=== PATIENT | male | born 1955 | race Caucasian/White ===

== ENCOUNTER 2018-10-07 14:14 | Inpatient (IN) | payer OTHER, MEDICARE ==
--- NOTE | 2018-10-07 15:27 | ED ---
ENT HPI - General Chief complaint: ENT Stated complaint: FB in ear Time Seen by Provider: 10/07/18 14:51 Source: patient Mode of arrival: ambulatory - History of Present Illness Initial comments: Patient is 62 oh male presents emergency Department with a foreign body in his right ear. Patient reports he was attempting to remove his over the ear hearing aid when the rubber to from the small piece that is lodged inside the ear canal. Patient reports that incident occurred yesterday and is now starting to develop pain. Patient denies tinnitus, nausea, vomiting, dizziness or lightheadedness. Patient denies discharge or bleeding from the ear. Patient denies taking any medication to alleviate the pain. Patient reports going to the [facility] for removal referred him to emergency department. - Related Data Home Medications Medication Instructions Recorded Confirmed Atorvastatin [Lipitor] 40 mg PO HS 10/07/18 10/07/18 Donepezil HCl [Aricept] 10 mg PO DAILY 10/07/18 10/07/18 INSULIN ASPART (NovoLOG) [NovoLOG 100 unit SQ AC-TID 10/07/18 10/07/18 (formulary)] Insulin Glargine [Lantus] 100 unit SQ BID 10/07/18 10/07/18 Lansoprazole 30 mg PO DAILY 10/07/18 10/07/18 Levothyroxine Sodium [Synthroid] 100 mcg PO DAILY 10/07/18 10/07/18 Lipase/Protease/Amylase [Creon Dr 24,000 units PO AC-TID 10/07/18 10/07/18 24,000 Units Capsule] Lisinopril [Zestril] 20 mg PO DAILY 10/07/18 10/07/18 Memantine [Namenda] 10 mg PO BID 10/07/18 10/07/18 Nystatin 100,000Unit/gm Cream 1 applic TOPICAL DAILY 10/07/18 10/07/18 [Mycostatin Cream] Oxybutynin Chloride 5 mg PO BID 10/07/18 10/07/18 Propranolol HCl 20 mg PO TID 10/07/18 10/07/18 QUEtiapine [SEROquel] 100 mg PO HS 10/07/18 10/07/18 Sertraline HCl [Zoloft] 100 mg PO DAILY 10/07/18 10/07/18 Tamsulosin HCl [Flomax] 0.4 mg PO DAILY 10/07/18 10/07/18 Trospium Chloride 20 mg PO DAILY 10/07/18 10/07/18 metFORMIN HCL 1,000 mg PO BID 10/07/18 10/07/18 Allergies Allergy/AdvReac Type Severity Reaction Status Date / Time Sulfa (Sulfonamide Allergy Swelling Verified 10/07/18 16:50 Antibiotics) Review of Systems ROS Statement: Those systems with pertinent positive or pertinent negative responses have been documented in the HPI. ROS Other: All systems not noted in ROS Statement are negative. Past Medical History Past Medical History: Diabetes Mellitus, Hyperlipidemia, Hypertension Additional Past Medical History / Comment(s): Hyperthyroidism, Pancreatitis History of Any Multi-Drug Resistant Organisms: MRSA MDRO Source:: 2018 Past Surgical History: Appendectomy, Cholecystectomy Additional Past Surgical History / Comment(s): Hernia repair Past Psychological History: No Psychological Hx Reported Smoking Status: Never smoker Past Alcohol Use History: None Reported Past Drug Use History: None Reported General Exam Limitations: no limitations General appearance: alert, in no apparent distress Head exam: Present: atraumatic, normocephalic, normal inspection Eye exam: Present: normal appearance, PERRL, EOMI Pupils: Present: normal accommodation ENT exam: Present: mucous membranes moist, TM's normal bilaterally. Absent: normal external ear exam (Foreign body in right external ear canal) Neck exam: Present: normal inspection, full ROM Respiratory exam: Present: normal lung sounds bilaterally Cardiovascular Exam: Present: normal rhythm, tachycardia, normal heart sounds Extremities exam: Present: normal inspection, full ROM Back exam: Present: normal inspection, full ROM Neurological exam: Present: alert, oriented X3 Psychiatric exam: Present: normal affect, normal mood Skin exam: Present: warm, intact, normal color Course Vital Signs 10/07/18 10/07/18 10/07/18 14:44 15:30 16:09 Temperature 98.1 F Pulse Rate 119 H 133 H 134 H Respiratory 18 18 18 Rate Blood Pressure 133/77 115/74 106/70 O2 Sat by Pulse 95 98 96 Oximetry 10/07/18 16:53 Temperature Pulse Rate 135 H Respiratory 18 Rate Blood Pressure 128/81 O2 Sat by Pulse 95 Oximetry Procedures - Foreign Body Removal Ear Location: ear canal (R) Foreign Body Suspected: plastic bead/other plastic If Insect Suspected: no insect seen Foreign Body Removed: yes Foreign Body Removal Technique: forceps Tympanic Membrane Intact: Yes Patient Tolerated Procedure: well Complications: none Medical Decision Making - Medical Decision Making Patient is a 62-year-old male presents emergency Department with a foreign body in the right ear. The plastic piece from the hearing aid was removed from her right ear using alligator forceps. Patient reports feeling much better after the procedure. Upon discharge the patient's heart rate was 135. EKG was obtained showing atrial flutter with 2:1 conduction. Patient reports no previous history of arrhythmias. Patient is on blood pressure medication. Patient denies lightheadedness, dizziness, chest pain, chest palpitation, chest tightness or shortness of breath. Patient reports that he otherwise feels fine at this point patient will be admitted for close monitoring. Patient will be started on a low intensity heparin and Cardizem. ACS protocol started. - Lab Data Result diagrams: 10/07/18 16:02 10/07/18 17:45 Lab Results 10/07/18 10/07/18 10/07/18 Range/Units 16:02 16:02 16:02 WBC 6.1 (3.8-10.6) k/uL RBC 4.69 (4.30-5.90) m/uL Hgb 14.8 (13.0-17.5) gm/dL Hct 44.9 (39.0-53.0) % MCV 95.7 (80.0-100.0) fL MCH 31.5 (25.0-35.0) pg MCHC 32.9 (31.0-37.0) g/dL RDW 13.4 (11.5-15.5) % Plt Count 161 (150-450) k/uL Neutrophils % 56 % Lymphocytes % 32 % Monocytes % 5 % Eosinophils % 5 % Basophils % 1 % Neutrophils # 3.4 (1.3-7.7) k/uL Lymphocytes # 1.9 (1.0-4.8) k/uL Monocytes # 0.3 (0-1.0) k/uL Eosinophils # 0.3 (0-0.7) k/uL Basophils # 0.1 (0-0.2) k/uL PT 10.8 (9.0-12.0) sec INR 1.0 (<1.2) APTT 24.5 (22.0-30.0) sec D-Dimer 1.09 H (<0.60) mg/L FEU Troponin I <0.012 (0.000-0.034) ng/mL Disposition Clinical Impression: Foreign body of ear, right, Atrial flutter Disposition: ADMITTED IP TO THIS HOSP Condition: Stable Is patient prescribed a controlled substance at d/c from ED?: No Time of Disposition: 15:26
[2018-10-07] MEDS ORDERED: DILTIAZEM 5 MG/ML 5 ML VIAL IVP STA ×2 (15:57→18:34)
[2018-10-07] MEDS ORDERED: HEPARIN SODIUM,PORCINE 5,000 UNIT/ML 1 ML VIAL IV ONE (16:09)
[2018-10-07] MEDS ORDERED: NITROGLYCERIN SL TABS 0.4 MG TAB SUBLINGUAL PRN (16:13)
[2018-10-07] MEDS ORDERED: HEPARIN SOD,PORK IN 0.45% NACL 25,000 UNIT in 0.45% NACL 1 250ML.BAG IV SCH (16:15)
[2018-10-07 16:17] LABS: Basophils # (A) 0.1 k/uL (0-0.2); Basophils % (A) 1 %; Eosinophils # (A) 0.3 k/uL (0-0.7); Eosinophils % (A) 5 %; HCT 44.9 % (39.0-53.0); HGB 14.8 gm/dL (13.0-17.5); Lymphocytes # (A) 1.9 k/uL (1.0-4.8); Lymphocytes % (A) 32 %; MCH 31.5 pg (25.0-35.0); MCHC 32.9 g/dL (31.0-37.0); MCV 95.7 fL (80.0-100.0); Mean Platelet Volume 7.1; Monocytes # (A) 0.3 k/uL (0-1.0); Monocytes % (A) 5 %; Neutrophils # (A) 3.4 k/uL (1.3-7.7); Neutrophils % (A) 56 %; Platelet Count 161 k/uL (150-450); RBC 4.69 m/uL (4.30-5.90); RDW 13.4 % (11.5-15.5); WBC 6.1 k/uL (3.8-10.6)
[2018-10-07 16:33] LABS: Partial Thromboplastin Time 24.5 sec (22.0-30.0); Prothrombin Time 10.8 sec (9.0-12.0)
[2018-10-07 16:54] LABS: D-Dimer 1.09 mg/L FEU (<0.60)
[2018-10-07] MEDS: DILTIAZEM 125 MG in SODIUM CHLORIDE 0.9% 100 ML IV SCH (16:54)
[2018-10-07] MEDS: SODIUM CHLORIDE 0.9% 1,000 ML IV SCH (17:05)
[2018-10-07 17:53] LABS: ALT 21 U/L (21-72); AST 34 U/L (17-59); African American GFR (CKD) >90 (>60 ml/min/1.73 sqM); Albumin 4.1 g/dL (3.5-5.0); Alkaline Phosphatase 76 U/L (38-126); Anion Gap 13 mmol/L; Blood Urea Nitrogen 25 mg/dL (9-20); Calcium 9.3 mg/dL (8.4-10.2); Carbon Dioxide 21 mmol/L (22-30); Chloride 102 mmol/L (98-107); Glucose 214 mg/dL (74-99); Potassium 4.6 mmol/L (3.5-5.1); Sodium 136 mmol/L (137-145); Total Bilirubin 0.8 mg/dL (0.2-1.3); Total Protein 7.6 g/dL (6.3-8.2)
[2018-10-07] MEDS ORDERED: DILTIAZEM DRIP BOLUS FROM BAG 1 MG SOLN IV ONE (18:34)
[2018-10-07] MEDS ORDERED: DILTIAZEM 5 MG/ML 5 ML VIAL IV STA (18:34)
--- NOTE | 2018-10-07 18:38 | CT ---
EXAMINATION TYPE: CT angio chest DATE OF EXAM: 10/07/2018 6:28 PM COMPARISON: None HISTORY: SOB CT DLP: 1019 mGycm Automated exposure control for dose reduction was used. CONTRAST: CTA scan of the thorax is performed with IV Contrast, patient injected with 100 mL of Isovue 370, pul monary embolism protocol. There are 3-D post processed images.. FINDINGS: The lungs are clear of consolidation. There is no pleural effusion. There is no evidence of a pulmona ry mass. There are a few mediastinal lymph nodes that measure up to 1 cm. Thoracic aorta is intact wi thout evidence of aneurysm or dissection. There are no hilar masses. There is normal contrast opacifi cation of the pulmonary arteries. There are no filling defects. There is spurring in the thoracic spine. I see no bony destructive process. Upper abdominal soft tiss ues are unremarkable. IMPRESSION: NO EVIDENCE OF PULMONARY EMBOLISM. NO EVIDENCE OF ACTIVE CARDIOPULMONARY DISEASE.
[2018-10-07 20:36] LABS: Glucose,Whole Blood 111 mg/dL (75-99)
[2018-10-07] MEDS: METOPROLOL TARTRATE 25 MG TAB PO SCH (21:21)
[2018-10-07 21:40] VITALS: BMI 45.1
[2018-10-07] MEDS: HEPARIN SODIUM,PORCINE 5,000 UNIT/ML 1 ML VIAL IV PRN (23:20)
[2018-10-08] MEDS: SODIUM CHLORIDE 0.9% 1,000 ML IV SCH ×2 (04:54→16:26)
[2018-10-08] MEDS: DILTIAZEM 125 MG in SODIUM CHLORIDE 0.9% 100 ML IV SCH ×2 (04:56→16:24)
[2018-10-08 06:54] LABS: Glucose,Whole Blood 157 mg/dL (75-99)
[2018-10-08] MEDS: METOPROLOL TARTRATE 25 MG TAB PO SCH (07:00)
[2018-10-08] MEDS: LIPASE 5,000/PROTEASE 17,000/AMYLASE 24,000 PO SCH ×3 (07:00→17:43)
[2018-10-08] MEDS: LEVOTHYROXINE 100 MCG TAB PO SCH (07:01)
[2018-10-08] MEDS: INSULIN ASPART (NovoLOG) 100 UNIT/ML VIAL SQ SCH ×3 (07:01→17:44)
[2018-10-08] MEDS: PANTOPRAZOLE 40 MG TABLET PO SCH (07:01)
[2018-10-08 07:19] LABS: Basophils # (A) 0.1 k/uL (0-0.2); Basophils % (A) 1 %; Eosinophils # (A) 0.3 k/uL (0-0.7); Eosinophils % (A) 5 %; HCT 43.3 % (39.0-53.0); HGB 14.3 gm/dL (13.0-17.5); Lymphocytes # (A) 1.9 k/uL (1.0-4.8); Lymphocytes % (A) 36 %; MCH 31.6 pg (25.0-35.0); MCV 95.9 fL (80.0-100.0); Mean Platelet Volume 7.4; Monocytes # (A) 0.3 k/uL (0-1.0); Monocytes % (A) 5 %; Neutrophils # (A) 2.9 k/uL (1.3-7.7); Neutrophils % (A) 52 %; Platelet Count 153 k/uL (150-450); RBC 4.51 m/uL (4.30-5.90); RDW 14.5 % (11.5-15.5); WBC 5.5 k/uL (3.8-10.6)
[2018-10-08 07:36] LABS: Cholesterol 180 mg/dL (<200); HDL Cholesterol 36 mg/dL (40-60); LDL Cholesterol,Calculated 71 mg/dL (0-99); Triglycerides 364 mg/dL (<150)
[2018-10-08] MEDS ORDERED: ASPIRIN 325 MG TAB PO SCH (09:00)
[2018-10-08] MEDS ORDERED: LISINOPRIL 20 MG TAB PO SCH (09:00)
[2018-10-08] MEDS: ATORVASTATIN 80 MG TAB PO SCH (09:26)
[2018-10-08] MEDS: OXYBUTYNIN CHLORIDE 5 MG TAB PO SCH ×2 (09:27→21:09)
[2018-10-08] MEDS: metFORMIN 500 MG TAB PO SCH ×2 (09:27→21:09)
[2018-10-08] MEDS: DONEPEZIL 10 MG TAB PO SCH (09:27)
[2018-10-08] MEDS: MEMANTINE 10 MG TAB PO SCH ×2 (09:27→21:09)
[2018-10-08] MEDS: INSULIN DETEMIR (LEVEMIR) 100 UNIT/ML SYR SQ SCH ×2 (09:28→21:08)
[2018-10-08] MEDS: HEPARIN SODIUM,PORCINE 5,000 UNIT/ML 1 ML VIAL IV PRN (09:31)
--- NOTE | 2018-10-08 10:03 | P.CRDCN ---
History of Present Illness Consult date: 10/08/18 Requesting physician: Joshua Thompson Reason for Consult (text): new afib Chief complaint: foreign body right ear History of present illness: This is a pleasant 62-year-old gentleman with past medical history significant for hypertension, hyperlipidemia, diabetes, hepatitis, recurrent pancreatitis, sleep apnea for which he uses a CPAP regularly, and dementia diagnosed about 2 years ago. Presented to the emergency department with complaints of having a rubber piece from his hearing aid stuck in his ear. He was incidentally found to be tachycardic and EKG showed atrial flutter with 2:[address] of the chest with some additional evidence for PE. Labs on admission show sodium 136, potassium 4.6, BUN 25, creatinine 0.89 and troponin is negative 1. He was initiated on IV heparin and IV Cardizem and his heart rate remains high in the 130s. Upon examination, patient is resting comfortably in bed. He denies current complaints at this time. Upon questioning, patient does admit to having worsening dyspnea on exertion with some episodes of orthopnea and dizziness over the last couple of weeks. He denies any chest discomfort, palpitations, PND or edema. IV Cardizem is currently running at 10 mg an hour and he has been started on metoprolol tartrate 25 mg by mouth twice a day. 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 History of Any Multi-Drug Resistant Organisms: MRSA Date of last positivie culture/infection: 2018 MDRO Source:: belly button Past Surgical History: Appendectomy, Cholecystectomy Additional Past Surgical History / Comment(s): Hernia repair. Past Anesthesia/Blood Transfusion Reactions: No Reported Reaction Past Psychological History: No Psychological Hx Reported Smoking Status: Never smoker Past Alcohol Use History: None Reported Past Drug Use History: None Reported Medications and Allergies Home Medications Medication Instructions Recorded Confirmed Type Atorvastatin [Lipitor] 40 mg PO HS 10/07/18 10/07/18 History Donepezil HCl [Aricept] 10 mg PO DAILY 10/07/18 10/07/18 History INSULIN ASPART (NovoLOG) [NovoLOG 100 unit SQ AC-TID 10/07/18 10/07/18 History (formulary)] Insulin Glargine [Lantus] 100 unit SQ BID 10/07/18 10/07/18 History Lansoprazole 30 mg PO DAILY 10/07/18 10/07/18 History Levothyroxine Sodium [Synthroid] 100 mcg PO DAILY 10/07/18 10/07/18 History Lipase/Protease/Amylase [Creon Dr 24,000 units PO AC-TID 10/07/18 10/07/18 History 24,000 Units Capsule] Lisinopril [Zestril] 20 mg PO DAILY 10/07/18 10/07/18 History Memantine [Namenda] 10 mg PO BID 10/07/18 10/07/18 History Nystatin 100,000Unit/gm Cream 1 applic TOPICAL DAILY 10/07/18 10/07/18 History [Mycostatin Cream] Oxybutynin Chloride 5 mg PO BID 10/07/18 10/07/18 History Propranolol HCl 20 mg PO TID 10/07/18 10/07/18 History QUEtiapine [SEROquel] 100 mg PO HS 10/07/18 10/07/18 History Sertraline HCl [Zoloft] 100 mg PO DAILY 10/07/18 10/07/18 History Tamsulosin HCl [Flomax] 0.4 mg PO DAILY 10/07/18 10/07/18 History Trospium Chloride 20 mg PO DAILY 10/07/18 10/07/18 History metFORMIN HCL 1,000 mg PO BID 10/07/18 10/07/18 History Allergies Allergy/AdvReac Type Severity Reaction Status Date / Time Sulfa (Sulfonamide Allergy Swelling Verified 10/07/18 16:50 Antibiotics) Physical Exam Vitals: Vital Signs Temp Pulse Pulse Resp BP BP Pulse Ox 10/08/18 04:00 129 H 16 101/58 97 10/08/18 00:00 131 H 16 92/54 95 10/07/18 20:00 98.3 F 130 H 16 143/73 96 10/07/18 18:32 97.6 F 133 H 18 122/78 96 10/07/18 18:28 98.3 F 130 H 16 143/73 96 10/07/18 18:00 135 H 10/07/18 16:53 135 H 18 128/81 95 10/07/18 16:13 96 10/07/18 16:09 134 H 18 106/70 96 10/07/18 15:30 133 H 18 115/74 98 10/07/18 14:44 98.1 F 119 H 18 133/77 95 Intake and Output 10/07/18 10/08/18 10/08/18 22:59 06:59 14:59 Intake Total 8.417 165.872 380.99 Balance 8.417 165.872 380.99 Intake: Intake, IV Titration 8.417 165.872 148.99 Amount Diltiazem 125 mg In 8.417 103.5 Sodium Chloride 0.9% 100 ml @ 5 MG/HR 5 mls/hr IV .Q24H JOE Rx#:[id number] Heparin Sod,Pork in 0.45% 62.372 148.99 NaCl 25,000 unit In 0.45 % NaCl 1 250ml.bag @ 6.55 UNITS/KG/HR 9.953 mls/hr IV .Q24H JOE Rx#: [id number] Oral 232 Other: Voiding Method Toilet # Voids 2 1 Weight 162.8 kg PHYSICAL EXAMINATION: HEENT: Head is atraumatic, normocephalic. Pupils equal, round. Neck is supple. There is no elevated jugular venous pressure. No carotid bruit. HEART EXAMINATION: Heart sounds regular, S1 and S2 normal. No murmur or gallop heard. Tachycardia noted. CHEST EXAMINATION: Lungs are clear to auscultation. No chest wall tenderness is noted on palpation or with deep breathing. ABDOMEN: Soft, obese, nontender. Bowel sounds are heard. No organomegaly noted. EXTREMITIES: 2+ peripheral pulses with evidence of trace peripheral edema and no calf tenderness noted. NEUROLOGIC patient is awake, alert and oriented x3. . Results 10/08/18 06:41 10/07/18 17:45 Cardiac Enzymes 10/07/18 10/07/18 10/07/18 Range/Units 16:02 17:45 22:06 AST 34 (17-59) U/L Troponin I <0.012 <0.012 (0.000-0.034) ng/mL Coagulation 10/07/18 10/07/18 10/08/18 Range/Units 16:02 22:06 06:41 PT 10.8 (9.0-12.0) sec APTT 24.5 27.0 32.7 H (22.0-30.0) sec Lipids 10/08/18 Range/Units 06:41 Triglycerides 364 H (<150) mg/dL Cholesterol 180 (<200) mg/dL HDL Cholesterol 36 L (40-60) mg/dL CBC 10/07/18 10/08/18 Range/Units 16:02 06:41 WBC 6.1 5.5 (3.8-10.6) k/uL RBC 4.69 4.51 (4.30-5.90) m/uL Hgb 14.8 14.3 (13.0-17.5) gm/dL Hct 44.9 43.3 (39.0-53.0) % Plt Count 161 153 (150-450) k/uL Comprehensive Metabolic Panel 10/07/18 Range/Units 17:45 Sodium 136 L (137-145) mmol/L Potassium 4.6 (3.5-5.1) mmol/L Chloride 102 (98-107) mmol/L Carbon Dioxide 21 L (22-30) mmol/L BUN 25 H (9-20) mg/dL Creatinine 0.89 (0.66-1.25) mg/dL Glucose 214 H (74-99) mg/dL Calcium 9.3 (8.4-10.2) mg/dL AST 34 (17-59) U/L ALT 21 (21-72) U/L Alkaline Phosphatase 76 (38-126) U/L Total Protein 7.6 (6.3-8.2) g/dL Albumin 4.1 (3.5-5.0) g/dL Current Medications Generic Name Dose Route Start Last Admin Trade Name Freq PRN Reason Stop Dose Admin Lipase/Protease/Amylase 4 each 10/08/18 07:30 10/08/18 07:00 Cathy Garvin 5,000 Unit Capsule PO 4 each AC-TID JOE Administration Aspirin 81 mg 10/09/18 09:00 Aspirin PO DAILY JOE Atorvastatin Calcium 80 mg 10/08/18 09:00 10/08/18 09:26 Lipitor PO 80 mg DAILY JOE Administration Donepezil HCl 10 mg 10/08/18 09:00 10/08/18 09:27 Aricept PO 10 mg DAILY JOE Administration Diltiazem HCl 125 mg/ Sodium 125 mls @ 5 mls/hr 10/07/18 16:15 10/08/18 04:56 Chloride IV 10 mg/hr .Q24H JOE 10 mls/hr Administration 5 MG/HR Sodium Chloride 1,000 mls @ 100 mls/hr 10/07/18 17:00 10/08/18 04:54 Saline 0.9% IV Not Given .Q10H JOE Insulin Aspart 40 unit 10/08/18 07:30 10/08/18 07:01 Novolog SQ 40 unit AC-TID JOE Administration Insulin Detemir 100 unit 10/08/18 09:00 10/08/18 09:28 Levemir SQ 100 unit BID JOE Administration Levothyroxine Sodium 100 mcg 10/08/18 07:30 10/08/18 07:01 Synthroid PO 100 mcg DAILY@0730 JOE Administration Lisinopril 20 mg 10/08/18 09:00 10/08/18 09:27 Zestril PO 20 mg DAILY JOE Administration Memantine 10 mg 10/08/18 09:00 10/08/18 09:27 Namenda PO 10 mg BID JOE Administration Metformin HCl 1,000 mg 10/08/18 09:00 10/08/18 09:27 Glucophage PO 1,000 mg BID [facility] Administration Metoprolol Tartrate 25 mg 10/07/18 21:00 10/08/18 07:00 Lopressor PO 25 mg BID JOE Administration Nitroglycerin 0.4 mg 10/07/18 16:13 Nitrostat SUBLINGUAL Q5M PRN Chest Pain Oxybutynin Chloride 5 mg 10/08/18 09:00 10/08/18 09:27 Ditropan PO 5 mg BID JOE Administration Pantoprazole Sodium 40 mg 10/08/18 07:30 10/08/18 07:01 Protonix PO 40 mg DAILY@0730 [facility] Administration Quetiapine Fumarate 100 mg 10/08/18 21:00 Seroquel PO HS [facility] Intake and Output 10/07/18 10/08/18 10/08/18 22:59 06:59 14:59 Intake Total 8.417 165.872 380.99 Balance 8.417 165.872 380.99 Intake: Intake, IV Titration 8.417 165.872 148.99 Amount Diltiazem 125 mg In 8.417 103.5 Sodium Chloride 0.9% 100 ml @ 5 MG/HR 5 mls/hr IV .Q24H JOE Rx#:[id number] Heparin Sod,Pork in 0.45% 62.372 148.99 NaCl 25,000 unit In 0.45 % NaCl 1 250ml.bag @ 6.55 UNITS/KG/HR 9.953 mls/hr IV .Q24H JOE Rx#: [id number] Oral 232 Other: Voiding Method Toilet # Voids 2 1 Weight 162.8 kg 10/08/18 06:41 10/07/18 17:45 EKG Interpretations (text) Atrial flutter with 2:1 conduction Assessment and Plan Assessment: #1 atrial flutter with RVR, 2:1 conduction, unknown duration #2 hypertension #3 diabetes mellitus #4 hyperlipidemia #5 obesity #6 obstructive sleep apnea #7 dementia Plan: From cardiology perspective, we will decrease lisinopril and increased dose of beta mary. We will switch the patient to oral anticoagulation with Eliquis 5 mg by mouth twice a day. We will obtain a TSH with reflex T4. We will obtain a 2-D echo with Doppler to assess LV systolic function. If patient remains tachycardic we may consider PAULINA guided cardioversion. Patient will also require further workup to rule out ischemia. Further recommendations to follow. COPRA SAMPLER note has been reviewed, I agree with a documented findings and plan of care. Patient was seen and examined.
[2018-10-08] MEDS: METOPROLOL TARTRATE 50 MG TAB PO SCH ×2 (12:06→21:09)
[2018-10-08] MEDS: APIXABAN 5 MG TAB PO SCH ×2 (12:06→21:09)
[2018-10-08 12:07] LABS: Glucose,Whole Blood 124 mg/dL (75-99)
[2018-10-08 12:11] LABS: T4, Free (Free Thyroxine) 1.47 ng/dL (0.78-2.19)
--- NOTE | 2018-10-08 12:59 | P.HPIM ---
History of Present Illness Chief Complaint: Tachycardia This is a very pleasant 62-year-old gentleman with a past medical history of hypertension, hyperlipidemia, diabetes, recurrent hepatitis, history of sleep apnea on CPAP comes to the ER for above-mentioned complaints. The patient initially came in for that of a piece of his hearing aid stuck in his right ear. He was incidentally found to be tachycardic. EKG was done which showed that he is in atrial flutter with 2 is 21 conduction. Patient otherwise was not complaining of any chest pain or racing heart he says that he is feeling short of breath more than normal. The patient otherwise does not complain of any abdominal pain, nausea and vomiting, no diarrhea constipation, no tingling numbness on his extremities, and additional rest. The patient was thus admitted to the hospitalist service for further management ER course-EKG showed a flutter with [place] block. Patient's vitals showed tachycardia. Labwork shows sodium 136 potassium 4.6 bun 25 creatinine 0.89 troponins were negative. Patient was started on heparin and Cardizem drip and admitted to the hospitalist service. 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 History of Any Multi-Drug Resistant Organisms: MRSA Date of last positivie culture/infection: 2017 MDRO Source:: belly button Past Surgical History: Appendectomy, Cholecystectomy Additional Past Surgical History / Comment(s): Hernia repair. Past Anesthesia/Blood Transfusion Reactions: No Reported Reaction Past Psychological History: No Psychological Hx Reported Smoking Status: Never smoker Past Alcohol Use History: None Reported Past Drug Use History: None Reported Medications and Allergies Home Medications Medication Instructions Recorded Confirmed Type Atorvastatin [Lipitor] 40 mg PO HS 10/07/18 10/07/18 History Donepezil HCl [Aricept] 10 mg PO DAILY 10/07/18 10/07/18 History INSULIN ASPART (NovoLOG) [NovoLOG 100 unit SQ AC-TID 10/07/18 10/07/18 History (formulary)] Insulin Glargine [Lantus] 100 unit SQ BID 10/07/18 10/07/18 History Lansoprazole 30 mg PO DAILY 10/07/18 10/07/18 History Levothyroxine Sodium [Synthroid] 100 mcg PO DAILY 10/07/18 10/07/18 History Lipase/Protease/Amylase [Asha Garvin 24,000 units PO AC-TID 10/07/18 10/07/18 His tory 24,000 Units Capsule] Lisinopril [Zestril] 20 mg PO DAILY 10/07/18 10/07/18 History Memantine [Namenda] 10 mg PO BID 10/07/18 10/07/18 History Nystatin 100,000Unit/gm Cream 1 applic TOPICAL DAILY 10/07/18 10/07/18 History [Mycostatin Cream] Oxybutynin Chloride 5 mg PO BID 10/07/18 10/07/18 History Propranolol HCl 20 mg PO TID 10/07/18 10/07/18 History QUEtiapine [SEROquel] 100 mg PO HS 10/07/18 10/07/18 History Sertraline HCl [Zoloft] 100 mg PO DAILY 10/07/18 10/07/18 History Tamsulosin HCl [Flomax] 0.4 mg PO DAILY 10/07/18 10/07/18 History Trospium Chloride 20 mg PO DAILY 10/07/18 10/07/18 History metFORMIN HCL 1,000 mg PO BID 10/07/18 10/07/18 History Allergies Allergy/AdvReac Type Severity Reaction Status Date / Time Sulfa (Sulfonamide Allergy Swelling Verified 10/07/18 16:50 Antibiotics) Physical Exam Vitals: Vital Signs Temp Pulse Pulse Resp BP BP Pulse Ox 10/08/18 09:25 134 H 16 102/51 97 10/08/18 04:00 129 H 16 101/58 97 10/08/18 00:00 131 H 16 92/54 95 10/07/18 20:00 98.3 F 130 H 16 143/73 96 10/07/18 18:32 97.6 F 133 H 18 122/78 96 10/07/18 18:28 98.3 F 130 H 16 143/73 96 10/07/18 18:00 135 H 10/07/18 16:53 135 H 18 128/81 95 07/05/19 16:13 96 10/07/18 16:09 134 H 18 106/70 96 10/07/18 15:30 133 H 18 115/74 98 10/07/18 14:44 98.1 F 119 H 18 133/77 95 Intake and Output 10/07/18 10/08/18 10/08/18 22:59 06:59 14:59 Intake Total 8.417 165.872 380.99 Balance 8.417 165.872 380.99 Intake: Intake, IV Titration 8.417 165.872 148.99 Amount Diltiazem 125 mg In 8.417 103.5 Sodium Chloride 0.9% 100 ml @ 5 MG/HR 5 mls/hr IV .Q24H JOE Rx#:[id number] Heparin Sod,Pork in 0.45% 62.372 148.99 NaCl 25,000 unit In 0.45 % NaCl 1 250ml.bag @ 6.55 UNITS/KG/HR 9.953 mls/hr IV .Q24H JOE Rx#: [id number] Oral 232 Other: Voiding Method Toilet Toilet # Voids 2 1 Weight 162.8 kg On exam, alert and oriented x3. HEENT: Conjunctivae normal. eyes normal. NECK: No JVD. No thyroid enlargement. No LNs CARDIOVASCULAR: S1-S2 positive, tachycardic RESPIRATION: Breath sounds heard equally, no rhonchi no rales no wheezing ABDOMEN: Soft, nontender . No guarding. no masses palpable. No ascites, No hepatosplenomegaly.Bowel sounds heard. LEGS: No edema. no swelling NERVOUS SYSTEM: Cranial N 2-12 grossly normal. Moves all 4 limbs. No focal deficits. No sensory deficit. No signs of cerebellar dysfucntion. Skin: no ulcer no rash Joints: No active swelling. No inflammation. Lymphatic system. No LN neck axilla or groin. Results CBC & Chem 7: 10/08/18 06:41 10/07/18 17:45 Labs: Abnormal Lab Results - Last 24 Hours (Table) 10/07/18 10/07/18 10/07/18 Range/Units 16:02 17:45 20:35 APTT (22.0-30.0) sec D-Dimer 1.09 H (<0.60) mg/L FEU Sodium 136 L (137-145) mmol/L Carbon Dioxide 21 L (22-30) mmol/L BUN 25 H (9-20) mg/dL Glucose 214 H (74-99) mg/dL POC Glucose (mg/dL) 111 H (75-99) mg/dL Triglycerides (<150) mg/dL HDL Cholesterol (40-60) mg/dL TSH (0.465-4.680) mIU/L 10/08/18 10/08/18 10/08/18 Range/Units 06:41 06:41 06:41 APTT 32.7 H (22.0-30.0) sec D-Dimer (<0.60) mg/L FEU Sodium (137-145) mmol/L Carbon Dioxide (22-30) mmol/L BUN (9-20) mg/dL Glucose (74-99) mg/dL POC Glucose (mg/dL) (75-99) mg/dL Triglycerides 364 H (<150) mg/dL HDL Cholesterol 36 L (40-60) mg/dL TSH 5.080 H (0.465-4.680) mIU/L 10/08/18 10/08/18 Range/Units 06:52 12:06 APTT (22.0-30.0) sec D-Dimer (<0.60) mg/L FEU Sodium (137-145) mmol/L Carbon Dioxide (22-30) mmol/L BUN (9-20) mg/dL Glucose (74-99) mg/dL POC Glucose (mg/dL) 157 H 124 H (75-99) mg/dL Triglycerides (<150) mg/dL HDL Cholesterol (40-60) mg/dL TSH (0.465-4.680) mIU/L Thrombosis Risk Factor Assmnt - Choose All That Apply Any of the Below Risk Factors Present?: Yes Each Factor Represents 1 point: Age 41-60 years, Obesity (BMI >25) Other Risk Factors: No Other congenital or acquired thrombophilia - If yes, enter type in comment: No Thrombosis Risk Factor Assessment Total Risk Factor Score: 2 Thrombosis Risk Factor Assessment Level: Low Risk Assessment and Plan Assessment: - Atrial flutter with RVR - Hypertension - Hyperlipidemia - Diabetes - Obesity - RENZO on CPAP Plan - We will admit the patient to stepdown with telemetry - Continue heparin and Cardizem - Patient started on beta mary - Cardiology on board, pressure the recommendations - Patient will get a echocardiogram - DVT and GI prophylaxis - We'll order for lab work in the morning - Expected length of stay more than 2 midnights - Patient is full code
[2018-10-08] MEDS ORDERED: ACETAMINOPHEN TAB 325 MG TAB PO PRN (16:13)
[2018-10-08 16:46] LABS: Glucose,Whole Blood 99 mg/dL (75-99)
[2018-10-08 20:34] LABS: Glucose,Whole Blood 109 mg/dL (75-99)
[2018-10-08] MEDS: QUEtiapine 100 MG TAB PO SCH (21:09)
[2018-10-09] MEDS: SODIUM CHLORIDE 0.9% 1,000 ML IV SCH ×3 (05:27→20:28)
[2018-10-09] MEDS: LIPASE 5,000/PROTEASE 17,000/AMYLASE 24,000 PO SCH ×4 (06:25→17:21)
[2018-10-09] MEDS: LEVOTHYROXINE 100 MCG TAB PO SCH ×2 (06:25→06:50)
[2018-10-09] MEDS: INSULIN ASPART (NovoLOG) 100 UNIT/ML VIAL SQ SCH ×4 (06:25→17:20)
[2018-10-09] MEDS: PANTOPRAZOLE 40 MG TABLET PO SCH ×2 (06:25→06:50)
[2018-10-09 06:39] LABS: Glucose,Whole Blood 124 mg/dL (75-99)
--- NOTE | 2018-10-09 06:47 | ECHOF ---
Referral Reason:atrial flutter MEASUREMENTS -------- HEIGHT: 190.5 cm WEIGHT: 162.4 kg BP: RVIDd: 4.1 cm (< 3.3) IVSd: 1.4 cm (0.6 - 1.1) LVIDd: 5.2 cm (3.9 - 5.3) LVPWd: 1.9 cm (0.6 - 1.1) IVSs: 1.5 cm LVIDs: 4.1 cm LVPWs: 2.1 cm LAESV Index (A-L): 21.85 ml/m Ao Diam: 3.4 cm (2.0 - 3.7) AV Cusp: 2.0 cm (1.5 - 2.6) LA Diam: 5.2 cm (2.7 - 3.8) MV EXCURSION: 17.722 mm (> 18.000) MV EF SLOPE: 117 mm/s (70 - 150) EPSS: 1.8 cm FINDINGS -------- The rhythm appears to be atrial flutter. This was a technically difficult study with suboptimal views. There is moderate concentric left ventricular hypertrophy. There is moderate global hypokinesis of LV . Overall left ventricular systolic function is mild-moderately impaired with, an EF between 40 - 45 %. Left ventricular fillimg pressure cannot be estimated due to Atrial fibrillation. The right ventricle is severely enlarged. Normal LA size by volume 22+/-6 ml/m2. The right atrium was not well visualized. Lumason used Interatrial and interventricular septum intact. There is mild aortic valve sclerosis. There is no evidence of aortic regurgitation. There is no e vidence of aortic stenosis. Mild mitral annular calcification present. There is trace mitral regurgitation. Mild tricuspid regurgitation present. Unable to estimate RVSP due to inadequate TR jet spectral dop pler profile. The pulmonic valve was not well visualized. There is no pulmonic regurgitation present. The aortic root size is normal. IVC Not well visulized. There is no pericardial effusion. CONCLUSIONS -------- 1. The rhythm appears to be atrial flutter. 2. This was a technically difficult study with suboptimal views. 3. There is moderate concentric left ventricular hypertrophy. 4. There is moderate global hypokinesis of LV . 5. Overall left ventricular systolic function is mild-moderately impaired with, an EF between 40 - 45 %. 6. Left ventricular fillimg pressure cannot be estimated due to Atrial fibrillation. 7. The right ventricle is severely enlarged. 8. Normal LA size by volume 22+/-6 ml/m2. 9. The right atrium was not well visualized. 10. Lumason used 11. There is mild aortic valve sclerosis. 12. Mild mitral annular calcification present. 13. There is trace mitral regurgitation. 14. Mild tricuspid regurgitation present. 15. Unable to estimate RVSP due to inadequate TR jet spectral doppler profile. 16. There is no pulmonic regurgitation present. 17. The aortic root size is normal. 18. IVC Not well visulized. 19. There is no pericardial effusion. TECHNICAL COMMUNICATION TEACHER: Steff Santos RDCS
[2018-10-09 06:56] LABS: Basophils % (A) 0 %; Eosinophils # (A) 0.2 k/uL (0-0.7); Eosinophils % (A) 4 %; HCT 42.5 % (39.0-53.0); HGB 13.9 gm/dL (13.0-17.5); Lymphocytes # (A) 1.6 k/uL (1.0-4.8); Lymphocytes % (A) 30 %; MCH 31.9 pg (25.0-35.0); MCHC 32.8 g/dL (31.0-37.0); MCV 97.3 fL (80.0-100.0); Mean Platelet Volume 7.2; Monocytes # (A) 0.3 k/uL (0-1.0); Monocytes % (A) 5 %; Neutrophils % (A) 58 %; Platelet Count 147 k/uL (150-450); RBC 4.36 m/uL (4.30-5.90); RDW 13.3 % (11.5-15.5); WBC 5.3 k/uL (3.8-10.6)
[2018-10-09 07:18] LABS: African American GFR (CKD) >90 (>60 ml/min/1.73 sqM); Anion Gap 9 mmol/L; Blood Urea Nitrogen 18 mg/dL (9-20); Calcium 8.9 mg/dL (8.4-10.2); Carbon Dioxide 25 mmol/L (22-30); Chloride 105 mmol/L (98-107); Glucose 123 mg/dL (74-99); Potassium 4.1 mmol/L (3.5-5.1); Sodium 139 mmol/L (137-145)
--- NOTE | 2018-10-09 08:12 | PN ---
PROGRESS NOTE Mr. Castellon is a 62-year-old male who presented because of a problem with his hearing aid, was found to be in atrial flutter with rapid ventricular response. He continued be in atrial flutter with persistent rapid ventricular response. He has no chest discomfort. He has mild dyspnea. He denies any dizziness. He is not aware of the arrhythmia. He has no chest discomfort. No peripheral edema. No nausea. He continued be on IV Cardizem, Eliquis 5 mg twice a day, aspirin 81 mg daily, Lipitor 80 mg daily, metoprolol tartrate 50 mg twice a day, lisinopril 5 mg daily, insulin, and metformin 1 gram twice a day. PHYSICAL EXAMINATION: Blood pressure running in the 90s with a heart rate in the 120s to 130s. LUNGS: Clear. HEART: Tachycardic S1, S2. No S3. No rub. ABDOMEN: Soft, obese, nontender. EXTREMITIES: No significant edema. LAB DATA: Lab data revealed BUN and creatinine of 18 and 0.89, potassium 4.1, hemoglobin 13.9. IMPRESSION: 1. Persistent atrial flutter with rapid ventricular response. 2. History of hypertension. 3. History of hyperlipidemia. 4. Diabetes mellitus. 5. Obesity. 6. Mild cardiomyopathy by echocardiography. RECOMMENDATIONS: I have recommended proceeding with PAULINA guided cardioversion because of the persistent arrhythmia. The rationale behind the procedure as well as risks and complications were discussed with the patient who is in full understanding and agreement. Depending on his progress, further recommendations will be made. MMEMELYL / IJN: [id number] /
[2018-10-09] MEDS ORDERED: ASPIRIN 81 MG PO SCH (09:00)
[2018-10-09] MEDS ORDERED: SODIUM CHLORIDE 0.9% 1,000 ML IV ONE (11:11)
[2018-10-09] MEDS ORDERED: PHENYLEPHRINE-0.9% NACL SYG 1 MG/10 ML SYRINGE ONE (11:44)
[2018-10-09] MEDS ORDERED: PROPOFOL 10 MG/ML 20 ML VIAL IV ONE (11:44)
[2018-10-09] MEDS ORDERED: BENZOCAINE SPRAY 1 CAN MUCOUS MEM ONE (11:50)
[2018-10-09] MEDS ORDERED: SODIUM CHLORIDE 0.9% 1,000 ML IV SCH (12:00)
--- NOTE | 2018-10-09 12:23 | ECHOT ---
TRANSESOPHAGEAL ECHOCARDIOGRAM TRANSESOPHAGEAL ECHOCARDIOGRAM: INDICATION: Evaluation of left atrial appendage. PROCEDURE: After explaining the procedure to the patient, its risks and the complications, his blood pressure, heart rate, O2 saturation was monitored. The throat was sprayed with Cetacaine. He received sedation per Anesthesia Department. The probe was introduced into the esophagus without difficulties. Images were obtained. Following the probe was removed. There was no immediate complication. FINDINGS: Left atrial size is dilated. Left atrial appendage is normal. Left ventricle size is normal. There is evidence of mild to moderate global hypokinesis, estimated ejection fraction 45% with global hypokinesis. The aortic valve revealed fibrocalcific change with aortic cusp with preserved opening, mild thickening of the mitral valve leaflets was noted. The tricuspid valve appears to be normal. Descending thoracic aorta appears to be normal. Contrast bubble study revealed no evidence of shunting across the interatrial septum. No pericardial effusion was noted. Doppler pulse wave and color Doppler were obtained and revealed mild mitral and tricuspid regurgitation. There was no shunting by color Doppler study. CONCLUSION: 1. Dilated left atrium with normal appearance of left atrial appendage. 2. Normal left ventricle size with [id number] global hypokinesis. 3. Mild mitral and tricuspid regurgitation. 4. No shunting across the interatrial septum. 5. Normal appearance of the descending thoracic aorta. MMODL / IJN: [id number] /
--- NOTE | 2018-10-09 12:31 | CE ---
CARDIAC ELECTROPHYSIOLOGY REPORT CARDIOVERSION: INDICATION: Atrial flutter. DESCRIPTION OF PROCEDURE: After explaining the procedure to the patient as well as the risks and complications, after performing transesophageal echocardiogram and obtaining sedated state, a synchronized biphasic cardioversion using 200 joules was performed with presybeterian of normal sinus rhythm. There was no immediate complication. MENDEZ / CAROLINE: [id number] /
[2018-10-09] MEDS: INSULIN DETEMIR (LEVEMIR) 100 UNIT/ML SYR SQ SCH ×2 (15:07→20:53)
[2018-10-09] MEDS: metFORMIN 500 MG TAB PO SCH ×2 (15:08→20:54)
[2018-10-09] MEDS: MEMANTINE 10 MG TAB PO SCH ×2 (15:08→20:54)
[2018-10-09 15:22] VITALS: RESP 16
[2018-10-09] MEDS: OXYBUTYNIN CHLORIDE 5 MG TAB PO SCH ×2 (16:08→20:54)
[2018-10-09] MEDS: ATORVASTATIN 80 MG TAB PO SCH (16:09)
[2018-10-09] MEDS: APIXABAN 5 MG TAB PO SCH ×2 (16:14→20:53)
[2018-10-09] MEDS: LISINOPRIL 5 MG TAB PO SCH (16:14)
[2018-10-09] MEDS: DONEPEZIL 10 MG TAB PO SCH (16:14)
[2018-10-09] MEDS: METOPROLOL TARTRATE 50 MG TAB PO SCH ×2 (16:14→20:53)
[2018-10-09 16:54] LABS: Glucose,Whole Blood 187 mg/dL (75-99)
[2018-10-09 20:38] LABS: Glucose,Whole Blood 106 mg/dL (75-99)
[2018-10-09] MEDS: QUEtiapine 100 MG TAB PO SCH (20:54)
[2018-10-09] MEDS ORDERED: ATORVASTATIN 80 MG TAB PO SCH (21:00)
--- NOTE | 2018-10-09 21:00 | P.PN ---
Progress Note - Text PT OFF OF THE FLLOW FOR PAULINA WITH CARDIOVERSION , WAS NOT ABLE TO SEE HIM.
[2018-10-10] MEDS: SODIUM CHLORIDE 0.9% 1,000 ML IV SCH (04:08)
[2018-10-10 06:38] LABS: Glucose,Whole Blood 143 mg/dL (75-99)
[2018-10-10] MEDS: LEVOTHYROXINE 100 MCG TAB PO SCH (07:13)
[2018-10-10] MEDS: LIPASE 5,000/PROTEASE 17,000/AMYLASE 24,000 PO SCH (07:13)
[2018-10-10] MEDS: PANTOPRAZOLE 40 MG TABLET PO SCH (07:13)
[2018-10-10] MEDS: INSULIN ASPART (NovoLOG) 100 UNIT/ML VIAL SQ SCH (08:13)
[2018-10-10 08:16] LABS: Basophils % (A) 1 %; Eosinophils # (A) 0.4 k/uL (0-0.7); Eosinophils % (A) 6 %; HCT 41.7 % (39.0-53.0); HGB 13.8 gm/dL (13.0-17.5); Lymphocytes # (A) 1.7 k/uL (1.0-4.8); Lymphocytes % (A) 27 %; MCH 32.1 pg (25.0-35.0); MCHC 33.1 g/dL (31.0-37.0); MCV 96.8 fL (80.0-100.0); Mean Platelet Volume 7.5; Monocytes # (A) 0.4 k/uL (0-1.0); Monocytes % (A) 6 %; Neutrophils # (A) 3.8 k/uL (1.3-7.7); Neutrophils % (A) 60 %; Platelet Count 147 k/uL (150-450); RBC 4.31 m/uL (4.30-5.90); RDW 14.2 % (11.5-15.5); WBC 6.4 k/uL (3.8-10.6)
[2018-10-10 08:26] LABS: Calcium 8.8 mg/dL (8.4-10.2); Potassium 4.4 mmol/L (3.5-5.1)
[2018-10-10] MEDS: INSULIN DETEMIR (LEVEMIR) 100 UNIT/ML SYR SQ SCH (09:44)
[2018-10-10] MEDS: APIXABAN 5 MG TAB PO SCH (09:45)
[2018-10-10] MEDS: METOPROLOL TARTRATE 50 MG TAB PO SCH (09:45)
[2018-10-10] MEDS: DONEPEZIL 10 MG TAB PO SCH (09:45)
[2018-10-10] MEDS: MEMANTINE 10 MG TAB PO SCH (09:45)
[2018-10-10] MEDS: metFORMIN 500 MG TAB PO SCH (09:45)
[2018-10-10] MEDS: LISINOPRIL 5 MG TAB PO SCH (09:45)
[2018-10-10] MEDS: OXYBUTYNIN CHLORIDE 5 MG TAB PO SCH (09:46)
[2018-10-10 12:05] VITALS: BP 126/61; PULSE 74; TEMP 98.1
--- NOTE | 2018-10-10 13:09 | P.PN ---
Subjective Progress Note Date: 10/10/18 This is a pleasant 62-year-old gentleman with past medical history significant for hypertension, hyperlipidemia, diabetes, hepatitis, recurrent pancreatitis, sleep apnea for which he uses a CPAP regularly, and dementia diagnosed about 2 years ago. Presented to the emergency department with complaints of having a rubber piece from his hearing aid stuck in his ear. He was incidentally found to be tachycardic and EKG showed atrial flutter with 2:1 conduction. Patient underwent elective cardioversion and continues to be in a normal sinus rhythm this morning. Objective - Vital Signs Vital signs: Vital Signs Temp 98.1 F 10/10/18 08:10 Pulse 74 10/10/18 08:10 Resp 16 10/10/18 08:10 BP 126/61 10/10/18 08:10 Pulse Ox 98 10/10/18 08:10 Intake & Output 10/09/18 10/10/18 10/10/18 18:59 06:59 18:59 Intake Total 490 240 Output Total 200 Balance 490 -200 240 Weight 160.4 kg Intake: IV 250 Oral 240 240 Output: Urine 200 Other: Voiding Method Toilet Toilet Toilet # Voids 1 2 - Exam PHYSICAL EXAMINATION: HEENT: Head is atraumatic, normocephalic. Pupils equal, round. Neck is supple. There is no elevated jugular venous pressure. No carotid bruit. HEART EXAMINATION: Heart sounds regular, S1 and S2 normal. No murmur or gallop heard. Tachycardia noted. CHEST EXAMINATION: Lungs are clear to auscultation. No chest wall tenderness is noted on palpation or with deep breathing. ABDOMEN: Soft, obese, nontender. Bowel sounds are heard. No organomegaly noted. EXTREMITIES: 2+ peripheral pulses with evidence of trace peripheral edema and no calf tenderness noted. NEUROLOGIC patient is awake, alert and oriented x3. - Labs CBC & Chem 7: 10/10/18 07:37 10/10/18 07:37 Labs: Abnormal Lab Results - Last 24 Hours (Table) 10/09/18 10/09/18 10/10/18 Range/Units 16:51 20:36 06:34 Plt Count (150-450) k/uL BUN (9-20) mg/dL Glucose (74-99) mg/dL POC Glucose (mg/dL) 187 H 106 H 143 H (75-99) mg/dL 07/08/19 07/08/19 Range/Units 07:37 07:37 Plt Count 147 L (150-450) k/uL BUN 22 H (9-20) mg/dL Glucose 138 H (74-99) mg/dL POC Glucose (mg/dL) (75-99) mg/dL Assessment and Plan Plan: Assessment and Plan: #1 atrial flutter with RVR, typical, status post elective cardioversion, currently in normal sinus rhythm. #2 hypertension #3 diabetes mellitus #4 hyperlipidemia #5 obesity #6 obstructive sleep apnea #7 dementia Plan Patient may be discharged home today from cardiology's perspective, we'll make a follow-up appointment in the office post discharge. DNP note has been reviewed, I agree with a documented findings and plan of care. Patient was seen and examined.
--- NOTE | 2018-10-11 07:34 | DS ---
DISCHARGE SUMMARY DATE OF SERVICE: 10/10/2018 FINAL DIAGNOSES: 1. Atrial flutter with rapid ventricular rate, status post cardioversion. 2. Hypertension. 3. Diabetes mellitus type 2. 4. Hyperlipidemia. 5. Sleep apnea. 6. History of dementia. DISCHARGE DISPOSITION: The patient will be discharged in stable condition with guarded prognosis. HISTORY OF PRESENT ILLNESS: This 62-year-old gentleman with a past medical history of multiple medical problems admitted with atrial flutter with fast ventricular rate. Patient was seen by Cardiology. Cardiology performed a PAULINA and as well as cardioversion. The patient tolerated the procedure well and cardioversion with 200 joules were used. On exam, vitals are stable. CARDIOVASCULAR: S1, S2 muffled. ABDOMEN: Soft. NERVOUS SYSTEM: No focal deficits. DISCHARGE ADVICE: 1. Diet is cardiac. 2. Activity limited until followup. 3. Follow up with [facility], Dr. Sherwood, to 2 to 3 days. 4. Follow up with Cardiology as recommended. MEDICATIONS: 1. Aricept 10 mg p.o. daily. 2. Creon a.c. t.i.d. 3. Flomax 0.4 daily. 4. Lansoprazole 30 mg p.o. daily. 5. Lantus 100 units subcutaneously b.i.d. 6. Lipitor 40 mg p.o. q.h.s. 7. Metformin 1000 mg p.o. b.i.d. 8. Mycostatin 1 application daily. 9. Namenda 10 mg p.o. b.i.d. 10.NovoLog a.c. t.i.d. scale. 11.Oxybutynin 5 mg p.o. b.i.d. 12.Seroquel 100 mg q.h.s. 13.Synthroid 100 mcg p.o. daily. 14.Spiriva that is trospium 20 mg p.o. daily. 15.Zoloft 100 mg p.o. daily. 16.Eliquis 5 mg p.o. b.i.d. 17.Lopressor 50 mg p.o. b.i.d. 18.Zestril 5 mg p.o. daily. Once again, the patient will be discharged in a stable condition with guarded prognosis. MMODL / IJN: [id number] / MTDD
--- NOTE | 2018-10-11 21:02 | CDI ---
Documentation Clarification Form Date: [id number] From: Tamia Sidhu Phone: If you have a question regarding this query, please contact Suzanne Witt at [phone] between 8am and 5pm. Admit Date: 10/07/2018 4:13:00 PM Patient Name: James Castellon Visit Number: [id number] Discharge Date: 10/10/2018 11:39:00 AM ATTENTION: The Clinical Documentation Specialists (CDI) and [facility] Coding Staff appreciate your assistance in clarifying documentation. Please respond to the clarification below the line at the bottom and electronically sign. The CDI & [facility] Coding staff will review the response and follow-up if needed. Please note: Queries are made part of the Legal Health Record. If you have any questions, please contact the author of this message via ITS. Dr. Joshua Thompson Atrial Flutter is documented in the ED note, consult note, the H&P and the progress notes. History/Risk factors: Patient has a history of hypertension, hyperthyroidism and obstructive sleep apnea. Clinical Indicators: Tachycardia EKG/telemetry: Atrial flutter with 2:1 conduction. Treatment: Cardioversion and IV Cardizem Consults: Atrial flutter with RVR, 2:1 conduction unknown duration. In your professional opinion, in order to capture the severity of condition; can you please clarify the type of Atrial Flutter if known? Typical/Type I Atypical/Type II Other, please specify Unable to determine Unable to determine MTDD
== END 2018-10-10 11:39 | disposition home or self-care (01) | DRG 309 ==
LOC: EC 14:14 → 3SCARD 16:13
PROVIDERS: ADMIT Hospitalist; ATTEND Hospitalist
PROC: B24BZZ4 Ultrasonography of Heart with Aorta, Transesophageal (ICD-10-PCS; 2018-10-09)
PROC: 09C3XZZ Extirpation of Matter from Right External Auditory Canal, External Approach (ICD-10-PCS; 2018-10-09)
PROC: 5A2204Z Restoration of Cardiac Rhythm, Single (ICD-10-PCS; principal; 2018-10-09 11:00)
DX: I48.92 Unspecified atrial flutter (principal); K86.1 Other chronic pancreatitis; Z68.41 Body mass index [BMI] 40.0-44.9, adult; I45.89 Other specified conduction disorders; I42.9 Cardiomyopathy, unspecified; F03.90 Unspecified dementia, unspecified severity, without behavioral disturbance, psychotic disturbance, mood disturbance, and anxiety; E11.9 Type 2 diabetes mellitus without complications; E66.9 Obesity, unspecified; E78.5 Hyperlipidemia, unspecified; G47.33 Obstructive sleep apnea (adult) (pediatric); I10 Essential (primary) hypertension; N40.0 Benign prostatic hyperplasia without lower urinary tract symptoms; T16.1XXA Foreign body in right ear, initial encounter; E05.90 Thyrotoxicosis, unspecified without thyrotoxic crisis or storm; Z79.4 Long term (current) use of insulin; Z79.890 Hormone replacement therapy; Z79.899 Other long term (current) drug therapy; Z87.440 Personal history of urinary (tract) infections; Z88.2 Allergy status to sulfonamides; Z86.14 Personal history of Methicillin resistant Staphylococcus aureus infection; Z90.49 Acquired absence of other specified parts of digestive tract
CPT/HCPCS: 36415; 69200; 71275; 80048; 80053; 80061; 84439; 84443; 84484; 85025; 85379; 85610; 85730; 92960; 93005; 93306; 93312; 93320; 93325; 96365; 96366; 96368; 96376; 99284

== ENCOUNTER 2018-11-02 20:53 | Inpatient (IN) | payer OTHER, MEDICARE ==
[2018-11-02] MEDS ORDERED: SODIUM CHLORIDE 0.9% 1,000 ML IV STA (21:05)
[2018-11-02 21:40] LABS: Basophils % (A) 0 %; Eosinophils # (A) 0.3 k/uL (0-0.7); Eosinophils % (A) 5 %; HCT 42.6 % (39.0-53.0); HGB 14.1 gm/dL (13.0-17.5); Lymphocytes # (A) 1.6 k/uL (1.0-4.8); Lymphocytes % (A) 24 %; MCH 31.9 pg (25.0-35.0); MCHC 33.1 g/dL (31.0-37.0); MCV 96.5 fL (80.0-100.0); Mean Platelet Volume 7.4; Monocytes # (A) 0.3 k/uL (0-1.0); Monocytes % (A) 5 %; Neutrophils # (A) 4.5 k/uL (1.3-7.7); Neutrophils % (A) 65 %; Platelet Count 176 k/uL (150-450); RBC 4.41 m/uL (4.30-5.90); RDW 14.1 % (11.5-15.5); WBC 6.9 k/uL (3.8-10.6)
[2018-11-02] MEDS ORDERED: DILTIAZEM DRIP BOLUS FROM BAG 1 MG SOLN IV ONE ×2 (21:44→23:14)
[2018-11-02 21:48] LABS: ALT 12 U/L (21-72); AST 35 U/L (17-59); African American GFR (CKD) >90 (>60 ml/min/1.73 sqM); Albumin 4.1 g/dL (3.5-5.0); Alkaline Phosphatase 74 U/L (38-126); Anion Gap 11 mmol/L; Blood Urea Nitrogen 23 mg/dL (9-20); Calcium 9.5 mg/dL (8.4-10.2); Carbon Dioxide 23 mmol/L (22-30); Chloride 106 mmol/L (98-107); Glucose 182 mg/dL (74-99); Non-African American GFR(CKD) >90 (>60 ml/min/1.73 sqM); Sodium 140 mmol/L (137-145); Total Bilirubin 0.8 mg/dL (0.2-1.3)
[2018-11-02 21:49] LABS: Magnesium 1.8 mg/dL (1.6-2.3); Potassium 4.9 mmol/L (3.5-5.1)
[2018-11-02] MEDS: DILTIAZEM 125 MG in SODIUM CHLORIDE 0.9% 100 ML IV SCH (22:14)
[2018-11-02 22:22] LABS: INR 0.9 (<1.2); Partial Thromboplastin Time 24.5 sec (22.0-30.0); Prothrombin Time 10.1 sec (9.0-12.0)
--- NOTE | 2018-11-02 22:29 | XR ---
EXAM: XR Chest, 2 Views CLINICAL HISTORY: Chest pain TECHNIQUE: Frontal and lateral views of the chest. COMPARISON: No relevant prior studies available. FINDINGS: Lungs: Unremarkable. No consolidation. Pleural space: Unremarkable. No pneumothorax. Heart: Unremarkable. No cardiomegaly. Mediastinum: Unremarkable. Bones/joints: Unremarkable. IMPRESSION: Normal chest x-rays.
--- NOTE | 2018-11-02 22:52 | ED ---
Arrhythmia/Palpitations HPI <Junior Vora - Last Filed: 11/02/18 23:24> - General Source: patient Mode of arrival: ambulatory Limitations: no limitations <Sofía Teixeira - Last Filed: 11/03/18 17:10> - General Chief Complaint: Arrhythmia/Palpitations Stated Complaint: AFIB Time Seen by Provider: 11/02/18 21:04 - History of Present Illness Initial Comments: 62 yo male with history of atrial fibrillation, DM, HTN, HLD, hypothyroid presenting for cc of elevated heart rate. Patient states that he had noticed he had an elevated heart rate as endocrinology appointment where it was recorded as 130 bpm. Patient was recently diagnosed with atrial fibrillation at the beginning of October. Patient states she is currently on WAS. Patient sates he did have symptoms he did not feel acute palpitations shortness of breath chest pain. Patient states he feels normal. His was measuring his heart rate at home she stated it was up to 144 in the presents emergency department for further evaluation. Patient is pleasant and well appearing on arrival, continues to have no complaints. (Sofía Teixeira) - Related Data Home Medications Medication Instructions Recorded Confirmed Atorvastatin [Lipitor] 40 mg PO HS 10/07/18 11/02/18 Donepezil HCl [Aricept] 10 mg PO DAILY 10/07/18 11/02/18 INSULIN ASPART (NovoLOG) [NovoLOG 100 unit SQ AC-TID 10/07/18 11/02/18 (formulary)] Insulin Glargine [Lantus] 100 unit SQ BID 10/07/18 11/02/18 Lansoprazole 30 mg PO DAILY 10/07/18 11/02/18 Levothyroxine Sodium [Synthroid] 100 mcg PO DAILY 10/07/18 11/02/18 Lipase/Protease/Amylase [Creon Dr 24,000 units PO AC-TID 10/07/18 11/02/18 24,000 Units Capsule] Memantine [Namenda] 10 mg PO BID 10/07/18 11/02/18 Nystatin 100,000Unit/gm Cream 1 applic TOPICAL DAILY 10/07/18 11/02/18 [Mycostatin Cream] Oxybutynin Chloride 5 mg PO BID 10/07/18 11/02/18 QUEtiapine [SEROquel] 100 mg PO HS 10/07/18 11/02/18 Sertraline HCl [Zoloft] 100 mg PO DAILY 10/07/18 11/02/18 Tamsulosin HCl [Flomax] 0.4 mg PO DAILY 10/07/18 11/02/18 Trospium Chloride 20 mg PO DAILY 10/07/18 11/02/18 metFORMIN HCL 1,000 mg PO BID 10/07/18 11/02/18 Lisinopril [Zestril] 5 mg PO BID 11/02/18 11/02/18 Previous Rx's Medication Instructions Recorded Apixaban [Eliquis] 5 mg PO BID #60 tab 10/10/18 Metoprolol Tartrate [Lopressor] 50 mg PO BID #60 tab 10/10/18 Allergies Allergy/AdvReac Type Severity Reaction Status Date / Time Sulfa (Sulfonamide Allergy Swelling Verified 11/02/18 21:42 Antibiotics) Review of Systems ROS Other: All systems not noted in ROS Statement are negative. <Junior Vora - Last Filed: 11/02/18 23:24> ROS Other: All systems not noted in ROS Statement are negative. <Sofía Teixeira - Last Filed: 11/03/18 17:10> ROS Statement: Those systems with pertinent positive or pertinent negative responses have been documented in the HPI. 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 Atrial Fib History of Any Multi-Drug Resistant Organisms: MRSA Date of last positivie culture/infection: 2017 MDRO Source:: letty bro Past Surgical History: Appendectomy, Cholecystectomy Additional Past Surgical History / Comment(s): Hernia repair. Past Anesthesia/Blood Transfusion Reactions: No Reported Reaction Past Psychological History: No Psychological Hx Reported Smoking Status: Never smoker Past Alcohol Use History: None Reported Past Drug Use History: None Reported <Sofía Teixeira - Last Filed: 11/03/18 17:10> General Exam Limitations: no limitations <Sofía Teixeira - Last Filed: 11/03/18 17:10> - General Exam Comments Initial Comments: General: The patient is awake and alert, in no distress, and does not appear acutely ill. Eye: Pupils are equal, round and reactive to light, extra-ocular movements are intact. No nystagmus. There is normal conjunctiva bilaterally. No signs of icterus. Ears, nose, mouth and throat: There are moist mucous membranes and no oral lesions. Neck: The neck is supple, there is no tenderness or JVD. Cardiovascular: There is a regular rate and rhythm. No murmur, rub or gallop is appreciated. Respiratory: Lungs are clear to auscultation, respirations are non-labored, br eath sounds are equal. No wheezes, stridor, rales, or rhonchi. Musculoskeletal: Normal ROM, no tenderness. Strength 5/5. Sensation intact. Radial pulses equal bilaterally 2+. Neurological: A&O x 3. CN II-XII intact, There are no obvious motor or sensory deficits. Coordination appears grossly intact. Speech is normal. Skin: Skin is warm and dry and no rashes or lesions are noted. No LE edema noted. Psychiatric: Cooperative, appropriate mood & affect, normal judgment. (Sofía Teixeira) Course <Sofía Teixeira - Last Filed: 11/03/18 17:10> Vital Signs 11/02/18 11/02/18 11/02/18 20:59 22:15 22:57 Temperature 98.0 F Pulse Rate 138 H 140 H 138 H Respiratory 16 18 18 Rate Blood Pressure 163/91 146/90 139/87 O2 Sat by Pulse 98 95 96 Oximetry 11/02/18 11/03/18 23:15 01:06 Temperature Pulse Rate 137 H 141 H Respiratory 19 18 Rate Blood Pressure 141/81 121/75 O2 Sat by Pulse 99 95 Oximetry - Reevaluation(s) Reevaluation #1: 11/03/18 00:[address] Vora recommended Cardizem, and stated patient can be admitted with elevated rate, they will evaluate the patient in the morning. (Sofía Teixeira) EKG Findings - EKG Comments: EKG Findings:: Ventricular rate 130 bpm, QRS duration 94 ms, QT/QTC 376/569. This is atrial flutter with a 2-1 AV conduction. There is nonspecific ST and T- wave abnormalities. EKG was compared to that of October 07. Minimal change. No ST elevation.EKG was reviewed by Dr. Vora <Sofía Teixeira - Last Filed: 11/03/18 17:10> Medical Decision Making - Lab Data Result diagrams: 11/02/18 21:28 11/02/18 21:28 <Junior Vora - Last Filed: 11/02/18 23:24> - Lab Data Result diagrams: 11/02/18 21:28 11/02/18 21:28 <Sofía Teixeira - Last Filed: 11/03/18 17:10> - Medical Decision Making I saw this patient in conjunction with the physician pediatric dental assistant. I performed independent history and physical exam. Agree with case management. Case is discussed with Dr. Issa, would like the patient admitted on the Cardizem drip to see if this will slow the rate from the 140s. His management recommendations are incorporated (Junior Vora) 62-year-old male presenting for a patient of heart rate. Patient denies any chest pain. Patient states he has had right shoulder pain for the past week. He states has been persistent denies any increased with ambulation. Patient sates it is present today. Patient denies any back pain. Patient denies any shortness of breath. Denies chest pain. Patient is found to be in atrial flutter with a 2-1 ratio on the EKG. Patient has had to be cardioverted in the past. He states he did not respond well to Cardizem. We contacted [facility] given patient's history of cardioversion. They recommended placing patient on Cardizem drip admitting to the floor and they will evaluate the patient in person. Patient at this time is hemodynamically stable. He appears well. Troponin negative. We'll repeat. Patient's legs are not swollen. No signs consistent with heart failure on chest x-ray. Patient is agreeable to admission. Dr. Rizvi spoke with the admitting provider patient transferred to the floor in stable condition. Cardiem tritrated in ER. (Sofía Teixeira) - Lab Data Lab Results 11/02/18 11/02/18 11/02/18 Range/Units 21:28 21:28 21:28 WBC 6.9 (3.8-10.6) k/uL RBC 4.41 (4.30-5.90) m/uL Hgb 14.1 (13.0-17.5) gm/dL Hct 42.6 (39.0-53.0) % MCV 96.5 (80.0-100.0) fL MCH 31.9 (25.0-35.0) pg MCHC 33.1 (31.0-37.0) g/dL RDW 14.1 (11.5-15.5) % Plt Count 176 (150-450) k/uL Neutrophils % 65 % Lymphocytes % 24 % Monocytes % 5 % Eosinophils % 5 % Basophils % 0 % Neutrophils # 4.5 (1.3-7.7) k/uL Lymphocytes # 1.6 (1.0-4.8) k/uL Monocytes # 0.3 (0-1.0) k/uL Eosinophils # 0.3 (0-0.7) k/uL Basophils # 0.0 (0-0.2) k/uL PT 10.1 (9.0-12.0) sec INR 0.9 (<1.2) APTT 24.5 (22.0-30.0) sec Sodium 140 (137-145) mmol/L Potassium 4.9 (3.5-5.1) mmol/L Chloride 106 (98-107) mmol/L Carbon Dioxide 23 (22-30) mmol/L Anion Gap 11 mmol/L BUN 23 H (9-20) mg/dL Creatinine 0.74 (0.66-1.25) mg/dL Est GFR (CKD-EPI)AfAm >90 (>60 ml/min/1.73 sqM) Est GFR (CKD-EPI)NonAf >90 (>60 ml/min/1.73 sqM) Glucose 182 H (74-99) mg/dL Calcium 9.5 (8.4-10.2) mg/dL Magnesium 1.8 (1.6-2.3) mg/dL Total Bilirubin 0.8 (0.2-1.3) mg/dL AST 35 (17-59) U/L ALT 12 L (21-72) U/L Alkaline Phosphatase 74 (38-126) U/L Troponin I (0.000-0.034) ng/mL Total Protein 8.0 (6.3-8.2) g/dL Albumin 4.1 (3.5-5.0) g/dL 11/02/18 Range/Units 21:28 WBC (3.8-10.6) k/uL RBC (4.30-5.90) m/uL Hgb (13.0-17.5) gm/dL Hct (39.0-53.0) % MCV (80.0-100.0) fL MCH (25.0-35.0) pg MCHC (31.0-37.0) g/dL RDW (11.5-15.5) % Plt Count (150-450) k/uL Neutrophils % % Lymphocytes % % Monocytes % % Eosinophils % % Basophils % % Neutrophils # (1.3-7.7) k/uL Lymphocytes # (1.0-4.8) k/uL Monocytes # (0-1.0) k/uL Eosinophils # (0-0.7) k/uL Basophils # (0-0.2) k/uL PT (9.0-12.0) sec INR (<1.2) APTT (22.0-30.0) sec Sodium (137-145) mmol/L Potassium (3.5-5.1) mmol/L Chloride (98-107) mmol/L Carbon Dioxide (22-30) mmol/L Anion Gap mmol/L BUN (9-20) mg/dL Creatinine (0.66-1.25) mg/dL Est GFR (CKD-EPI)AfAm (>60 ml/min/1.73 sqM) Est GFR (CKD-EPI)NonAf (>60 ml/min/1.73 sqM) Glucose (74-99) mg/dL Calcium (8.4-10.2) mg/dL Magnesium (1.6-2.3) mg/dL Total Bilirubin (0.2-1.3) mg/dL AST (17-59) U/L ALT (21-72) U/L Alkaline Phosphatase (38-126) U/L Troponin I <0.012 (0.000-0.034) ng/mL Total Protein (6.3-8.2) g/dL Albumin (3.5-5.0) g/dL Disposition <Junior Vora - Last Filed: 11/02/18 23:24> Is patient prescribed a controlled substance at d/c from ED?: No Time of Disposition: 22:57 Decision to Admit Reason: Admit from EC Decision Date: 11/02/18 Decision Time: 22:57 <Sofía Teixeira - Last Filed: 11/03/18 17:10> Clinical Impression: Atrial fibrillation/flutter, Elevated heart rate with elevated blood pressure and diagnosis of hypertension Disposition: ADMITTED IP TO THIS HOSP Condition: Stable
[2018-11-02] MEDS ORDERED: MORPHINE SULFATE 2 MG/ML SYRINGE IVP STA (23:56)
[2018-11-03] MEDS: HYDROcodone/APAP 5-325MG 1 EACH TAB PO PRN ×2 (02:43→14:32)
[2018-11-03 06:27] LABS: Glucose,Whole Blood 87 mg/dL (75-99)
[2018-11-03] MEDS: LEVOTHYROXINE 100 MCG TAB PO SCH (06:32)
[2018-11-03] MEDS: INSULIN ASPART (NovoLOG) 100 UNIT/ML VIAL SQ SCH ×6 (06:50→21:00)
[2018-11-03] MEDS: LIPASE 5,000/PROTEASE 17,000/AMYLASE 24,000 PO SCH ×3 (07:06→17:54)
[2018-11-03] MEDS ORDERED: PANTOPRAZOLE 40 MG TABLET PO SCH (07:30)
[2018-11-03] MEDS: OXYBUTYNIN CHLORIDE 5 MG TAB PO SCH ×2 (08:32→21:12)
[2018-11-03] MEDS: metFORMIN 500 MG TAB PO SCH ×2 (08:32→21:26)
[2018-11-03] MEDS: APIXABAN 5 MG TAB PO SCH ×2 (08:32→21:12)
[2018-11-03] MEDS: METOPROLOL TARTRATE 50 MG TAB PO SCH ×2 (08:32→21:12)
[2018-11-03] MEDS: MEMANTINE 10 MG TAB PO SCH ×2 (08:33→21:12)
[2018-11-03] MEDS: TAMSULOSIN 0.4 MG CAP.ER.24H PO SCH (08:33)
[2018-11-03] MEDS: DONEPEZIL 10 MG TAB PO SCH (08:33)
[2018-11-03] MEDS: SERTRALINE 100 MG TAB PO SCH (08:33)
[2018-11-03] MEDS: DILTIAZEM 125 MG in SODIUM CHLORIDE 0.9% 100 ML IV SCH (08:36)
[2018-11-03] MEDS ORDERED: ASPIRIN 325 MG TAB PO SCH (09:00)
[2018-11-03] MEDS ORDERED: TROSPIUM CHLORIDE 20 MG TABLET PO SCH (09:00)
[2018-11-03] MEDS ORDERED: OXYBUTYNIN CHLORIDE 5 MG TAB PO SCH (09:00)
--- NOTE | 2018-11-03 10:59 | P.CRDCN ---
History of Present Illness Consult date: 11/03/18 Requesting physician: Joshua Thompson Consult reason: atrial flutter Chief complaint: Palpitations and heart racing History of present illness: This is a pleasant 62-year-old gentleman with past medical history significant for hypertension, hyperlipidemia, diabetes, hepatitis, recurrent pa ncreatitis, sleep apnea for which he uses CPAP regularly, mild dementia, recent diagnosis of atrial flutter, patient was in the hospital on October 07, seen in consultation at that time by Dr. Thomas for atrial flutter with rapid ventricular response. He underwent a PAULINA with subsequent cardioversion to normal sinus rhythm and did follow-up with Dr. Thomas in the office subsequent to that at which time he was still in a normal sinus rhythm. He also had an echocardiogram with Doppler study performed on that admission which revealed an ejection fraction of 40-45%. Patient presents back to the hospital on this occasion, he states he was at his endocrinology appointment, it was noted that his heart rate was up in the 1:30 range, he did feel some shortness of breath with associated palpitations and complained of feeling an ache and discomfort in his right arm. For these reasons he was admitted to the hospital for further evaluation and treatment. His EKG on presentation here showed atrial flutter with a rapid ventricular response, heart rate 140. Chest x-ray was normal. Blood pressure 112/70 with a heart rate of 140, 97% on 2 L of oxygen. White blood cell count 6.9, hemoglobin 14.1, platelet count 176. Sodium 140, potassium 4.9, BUN 23 and creatinine 0.7, magnesium 1.8. Troponins are negative 2. At the time of my examination this morning, patient states he can still feel his heart racing fast, still complaining of some discomfort in the right arm and mild associated shortness of breath. He is currently on IV Cardizem drip at 5 mg per hour. 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 Atrial Fib History of Any Multi-Drug Resistant Organisms: MRSA Date of last positivie culture/infection: 2017 MDRO Source:: [facility] Past Surgical History: Appendectomy, Cholecystectomy Additional Past Surgical History / Comment(s): Hernia repair. Past Anesthesia/Blood Transfusion Reactions: No Reported Reaction Past Psychological History: No Psychological Hx Reported Smoking Status: Never smoker Past Alcohol Use History: None Reported Past Drug Use History: None Reported - Past Family History Father Family Medical History: CVA/TIA, Hypertension, Myocardial Infarction ([place]) Additional Family Medical History / Comment(s): black lung Mother Family Medical History: No Reported History Brother(s) Additional Family Medical History / Comment(s): brother at 52, ALS Medications and Allergies Home Medications Medication Instructions Recorded Confirmed Type Atorvastatin [Lipitor] 40 mg PO HS 10/07/18 11/02/18 History Donepezil HCl [Aricept] 10 mg PO DAILY 10/07/18 11/02/18 History INSULIN ASPART (NovoLOG) [NovoLOG 100 unit SQ AC-TID 10/07/18 11/02/18 History (formulary)] Insulin Glargine [Lantus] 100 unit SQ BID 10/07/18 11/02/18 History Lansoprazole 30 mg PO DAILY 10/07/18 11/02/18 History Levothyroxine Sodium [Synthroid] 100 mcg PO DAILY 10/07/18 11/02/18 History Lipase/Protease/Amylase [Creon Dr 24,000 units PO AC-TID 10/07/18 11/02/18 History 24,000 Units Capsule] Memantine [Namenda] 10 mg PO BID 10/07/18 11/02/18 History Nystatin 100,000Unit/gm Cream 1 applic TOPICAL DAILY 10/07/18 11/02/18 History [Mycostatin Cream] Oxybutynin Chloride 5 mg PO BID 10/07/18 11/02/18 History QUEtiapine [SEROquel] 100 mg PO HS 10/07/18 11/02/18 History Sertraline HCl [Zoloft] 100 mg PO DAILY 10/07/18 11/02/18 History Tamsulosin HCl [Flomax] 0.4 mg PO DAILY 10/07/18 11/02/18 History Trospium Chloride 20 mg PO DAILY 10/07/18 11/02/18 History metFORMIN HCL 1,000 mg PO BID 10/07/18 11/02/18 History Apixaban [Eliquis] 5 mg PO BID #60 tab 10/10/18 11/02/18 Rx Metoprolol Tartrate [Lopressor] 50 mg PO BID #60 tab 10/10/18 11/02/18 Rx Lisinopril [Zestril] 5 mg PO BID 11/02/18 11/02/18 History Allergies Allergy/AdvReac Type Severity Reaction Status Date / Time Sulfa (Sulfonamide Allergy Swelling Verified 11/02/18 21:42 Antibiotics) Physical Exam Vitals: Vital Signs Temp Pulse Pulse Resp BP BP Pulse Ox 11/03/18 08:00 98 F 135 H 20 93/55 97 11/03/18 04:00 97.9 F 140 H 18 112/70 96 11/03/18 01:06 141 H 18 121/75 95 11/02/18 23:15 137 H 19 141/81 99 11/02/18 22:57 138 H 18 139/87 96 11/02/18 22:15 140 H 18 146/90 95 11/02/18 20:59 98.0 F 138 H 16 163/91 98 Intake and Output 11/02/18 11/03/18 11/03/18 22:59 06:59 14:59 Intake Total 3.5 480 336.667 Balance 3.5 480 336.667 Intake: Intake, IV Titration 3.5 96.667 Amount Diltiazem 125 mg In 3.5 96.667 Sodium Chloride 0.9% 100 ml @ 5 MG/HR 5 mls/hr IV .Q24H [facility] Rx#:[id number] Oral 480 240 Other: Voiding Method Toilet # Voids 2 Weight 163.293 kg 168.5 kg PHYSICAL EXAMINATION: GENERAL: 62-year-old gentleman in no acute distress at the time of my examination HEENT: Head is atraumatic, normocephalic. Pupils equal, round. Sclera anicteric. Conjunctiva are clear. Mucous membranes of the mouth are moist. Neck is supple. There is no elevated jugular venous pressure. No carotid bruit is heard. HEART EXAMINATION: Artery S1 and S2 irregularly irregular CHEST EXAMINATION: Lungs are clear to auscultation and precussion. No chest wall tenderness is noted on palpation or with deep breathing. ABDOMEN: Soft, obese, nontender. Bowel sounds are heard. No organomegaly noted. EXTREMITIES: 2+ peripheral pulses with trace evidence of peripheral edema and no calf tenderness noted. NEUROLOGIC patient is awake, alert and oriented 3 . Results 11/02/18 21:28 11/02/18 21:28 Cardiac Enzymes 11/02/18 11/02/18 11/03/18 Range/Units 21:28 21:28 03:14 AST 35 (17-59) U/L Troponin I <0.012 <0.012 (0.000-0.034) ng/mL Coagulation 11/02/18 Range/Units 21:28 PT 10.1 (9.0-12.0) sec APTT 24.5 (22.0-30.0) sec CBC 11/02/18 Range/Units 21:28 WBC 6.9 (3.8-10.6) k/uL RBC 4.41 (4.30-5.90) m/uL Hgb 14.1 (13.0-17.5) gm/dL Hct 42.6 (39.0-53.0) % Plt Count 176 (150-450) k/uL Comprehensive Metabolic Panel 11/02/18 Range/Units 21:28 Sodium 140 (137-145) mmol/L Potassium 4.9 (3.5-5.1) mmol/L Chloride 106 (98-107) mmol/L Carbon Dioxide 23 (22-30) mmol/L BUN 23 H (9-20) mg/dL Creatinine 0.74 (0.66-1.25) mg/dL Glucose 182 H (74-99) mg/dL Calcium 9.5 (8.4-10.2) mg/dL AST 35 (17-59) U/L ALT 12 L (21-72) U/L Alkaline Phosphatase 74 (38-126) U/L Total Protein 8.0 (6.3-8.2) g/dL Albumin 4.1 (3.5-5.0) g/dL Current Medications Generic Name Dose Route Start Last Admin Trade Name Freq PRN Reason Stop Dose Admin Hydrocodone Bitart/Acetaminophen 1 each 11/03/18 02:18 11/03/18 02:43 Venus 5-325 PO 1 each Q6HR PRN Administration Pain Lipase/Protease/Amylase 4 each 11/03/18 07:30 11/03/18 07:[address] 5,000 Unit Capsule PO 4 each AC-TID JOE Administration Apixaban 5 mg 11/03/18 09:00 11/03/18 08:32 Eliquis PO 5 mg BID JOE Administration Aspirin 325 mg 11/03/18 09:00 11/03/18 08:32 Aspirin PO 325 mg DAILY JOE Administration Atorvastatin Calcium 40 mg 11/03/18 21:00 Lipitor PO HS JOE Donepezil HCl 10 mg 11/03/18 09:00 11/03/18 08:33 Aricept PO 10 mg DAILY JOE Administration Diltiazem HCl 125 mg/ Sodium 125 mls @ 5 mls/hr 11/02/18 21:45 11/03/18 08:36 Chloride IV 10 mg/hr .Q24H [facility] 10 mls/hr Administration 5 MG/HR Amiodarone HCl 150 mg/ 103 mls @ 618 mls/hr 11/03/18 10:43 Dextrose/Water IV 11/03/18 10:52 .Q10M ONE Amiodarone HCl 360 mg/ 200 mls @ 33.333 mls/hr 11/03/18 10:43 Dextrose/Water IV 11/03/18 16:42 .Q6H ONE Protocol 1 MG/MIN Amiodarone HCl 300 mg/ 250 mls @ 25 mls/hr 11/03/18 16:43 Dextrose/Water IV 11/04/18 10:42 .Q10H JOE Protocol 0.5 MG/MIN Insulin Aspart 0 unit 11/03/18 07:30 11/03/18 06:50 Novolog SQ Not Given ACHS [facility] Protocol Levothyroxine Sodium 100 mcg 11/03/18 06:30 11/03/18 06:32 Synthroid PO 100 mcg DAILY@0630 JOE Administration Lisinopril 5 mg 11/03/18 09:00 Zestril PO BID JOE Memantine 10 mg 11/03/18 09:00 11/03/18 08:33 Namenda PO 10 mg BID JOE Administration Metformin HCl 1,000 mg 11/03/18 09:00 11/03/18 08:32 Glucophage PO 1,000 mg BID JOE Administration Metoprolol Tartrate 50 mg 11/03/18 09:00 11/03/18 08:32 Lopressor PO 50 mg BID JOE Administration Nitroglycerin 0.4 mg 11/02/18 22:52 Nitrostat SUBLINGUAL Q5M PRN Chest Pain Oxybutynin Chloride 5 mg 11/03/18 09:00 11/03/18 08:32 Ditropan PO 5 mg BID JOE Administration Pantoprazole Sodium 40 mg 11/03/18 07:30 11/03/18 07:06 Protonix PO 40 mg DAILY@0730 JOE Administration Quetiapine Fumarate 100 mg 11/03/18 21:00 Seroquel PO HS JOE Sertraline HCl 100 mg 11/03/18 09:00 11/03/18 08:33 Zoloft PO 100 mg DAILY JOE Administration Tamsulosin HCl 0.4 mg 11/03/18 09:00 11/03/18 08:33 Flomax PO 0.4 mg DAILY JOE Administration Intake and Output 11/02/18 11/03/18 11/03/18 22:59 06:59 14:59 Intake Total 3.5 480 336.667 Balance 3.5 480 336.667 Intake: Intake, IV Titration 3.5 96.667 Amount Diltiazem 125 mg In 3.5 96.667 Sodium Chloride 0.9% 100 ml @ 5 MG/HR 5 mls/hr IV .Q24H [facility] Rx#:[id number] Oral 480 240 Other: Voiding Method Toilet # Voids 2 Weight 163.293 kg 168.5 kg 11/02/18 21:28 11/02/18 21:28 EKG Interpretations (text) EKG shows atrial flutter with rapid ventricular response Assessment and Plan Plan: Assessment and plan #1 atrial flutter with rapid ventricular response, 2 to one conduction, typical #2 recent diagnosis of atrial flutter in October of this year at which time patient underwent an elective PAULINA with subsequent cardioversion to normal sinus rhythm, on Eliquis 5 mg's one tablet by mouth twice a day for anticoagulation #3 hypertension #4 diabetes #5 hyperlipidemia #6 obesity #7 obstructive sleep apnea #8 hepatitis #9 recurrent pancreatitis Plan Patient just had an echo performed last month which showed an ejection fraction of 40-45%, we will not repeat an echo this admission, TSH at that time 5.08 with a free T4 of 1.4. We will start the patient on IV amiodarone drip this mor polo, heart rate continues to be in the 140 range. Continue Eliquis 5 mg one tablet, once the amiodarone bolus has been given we'll discontinue the Cardizem drip, further recommendations to follow. DNP note has been reviewed, I agree with a documented findings and plan of care. Patient was seen and examined.
[2018-11-03] MEDS ORDERED: DEXTROSE 5% IN WATER 100 ML with AMIODARONE 150 MG IV ONE (11:00)
[2018-11-03] MEDS ORDERED: AMIODARONE 360 MG in DEXTROSE 5% IN WATER 200 ML IV ONE ×2 (11:15)
[2018-11-03] MEDS ORDERED: PANTOPRAZOLE 40 MG/10 ML VIAL IVP SCH (11:45)
[2018-11-03 11:59] LABS: Glucose,Whole Blood 145 mg/dL (75-99)
--- NOTE | 2018-11-03 13:38 | P.HPIM ---
History of Present Illness 62-year-old known history of atrial fibrillation came with complaints of chest pressure-like sensation and palpitations found to be in atrial fibrillation patient had a PAULINA cardioversion recently patient ejection fraction is 40-45% p atient denied any orthopnea or paroxysmal nocturnal dyspnea patient heart rate wasn't 130s to 140s range. Patient was started on Cardizem blood pressure is low normal at this time. Patient is still complaining of pressure-like sensation in the last left arm. Opponens were negative EKG showed atrial fibrillation without any significant acute ST-T wave changes patient was having associated mild shortness of breath as well. Review of Systems REVIEW OF SYSTEMS: CONSTITUTIONAL: No fever, no malaise, no fatigue. HEENT: No recent visual problems or hearing problems. Denied any sore throat. CARDIOVASCULAR: no syncope. PULMONARY no hemoptysis. GASTROINTESTINAL: No diarrhea, no nausea, no vomiting, no abdominal pain. NEUROLOGICAL: No headaches, no weakness, no numbness. HEMATOLOGICAL: Denies any bleeding or petechiae. GENITOURINARY: Denies any burning micturition, frequency, or urgency. MUSCULOSKELETAL/RHEUMATOLOGICAL: Denies any joint pain, swelling, or any muscle pain. ENDOCRINE: Denies any polyuria or polydipsia. The rest of the 14-point review of systems is negative. 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 Atrial Fib History of Any Multi-Drug Resistant Organisms: MRSA Date of last positivie culture/infection: 2017 MDRO Source:: [facility] Past Surgical History: Appendectomy, Cholecystectomy Additional Past Surgical History / Comment(s): Hernia repair. Past Anesthesia/Blood Transfusion Reactions: No Reported Reaction Past Psychological History: No Psychological Hx Reported Smoking Status: Never smoker Past Alcohol Use History: None Reported Past Drug Use History: None Reported - Past Family History Father Family Medical History: CVA/TIA, Hypertension, Myocardial Infarction ([place]) Additional Family Medical History / Comment(s): black lung Mother Family Medical History: No Reported History Brother(s) Additional Family Medical History / Comment(s): brother at 52, ALS Medications and Allergies Home Medications Medication Instructions Recorded Confirmed Type Atorvastatin [Lipitor] 40 mg PO HS 10/07/18 11/02/18 History Donepezil HCl [Aricept] 10 mg PO DAILY 10/07/18 11/02/18 History INSULIN ASPART (NovoLOG) [NovoLOG 100 unit SQ AC-TID 10/07/18 11/02/18 History (formulary)] Insulin Glargine [Lantus] 100 unit SQ BID 10/07/18 11/02/18 History Lansoprazole 30 mg PO DAILY 10/07/18 11/02/18 History Levothyroxine Sodium [Synthroid] 100 mcg PO DAILY 10/07/18 11/02/18 History Lipase/Protease/Amylase [Creon Dr 24,000 units PO AC-TID 10/07/18 11/02/18 History 24,000 Units Capsule] Memantine [Namenda] 10 mg PO BID 10/07/18 11/02/18 History Nystatin 100,000Unit/gm Cream 1 applic TOPICAL DAILY 10/07/18 11/02/18 History [Mycostatin Cream] Oxybutynin Chloride 5 mg PO BID 10/07/18 11/02/18 History QUEtiapine [SEROquel] 100 mg PO HS 10/07/18 11/02/18 History Sertraline HCl [Zoloft] 100 mg PO DAILY 10/07/18 11/02/18 History Tamsulosin HCl [Flomax] 0.4 mg PO DAILY 10/07/18 11/02/18 History Trospium Chloride 20 mg PO DAILY 10/07/18 11/02/18 History metFORMIN HCL 1,000 mg PO BID 10/07/18 11/02/18 History Apixaban [Eliquis] 5 mg PO BID #60 tab 10/10/18 11/02/18 Rx Metoprolol Tartrate [Lopressor] 50 mg PO BID #60 tab 10/10/18 11/02/18 Rx Lisinopril [Zestril] 5 mg PO BID 11/02/18 11/02/18 History Allergies Allergy/AdvReac Type Severity Reaction Status Date / Time Sulfa (Sulfonamide Allergy Swelling Verified 11/02/18 21:42 Antibiotics) Physical Exam Vitals: Vital Signs Temp Pulse Pulse Resp BP BP Pulse Ox 11/03/18 12:45 125 H 20 88/54 11/03/18 12:25 128 H 20 101/64 11/03/18 12:15 126 H 20 99/66 11/03/18 12:11 128 H 20 99/62 11/03/18 12:06 97.8 F 131 H 20 108/72 98 11/03/18 08:00 98 F 135 H 20 93/55 97 11/03/18 04:00 97.9 F 140 H 18 112/70 96 11/03/18 01:06 141 H 18 121/75 95 11/02/18 23:15 137 H 19 141/81 99 11/02/18 22:57 138 H 18 139/87 96 11/02/18 22:15 140 H 18 146/90 95 11/02/18 20:59 98.0 F 138 H 16 163/91 98 Intake and Output 11/02/18 11/03/18 11/03/18 22:59 06:59 14:59 Intake Total 3.5 480 456.667 Balance 3.5 480 456.667 Intake: Intake, IV Titration 3.5 96.667 Amount Diltiazem 125 mg In 3.5 96.667 Sodium Chloride 0.9% 100 ml @ 5 MG/HR 5 mls/hr IV .Q24H [facility] Rx#:[id number] Oral 480 360 Other: Voiding Method Toilet # Voids 2 Weight 163.293 kg 168.5 kg PHYSICAL EXAMINATION: GENERAL: The patient is alert and oriented x3, not in any acute distress. Well developed, well nourished. HEENT: Pupils are round and equally reacting to light. EOMI. No scleral icterus. No conjunctival pallor. Normocephalic, atraumatic. No pharyngeal erythema. No thyromegaly. CARDIOVASCULAR: S1 and S2 present. No murmurs, rubs, or gallops. Irregularly irregular rhythm and tachycardic PULMONARY: Chest is clear to auscultation, no wheezing or crackles. ABDOMEN: Soft, nontender, nondistended, normoactive bowel sounds. No palpable organomegaly. MUSCULOSKELETAL: No joint swelling or deformity. EXTREMITIES: No cyanosis, clubbing, or pedal edema. NEUROLOGICAL: Gross neurological examination did not reveal any focal deficits. SKIN: No rashes. Results CBC & Chem 7: 11/02/18 21:28 11/02/18 21:28 Labs: Abnormal Lab Results - Last 24 Hours (Table) 11/02/18 11/03/18 Range/Units 21:28 11:57 BUN 23 H (9-20) mg/dL Glucose 182 H (74-99) mg/dL POC Glucose (mg/dL) 145 H (75-99) mg/dL ALT 12 L (21-72) U/L Thrombosis Risk Factor Assmnt - Choose All That Apply Any of the Below Risk Factors Present?: Yes Each Factor Represents 1 point: Age 41-60 years, Obesity (BMI >25) Other Risk Factors: No Other congenital or acquired thrombophilia - If yes, enter type in comment: No Thrombosis Risk Factor Assessment Total Risk Factor Score: 2 Thrombosis Risk Factor Assessment Level: Low Risk Assessment and Plan Plan: -Atrial fibrillation with rapid and regular rate: Patient is on anticoagulations with an echo surgery can urine patient is on Cardizem and was resumed on her home regimen as well -Hypertension -Pain in the left thumb: Secondary to demand ischemia secondary to atrial fibrillation which is expected to improve with control of heart rate -Hypertension -Type 2 diabetes mellitus -hyperlipidemia -Obesity and obstructive sleep apnea Patient will need GI prophylaxis as patient was started on Toradol for pain in the left arm.
[2018-11-03 14:25] LABS: Hemoglobin A1C 8.4 % (4.0-6.0)
[2018-11-03] MEDS: KETOROLAC 30 MG/ML 1 ML VIAL IVP PRN ×2 (15:06→21:10)
[2018-11-03] MEDS: LISINOPRIL 5 MG TAB PO SCH ×2 (16:55→21:12)
[2018-11-03 16:59] LABS: Glucose,Whole Blood 99 mg/dL (75-99)
[2018-11-03] MEDS: AMIODARONE 300 MG in DEXTROSE 5% IN WATER 250 ML IV SCH ×2 (17:57)
[2018-11-03 20:44] LABS: Glucose,Whole Blood 69 mg/dL (75-99)
[2018-11-03 21:03] LABS: Glucose,Whole Blood 83 mg/dL (75-99)
[2018-11-03] MEDS: INSULIN DETEMIR (LEVEMIR) 100 UNIT/ML SYR SQ SCH (21:05)
[2018-11-03] MEDS: ATORVASTATIN 40 MG TAB PO SCH (21:12)
[2018-11-03] MEDS: QUEtiapine 100 MG TAB PO SCH (21:26)
[2018-11-04] MEDS: AMIODARONE 300 MG in DEXTROSE 5% IN WATER 250 ML IV SCH ×2 (04:03)
[2018-11-04 06:30] LABS: Glucose,Whole Blood 94 mg/dL (75-99)
[2018-11-04] MEDS: INSULIN ASPART (NovoLOG) 100 UNIT/ML VIAL SQ SCH ×7 (06:34→21:39)
[2018-11-04] MEDS: LEVOTHYROXINE 100 MCG TAB PO SCH (06:43)
[2018-11-04] MEDS: LIPASE 5,000/PROTEASE 17,000/AMYLASE 24,000 PO SCH ×4 (08:01→17:50)
[2018-11-04] MEDS: APIXABAN 5 MG TAB PO SCH ×2 (08:01→21:39)
[2018-11-04] MEDS: METOPROLOL TARTRATE 50 MG TAB PO SCH ×2 (08:02→21:39)
[2018-11-04] MEDS: OXYBUTYNIN CHLORIDE 5 MG TAB PO SCH ×2 (08:02→21:39)
[2018-11-04] MEDS: metFORMIN 500 MG TAB PO SCH ×2 (08:02→21:39)
[2018-11-04] MEDS: MEMANTINE 10 MG TAB PO SCH ×2 (08:02→21:39)
[2018-11-04] MEDS: NYSTATIN 100,000UNIT/GM CREAM 30 GM TUBE TOPICAL SCH (08:02)
[2018-11-04] MEDS: LISINOPRIL 5 MG TAB PO SCH (08:02)
[2018-11-04] MEDS: DONEPEZIL 10 MG TAB PO SCH (08:02)
[2018-11-04] MEDS: PANTOPRAZOLE 40 MG/10 ML VIAL IVP SCH (08:03)
[2018-11-04] MEDS: KETOROLAC 30 MG/ML 1 ML VIAL IVP PRN ×3 (08:03→21:40)
[2018-11-04] MEDS: INSULIN DETEMIR (LEVEMIR) 100 UNIT/ML SYR SQ SCH ×2 (08:03→21:45)
[2018-11-04] MEDS: SERTRALINE 100 MG TAB PO SCH (08:03)
[2018-11-04] MEDS: TAMSULOSIN 0.4 MG CAP.ER.24H PO SCH (08:03)
[2018-11-04 08:04] LABS: Glucose,Whole Blood 143 mg/dL (75-99)
[2018-11-04] MEDS: DILTIAZEM ORAL 30 MG TAB PO SCH ×3 (11:12→21:39)
[2018-11-04 11:50] LABS: Glucose,Whole Blood 168 mg/dL (75-99)
--- NOTE | 2018-11-04 12:12 | PN ---
PROGRESS NOTE James is a 62-year-old gentleman who was admitted to hospital with atrial flutter with poorly controlled ventricular rate. This morning he still remains in flutter with heart rates in the 120s per minute. He denies chest pain, difficulty in breathing, palpitations, dizziness or syncope. He is currently on Eliquis 5 b.i.d., Lipitor, Lopressor, and we are adding Cardizem, PHYSICAL EXAMINATION: On exam, heart rate is 120 beats per minute. Blood pressure is 102/67, respiratory rate is 18. There is no jugular venous distention. Carotid upstroke is normal. There is no bruit. Chest exam reveals diminished air entry at the bases. Heart exam reveals heart sounds. No gallop. Exam of extremities did not reveal any edema. [employer] exam did not reveal focal neurological deficits. ASSESSMENT: Atrial flutter with poorly controlled ventricular rate. PLAN: Patient will continue with current medications. If the heart rate is not well controlled or if he does not convert to sinus rhythm, patient will need PAULINA, cardioversion either over the weekend or on Wednesday. MMODL / IJN: [id number] /
--- NOTE | 2018-11-04 15:14 | P.PN ---
Subjective She will admitted for atrial fibrillation with rapid ventricular rate patient was started on amiodarone without any significant improvement in his rate Cardizem is being admitted in spite of mildly decreased ejection fraction is with do not have any choices to control his heart rate. Patient although asymptomatic at this time. Constitutional: Denied any fatigue denied any fever. Cardio vascular: denied any chest pain, palpitations Gastrointestinal denied any nausea vomiting Pulmonary: Denied any shortness of breath cough Neurologic denied any new focal deficits All inpatient medications were reviewed and appropriate changes in these medi cations as dictated in the interval history and assessment and plan. Objective - Vital Signs Vital signs: Vital Signs Temp 97.8 F 11/04/18 07:49 Pulse 122 H 11/04/18 11:42 Resp 16 11/04/18 11:10 BP 102/67 11/04/18 11:10 Pulse Ox 92 L 11/04/18 11:10 Intake & Output 11/03/18 11/04/18 11/04/18 18:59 06:59 18:59 Intake Total 576.667 565 440 Balance 576.667 565 440 Weight 169.6 kg Intake: IV 75 Amiodarone 300 mg In 75 Dextrose 5% in Water 250 ml @ 0.5 MG/MIN 25 mls/hr IV .Q10H [facility] Rx#: [id number] Intake, IV Titration 96.667 250 Amount Amiodarone 300 mg In 250 Dextrose 5% in Water 250 ml @ 0.5 MG/MIN 25 mls/hr IV .Q10H [facility] Rx#: [id number] Diltiazem 125 mg In 96.667 Sodium Chloride 0.9% 100 ml @ 5 MG/HR 5 mls/hr IV .Q24H [facility] Rx#:[id number] Oral 480 240 440 Other: Voiding Method Toilet # Voids 2 1 - Exam PHYSICAL EXAMINATION: GENERAL: The patient is alert and oriented x3, not in any acute distress. Obese HEENT: Pupils are round and equally reacting to light. EOMI. No scleral icterus. No conjunctival pallor. Normocephalic, atraumatic. No pharyngeal erythema. No thyromegaly. CARDIOVASCULAR: S1 and S2 present. No murmurs, rubs, or gallops. Irregularly irregular rhythm and tachycardic PULMONARY: Chest is clear to auscultation, no wheezing or crackles. ABDOMEN: Soft, nontender, nondistended, normoactive bowel sounds. No palpable organomegaly. MUSCULOSKELETAL: No joint swelling or deformity. EXTREMITIES: No cyanosis, clubbing, or pedal edema. NEUROLOGICAL: Gross neurological examination did not reveal any focal deficits. SKIN: No rashes. - Labs CBC & Chem 7: 11/02/18 21:28 11/02/18 21:28 Labs: Abnormal Lab Results - Last 24 Hours (Table) 11/03/18 11/04/18 11/04/18 Range/Units 20:43 08:02 11:45 POC Glucose (mg/dL) 69 L 143 H 168 H (75-99) mg/dL Assessment and Plan Plan: -Atrial fibrillation with rapid and regular rate: Patient is on anticoagulations, patient is presently on beta mary and amiodarone and Cardizem was added orally continue with anticoagulation awaiting heart rate controlled. -Hypertension -Pain in the left hand: Which improved Secondary to demand ischemia secondary to atrial fibrillation. -Hypertension -Type 2 diabetes mellitus -hyperlipidemia -Obesity and obstructive sleep apnea
[2018-11-04 16:45] LABS: Glucose,Whole Blood 71 mg/dL (75-99)
[2018-11-04 20:40] LABS: Glucose,Whole Blood 153 mg/dL (75-99)
[2018-11-04] MEDS: QUEtiapine 100 MG TAB PO SCH (21:39)
[2018-11-04] MEDS: ATORVASTATIN 40 MG TAB PO SCH (21:39)
[2018-11-05 06:29] LABS: Glucose,Whole Blood 124 mg/dL (75-99)
[2018-11-05] MEDS: INSULIN ASPART (NovoLOG) 100 UNIT/ML VIAL SQ SCH ×7 (07:00→20:43)
[2018-11-05] MEDS: LIPASE 5,000/PROTEASE 17,000/AMYLASE 24,000 PO SCH ×5 (07:00→17:16)
[2018-11-05] MEDS: LEVOTHYROXINE 100 MCG TAB PO SCH (07:01)
[2018-11-05] MEDS: METOPROLOL TARTRATE 50 MG TAB PO SCH ×3 (08:44→20:56)
[2018-11-05] MEDS: LISINOPRIL 5 MG TAB PO SCH (08:44)
[2018-11-05] MEDS: DONEPEZIL 10 MG TAB PO SCH (08:44)
[2018-11-05] MEDS: PANTOPRAZOLE 40 MG/10 ML VIAL IVP SCH (08:44)
[2018-11-05] MEDS: OXYBUTYNIN CHLORIDE 5 MG TAB PO SCH ×2 (08:44→20:42)
[2018-11-05] MEDS: APIXABAN 5 MG TAB PO SCH ×2 (08:45→20:42)
[2018-11-05] MEDS: SERTRALINE 100 MG TAB PO SCH (08:45)
[2018-11-05] MEDS: MEMANTINE 10 MG TAB PO SCH ×2 (08:45→20:42)
[2018-11-05] MEDS: DILTIAZEM ORAL 30 MG TAB PO SCH (08:45)
[2018-11-05] MEDS: TAMSULOSIN 0.4 MG CAP.ER.24H PO SCH (08:45)
[2018-11-05] MEDS: HYDROcodone/APAP 5-325MG 1 EACH TAB PO PRN ×2 (08:52→20:47)
[2018-11-05] MEDS: KETOROLAC 30 MG/ML 1 ML VIAL IVP PRN (08:53)
[2018-11-05] MEDS: NYSTATIN 100,000UNIT/GM CREAM 30 GM TUBE TOPICAL SCH (09:01)
[2018-11-05] MEDS: NITROGLYCERIN SL TABS 0.4 MG TAB SUBLINGUAL PRN ×3 (10:10→10:20)
[2018-11-05] MEDS ORDERED: METOPROLOL TARTRATE 50 MG TAB PO STA (10:50)
[2018-11-05] MEDS: metFORMIN 500 MG TAB PO SCH ×2 (10:52→20:42)
[2018-11-05] MEDS ORDERED: AMIODARONE 360 MG in DEXTROSE 5% IN WATER 200 ML IV ONE ×4 (11:43→18:00)
[2018-11-05] MEDS ORDERED: DEXTROSE 5% IN WATER 100 ML with AMIODARONE 150 MG IV ONE (11:43)
[2018-11-05] MEDS: ASPIRIN 81 MG PO SCH (12:13)
[2018-11-05] MEDS: NITROGLYCERIN OINT 1 INCH/GM PACKET TOPICAL SCH ×2 (12:13→20:43)
[2018-11-05 12:20] LABS: Glucose,Whole Blood 163 mg/dL (75-99)
[2018-11-05] MEDS: INSULIN DETEMIR (LEVEMIR) 100 UNIT/ML SYR SQ SCH ×2 (12:39→20:43)
--- NOTE | 2018-11-05 13:22 | P.PN ---
Subjective Patient was admitted for atrial fibrillation with rapid ventricular rate patient was started on amiodarone without any significant improvement in his rate Cardizem is being admitted in spite of mildly decreased ejection fraction is with do not have any choices to control his heart rate. Patient although asymptomatic at this time. 11/05/2018 Patient is complaining of chest pain patient may psych headache and chest pain is probably related to tachycardia troponins are being obtained. EKGs are being obtained by cardiology. Patient may end up needing cardioversion Constitutional: Denied any fatigue denied any fever. Cardio vascular: As mentioned in the interval history Gastrointestinal denied any nausea vomiting Pulmonary: Denied any shortness of breath cough Neurologic denied any new focal deficits All inpatient medications were reviewed and appropriate changes in these medications as dictated in the interval history and assessment and plan. Objective - Vital Signs Vital signs: Vital Signs Temp 98.1 F 11/05/18 10:46 Pulse 129 H 11/05/18 12:00 Resp 20 11/05/18 10:46 BP 134/78 11/05/18 10:46 Pulse Ox 98 11/05/18 10:46 Intake & Output 11/04/18 11/05/18 11/05/18 18:59 06:59 18:59 Intake Total 670 1440 Balance 670 1440 Weight 168.1 kg Intake: Oral 670 1440 Other: Voiding Method Toilet # Voids 1 2 - Exam PHYSICAL EXAMINATION: GENERAL: The patient is alert and oriented x3, not in any acute distress. Obese HEENT: Pupils are round and equally reacting to light. EOMI. No scleral icterus. No conjunctival pallor. Normocephalic, atraumatic. No pharyngeal erythema. No thyromegaly. CARDIOVASCULAR: S1 and S2 present. No murmurs, rubs, or gallops. Irregularly i rregular rhythm and tachycardic PULMONARY: Chest is clear to auscultation, no wheezing or crackles. ABDOMEN: Soft, nontender, nondistended, normoactive bowel sounds. No palpable organomegaly. MUSCULOSKELETAL: No joint swelling or deformity. EXTREMITIES: No cyanosis, clubbing, or pedal edema. NEUROLOGICAL: Gross neurological examination did not reveal any focal deficits. SKIN: No rashes. - Labs CBC & Chem 7: 11/02/18 21:28 11/02/18 21:28 Labs: Abnormal Lab Results - Last 24 Hours (Table) 11/04/18 11/04/18 11/05/18 Range/Units 16:33 20:39 06:28 POC Glucose (mg/dL) 71 L 153 H 124 H (75-99) mg/dL 11/05/18 Range/Units 12:05 POC Glucose (mg/dL) 163 H (75-99) mg/dL Assessment and Plan Plan: -Atrial fibrillation with rapid and regular rate: Patient is on anticoagulations, patient is presently on beta mary and amiodarone and Cardizem was added orally continue with anticoagulation, heart rate is not well controlled yet. Patient was started back on amiodarone drip. -Hypertension -Pain in the left hand and chest pain: Probably improved Secondary to demand ischemia secondary to atrial fibrillation. Troponins and EKGs are being obtained -Hypertension -Type 2 diabetes mellitus -hyperlipidemia -Obesity and obstructive sleep apnea
--- NOTE | 2018-11-05 15:22 | P.PN ---
Subjective Progress Note Date: 11/05/18 This is a pleasant 62-year-old gentleman with past medical history significant for hypertension, hyperlipidemia, diabetes, hepatitis, recurrent pancreatitis, sleep apnea for which he uses CPAP regularly, mild dementia, recent diagnosis of atrial flutter, patient was in the hospital on October 07, seen in consultation at that time by Dr. Thomas for atrial flutter with rapid ventricular response. He underwent a PAULINA with subsequent cardioversion to normal sinus rhythm and did follow-up with Dr. Thomas in the office subsequent to that at which time he was still in a normal sinus rhythm. He also had an echocardiogram with Doppler study performed on that admission which revealed an ejection fraction of 40-45%. Patient presents back to the hospital on this occasion, he states he was at his endocrinology appointment, it was noted that his heart rate was up in the 1:30 range, he did feel some shortness of breath with associated palpitations and complained of feeling an ache and discomfort in his right arm. For these reasons he was admitted to the hospital for further evaluation and treatment. His EKG on presentation here showed atrial flutter with a rapid ventricular response, heart rate 140. Chest x-ray was normal. Blood pressure 112/70 with a heart rate of 140, 97% on 2 L of oxygen. White blood cell count 6.9, hemoglobin 14.1, platelet count 176. Sodium 140, potassium 4.9, BUN 23 and creatinine 0.7, magnesium 1.8. Troponins are negative 2. At the time of my examination this morning, patient states he can still feel his heart racing fast, still complaining of some discomfort in the right arm and mild associated shortness of breath. He is currently on IV Cardizem drip at 5 mg per hour. 11/05: The patient developed chest pain this morning and heart rate was in the 130s, atrial fibrillation. Troponins 2 have been ordered. Previous troponins have all been negative. We will start the patient on nitroglycerin paste, amiodarone drip will be resumed. Atorvastatin will be increased to 80 mg daily and patient started on aspirin 81 mg daily. Patient complains of chest pain in the middle of his chest. He was at rest at the time of onset but did occur with tachycardia. Question whether chest pain is related to tachycardia or to underlying coronary artery disease. Patient may require heart catheterization to evaluate coronary arteries. Gen: This is a morbidly obese 62-year-old male. He is resting in bed and appears to be comfortable and in no acute distress. HEENT: Head is atraumatic, normocephalic. Pupils equal, round. Sclerae is anicteric. NECK: Supple. No JVD. No lymphadenopathy. No thyromegaly. LUNGS: Clear to auscultation. No wheezes or rhonchi. No intercostal retractions. HEART: Irregularly irregular rate and rhythm. No murmur. Tachycardic. ABDOMEN: Soft. Bowel sounds are present. No masses. No tenderness. EXTREMITIES: Trace pedal edema. No calf tenderness. Dorsalis pedis +2 bilaterally. NEUROLOGICAL: Patient is awake, alert and oriented x3. Cranial nerves 2 through 12 are grossly intact. Assessment: Atrial flutter with RVR Chest pain onset with tachycardia Hypertension Hyperlipidemia Diabetes mellitus type 2 Obstructive sleep apnea Dementia Plan: Resume patient on amiodarone drip Increase atorvastatin to 80 mg daily, start aspirin 81 mg daily, Nitropaste 1 inch, 2 troponin draws today Continue eliquis 5 mg twice daily, Lopressor 50 mg 3 times daily with 1 additional dose of 50 mg this morning Discontinue Cardizem Continue lisinopril 5 mg daily Patient may require heart catheterization to evaluate coronary arteries Patient eventually would benefit from cardiac ablation Further recommendations to follow based on clinical course. Nurse practitioner note has been reviewed, I agree with documented findings and plan of care. Patient was seen and examined. Objective - Vital Signs Vital signs: Vital Signs Temp 98.1 F 11/05/18 10:46 Pulse 129 H 11/05/18 10:46 Resp 20 11/05/18 10:46 BP 134/78 11/05/18 10:46 Pulse Ox 98 11/05/18 10:46 Intake & Output 11/04/18 11/05/18 11/05/18 18:59 06:59 18:59 Intake Total 670 1440 Balance 670 1440 Weight 168.1 kg Intake: Oral 670 1440 Other: Voiding Method Toilet # Voids 1 2 - Labs CBC & Chem 7: 11/02/18 21:28 11/02/18 21:28 Labs: Abnormal Lab Results - Last 24 Hours (Table) 11/04/18 11/04/18 11/04/18 Range/Units 11:45 16:33 20:39 POC Glucose (mg/dL) 168 H 71 L 153 H (75-99) mg/dL 11/05/18 Range/Units 06:28 POC Glucose (mg/dL) 124 H (75-99) mg/dL
[2018-11-05 17:16] LABS: Glucose,Whole Blood 162 mg/dL (75-99)
[2018-11-05 20:39] LABS: Glucose,Whole Blood 148 mg/dL (75-99)
[2018-11-05] MEDS: QUEtiapine 100 MG TAB PO SCH (20:42)
[2018-11-05] MEDS: ATORVASTATIN 80 MG TAB PO SCH (20:43)
[2018-11-05] MEDS: AMIODARONE 360 MG in DEXTROSE 5% IN WATER 200 ML IV SCH ×2 (23:45)
[2018-11-06] MEDS: AMIODARONE 360 MG in DEXTROSE 5% IN WATER 200 ML IV SCH ×8 (05:35→23:00)
[2018-11-06] MEDS: KETOROLAC 30 MG/ML 1 ML VIAL IVP PRN ×3 (05:35→18:20)
[2018-11-06] MEDS: NITROGLYCERIN OINT 1 INCH/GM PACKET TOPICAL SCH ×3 (05:41→20:49)
[2018-11-06 06:40] LABS: African American GFR (CKD) >90 (>60 ml/min/1.73 sqM); Anion Gap 9 mmol/L; Blood Urea Nitrogen 27 mg/dL (9-20); Calcium 8.7 mg/dL (8.4-10.2); Carbon Dioxide 28 mmol/L (22-30); Chloride 102 mmol/L (98-107); Glucose 64 mg/dL (74-99); Non-African American GFR(CKD) >90 (>60 ml/min/1.73 sqM); Potassium 4.1 mmol/L (3.5-5.1); Sodium 139 mmol/L (137-145)
[2018-11-06 06:43] LABS: Glucose,Whole Blood 86 mg/dL (75-99)
[2018-11-06] MEDS: INSULIN ASPART (NovoLOG) 100 UNIT/ML VIAL SQ SCH ×7 (06:45→21:45)
[2018-11-06] MEDS: LIPASE 5,000/PROTEASE 17,000/AMYLASE 24,000 PO SCH ×3 (06:51→16:47)
[2018-11-06] MEDS: LEVOTHYROXINE 100 MCG TAB PO SCH (06:51)
[2018-11-06] MEDS: DONEPEZIL 10 MG TAB PO SCH (08:03)
[2018-11-06] MEDS: APIXABAN 5 MG TAB PO SCH ×2 (08:03→20:48)
[2018-11-06] MEDS: METOPROLOL TARTRATE 50 MG TAB PO SCH ×3 (08:03→22:11)
[2018-11-06] MEDS: SERTRALINE 100 MG TAB PO SCH (08:03)
[2018-11-06] MEDS: TAMSULOSIN 0.4 MG CAP.ER.24H PO SCH (08:03)
[2018-11-06] MEDS: metFORMIN 500 MG TAB PO SCH ×2 (08:03→20:48)
[2018-11-06] MEDS: ASPIRIN 81 MG PO SCH (08:03)
[2018-11-06] MEDS: MEMANTINE 10 MG TAB PO SCH ×2 (08:03→20:48)
[2018-11-06] MEDS: PANTOPRAZOLE 40 MG/10 ML VIAL IVP SCH (08:03)
[2018-11-06] MEDS: OXYBUTYNIN CHLORIDE 5 MG TAB PO SCH ×2 (08:04→20:48)
[2018-11-06] MEDS: NYSTATIN 100,000UNIT/GM CREAM 30 GM TUBE TOPICAL SCH (08:04)
[2018-11-06] MEDS: LISINOPRIL 5 MG TAB PO SCH (08:04)
[2018-11-06] MEDS: INSULIN DETEMIR (LEVEMIR) 100 UNIT/ML SYR SQ SCH ×2 (08:09→22:10)
--- NOTE | 2018-11-06 09:26 | XR ---
EXAMINATION TYPE: XR chest 2V DATE OF EXAM: 11/06/2018 HISTORY: assess for fluid overload. REFERENCE: Previous study dated 11/02/2018. FINDINGS: Heart is mildly enlarged. There is vascular congestion and subtle interstitial change. Lung volumes are mildly prominent. Pleural spaces are clear. IMPRESSION: MILD CHANGES OF CONGESTIVE HEART FAILURE
[2018-11-06] MEDS: NITROGLYCERIN SL TABS 0.4 MG TAB SUBLINGUAL PRN ×2 (10:25→10:30)
[2018-11-06 12:02] LABS: Glucose,Whole Blood 127 mg/dL (75-99)
--- NOTE | 2018-11-06 13:00 | P.PN ---
Subjective Patient was admitted for atrial fibrillation with rapid ventricular rate patient was started on amiodarone without any significant improvement in his rate Cardizem is being admitted in spite of mildly decreased ejection fraction is with do not have any choices to control his heart rate. Patient although asymptomatic at this time. 11/05/2018 Patient is complaining of chest pain chest pain is probably related to tachycardia troponins are being obtained. EKGs are being obtained by cardiology. Patient may end up needing cardioversion 11/06/2018 Patient's troponins are negative patient has on and off chest pain from tachycardia, patient remains on IV amiodarone, patient probably will undergo cardioversion tomorrow. Constitutional: Denied any fatigue denied any fever. Cardio vascular: As mentioned in the interval history Gastrointestinal denied any nausea vomiting Pulmonary: Denied any shortness of breath cough Neurologic denied any new focal deficits All inpatient medications were reviewed and appropriate changes in these medications as dictated in the interval history and assessment and plan. Objective - Vital Signs Vital signs: Vital Signs Temp 98.5 F 11/06/18 12:00 Pulse 114 H 11/06/18 12:00 Resp 18 11/06/18 12:00 BP 105/68 11/06/18 12:00 Pulse Ox 94 L 11/06/18 12:00 Intake & Output 11/05/18 11/06/18 11/06/18 18:59 06:59 18:59 Intake Total 200 194.442 Output Total 250 500 Balance 200 -55.558 -500 Weight 168.1 kg Intake: Intake, IV Titration 194.442 Amount Amiodarone 360 mg In 194.442 Dextrose 5% in Water 200 ml @ 1 MG/MIN 33.333 mls/ hr IV .Q6H [facility] Rx#: [id number] Oral 200 Output: Urine 250 500 Other: Voiding Method Toilet # Voids 3 - Exam PHYSICAL EXAMINATION: GENERAL: The patient is alert and oriented x3, not in any acute distress. Obese HEENT: Pupils are round and equally reacting to light. EOMI. No scleral icterus. No conjunctival pallor. Normocephalic, atraumatic. No pharyngeal erythema. No thyromegaly. CARDIOVASCULAR: S1 and S2 present. No murmurs, rubs, or gallops. Irregularly irregular rhythm and tachycardic PULMONARY: Chest is clear to auscultation, no wheezing or crackles. ABDOMEN: Soft, nontender, nondistended, normoactive bowel sounds. No palpable organomegaly. MUSCULOSKELETAL: No joint swelling or deformity. EXTREMITIES: No cyanosis, clubbing, or pedal edema. NEUROLOGICAL: Gross neurological examination did not reveal any focal deficits. SKIN: No rashes. - Labs CBC & Chem 7: 11/02/18 21:28 11/06/18 05:41 Labs: Abnormal Lab Results - Last 24 Hours (Table) 11/05/18 11/05/18 11/06/18 Range/Units 17:13 20:37 05:41 BUN 27 H (9-20) mg/dL Glucose 64 L (74-99) mg/dL POC Glucose (mg/dL) 162 H 148 H (75-99) mg/dL 11/06/18 Range/Units 11:55 BUN (9-20) mg/dL Glucose (74-99) mg/dL POC Glucose (mg/dL) 127 H (75-99) mg/dL Assessment and Plan Plan: -Atrial fibrillation with rapid and regular rate: Patient is on anticoagulations, patient is presently on beta mary and amiodarone and Cardizem was added orally continue with anticoagulation, heart rate is not well controlled yet. Patient was started back on amiodarone drip. -Hypertension -Pain in the left hand and chest pain: Probably improved Secondary to demand ischemia secondary to atrial fibrillation. Troponins and EKGs are being obtained -Hypertension -Type 2 diabetes mellitus -hyperlipidemia -Obesity and obstructive sleep apnea
--- NOTE | 2018-11-06 14:42 | P.PN ---
Subjective Progress Note Date: 11/06/18 This is a pleasant 62-year-old gentleman with past medical history significant for hypertension, hyperlipidemia, diabetes, hepatitis, recurrent pancreatitis, sleep apnea for which he uses CPAP regularly, mild dementia, recent diagnosis of atrial flutter, patient was in the hospital on October 07, seen in consultation at that time by Dr. Thomas for atrial flutter with rapid ventricular response. He underwent a PAULINA with subsequent cardioversion to normal sinus rhythm and did follow-up with Dr. Thomas in the office subsequent to that at which time he was still in a normal sinus rhythm. He also had an echocardiogram with Doppler study performed on that admission which revealed an ejection fraction of 40-45%. Patient presents back to the hospital on this occasion, he states he was at his endocrinology appointment, it was noted that his heart rate was up in the 1:30 range, he did feel some shortness of breath with associated palpitations and complained of feeling an ache and discomfort in his right arm. For these reasons he was admitted to the hospital for further evaluation and treatment. His EKG on presentation here showed atrial flutter with a rapid ventricular response, heart rate 140. Chest x-ray was normal. Blood pressure 112/70 with a heart rate of 140, 97% on 2 L of oxygen. White blood cell count 6.9, hemoglobin 14.1, platelet count 176. Sodium 140, potassium 4.9, BUN 23 and creatinine 0.7, magnesium 1.8. Troponins are negative 2. At the time of my examination this morning, patient states he can still feel his heart racing fast, still complaining of some discomfort in the right arm and mild associated shortness of breath. He is currently on IV Cardizem drip at 5 mg per hour. 11/05: The patient developed chest pain this morning and heart rate was in the 130s, atrial fibrillation. Troponins 2 have been ordered. Previous troponins have all been negative. We will start the patient on nitroglycerin paste, amiodarone drip will be resumed. Atorvastatin will be increased to 80 mg daily and patient started on aspirin 81 mg daily. Patient complains of chest pain in the middle of his chest. He was at rest at the time of onset but did occur with tachycardia. Question whether chest pain is related to tachycardia or to underlying coronary artery disease. Patient may require heart catheterization to evaluate coronary arteries. 11/06: Troponins from yesterday were negative on 2 draws. Patient did have another episode of chest pain and relieved with 2 nitroglycerin but pain was reproducible. He is continued on amiodarone and heart rate is running in the 80s to 110 in atrial flutter. Patient is tentatively scheduled for cardioversion on Wednesday and to be nothing by mouth after midnight. Gen: This is a morbidly obese 62-year-old male. He is resting on the edge of the bed bed and appears to be comfortable and in no acute distress. HEENT: Head is atraumatic, normocephalic. Pupils equal, round. Sclerae is anicteric. NECK: Supple. No JVD. No lymphadenopathy. No thyromegaly. LUNGS: Clear to auscultation. No wheezes or rhonchi. No intercostal retractions. HEART: Irregularly irregular rate and rhythm. No murmur. Tachycardic. ABDOMEN: Soft. Bowel sounds are present. No masses. No tenderness. EXTREMITIES: Trace pedal edema. No calf tenderness. Dorsalis pedis +2 bilaterally. NEUROLOGICAL: Patient is awake, alert and oriented x3. Cranial nerves 2 through 12 are grossly intact. Assessment: Atrial flutter with RVR Chest pain onset with tachycardia Hypertension Hyperlipidemia Diabetes mellitus type 2 Obstructive sleep apnea Dementia Plan: Continue on amiodarone drip Continue atorvastatin 80 mg daily, aspirin 81 mg daily, Nitropaste 1 inch Continue eliquis 5 mg twice daily, Lopressor 50 mg 3 times daily Continue lisinopril 5 mg daily Patient generally scheduled for cardioversion on Wednesday. Keep patient nothing by mouth after midnight. Patient eventually would benefit from cardiac ablation Further recommendations to follow based on clinical course. Nurse practitioner note has been reviewed, I agree with documented findings and plan of care. Patient was seen and examined. Objective - Vital Signs Vital signs: Vital Signs Temp 98.5 F 11/06/18 12:00 Pulse 114 H 11/06/18 12:00 Resp 18 11/06/18 12:00 BP 105/68 11/06/18 12:00 Pulse Ox 94 L 11/06/18 12:00 Intake & Output 11/05/18 11/06/18 11/06/18 18:59 06:59 18:59 Intake Total 200 194.442 Output Total 250 500 Balance 200 -55.558 -500 Weight 168.1 kg Intake: Intake, IV Titration 194.442 Amount Amiodarone 360 mg In 194.442 Dextrose 5% in Water 200 ml @ 1 MG/MIN 33.333 mls/ hr IV .Q6H [facility] Rx#: [id number] Oral 200 Output: Urine 250 500 Other: Voiding Method Toilet # Voids 3 - Labs CBC & Chem 7: 11/02/18 21:28 11/06/18 05:41 Labs: Abnormal Lab Results - Last 24 Hours (Table) 11/05/18 11/05/18 11/06/18 Range/Units 17:13 20:37 05:41 BUN 27 H (9-20) mg/dL Glucose 64 L (74-99) mg/dL POC Glucose (mg/dL) 162 H 148 H (75-99) mg/dL 11/06/18 Range/Units 11:55 BUN (9-20) mg/dL Glucose (74-99) mg/dL POC Glucose (mg/dL) 127 H (75-99) mg/dL
[2018-11-06 17:14] LABS: Glucose,Whole Blood 78 mg/dL (75-99)
[2018-11-06] MEDS: QUEtiapine 100 MG TAB PO SCH (20:48)
[2018-11-06] MEDS: ATORVASTATIN 80 MG TAB PO SCH (20:48)
[2018-11-06 21:38] LABS: Glucose,Whole Blood 116 mg/dL (75-99)
[2018-11-07] MEDS: NITROGLYCERIN OINT 1 INCH/GM PACKET TOPICAL SCH ×2 (04:58→08:09)
[2018-11-07] MEDS: KETOROLAC 30 MG/ML 1 ML VIAL IVP PRN ×3 (05:09→20:05)
[2018-11-07] MEDS: AMIODARONE 360 MG in DEXTROSE 5% IN WATER 200 ML IV SCH ×4 (05:10→14:31)
[2018-11-07 06:14] LABS: Glucose,Whole Blood 89 mg/dL (75-99)
[2018-11-07] MEDS: INSULIN ASPART (NovoLOG) 100 UNIT/ML VIAL SQ SCH ×9 (06:39→20:46)
[2018-11-07] MEDS: LEVOTHYROXINE 100 MCG TAB PO SCH (06:46)
[2018-11-07 06:50] LABS: Glucose,Whole Blood 91 mg/dL (75-99)
[2018-11-07 07:06] LABS: African American GFR (CKD) >90 (>60 ml/min/1.73 sqM); Anion Gap 9 mmol/L; Blood Urea Nitrogen 27 mg/dL (9-20); Calcium 8.7 mg/dL (8.4-10.2); Carbon Dioxide 27 mmol/L (22-30); Chloride 103 mmol/L (98-107); Glucose 80 mg/dL (74-99); Non-African American GFR(CKD) >90 (>60 ml/min/1.73 sqM); Potassium 4.6 mmol/L (3.5-5.1); Sodium 139 mmol/L (137-145)
[2018-11-07] MEDS: PANTOPRAZOLE 40 MG/10 ML VIAL IVP SCH (08:09)
[2018-11-07] MEDS: metFORMIN 500 MG TAB PO SCH ×3 (08:09→20:47)
[2018-11-07] MEDS: METOPROLOL TARTRATE 50 MG TAB PO SCH ×2 (08:09→20:07)
[2018-11-07] MEDS: SERTRALINE 100 MG TAB PO SCH (08:09)
[2018-11-07] MEDS: LISINOPRIL 5 MG TAB PO SCH (08:09)
[2018-11-07] MEDS: OXYBUTYNIN CHLORIDE 5 MG TAB PO SCH ×2 (08:09→20:06)
[2018-11-07] MEDS: ASPIRIN 81 MG PO SCH (08:10)
[2018-11-07] MEDS: NYSTATIN 100,000UNIT/GM CREAM 30 GM TUBE TOPICAL SCH (08:10)
[2018-11-07] MEDS: DONEPEZIL 10 MG TAB PO SCH (08:10)
[2018-11-07] MEDS: MEMANTINE 10 MG TAB PO SCH ×2 (08:10→20:06)
[2018-11-07] MEDS: APIXABAN 5 MG TAB PO SCH ×2 (08:10→20:06)
[2018-11-07] MEDS: TAMSULOSIN 0.4 MG CAP.ER.24H PO SCH (08:10)
[2018-11-07] MEDS: LIPASE 5,000/PROTEASE 17,000/AMYLASE 24,000 PO SCH ×3 (11:17→18:13)
--- NOTE | 2018-11-07 12:02 | P.PN ---
Subjective Patient was admitted for atrial fibrillation with rapid ventricular rate patient was started on amiodarone without any significant improvement in his rate Cardizem is being admitted in spite of mildly decreased ejection fraction is with do not have any choices to control his heart rate. Patient although asymptomatic at this time. 11/05/2018 Patient is complaining of chest pain chest pain is probably related to tachycardia troponins are being obtained. EKGs are being obtained by cardiology. Patient may end up needing cardioversion 11/06/2018 Patient's troponins are negative patient has on and off chest pain from tachycardia, patient remains on IV amiodarone, patient probably will undergo cardioversion tomorrow. 11/07/2018 Patient will undergo PAULINA cardioversion today. Patient has redness in the left appears to be cellulitic with local is of temperature patient will be started on ceftezolin Constitutional: Denied any fatigue denied any fever. Cardio vascular: As mentioned in the interval history Gastrointestinal denied any nausea vomiting Pulmonary: Denied any shortness of breath cough Neurologic denied any new focal deficits All inpatient medications were reviewed and appropriate changes in these medications as dictated in the interval history and assessment and plan. Objective - Vital Signs Vital signs: Vital Signs Temp 98.5 F 11/07/18 11:36 Pulse 110 H 11/07/18 11:36 Resp 18 11/07/18 11:36 BP 115/62 11/07/18 11:36 Pulse Ox 97 11/07/18 11:36 Intake & Output 11/06/18 11/07/18 11/07/18 18:59 06:59 18:59 Intake Total 430 400 0 Output Total 1200 Balance -770 400 0 Weight 167.8 kg Intake: Intake, IV Titration 200 400 Amount Amiodarone 360 mg In 200 400 Dextrose 5% in Water 200 ml @ 1 MG/MIN 33.333 mls/ hr IV .Q6H [facility] Rx#: [id number] Oral 230 0 Output: Urine 1200 Other: Voiding Method Toilet Toilet # Voids 2 5 # Bowel Movements 0 - Exam PHYSICAL EXAMINATION: GENERAL: The patient is alert and oriented x3, not in any acute distress. Obese HEENT: Pupils are round and equally reacting to light. EOMI. No scleral icterus. No conjunctival pallor. Normocephalic, atraumatic. No pharyngeal erythema. No thyromegaly. CARDIOVASCULAR: S1 and S2 present. No murmurs, rubs, or gallops. Irregularly irregular rhythm and tachycardic PULMONARY: Chest is clear to auscultation, no wheezing or crackles. ABDOMEN: Soft, nontender, nondistended, normoactive bowel sounds. No palpable organomegaly. MUSCULOSKELETAL: No joint swelling or deformity. EXTREMITIES: No cyanosis, clubbing, or pedal edema. NEUROLOGICAL: Gross neurological examination did not reveal any focal deficits. SKIN: Cellulitis of the left arm - Labs CBC & Chem 7: 11/02/18 21:28 11/07/18 05:46 Labs: Abnormal Lab Results - Last 24 Hours (Table) 11/06/18 11/06/18 11/07/18 Range/Units 11:55 21:36 05:46 BUN 27 H (9-20) mg/dL POC Glucose (mg/dL) 127 H 116 H (75-99) mg/dL Assessment and Plan Plan: -Atrial fibrillation with rapid and regular rate: Patient is on anticoagulations, patient is presently on beta mary and amiodarone and Cardizem was added orally continue with anticoagulation, heart rate is not well controlled yet. Patient was started back on amiodarone drip. Patient will undergo cardioversion today -Possible colitis of the left arm: Patient will be started and medics as mentioned above -Hypertension -Pain in the left hand and chest pain: Probably improved Secondary to demand ischemia secondary to atrial fibrillation. Troponins and EKGs are being obtained -Hypertension -Type 2 diabetes mellitus -hyperlipidemia -Obesity and obstructive sleep apnea
[2018-11-07] MEDS ORDERED: SODIUM CHLORIDE 0.9% 1,000 ML IV ONE (12:16)
[2018-11-07] MEDS ORDERED: PROPOFOL 10 MG/ML 20 ML VIAL IV ONE (12:17)
--- NOTE | 2018-11-07 12:42 | CE ---
CARDIAC ELECTROPHYSIOLOGY REPORT [facility]ERS[facility] PROCEDURE NOTE: INDICATION: Atrial flutter. PROCEDURE: After explaining the procedure to the patient, its risks and the complications, his blood pressure, heart rate, O2 saturation were monitored. After obtaining sedated state by the anesthesia department, a synchronized biphasic cardioversion using 200 joules and subsequently 300 joules were successful in restoring sinus mechanism. There was no immediate complication. MENDEZ / PRISCAN: [id number] /
[2018-11-07 14:35] LABS: Glucose,Whole Blood 124 mg/dL (75-99)
[2018-11-07] MEDS: INSULIN DETEMIR (LEVEMIR) 100 UNIT/ML SYR SQ SCH ×2 (14:42→20:46)
[2018-11-07] MEDS: SODIUM CHLORIDE 0.9% 1,000 ML IV SCH ×2 (14:42→14:43)
--- NOTE | 2018-11-07 14:53 | P.PN ---
Subjective Progress Note Date: 11/07/18 This is a pleasant 62-year-old gentleman with past medical history significant for hypertension, hyperlipidemia, diabetes, hepatitis, recurrent pancreatitis, sleep apnea for which he uses CPAP regularly, mild dementia, recent diagnosis of atrial flutter, patient was in the hospital on October 07, seen in consultation at that time by Dr. Thomas for atrial flutter with rapid ventricular response. He underwent a PAULINA with subsequent cardioversion to normal sinus rhythm and did follow-up with Dr. Thomas in the office subsequent to that at which time he was still in a normal sinus rhythm. He also had an echocardiogram with Doppler study performed on that admission which revealed an ejection fraction of 40-45%. Patient presents back to the hospital on this occasion, he states he was at his endocrinology appointment, it was noted that his heart rate was up in the 1:30 range, he did feel some shortness of breath with associated palpitations and complained of feeling an ache and discomfort in his right arm. For these reasons he was admitted to the hospital for further evaluation and treatment. His EKG on presentation here showed atrial flutter with a rapid ventricular response, heart rate 140. Chest x-ray was normal. Blood pressure 112/70 with a heart rate of 140, 97% on 2 L of oxygen. White blood cell count 6.9, hemoglobin 14.1, platelet count 176. Sodium 140, potassium 4.9, BUN 23 and creatinine 0.7, magnesium 1.8. Troponins are negative 2. At the time of my examination this morning, patient states he can still feel his heart racing fast, still complaining of some discomfort in the right arm and mild associated shortness of breath. He is currently on IV Cardizem drip at 5 mg per hour. 11/07/2018 She was seen and examined this morning, continues to be in atrial flutter, complaining of difficulty in breathing and mild chest discomfort. The patient's also complaining of some pain and swelling in his right posterior upper arm area. Blood pressure 114/60 with a heart rate in the 70s. Sodium 139, potassium 4.6, BUN 27, creatinine 0.8. Objective - Vital Signs Vital signs: Vital Signs Temp 98 F 11/07/18 12:27 Pulse 72 11/07/18 14:20 Resp 16 11/07/18 13:35 BP 113/61 11/07/18 14:20 Pulse Ox 98 11/07/18 14:20 Intake & Output 11/06/18 11/07/18 11/07/18 18:59 06:59 18:59 Intake Total 430 400 100 Output Total 1200 Balance -770 400 100 Weight 167.8 kg Intake: IV 100 Intake, IV Titration 200 400 Amount Amiodarone 360 mg In 200 400 Dextrose 5% in Water 200 ml @ 1 MG/MIN 33.333 mls/ hr IV .Q6H PENDING SALE TO [facility] Rx#: [id number] Oral 230 0 Output: Urine 1200 Other: Voiding Method Toilet Toilet # Voids 2 5 # Bowel Movements 0 - Exam PHYSICAL EXAMINATION: GENERAL: 62-year-old gentleman in no acute distress at the time of my examination HEENT: Head is atraumatic, normocephalic. Pupils equal, round. Sclera anicteric. Conjunctiva are clear. Mucous membranes of the mouth are moist. Neck is supple. There is no elevated jugular venous pressure. No carotid bruit is heard. HEART EXAMINATION: Artery S1 and S2 irregularly irregular CHEST EXAMINATION: Lungs are clear to auscultation and precussion. No chest wall tenderness is noted on palpation or with deep breathing. ABDOMEN: Soft, obese, nontender. Bowel sounds are heard. No organomegaly noted. EXTREMITIES: 2+ peripheral pulses with trace evidence of peripheral edema and no calf tenderness noted. Patient does have an area of redness and swelling to the right posterior upper arm area NEUROLOGIC patient is awake, alert and oriented 3 - Labs CBC & Chem 7: 11/02/18 21:28 11/07/18 05:46 Labs: Abnormal Lab Results - Last 24 Hours (Table) 11/06/18 11/07/18 11/07/18 Range/Units 21:36 05:46 14:33 BUN 27 H (9-20) mg/dL POC Glucose (mg/dL) 116 H 124 H (75-99) mg/dL Assessment and Plan Plan: Assessment and plan #1 atrial flutter with rapid ventricular response, 2 to one conduction, typical #2 recent diagnosis of atrial flutter in October of this year at which time patient underwent an elective PAULINA with subsequent cardioversion to normal sinus rhythm, on Eliquis 5 mg's one tablet by mouth twice a day for anticoagulation #3 hypertension #4 diabetes #5 hyperlipidemia #6 obesity #7 obstructive sleep apnea #8 hepatitis #9 recurrent pancreatitis Plan Patient continues to be in atrial flutter, because he is so symptomatic he's been recommended again to undergo elective cardioversion, this will be performed today by Dr. Thomas. DNP note has been reviewed, I agree with a documented findings and plan of care. Patient was seen and examined.
[2018-11-07 16:57] LABS: Glucose,Whole Blood 132 mg/dL (75-99)
[2018-11-07] MEDS: QUEtiapine 100 MG TAB PO SCH (20:06)
[2018-11-07] MEDS: ATORVASTATIN 80 MG TAB PO SCH (20:06)
[2018-11-07] MEDS: AMIODARONE 200 MG TAB PO SCH (20:07)
[2018-11-07 20:38] LABS: Glucose,Whole Blood 77 mg/dL (75-99)
[2018-11-08] MEDS: HYDROcodone/APAP 5-325MG 1 EACH TAB PO PRN ×3 (04:44→20:30)
[2018-11-08] MEDS: LIPASE 5,000/PROTEASE 17,000/AMYLASE 24,000 PO SCH ×3 (05:58→17:07)
[2018-11-08 05:59] LABS: Glucose,Whole Blood 134 mg/dL (75-99)
[2018-11-08] MEDS: LEVOTHYROXINE 100 MCG TAB PO SCH (05:59)
[2018-11-08 07:02] LABS: African American GFR (CKD) >90 (>60 ml/min/1.73 sqM); Anion Gap 9 mmol/L; Blood Urea Nitrogen 33 mg/dL (9-20); Calcium 8.8 mg/dL (8.4-10.2); Carbon Dioxide 26 mmol/L (22-30); Chloride 104 mmol/L (98-107); Glucose 126 mg/dL (74-99); Non-African American GFR(CKD) 85 (>60 ml/min/1.73 sqM); Potassium 4.5 mmol/L (3.5-5.1); Sodium 139 mmol/L (137-145)
[2018-11-08] MEDS: INSULIN DETEMIR (LEVEMIR) 100 UNIT/ML SYR SQ SCH ×2 (08:27→20:29)
[2018-11-08] MEDS: TAMSULOSIN 0.4 MG CAP.ER.24H PO SCH (08:27)
[2018-11-08] MEDS: DONEPEZIL 10 MG TAB PO SCH (08:27)
[2018-11-08] MEDS: APIXABAN 5 MG TAB PO SCH ×2 (08:27→20:28)
[2018-11-08] MEDS: SERTRALINE 100 MG TAB PO SCH (08:28)
[2018-11-08] MEDS: AMIODARONE 200 MG TAB PO SCH ×2 (08:28→20:28)
[2018-11-08] MEDS: NYSTATIN 100,000UNIT/GM CREAM 30 GM TUBE TOPICAL SCH (08:28)
[2018-11-08] MEDS: LISINOPRIL 5 MG TAB PO SCH (08:28)
[2018-11-08] MEDS: PANTOPRAZOLE 40 MG TABLET PO SCH (08:28)
[2018-11-08] MEDS: METOPROLOL TARTRATE 50 MG TAB PO SCH ×2 (08:28→20:28)
[2018-11-08] MEDS: MEMANTINE 10 MG TAB PO SCH ×2 (08:28→20:28)
[2018-11-08] MEDS: metFORMIN 500 MG TAB PO SCH ×2 (08:28→20:29)
[2018-11-08] MEDS: OXYBUTYNIN CHLORIDE 5 MG TAB PO SCH ×2 (08:28→20:29)
[2018-11-08] MEDS: FUROSEMIDE 10 MG/ML 4 ML VIAL IV SCH ×2 (09:07→20:28)
[2018-11-08] MEDS: SODIUM CHLORIDE 0.9% 1,000 ML IV SCH ×2 (09:08→13:15)
[2018-11-08 11:52] LABS: Glucose,Whole Blood 203 mg/dL (75-99)
--- NOTE | 2018-11-08 12:56 | CDI ---
Documentation Clarification Form Date: 11/08/2018 12:24:45 PM From: Angeles Mendoza RN, CCDS Admit Date: 11/02/2018 11:24:00 PM Patient Name: James Castellon Visit Number: [id number] Discharge Date: ATTENTION: The Clinical Documentation Specialists (CDI) and [facility] Coding Staff appreciate your assistance in clarifying documentation. Please respond to the clarification below the line at the bottom and electronically sign. The CDI & [facility] Coding staff will review the response and follow-up if needed. Please note: Queries are made part of the Legal Health Record. If you have any questions, please contact the author of this message via ITS. Dr. Mary Rush/Dr. Joshua Thompson Conflicting documentation has been found in the medical record: The patient presented with complaints of elevated heart rate. History/Risk Factors: Atrial Flutter, DM, HTN, Clinical Indicators: 62-year-old male with elevated heart rate was recorded as 130 bpm. In ED found to be in atrial flutter with a 2:1 ratio on the EKG. Patient has had to be cardioverted in the past. Lab findings: Troponin I<0.012 EKG Atrial Flutter 2:1 AV conduction; 138 bpm Chest x-ray: Normal Vital Signs: 163/91 138 16 98.0 Other Clinical Indicators: 11/03/18 Cardiology consults: Recent diagnosis of atrial flutter on October 07, with subsequent cardioversion to normal sinus rhythm. His EKG on presentation here showed atrial flutter with a rapid ventricular response, heart rate 140. 97 % 2/L of oxygen. Troponins are negative x2. Impression: Atrial Flutter with ventricular response 2:1 conduction, typical. Treatment: Telemetry Monitoring Cardizem drip (titrate) (DC) Eliquis PO Amiodarone drip In your opinion, what is the most clinically appropriate diagnosis for this patient? Atrial Flutter 2:1, Typical Atrial Fibrillation (please specify type) Other explanation of clinical findings Unable to determine (no explanation for clinical findings) (Last Revision: July 2017) Atrial Flutter 2:1, Typical MTDD
--- NOTE | 2018-11-08 13:10 | P.PN ---
Subjective Progress Note Date: 11/08/18 This is a pleasant 62-year-old gentleman with past medical history significant for hypertension, hyperlipidemia, diabetes, hepatitis, recurrent pancreatitis, sleep apnea for which he uses CPAP regularly, mild dementia, recent diagnosis of atrial flutter, patient was in the hospital on October 07, seen in consultation at that time by Dr. Thomas for atrial flutter with rapid ventricular response. He underwent a PAULINA with subsequent cardioversion to normal sinus rhythm and did follow-up with Dr. Thomas in the office subsequent to that at which time he was still in a normal sinus rhythm. He also had an echocardiogram with Doppler study performed on that admission which revealed an ejection fraction of 40-45%. Patient presents back to the hospital on this occasion, he states he was at his endocrinology appointment, it was noted that his heart rate was up in the 1:30 range, he did feel some shortness of breath with associated palpitations and complained of feeling an ache and discomfort in his right arm. For these reasons he was admitted to the hospital for further evaluation and treatment. His EKG on presentation here showed atrial flutter with a rapid ventricular response, heart rate 140. Chest x-ray was normal. Blood pressure 112/70 with a heart rate of 140, 97% on 2 L of oxygen. White blood cell count 6.9, hemoglobin 14.1, platelet count 176. Sodium 140, potassium 4.9, BUN 23 and creatinine 0.7, magnesium 1.8. Troponins are negative 2. At the time of my examination this morning, patient states he can still feel his heart racing fast, still complaining of some discomfort in the right arm and mild associated shortness of breath. He is currently on IV Cardizem drip at 5 mg per hour. 11/07/2018 She was seen and examined this morning, continues to be in atrial flutter, complaining of difficulty in breathing and mild chest discomfort. The patient's also complaining of some pain and swelling in his right posterior upper arm area. Blood pressure 114/60 with a heart rate in the 70s. Sodium 139, potassium 4.6, BUN 27, creatinine 0.8. 8 16,019 Patient underwent elective cardioversion yesterday by Dr. Thomas and continues to be in a normal sinus rhythm this morning. He is complaining of some mild shortness of breath today as well as some bilateral peripheral edema. Blood pressure 134/80 with a heart rate in the 70s, 97% on 3 L of oxygen. Sodium 139, potassium 4.5, BUN 33, creatinine 0.9. Objective - Vital Signs Vital signs: Vital Signs Temp 97.7 F 11/08/18 08:30 Pulse 75 11/08/18 08:30 Resp 18 11/08/18 08:30 BP 134/84 11/08/18 08:30 Pulse Ox 97 11/08/18 08:30 Intake & Output 11/07/18 11/08/18 11/08/18 18:59 06:59 18:59 Intake Total 50 450 Balance 50 450 Weight 168.2 kg 168.2 kg Intake: IV 50 Oral 0 450 Other: Voiding Method Toilet # Voids 1 1 1 # Bowel Movements 0 - Exam PHYSICAL EXAMINATION: GENERAL: 62-year-old gentleman in no acute distress at the time of my examination HEENT: Head is atraumatic, normocephalic. Pupils equal, round. Sclera a nicteric. Conjunctiva are clear. Mucous membranes of the mouth are moist. Neck is supple. There is no elevated jugular venous pressure. No carotid bruit is heard. HEART EXAMINATION: Artery S1 and S2 irregularly irregular CHEST EXAMINATION: Lungs reveal diminished air entry to bilateral bases , No chest wall tenderness is noted on palpation or with deep breathing. ABDOMEN: Soft, obese, nontender. Bowel sounds are heard. No organomegaly noted. EXTREMITIES: 2+ peripheral pulses with 1+ evidence of peripheral edema and no calf tenderness noted. Patient does have an area of redness and swelling to the right posterior upper arm area NEUROLOGIC patient is awake, alert and oriented 3 - Labs CBC & Chem 7: 11/02/18 21:28 11/08/18 05:41 Labs: Abnormal Lab Results - Last 24 Hours (Table) 11/07/18 11/07/18 11/08/18 Range/Units 14:33 16:55 05:41 BUN 33 H (9-20) mg/dL Glucose 126 H (74-99) mg/dL POC Glucose (mg/dL) 124 H 132 H (75-99) mg/dL 11/08/18 11/08/18 Range/Units 05:58 11:51 BUN (9-20) mg/dL Glucose (74-99) mg/dL POC Glucose (mg/dL) 134 H 203 H (75-99) mg/dL Assessment and Plan Plan: Assessment and plan #1 atrial flutter with rapid ventricular response, 2 to one conduction, typical status post elective cardioversion yesterday #2 recent diagnosis of atrial flutter in October of this year at which time patient underwent an elective PAULINA with subsequent cardioversion to normal sinus rhythm, on Eliquis 5 mg's one tablet by mouth twice a day for anticoagulation #3 hypertension #4 diabetes #5 hyperlipidemia #6 obesity #7 obstructive sleep apnea #8 hepatitis #9 recurrent pancreatitis Plan We will start the patient on some IV Lasix for 24 hours, plan for possible discharge home in the morning if stable. DNP note has been reviewed, I agree with a documented findings and plan of care. Patient was seen and examined.
[2018-11-08] MEDS: INSULIN ASPART (NovoLOG) 100 UNIT/ML VIAL SQ SCH ×5 (13:14→20:28)
--- NOTE | 2018-11-08 15:57 | P.PN ---
Subjective Progress Note Date: 11/08/18 Principal diagnosis: Patient was admitted for atrial fibrillation with rapid ventricular rate patient was started on amiodarone without any significant improvement in his rate Cardi zem is being admitted in spite of mildly decreased ejection fraction is with do not have any choices to control his heart rate. Patient although asymptomatic at this time. 11/05/2018 Patient is complaining of chest pain chest pain is probably related to tachycardia troponins are being obtained. EKGs are being obtained by cardiology. Patient may end up needing cardioversion 11/06/2018 Patient's troponins are negative patient has on and off chest pain from tachycardia, patient remains on IV amiodarone, patient probably will undergo cardioversion tomorrow. 11/07/2018 Patient will undergo PAULINA cardioversion today. Patient has redness in the left appears to be cellulitic with local is of temperature patient will be started on ceftezolin 11/08/2018 Patient is lying in bed in no acute distress. Patient underwent a PAULINA with cardioversion yesterday. Patient states that he is having some shortness of breath. Lasix 40 mg twice a day was given per cardiology. Patient denies any chest pains or palpitations at this time. Patient denies any nausea or vomiting. Patient is tolerating diet at this time. Patient is currently receiving IV cefazolin for right upper arm cellulitis. Patient is currently in normal sinus rhythm. Guarded prognosis. Objective - Vital Signs Vital signs: Vital Signs Temp 98.3 F 11/08/18 12:00 Pulse 59 L 11/08/18 12:00 Resp 18 11/08/18 12:00 BP 113/58 11/08/18 12:00 Pulse Ox 96 11/08/18 12:00 Intake & Output 11/07/18 11/08/18 11/08/18 18:59 06:59 18:59 Intake Total 50 450 Balance 50 450 Weight 168.2 kg 168.2 kg Intake: IV 50 Oral 0 450 Other: Voiding Method Toilet Toilet # Voids 1 1 1 # Bowel Movements 0 - Exam PHYSICAL EXAMINATION: GENERAL: The patient is alert and oriented x3, not in any acute distress. Obese. Vital signs are stable. Blood pressure is 134/84, pulse is 75, respirations are 18, temp is 97.7F, oxygen saturation is 97% on 3 L nasal cannula HEENT: Pupils are round and equally reacting to light. EOMI. No scleral icterus. No conjunctival pallor. Normocephalic, atraumatic. No pharyngeal erythema. No thyromegaly. CARDIOVASCULAR: S1 and S2 present. No murmurs, rubs, or gallops. Patient is currently in normal sinus rhythm status post cardioversion yesterday PULMONARY: Diminished lung sounds in the bases, no wheezing or crackles. ABDOMEN: Soft, nontender, nondistended, normoactive bowel sounds. No palpable organomegaly. MUSCULOSKELETAL: No joint swelling or deformity. EXTREMITIES: No cyanosis, clubbing, or pedal edema. NEUROLOGICAL: Gross neurological examination did not reveal any focal deficits. SKIN: Cellulitis of the upper left arm - Labs CBC & Chem 7: 11/02/18 21:28 11/08/18 05:41 Labs: Abnormal Lab Results - Last 24 Hours (Table) 11/07/18 11/08/18 11/08/18 Range/Units 16:55 05:41 05:58 BUN 33 H (9-20) mg/dL Glucose 126 H (74-99) mg/dL POC Glucose (mg/dL) 132 H 134 H (75-99) mg/dL 11/08/18 Range/Units 11:51 BUN (9-20) mg/dL Glucose (74-99) mg/dL POC Glucose (mg/dL) 203 H (75-99) mg/dL Assessment and Plan Assessment: -Atrial fibrillation with rapid and regular rate: Patient is on anticoagulation with Eliquis 5 mg BID, patient is presently on beta mary and amiodarone. Patient underwent cardioversion yesterday is in normal sinus rhythm -Possible cellulitis of the right arm: Patient was started on IV cefazolin as mentioned above. Patient will likely go home on oral Keflex 500 mg 4 times a day for 6 days. -Hypertension -Pain in the left hand and chest pain: Probably improved Secondary to demand ischemia secondary to atrial fibrillation. Troponins and EKGs are being obtained. Troponins were negative 0.012 -Hypertension -Type 2 diabetes mellitus: We'll continue to monitor blood sugars closely. -hyperlipidemia -Obesity and obstructive sleep apnea Recommendations and discussion: Recommend continue current medication management and symptomatic treatment. Will continue to monitor closely. Cardiology is following closely. Guarded prognosis. Further recommendations to follow. Possible discharge in 24-48 hours.
[2018-11-08 17:05] LABS: Glucose,Whole Blood 67 mg/dL (75-99)
[2018-11-08 17:19] LABS: Glucose,Whole Blood 66 mg/dL (75-99)
[2018-11-08 18:20] LABS: Glucose,Whole Blood 84 mg/dL (75-99)
[2018-11-08 20:23] LABS: Glucose,Whole Blood 95 mg/dL (75-99)
[2018-11-08] MEDS: ATORVASTATIN 80 MG TAB PO SCH (20:28)
[2018-11-08] MEDS: QUEtiapine 100 MG TAB PO SCH (21:59)
[2018-11-09] MEDS: LEVOTHYROXINE 100 MCG TAB PO SCH (05:43)
[2018-11-09] MEDS: HYDROcodone/APAP 5-325MG 1 EACH TAB PO PRN ×4 (05:43→20:49)
[2018-11-09 06:44] LABS: Glucose,Whole Blood 141 mg/dL (75-99)
[2018-11-09] MEDS: INSULIN ASPART (NovoLOG) 100 UNIT/ML VIAL SQ SCH ×7 (07:05→20:46)
[2018-11-09] MEDS: LIPASE 5,000/PROTEASE 17,000/AMYLASE 24,000 PO SCH ×3 (07:05→18:00)
[2018-11-09] MEDS: INSULIN DETEMIR (LEVEMIR) 100 UNIT/ML SYR SQ SCH ×2 (07:28→20:46)
[2018-11-09] MEDS: FUROSEMIDE 10 MG/ML 4 ML VIAL IV SCH ×2 (09:27→20:41)
[2018-11-09] MEDS: OXYBUTYNIN CHLORIDE 5 MG TAB PO SCH ×2 (09:28→20:41)
[2018-11-09] MEDS: DONEPEZIL 10 MG TAB PO SCH (09:28)
[2018-11-09] MEDS: PANTOPRAZOLE 40 MG TABLET PO SCH (09:28)
[2018-11-09] MEDS: TAMSULOSIN 0.4 MG CAP.ER.24H PO SCH (09:28)
[2018-11-09] MEDS: METOPROLOL TARTRATE 50 MG TAB PO SCH ×2 (09:28→20:41)
[2018-11-09] MEDS: LISINOPRIL 5 MG TAB PO SCH (09:28)
[2018-11-09] MEDS: metFORMIN 500 MG TAB PO SCH ×2 (09:28→20:46)
[2018-11-09] MEDS: AMIODARONE 200 MG TAB PO SCH ×2 (09:28→20:41)
[2018-11-09] MEDS: MEMANTINE 10 MG TAB PO SCH ×2 (09:28→20:41)
[2018-11-09] MEDS: APIXABAN 5 MG TAB PO SCH ×2 (09:28→20:41)
[2018-11-09] MEDS: SERTRALINE 100 MG TAB PO SCH (09:28)
[2018-11-09] MEDS: NYSTATIN 100,000UNIT/GM CREAM 30 GM TUBE TOPICAL SCH (09:29)
[2018-11-09 12:16] LABS: Glucose,Whole Blood 134 mg/dL (75-99)
[2018-11-09] MEDS: SODIUM CHLORIDE 0.9% 1,000 ML IV SCH ×2 (12:31→14:29)
--- NOTE | 2018-11-09 15:45 | P.PN ---
Subjective Progress Note Date: 11/09/18 This is a pleasant 62-year-old gentleman with past medical history significant for hypertension, hyperlipidemia, diabetes, hepatitis, recurrent pancreatitis, sleep apnea for which he uses CPAP regularly, mild dementia, recent diagnosis of atrial flutter, patient was in the hospital on October 07, seen in consultation at that time by Dr. Thomas for atrial flutter with rapid ventricular response. He underwent a PAULINA with subsequent cardioversion to normal sinus rhythm and did follow-up with Dr. Thomas in the office subsequent to that at which time he was still in a normal sinus rhythm. He also had an echocardiogram with Doppler study performed on that admission which revealed an ejection fraction of 40-45%. Patient presents back to the hospital on this occasion, he states he was at his endocrinology appointment, it was noted that his heart rate was up in the 1:30 range, he did feel some shortness of breath with associated palpitations and complained of feeling an ache and discomfort in his right arm. For these reasons he was admitted to the hospital for further evaluation and treatment. His EKG on presentation here showed atrial flutter with a rapid ventricular response, heart rate 140. Chest x-ray was normal. Blood pressure 112/70 with a heart rate of 140, 97% on 2 L of oxygen. White blood cell count 6.9, hemoglobin 14.1, platelet count 176. Sodium 140, potassium 4.9, BUN 23 and creatinine 0.7, magnesium 1.8. Troponins are negative 2. At the time of my examination this morning, patient states he can still feel his heart racing fast, still complaining of some discomfort in the right arm and mild associated shortness of breath. He is currently on IV Cardizem drip at 5 mg per hour. 11/07/2018 She was seen and examined this morning, continues to be in atrial flutter, complaining of difficulty in breathing and mild chest discomfort. The patient's also complaining of some pain and swelling in his right posterior upper arm area. Blood pressure 114/60 with a heart rate in the 70s. Sodium 139, potassium 4.6, BUN 27, creatinine 0.8. 8 16,019 Patient underwent elective cardioversion yesterday by Dr. Thomas and continues to be in a normal sinus rhythm this morning. He is complaining of some mild shortness of breath today as well as some bilateral peripheral edema. Blood pressure 134/80 with a heart rate in the 70s, 97% on 3 L of oxygen. Sodium 139, potassium 4.5, BUN 33, creatinine 0.9. 11/19/2018 patient was seen and examined this morning, continues to be in a normal sinus rhythm. His breathing is improving, continues to be on IV Lasix at this time. The firm area on the right upper arm today has become quite ecchymotic. The patient states that he did incur some injury to that arm prior to all of this starting. Orthopedic consultation has been requested. Objective - Vital Signs Vital signs: Vital Signs Temp 98.4 F 11/09/18 08:00 Pulse 60 11/09/18 12:00 Resp 17 11/09/18 12:00 BP 132/73 11/09/18 12:00 Pulse Ox 99 11/09/18 12:00 Intake & Output 11/08/18 11/09/18 11/09/18 18:59 06:59 18:59 Intake Total 360 480 Output Total 500 Balance 360 -20 Weight 168.2 kg 165.4 kg Intake: Oral 360 480 Output: Urine 500 Other: Voiding Method Toilet Toilet # Voids 1 1 - Exam PHYSICAL EXAMINATION: GENERAL: 62-year-old gentleman in no acute distress at the time of my examination HEENT: Head is atraumatic, normocephalic. Pupils equal, round. Sclera anicteric. Conjunctiva are clear. Mucous membranes of the mouth are moist. Neck is supple. There is no elevated jugular venous pressure. No carotid bruit is heard. HEART EXAMINATION: Artery S1 and S2 irregularly irregular CHEST EXAMINATION: Lungs reveal diminished air entry to bilateral bases , No chest wall tenderness is noted on palpation or with deep breathing. ABDOMEN: Soft, obese, nontender. Bowel sounds are heard. No organomegaly noted. EXTREMITIES: 2+ peripheral pulses with 1+ evidence of peripheral edema and no calf tenderness noted. Patient does have an area of redness and swelling to the right posterior upper arm area NEUROLOGIC patient is awake, alert and oriented 3 - Labs CBC & Chem 7: 11/02/18 21:28 11/08/18 05:41 Labs: Abnormal Lab Results - Last 24 Hours (Table) 11/08/18 11/08/18 11/09/18 Range/Units 17:02 17:17 06:42 POC Glucose (mg/dL) 67 L 66 L 141 H (75-99) mg/dL 11/09/18 Range/Units 12:04 POC Glucose (mg/dL) 134 H (75-99) mg/dL Assessment and Plan Plan: Assessment and plan #1 atrial flutter with rapid ventricular response, 2 to one conduction, typical status post elective cardioversion yesterday #2 recent diagnosis of atrial flutter in October of this year at which time patient underwent an elective PAULINA with subsequent cardioversion to normal sinus rhythm, on Eliquis 5 mg's one tablet by mouth twice a day for anticoagulation #3 hypertension #4 diabetes #5 hyperlipidemia #6 obesity #7 obstructive sleep apnea #8 hepatitis #9 recurrent pancreatitis Plan We will continue the patient on some IV Lasix for 24 hours.orthopedic evaluation of the right arm. DNP note has been reviewed, I agree with a documented findings and plan of care. Patient was seen and examined.
--- NOTE | 2018-11-09 16:46 | XR ---
PROCEDURE: XR shoulder complete RT - 3V[88 DATE AND TIME: 11/09/2018 4:29 PM CLINICAL INDICATION: PHH; pain and swelling TECHNIQUE: 3 views COMPARISON: None FINDINGS: There is no fracture or malalignment. No focal skeletal findings. Osteophytic spurring at the acromioclavicular and glenohumeral joints are noted, consistent with mode rate osteoarthritic changes. In addition, there is thinning of the coracohumeral interspace suggesting rotator cuff tear, which ca n be fully characterize using MRI if clinically needed. IMPRESSION: No definite acute process, as above.
[2018-11-09 16:54] LABS: Glucose,Whole Blood 110 mg/dL (75-99)
--- NOTE | 2018-11-09 16:56 | CDI ---
Documentation Clarification Form Date: 11/09/2018 4:34:55 PM From: Angeles Mendoza RN, CCDS Admit Date: 11/02/2018 11:24:00 PM Patient Name: James Castellon Visit Number: [id number] Discharge Date: ATTENTION: The Clinical Documentation Specialists (CDI) and [facility] Coding Staff appreciate your assistance in clarifying documentation. Please respond to the clarification below the line at the bottom and electronically sign. The CDI & [facility] Coding staff will review the response and follow-up if needed. Please note: Queries are made part of the Legal Health Record. If you have any questions, please contact the author of this message via ITS. Dr. Mary Rush/Dr. Joshua Thompson The patient presented with complaints of elevated heart rate. In your H&P and ongoing progress notes demand ischemia secondary to atrial fibrillation is documented and additional clarification is needed. History/Risk Factors: Atrial Flutter, DM, HTN, Clinical Indicators: 62-year-old male with recently diagnosed with Atrial flutter per cardiology in October, now present with complaints of elevated heart rate, was recorded as 130 bpm. EKG on admission: Atrial Flutter 2:1 AV conduction at 138 bmp. Lab findings: Troponin I <0.012 x3 Chest x-ray: Normal Vital Signs: 163/91 138 146 98.0 98 % RA Treatment: Telemetry Monitoring Monitor labs Elective Cardioversion Cardizem drip (titrate) (DC) Amiodarone Drip (now PO) Eliquis PO Lopressor PO Cardiology consults impression: Atrial Flutter with rapid ventricular response 2:1 conduction, Typical In your professional opinion, can you please further clarify Demand ischemia? Type 2 myocardial infarction secondary to Atrial Fibrillation (or other cause, please specify) Demand ischemia due to other ischemic heart disease without myocardial infarction (type 2) Other, please specify Unable to determine (Last Revision: July 2017) Demand ischemia due to other ischemic heart disease without myocardial infarction (type 2) MTDD
--- NOTE | 2018-11-09 17:07 | XR ---
PROCEDURE: XR humerus RT - 3V DATE AND TIME: 11/09/2018 4:32 PM CLINICAL INDICATION: PHH; pain TECHNIQUE: Department protocol COMPARISON: None FINDINGS: There is no fracture or malalignment. No focal skeletal findings. Osteophytic spurring at the acromioclavicular and glenohumeral joints are noted, consistent with mode rate osteoarthritic changes. Only mild osteoarthritis changes at the elbow. There is thinning of the acromion-humeral interspace suggesting rotator cuff tear, which can be fully characterized using MRI if clinically needed. IMPRESSION: No definite acute process.
--- NOTE | 2018-11-09 19:02 | PN ---
PROGRESS NOTE DATE OF SERVICE: 11/09/2018. This 62-year-old gentleman who was admitted with atrial fibrillation with rapid ventricular rate, also complaining of significant hematoma of the right forearm also. The patient initially apparently had pain in the shoulder and also back of the right upper forearm where there is reddish swelling was noticed by the family. Currently the patient is on anticoagulation. Cardiology following the patient closely. The sodium is 130, potassium 4.2. Patient closely monitored. PAST MEDICAL HISTORY: Reviewed. REVIEW OF SYSTEM: CARDIOVASCULAR: No angina or palpitations. RESPIRATIONS: As mentioned earlier. GI no nausea or vomiting. no dysuria. NERVOUS SYSTEM: No numbness or weakness. CURRENT MEDICATIONS: Reviewed and include: 1. [place] 5 mg q.6 p.r.n. 2. Cordarone 200 mg p.o. b.i.d. 3. Zenpep. 4. Eliquis 5 mg p.o. b.i.d. 5. Lipitor 80 mg q.h.s. 6. Cefazolin 2 g IV q.8 this a.m. 7. Aricept 10 mg p.o. 8. Lasix 40 mg IV b.i.d. 9. NovoLog. 10.Levemir 75 units subcu b.i.d. 11.Synthroid 100 mcg p.o. daily. 12.Zestril 5 mg p.o. daily. 13.Glucophage 1000 mg p.o. b.i.d. 14.Nitrostat. 15.Mycostatin. 16.Ditropan. 17.Seroquel. 18.Zoloft. 19.Flomax. PHYSICAL EXAM: Patient is alert and oriented times three. Pulse 60. Blood pressure is 130/70, respirations 17, temperature 98.4, pulse ox 98% on 2 L. HEENT is conjunctivae normal. NECK: No jugular venous distention. CARDIOVASCULAR: S1, S2 muffled. RESPIRATION: Breath sounds diminished in the bases. Scattered rhonchi and crackles. Expiratory wheezing also present. ABDOMEN: Soft, nontender. No mass palpable. LEGS: No edema. No swelling. NERVOUS SYSTEM: Higher functions as mentioned. Moves all four extremities. No focal deficits. LYMPHATICS: No lymph nodes palpable in the neck, axillae or groin. SKIN: Exam of the right arm, shows right arm significant swelling and tenderness and hematoma of the right forearm present. LABS: WBC 6.2, hemoglobin 14.1, sodium 130, potassium 4.1. ASSESSMENT: 1. Atrial fibrillation with rapid ventricular rate. 2. Right forearm hematoma. 3. Possible cellulitis of the right arm. 4. Hypertension. 5. Chest pain possibly secondary to demand ischemia. 6. Hypertension. 7. Diabetes mellitus type 2. 8. Hyperlipidemia. 9. Obesity with obstructive sleep apnea. RECOMMENDATIONS AND DISCUSSION: In this 63-year-old gentleman who presented with multiple complex medical issues, at this time, we will continue the current medications, management and symptomatic treatment. Closely follow with Cardiology. Also recommend an orthopedic evaluation because of the right shoulder pain the patient is having. I would also order right shoulder x-rays, also. See orders for details. Further recommendations to follow. Increased ambulation. MENDEZ / CAROLINE: [id number] /
[2018-11-09] MEDS: ATORVASTATIN 80 MG TAB PO SCH (20:41)
[2018-11-09] MEDS: QUEtiapine 100 MG TAB PO SCH (20:41)
[2018-11-09 20:45] LABS: Glucose,Whole Blood 197 mg/dL (75-99)
[2018-11-10] MEDS: HYDROcodone/APAP 5-325MG 1 EACH TAB PO PRN ×4 (03:00→20:32)
[2018-11-10] MEDS: INSULIN ASPART (NovoLOG) 100 UNIT/ML VIAL SQ SCH ×7 (06:13→22:25)
[2018-11-10 06:14] LABS: Glucose,Whole Blood 99 mg/dL (75-99)
[2018-11-10] MEDS: LIPASE 5,000/PROTEASE 17,000/AMYLASE 24,000 PO SCH ×3 (06:14→18:19)
[2018-11-10] MEDS: LEVOTHYROXINE 100 MCG TAB PO SCH (06:14)
[2018-11-10] MEDS: INSULIN DETEMIR (LEVEMIR) 100 UNIT/ML SYR SQ SCH ×2 (06:53→22:03)
[2018-11-10 07:25] LABS: African American GFR (CKD) >90 (>60 ml/min/1.73 sqM); Anion Gap 6 mmol/L; Blood Urea Nitrogen 18 mg/dL (9-20); Calcium 8.2 mg/dL (8.4-10.2); Carbon Dioxide 32 mmol/L (22-30); Chloride 99 mmol/L (98-107); Glucose 109 mg/dL (74-99); Non-African American GFR(CKD) >90 (>60 ml/min/1.73 sqM); Potassium 3.6 mmol/L (3.5-5.1); Sodium 137 mmol/L (137-145)
[2018-11-10 07:28] LABS: Basophils % (A) 1 %; Eosinophils # (A) 0.3 k/uL (0-0.7); Eosinophils % (A) 4 %; HCT 36.5 % (39.0-53.0); HGB 12.4 gm/dL (13.0-17.5); Lymphocytes # (A) 1.3 k/uL (1.0-4.8); Lymphocytes % (A) 23 %; MCH 32.9 pg (25.0-35.0); MCV 96.8 fL (80.0-100.0); Mean Platelet Volume 6.9; Monocytes # (A) 0.3 k/uL (0-1.0); Monocytes % (A) 4 %; Neutrophils % (A) 67 %; Platelet Count 167 k/uL (150-450); RBC 3.77 m/uL (4.30-5.90); RDW 13.8 % (11.5-15.5); WBC 5.9 k/uL (3.8-10.6)
[2018-11-10] MEDS: METOPROLOL TARTRATE 50 MG TAB PO SCH ×3 (08:10→22:25)
[2018-11-10] MEDS: FUROSEMIDE 10 MG/ML 4 ML VIAL IV SCH (08:10)
[2018-11-10] MEDS: PANTOPRAZOLE 40 MG TABLET PO SCH (08:11)
[2018-11-10] MEDS: LISINOPRIL 5 MG TAB PO SCH (08:11)
[2018-11-10] MEDS: SERTRALINE 100 MG TAB PO SCH (08:11)
[2018-11-10] MEDS: MEMANTINE 10 MG TAB PO SCH ×2 (08:11→20:31)
[2018-11-10] MEDS: AMIODARONE 200 MG TAB PO SCH ×2 (08:11→20:31)
[2018-11-10] MEDS: TAMSULOSIN 0.4 MG CAP.ER.24H PO SCH (08:11)
[2018-11-10] MEDS: OXYBUTYNIN CHLORIDE 5 MG TAB PO SCH ×2 (08:11→20:32)
[2018-11-10] MEDS: APIXABAN 5 MG TAB PO SCH (08:11)
[2018-11-10] MEDS: DONEPEZIL 10 MG TAB PO SCH (08:11)
[2018-11-10] MEDS: NYSTATIN 100,000UNIT/GM CREAM 30 GM TUBE TOPICAL SCH (08:11)
[2018-11-10] MEDS: metFORMIN 500 MG TAB PO SCH ×2 (08:11→20:31)
[2018-11-10] MEDS: SODIUM CHLORIDE 0.9% 1,000 ML IV SCH ×2 (08:20→11:58)
--- NOTE | 2018-11-10 10:50 | CDI ---
Documentation Clarification Form Date: 11/10/2018 10:24:00 AM From: Angeles Mendoza RN, CCDS Admit Date: 11/02/2018 11:24:00 PM Patient Name: James Castellon Visit Number: [id number] Discharge Date: ATTENTION: The Clinical Documentation Specialists (CDI) and [facility] Coding Staff appreciate your assistance in clarifying documentation. Please respond to the clarification below the line at the bottom and electronically sign. The CDI & [facility] Coding staff will review the response and follow-up if needed. Please note: Queries are made part of the Legal Health Record. If you have any questions, please contact the author of this message via ITS. Dr. Joshua Thompson Atrial Fibrillation is documented in the H&P and subsequent progress notes and further clarification is needed. Prior admission in October notes atrial flutter. History/Risk Factors: Atrial Flutter, DM HTN, Clinical Indicators: 62-year-old male who present with elevated heart rate. He was seen in October per cardiology notes and was treated for atrial flutter with PALUINA and subsequent cardioversion to normal sinus rhythm. EKG/telemetry: Atrial flutter with rapid ventricular response, heart rate 140. Troponins are negative x2 Vital signs: 163/91 138, 148, 98 % RA Treatment: Telemetry Monitoring Cardizem drip (now DC0 Amiodarone drip (now PO0 Eliquis PO Lopressor PO Elective Cardioversion Cardiology consults: Atrial flutter with rapid ventricular response 2:1 conduction, Typical In your professional opinion, can you please further clarify the type of Atrial Fibrillation you are treating, if known? Chronic/Permanent Paroxysmal Persistent Other, please specify Unable to determine (Last Revision: July 2017) Paroxysmal MTDD
--- NOTE | 2018-11-10 11:00 | P.CNOR ---
History of Present Illness - HPI Consult date: 11/10/18 Consult reason: joint pain (Right shoulder pain/upper arm pain) History of present illness: This is a 63-year-old gentleman admitted with A. fib this week. He complains of pain about the right shoulder. He states that he was having some right shoulder pain prior to admission but did not have the swelling. He states that after his cardiac procedure he began noticing some swelling to the upper arm and now some ecchymosis. He states that the shoulder and upper arm are painful. The patient has been on Eloquis for his A. fib. 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 Atrial Fib History of Any Multi-Drug Resistant Organisms: MRSA Year Discovered:: 2018 MDRO Source:: letty bro Past Surgical History: Appendectomy, Cholecystectomy Additional Past Surgical History / Comment(s): Hernia repair. Past Anesthesia/Blood Transfusion Reactions: No Reported Reaction Past Psychological History: No Psychological Hx Reported Smoking Status: Never smoker Past Alcohol Use History: None Reported Past Drug Use History: None Reported - Past Family History Father Family Medical History: CVA/TIA, Hypertension, Myocardial Infarction (DC) Additional Family Medical History / Comment(s): black lung Mother Family Medical History: No Reported History Brother(s) Additional Family Medical History / Comment(s): brother at 52, ALS Medications and Allergies Home Medications Medication Instructions Recorded Confirmed Type Atorvastatin [Lipitor] 40 mg PO HS 10/07/18 11/02/18 History Donepezil HCl [Aricept] 10 mg PO DAILY 10/07/18 11/02/18 History INSULIN ASPART (NovoLOG) [NovoLOG 100 unit SQ AC-TID 10/07/18 11/02/18 History (formulary)] Insulin Glargine [Lantus] 100 unit SQ BID 10/07/18 11/02/18 History Lansoprazole 30 mg PO DAILY 10/07/18 11/02/18 History Levothyroxine Sodium [Synthroid] 100 mcg PO DAILY 10/07/18 11/02/18 History Lipase/Protease/Amylase [Credanielle Dr 24,000 units PO AC-TID 10/07/18 11/02/18 History 24,000 Units Capsule] Memantine [Namenda] 10 mg PO BID 10/07/18 11/02/18 History Nystatin 100,000Unit/gm Cream 1 applic TOPICAL DAILY 10/07/18 11/02/18 History [Mycostatin Cream] Oxybutynin Chloride 5 mg PO BID 10/07/18 11/02/18 History QUEtiapine [SEROquel] 100 mg PO HS 10/07/18 11/02/18 History Sertraline HCl [Zoloft] 100 mg PO DAILY 10/07/18 11/02/18 History Tamsulosin HCl [Flomax] 0.4 mg PO DAILY 10/07/18 11/02/18 History Trospium Chloride 20 mg PO DAILY 10/07/18 11/02/18 History metFORMIN HCL 1,000 mg PO BID 10/07/18 11/02/18 History Apixaban [Eliquis] 5 mg PO BID #60 tab 10/10/18 11/02/18 Rx Metoprolol Tartrate [Lopressor] 50 mg PO BID #60 tab 10/10/18 11/02/18 Rx Lisinopril [Zestril] 5 mg PO BID 11/02/18 11/02/18 History Allergies Allergy/AdvReac Type Severity Reaction Status Date / Time Sulfa (Sulfonamide Allergy Swelling Verified 11/02/18 21:42 Antibiotics) Physical Examination This is a pleasant 63-year-old male in no acute distress. He is alert and oriented 3. Exam of the upper extremities reveals a sling in place. Sling is removed from the right arm. There is swelling and ecchymosis to the upper arm about the anterior medial aspect. There is mild pain with palpation about the shoulder and upper arm. He has full elbow and wrist motion without difficulty or pain. Radial pulse is +2/4. Neurovascular status to the upper extremity is intact. Results X-rays of the right shoulder and upper arm reveal no bony abnormality. No fractures identified. Degenerative changes to the acromioclavicular joint noted. - Labs Labs: Abnormal Lab Results - Last 24 Hours (Table) 11/09/18 11/09/18 11/09/18 Range/Units 12:04 16:50 20:28 RBC (4.30-5.90) m/uL Hgb (13.0-17.5) gm/dL Hct (39.0-53.0) % Carbon Dioxide (22-30) mmol/L Glucose (74-99) mg/dL POC Glucose (mg/dL) 134 H 110 H 197 H (75-99) mg/dL Calcium (8.4-10.2) mg/dL 11/10/18 11/10/18 Range/Units 06:54 06:54 RBC 3.77 L (4.30-5.90) m/uL Hgb 12.4 L (13.0-17.5) gm/dL Hct 36.5 L (39.0-53.0) % Carbon Dioxide 32 H (22-30) mmol/L Glucose 109 H (74-99) mg/dL POC Glucose (mg/dL) (75-99) mg/dL Calcium 8.2 L (8.4-10.2) mg/dL H & H 11/02/18 11/10/18 Range/Units 21:28 06:54 Hgb 14.1 12.4 L (13.0-17.5) gm/dL Hct 42.6 36.5 L (39.0-53.0) % Coagulation 11/02/18 Range/Units 21:28 INR 0.9 (<1.2) Result Diagrams: 11/10/18 06:54 11/10/18 06:54 Assessment and Plan (1) Traumatic hematoma of right upper arm Current Visit: Yes Status: Acute Code(s): S40.021A - CONTUSION OF RIGHT UPPER ARM, INITIAL ENCOUNTER SNOMED Code(s): 86526477 (2) Atrial fibrillation/flutter Current Visit: Yes Status: Acute Code(s): DAJ5795 - SNOMED Code(s): 610651088 (3) Elevated heart rate with elevated blood pressure and diagnosis of hypertension Current Visit: Yes Status: Acute Code(s): I10 - ESSENTIAL (PRIMARY) HYPERTEN FELIX; R00.9 - UNSPECIFIED ABNORMALITIES OF HEART BEAT SNOMED Code(s): 7649062 Plan: The clinical and x-ray findings are discussed the patient and his . It is recommended he have CT scan for further evaluation of the upper extremity. Con tinue with ice and sling to the right upper extremity.
--- NOTE | 2018-11-10 11:50 | CT ---
EXAMINATION TYPE: CT discontinued procedure DATE OF EXAM: 11/10/2018 COMPARISON: X-ray 11/09/2018 HISTORY: Bruising Rt humerus CT DLP: 578.5 mGycm Automated exposure control for dose reduction was used. FINDINGS: There is a 10 to scan the patient. Technologist had difficulty with positioning the patient. Only por tions of the upper humerus were obtained. The majority of the humerus and soft tissues are not includ ed the exam is essentially nondiagnostic. The visualized portion of the skeletal structures are intac t area of bruising reported May not be included in the [id number]. There is some skin thickening a nd subcutaneous edema along the outer margin of the shoulder proximal upper extremity. Arthropathy of the shoulder noted. IMPRESSION: MARKEDLY LIMITED AND ESSENTIALLY NONDIAGNOSTIC EXAM DISCUSSED ABOVE.
[2018-11-10 11:57] LABS: Glucose,Whole Blood 154 mg/dL (75-99)
--- NOTE | 2018-11-10 14:24 | P.PN ---
Subjective Progress Note Date: 11/10/18 This is a pleasant 62-year-old gentleman with past medical history significant for hypertension, hyperlipidemia, diabetes, hepatitis, recurrent pancreatitis, sleep apnea for which he uses CPAP regularly, mild dementia, recent diagnosis of atrial flutter, patient was in the hospital on October 07, seen in consultation at that time by Dr. Thomas for atrial flutter with rapid ventricular response. He underwent a PAULINA with subsequent cardioversion to normal sinus rhythm and did follow-up with Dr. Thomas in the office subsequent to that at which time he was still in a normal sinus rhythm. He also had an echocardiogram with Doppler study performed on that admission which revealed an ejection fraction of 40-45%. Patient presents back to the hospital on this occasion, he states he was at his endocrinology appointment, it was noted that his heart rate was up in the 1:30 range, he did feel some shortness of breath with associated palpitations and complained of feeling an ache and discomfort in his right arm. For these reasons he was admitted to the hospital for further evaluation and treatment. His EKG on presentation here showed atrial flutter with a rapid ventricular response, heart rate 140. Chest x-ray was normal. Blood pressure 112/70 with a heart rate of 140, 97% on 2 L of oxygen. White blood cell count 6.9, hemoglobin 14.1, platelet count 176. Sodium 140, potassium 4.9, BUN 23 and creatinine 0.7, magnesium 1.8. Troponins are negative 2. At the time of my examination this morning, patient states he can still feel his heart racing fast, still complaining of some discomfort in the right arm and mild associated shortness of breath. He is currently on IV Cardizem drip at 5 mg per hour. 11/07/2018 She was seen and examined this morning, continues to be in atrial flutter, complaining of difficulty in breathing and mild chest discomfort. The patient's also complaining of some pain and swelling in his right posterior upper arm area. Blood pressure 114/60 with a heart rate in the 70s. Sodium 139, potassium 4.6, BUN 27, creatinine 0.8. 8 16,019 Patient underwent elective cardioversion yesterday by Dr. Thomas and continues to be in a normal sinus rhythm this morning. He is complaining of some mild shortness of breath today as well as some bilateral peripheral edema. Blood pressure 134/80 with a heart rate in the 70s, 97% on 3 L of oxygen. Sodium 139, potassium 4.5, BUN 33, creatinine 0.9. 11/19/2018 patient was seen and examined this morning, continues to be in a normal sinus rhythm. His breathing is improving, continues to be on IV Lasix at this time. The firm area on the right upper arm today has become quite ecchymotic. The patient states that he did incur some injury to that arm prior to all of this starting. Orthopedic consultation has been requested. 11/20/2018 Patient seen and examined this morning, went into atrial fibrillation with rapid ventricular response and continues to be in A. fib at the time of my examination. Anticoagulation has been placed on hold because of the lytic and ecchymosis in the right upper arm area. Hemodynamically patient is stable, he denies any shortness of breath, no palpitations. Objective - Vital Signs Vital signs: Vital Signs Temp 98.1 F 11/10/18 11:03 Pulse 106 H 11/10/18 11:03 Resp 20 11/10/18 11:03 BP 117/64 11/10/18 11:03 Pulse Ox 96 11/10/18 11:03 Intake & Output 11/09/18 11/10/18 11/10/18 18:59 06:59 18:59 Intake Total 480 444 Output Total 500 Balance -20 444 Weight 162.4 kg Intake: Oral 480 444 Output: Urine 500 Other: Voiding Method Toilet Toilet # Voids 1 - Exam PHYSICAL EXAMINATION: GENERAL: 62-year-old gentleman in no acute distress at the time of my examination HEENT: Head is atraumatic, normocephalic. Pupils equal, round. Sclera anicteric. Conjunctiva are clear. Mucous membranes of the mouth are moist. Neck is supple. There is no elevated jugular venous pressure. No carotid bruit is heard. HEART EXAMINATION: Artery S1 and S2 irregularly irregular CHEST EXAMINATION: Lungs reveal diminished air entry to bilateral bases , No chest wall tenderness is noted on palpation or with deep breathing. ABDOMEN: Soft, obese, nontender. Bowel sounds are heard. No organomegaly noted. EXTREMITIES: 2+ peripheral pulses with 1+ evidence of peripheral edema and no calf tenderness noted. Patient does have significant ecchymosis of the right upper extremity. NEUROLOGIC patient is awake, alert and oriented 3 - Labs CBC & Chem 7: 11/10/18 06:54 11/10/18 06:54 Labs: Abnormal Lab Results - Last 24 Hours (Table) 11/09/18 11/09/18 11/10/18 Range/Units 16:50 20:28 06:54 RBC 3.77 L (4.30-5.90) m/uL Hgb 12.4 L (13.0-17.5) gm/dL Hct 36.5 L (39.0-53.0) % Carbon Dioxide (22-30) mmol/L Glucose (74-99) mg/dL POC Glucose (mg/dL) 110 H 197 H (75-99) mg/dL Calcium (8.4-10.2) mg/dL 11/10/18 11/10/18 Range/Units 06:54 11:56 RBC (4.30-5.90) m/uL Hgb (13.0-17.5) gm/dL Hct (39.0-53.0) % Carbon Dioxide 32 H (22-30) mmol/L Glucose 109 H (74-99) mg/dL POC Glucose (mg/dL) 154 H (75-99) mg/dL Calcium 8.2 L (8.4-10.2) mg/dL Assessment and Plan Plan: Assessment and plan #1 atrial flutter with rapid ventricular response, 2 to one conduction, typical status post elective cardioversion yesterday #2 recent diagnosis of atrial flutter in October of this year at which time patient underwent an elective PAULINA with subsequent cardioversion to normal sinus rhythm, on Eliquis 5 mg's one tablet by mouth twice a day for anticoagulation #3 hypertension #4 diabetes #5 hyperlipidemia #6 obesity #7 obstructive sleep apnea #8 hepatitis #9 recurrent pancreatitis Plan We will discontinue the IV Lasix and start the patient on oral diuretics today. We will also increase the dose of beta mary. Patient is now in atrial fibrillation, we'll request consultation with Dr. Salgado regarding his atrial flutter and atrial fibrillation. DNP note has been reviewed, I agree with a documented findings and plan of care. Patient was seen and examined.
[2018-11-10 16:40] LABS: Glucose,Whole Blood 82 mg/dL (75-99)
--- NOTE | 2018-11-10 19:31 | P.PN ---
Subjective Progress Note Date: 11/10/18 Principal diagnosis: Patient was admitted for atrial fibrillation with rapid ventricular rate patient was started on amiodarone without any significant improvement in his rate Cardi zem is being admitted in spite of mildly decreased ejection fraction is with do not have any choices to control his heart rate. Patient although asymptomatic at this time. 11/05/2018 Patient is complaining of chest pain chest pain is probably related to tachycardia troponins are being obtained. EKGs are being obtained by cardiology. Patient may end up needing cardioversion 11/06/2018 Patient's troponins are negative patient has on and off chest pain from tachycardia, patient remains on IV amiodarone, patient probably will undergo cardioversion tomorrow. 11/07/2018 Patient will undergo PAULINA cardioversion today. Patient has redness in the left appears to be cellulitic with local is of temperature patient will be started on ceftezolin 11/08/2018 Patient is lying in bed in no acute distress. Patient underwent a PAULINA with cardioversion yesterday. Patient states that he is having some shortness of breath. Lasix 40 mg twice a day was given per cardiology. Patient denies any chest pains or palpitations at this time. Patient denies any nausea or vomiting. Patient is tolerating diet at this time. Patient is currently receiving IV cefazolin for right upper arm cellulitis. Patient is currently in normal sinus rhythm. Guarded prognosis. 11/10/2018 Patient is lying in bed in no acute distress visiting with family at the bedside. Patient is having some right upper arm ecchymosis, swelling, and discomfort that has been worsening. Patient denies any feelings of palpitations at this time. Patient is in A flutter with an elevated heart rate in the 130's per nursing staff after getting up and walking. Patient denies having shortness of breath or chest discomfort. Patient denies any nausea, vomiting, or diarrhea at this time. Patient has been afebrile. Patient is on Eliquis and is having active bleeding under the skin of the right upper arm and for this we will be holding the anticoagulant at this time. Cardiology is following closely. Patient is currently on IV antibiotics as it was cellulitis of the right upper arm. Patient is hemodynamically stable with current hemoglobin 12.4. Objective - Vital Signs Vital signs: Vital Signs Temp 97.0 F L 11/10/18 15:32 Pulse 109 H 11/10/18 15:32 Resp 20 11/10/18 15:32 BP 114/62 11/10/18 15:32 Pulse Ox 98 11/10/18 15:32 Intake & Output 11/10/18 11/10/18 11/11/18 06:59 18:59 06:59 Intake Total 444 Balance 444 Weight 162.4 kg Intake: Oral 444 Other: Voiding Method Toilet Toilet # Voids 1 1 - Exam PHYSICAL EXAMINATION: GENERAL: The patient is alert and oriented x3, not in any acute distress. Obese. Vital signs are stable. Blood pressure is 117/64, pulse is 106, respirations are 20, temp is 98.1F, oxygen saturation is 96% on room air HEENT: Pupils are round and equally reacting to light. EOMI. No scleral icterus. No conjunctival pallor. Normocephalic, atraumatic. No pharyngeal erythema. No thyromegaly. CARDIOVASCULAR: S1 and S2 present. No murmurs, rubs, or gallops. Patient is currently in normal sinus rhythm status post cardioversion yesterday PULMONARY: Diminished lung sounds in the bases, no wheezing or crackles. ABDOMEN: Soft, nontender, nondistended, normoactive bowel sounds. No palpable organomegaly. MUSCULOSKELETAL: No joint swelling or deformity. EXTREMITIES: No cyanosis, clubbing, or pedal edema. NEUROLOGICAL: Gross neurological examination did not reveal any focal deficits. SKIN: large ecchymosis noted of the upper right arm with swelling and pain upon palpation - Labs CBC & Chem 7: 11/10/18 06:54 11/10/18 06:54 Labs: Abnormal Lab Results - Last 24 Hours (Table) 11/09/18 11/10/18 11/10/18 Range/Units 20:28 06:54 06:54 RBC 3.77 L (4.30-5.90) m/uL Hgb 12.4 L (13.0-17.5) gm/dL Hct 36.5 L (39.0-53.0) % Carbon Dioxide 32 H (22-30) mmol/L Glucose 109 H (74-99) mg/dL POC Glucose (mg/dL) 197 H (75-99) mg/dL Calcium 8.2 L (8.4-10.2) mg/dL 11/10/18 Range/Units 11:56 RBC (4.30-5.90) m/uL Hgb (13.0-17.5) gm/dL Hct (39.0-53.0) % Carbon Dioxide (22-30) mmol/L Glucose (74-99) mg/dL POC Glucose (mg/dL) 154 H (75-99) mg/dL Calcium (8.4-10.2) mg/dL Assessment and Plan Assessment: -Atrial fibrillation with rapid and regular rate: Patient is on anticoagulation with Eliquis 5 mg BID, patient is presently on beta mary and amiodarone. Patient underwent cardioversion and is now currently in a flutter. Eliquis is being held due to the large hematoma on the right arm. Cardiology is following -Possible cellulitis of the right arm: Patient was started on IV cefazolin as mentioned above. Patient will likely go home on oral Keflex 500 mg 4 times a day for 6 days. -Hypertension -Pain in the left hand and chest pain: Probably improved Secondary to demand ischemia secondary to atrial fibrillation. Troponins and EKGs are being obtained. Troponins were negative 0.012 -Hypertension -Type 2 diabetes mellitus: We'll continue to monitor blood sugars closely. -hyperlipidemia -Obesity and obstructive sleep apnea Ecchymotic hematoma to the right upper arm: CT of the arm was done but found to be inconclusive. Orthopedic is following. Patient has ice packs, a sling, and Eliquis is on hold. Recommendations and discussion: Recommend continue current medication management and symptomatic treatment. Will continue to monitor closely. Cardiology is following closely. Guarded prognosis. Further recommendations to follow. Possible discharge in 24-48 hours.
[2018-11-10] MEDS: ATORVASTATIN 80 MG TAB PO SCH (20:32)
[2018-11-10] MEDS: QUEtiapine 100 MG TAB PO SCH (20:40)
[2018-11-10 21:27] LABS: Glucose,Whole Blood 140 mg/dL (75-99)
[2018-11-11] MEDS: HYDROcodone/APAP 5-325MG 1 EACH TAB PO PRN ×2 (03:22→09:59)
[2018-11-11 06:30] LABS: Glucose,Whole Blood 136 mg/dL (75-99)
[2018-11-11] MEDS: LEVOTHYROXINE 100 MCG TAB PO SCH (06:47)
[2018-11-11] MEDS: INSULIN ASPART (NovoLOG) 100 UNIT/ML VIAL SQ SCH ×7 (06:53→22:12)
[2018-11-11] MEDS: INSULIN DETEMIR (LEVEMIR) 100 UNIT/ML SYR SQ SCH ×2 (06:57→22:12)
[2018-11-11 07:43] LABS: Basophils % (A) 1 %; Eosinophils # (A) 0.3 k/uL (0-0.7); Eosinophils % (A) 3 %; HCT 38.6 % (39.0-53.0); HGB 12.7 gm/dL (13.0-17.5); Lymphocytes # (A) 1.2 k/uL (1.0-4.8); Lymphocytes % (A) 16 %; MCH 32.2 pg (25.0-35.0); MCHC 32.9 g/dL (31.0-37.0); MCV 97.9 fL (80.0-100.0); Mean Platelet Volume 7.2; Monocytes # (A) 0.3 k/uL (0-1.0); Monocytes % (A) 4 %; Neutrophils # (A) 5.9 k/uL (1.3-7.7); Neutrophils % (A) 75 %; Platelet Count 183 k/uL (150-450); RBC 3.94 m/uL (4.30-5.90); RDW 14.8 % (11.5-15.5); WBC 7.8 k/uL (3.8-10.6)
[2018-11-11 07:51] LABS: African American GFR (CKD) >90 (>60 ml/min/1.73 sqM); Anion Gap 10 mmol/L; Blood Urea Nitrogen 21 mg/dL (9-20); Calcium 8.4 mg/dL (8.4-10.2); Carbon Dioxide 29 mmol/L (22-30); Chloride 97 mmol/L (98-107); Glucose 134 mg/dL (74-99); Non-African American GFR(CKD) >90 (>60 ml/min/1.73 sqM); Potassium 3.7 mmol/L (3.5-5.1); Sodium 136 mmol/L (137-145)
[2018-11-11] MEDS: LIPASE 5,000/PROTEASE 17,000/AMYLASE 24,000 PO SCH ×3 (08:22→17:50)
[2018-11-11] MEDS: FUROSEMIDE 40 MG TAB PO SCH (08:23)
[2018-11-11] MEDS: LISINOPRIL 5 MG TAB PO SCH (08:23)
[2018-11-11] MEDS: AMIODARONE 200 MG TAB PO SCH ×2 (08:23→22:11)
[2018-11-11] MEDS: MEMANTINE 10 MG TAB PO SCH ×2 (08:23→22:12)
[2018-11-11] MEDS: PANTOPRAZOLE 40 MG TABLET PO SCH (08:23)
[2018-11-11] MEDS: metFORMIN 500 MG TAB PO SCH ×2 (08:23→22:10)
[2018-11-11] MEDS: TAMSULOSIN 0.4 MG CAP.ER.24H PO SCH (08:23)
[2018-11-11] MEDS: DONEPEZIL 10 MG TAB PO SCH (08:23)
[2018-11-11] MEDS: OXYBUTYNIN CHLORIDE 5 MG TAB PO SCH ×2 (08:23→22:12)
[2018-11-11] MEDS: METOPROLOL TARTRATE 50 MG TAB PO SCH ×2 (08:23→22:11)
[2018-11-11] MEDS: SERTRALINE 100 MG TAB PO SCH (08:23)
[2018-11-11] MEDS: NYSTATIN 100,000UNIT/GM CREAM 30 GM TUBE TOPICAL SCH (08:24)
[2018-11-11] MEDS: SODIUM CHLORIDE 0.9% 1,000 ML IV SCH ×2 (08:24→12:24)
--- NOTE | 2018-11-11 11:47 | P.PN ---
Subjective Progress Note Date: 11/11/18 This is a pleasant 62-year-old gentleman with past medical history significant for hypertension, hyperlipidemia, diabetes, hepatitis, recurrent pancreatitis, sleep apnea for which he uses CPAP regularly, mild dementia, recent diagnosis of atrial flutter, patient was in the hospital on October 07, seen in consultation at that time by Dr. Thomas for atrial flutter with rapid ventricular response. He underwent a PAULINA with subsequent cardioversion to normal sinus rhythm and did follow-up with Dr. Thomas in the office subsequent to that at which time he was still in a normal sinus rhythm. He also had an echocardiogram with Doppler study performed on that admission which revealed an ejection fraction of 40-45%. Patient presents back to the hospital on this occasion, he states he was at his endocrinology appointment, it was noted that his heart rate was up in the 1:30 range, he did feel some shortness of breath with associated palpitations and complained of feeling an ache and discomfort in his right arm. For these reasons he was admitted to the hospital for further evaluation and treatment. His EKG on presentation here showed atrial flutter with a rapid ventricular response, heart rate 140. Chest x-ray was normal. Blood pressure 112/70 with a heart rate of 140, 97% on 2 L of oxygen. White blood cell count 6.9, hemoglobin 14.1, platelet count 176. Sodium 140, potassium 4.9, BUN 23 and creatinine 0.7, magnesium 1.8. Troponins are negative 2. At the time of my examination this morning, patient states he can still feel his heart racing fast, still complaining of some discomfort in the right arm and mild associated shortness of breath. He is currently on IV Cardizem drip at 5 mg per hour. 11/07/2018 She was seen and examined this morning, continues to be in atrial flutter, complaining of difficulty in breathing and mild chest discomfort. The patient's also complaining of some pain and swelling in his right posterior upper arm area. Blood pressure 114/60 with a heart rate in the 70s. Sodium 139, potassium 4.6, BUN 27, creatinine 0.8. 8 16,019 Patient underwent elective cardioversion yesterday by Dr. Thomas and continues to be in a normal sinus rhythm this morning. He is complaining of some mild shortness of breath today as well as some bilateral peripheral edema. Blood pressure 134/80 with a heart rate in the 70s, 97% on 3 L of oxygen. Sodium 139, potassium 4.5, BUN 33, creatinine 0.9. 11/09/2018 patient was seen and examined this morning, continues to be in a normal sinus rhythm. His breathing is improving, continues to be on IV Lasix at this time. The firm area on the right upper arm today has become quite ecchymotic. The patient states that he did incur some injury to that arm prior to all of this starting. Orthopedic consultation has been requested. 11/10/2018 Patient seen and examined this morning, went into atrial fibrillation with rapid ventricular response and continues to be in A. fib at the time of my examination. Anticoagulation has been placed on hold because of the lytic and ecchymosis in the right upper arm area. Hemodynamically patient is stable, he denies any shortness of breath, no palpitations. 11/11/2018 Patient seen and examined this morning, and chin used to be in atrial fibrillation, heart rate in the 1 teens. We'll increase the dose of beta mary to 100 mg twice a day today. Blood cell count 7.8, hemoglobin 12.7, platelet count 183. Sodium 136, potassium 3.7, BUN 21 and creatinine 0.7. Patient continues to have significant swelling and ecchymosis of that right upper arm, we recommend consulting vascular surgeons Objective - Vital Signs Vital signs: Vital Signs Temp 98.8 F 11/11/18 08:00 Pulse 116 H 11/11/18 08:00 Resp 20 11/11/18 08:00 BP 114/62 11/11/18 08:00 Pulse Ox 97 11/11/18 08:00 Intake & Output 11/10/18 11/11/18 11/11/18 18:59 06:59 18:59 Intake Total 444 400 180 Output Total 400 Balance 444 0 180 Weight 160.9 kg Intake: Oral 444 400 180 Output: Urine 400 Other: Voiding Method Toilet Toilet # Voids 1 2 - Exam PHYSICAL EXAMINATION: GENERAL: 62-year-old gentleman in no acute distress at the time of my examination HEENT: Head is atraumatic, normocephalic. Pupils equal, round. Sclera anicteric. Conjunctiva are clear. Mucous membranes of the mouth are moist. Neck is supple. There is no elevated jugular venous pressure. No carotid bruit is heard. HEART EXAMINATION: Artery S1 and S2 irregularly irregular CHEST EXAMINATION: Lungs reveal diminished air entry to bilateral bases , No chest wall tenderness is noted on palpation or with deep breathing. ABDOMEN: Soft, obese, nontender. Bowel sounds are heard. No organomegaly noted. EXTREMITIES: 2+ peripheral pulses with 1+ evidence of peripheral edema and no calf tenderness noted. Patient does have significant ecchymosis and firmness of the right upper extremity. NEUROLOGIC patient is awake, alert and oriented 3 - Labs CBC & Chem 7: 11/11/18 07:11/11/18 07:19 Labs: Abnormal Lab Results - Last 24 Hours (Table) 11/10/18 11/10/18 11/11/18 Range/Units 11:56 21:26 06:28 RBC (4.30-5.90) m/uL Hgb (13.0-17.5) gm/dL Hct (39.0-53.0) % Sodium (137-145) mmol/L Chloride (98-107) mmol/L BUN (9-20) mg/dL Glucose (74-99) mg/dL POC Glucose (mg/dL) 154 H 140 H 136 H (75-99) mg/dL 11/11/18 11/11/18 Range/Units 07: 07:19 RBC 3.94 L (4.30-5.90) m/uL Hgb 12.7 L (13.0-17.5) gm/dL Hct 38.6 L (39.0-53.0) % Sodium 136 L (137-145) mmol/L Chloride 97 L (98-107) mmol/L BUN 21 H (9-20) mg/dL Glucose 134 H (74-99) mg/dL POC Glucose (mg/dL) (75-99) mg/dL Assessment and Plan Plan: Assessment and plan #1 atrial flutter with rapid ventricular response, 2 to one conduction, typical status post elective cardioversion yesterday #2 recent diagnosis of atrial flutter in October of this year at which time patient underwent an elective PAULINA with subsequent cardioversion to normal sinus rhythm, on Eliquis 5 mg's one tablet by mouth twice a day for anticoagulation #3 hypertension #4 diabetes #5 hyperlipidemia #6 obesity #7 obstructive sleep apnea #8 hepatitis #9 recurrent pancreatitis Plan Vascular surgeons will be consulted to evaluate the patient's right upper arm swelling and ecchymosis. Eliquis remains on hold however we need to resume this oncecleared, because of the patient's risk for stroke. DNP note has been reviewed, I agree with a documented findings and plan of care. Patient was seen and examined.
[2018-11-11 12:30] LABS: Glucose,Whole Blood 106 mg/dL (75-99)
--- NOTE | 2018-11-11 12:59 | P.GSCN ---
History of Present Illness Consult date: 11/11/18 History of present illness: The patient is a 63-year-old male with a history of atrial fibrillation requiring anticoagulation, diabetes, hyperlipidemia, hypertension, prostate disorder, hypothyroidism, pancreatitis, gallstones, frequent UTIs, hepatitis A. He initially presented to Hospital for chest pressure and was found to be in A. fib at that time. He had complaints of pain in his right shoulder. These have been going on for the past few weeks. But recently in the past few days he began noticing some swelling and ecchymosis and increase in pain. The anticoa gulation was stopped yesterday. He denies any trauma to the area. He denies any interventions or other issues. He currently denies any chest pains, changes in breathing, nausea, vomiting, diarrhea or fevers. Review of Systems 12 point review of systems is performed. 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 Atrial Fib History of Any Multi-Drug Resistant Organisms: MRSA Year Discovered:: 2018 MDRO Source:: letty bro Past Surgical History: Appendectomy, Cholecystectomy Additional Past Surgical History / Comment(s): Hernia repair. Past Anesthesia/Blood Transfusion Reactions: No Reported Reaction Past Psychological History: No Psychological Hx Reported Smoking Status: Never smoker Past Alcohol Use History: None Reported Past Drug Use History: None Reported - Past Family History Father Family Medical History: CVA/TIA, Hypertension, Myocardial Infarction ([place]) Additional Family Medical History / Comment(s): black lung Mother Family Medical History: No Reported History Brother(s) Additional Family Medical History / Comment(s): brother at 52, ALS Medications and Allergies Home Medications Medication Instructions Recorded Confirmed Type Atorvastatin [Lipitor] 40 mg PO HS 10/07/18 11/02/18 History Donepezil HCl [Aricept] 10 mg PO DAILY 10/07/18 11/02/18 History INSULIN ASPART (NovoLOG) [NovoLOG 100 unit SQ AC-TID 10/07/18 11/02/18 History (formulary)] Insulin Glargine [Lantus] 100 unit SQ BID 10/07/18 11/02/18 History Lansoprazole 30 mg PO DAILY 10/07/18 11/02/18 History Levothyroxine Sodium [Synthroid] 100 mcg PO DAILY 10/07/18 11/02/18 History Lipase/Protease/Amylase [Creon Dr 24,000 units PO AC-TID 10/07/18 11/02/18 History 24,000 Units Capsule] Memantine [Namenda] 10 mg PO BID 10/07/18 11/02/18 History Nystatin 100,000Unit/gm Cream 1 applic TOPICAL DAILY 10/07/18 11/02/18 History [Mycostatin Cream] Oxybutynin Chloride 5 mg PO BID 10/07/18 11/02/18 History QUEtiapine [SEROquel] 100 mg PO HS 10/07/18 11/02/18 History Sertraline HCl [Zoloft] 100 mg PO DAILY 10/07/18 11/02/18 History Tamsulosin HCl [Flomax] 0.4 mg PO DAILY 10/07/18 11/02/18 History Trospium Chloride 20 mg PO DAILY 10/07/18 11/02/18 History metFORMIN HCL 1,000 mg PO BID 10/07/18 11/02/18 History Apixaban [Eliquis] 5 mg PO BID #60 tab 10/10/18 11/02/18 Rx Metoprolol Tartrate [Lopressor] 50 mg PO BID #60 tab 10/10/18 11/02/18 Rx Lisinopril [Zestril] 5 mg PO BID 11/02/18 11/02/18 History Allergies Allergy/AdvReac Type Severity Reaction Status Date / Time Sulfa (Sulfonamide Allergy Swelling Verified 11/02/18 21:42 Antibiotics) Surgical - Exam Vital Signs Temp Pulse Resp BP Pulse Ox 98.0 F 138 H 16 163/91 98 11/02/18 20:59 11/02/18 20:59 11/02/18 20:59 11/02/18 20:59 11/02/18 20:59 Gen. is a pleasant and cooperative obese male in no acute distress HEENT is normocephalic, atraumatic, except emotion intact Heart is irregularly irregular Lungs are clear bilaterally Abdomen is soft, obese, nontender, nondistended Lower extremities minimal edema Upper extremities the right upper extremity there is significant ecchymosis of his proximal arm near the shoulder. Vascular exam reveals palpable radial and ulnar pulses bilaterally Results - Labs 11/11/18 07:19 11/11/18 07:19 Abnormal Lab Results - Last 24 Hours (Table) 11/10/18 11/11/18 11/11/18 Range/Units 21:26 06:28 07:19 RBC 3.94 L (4.30-5.90) m/uL Hgb 12.7 L (13.0-17.5) gm/dL Hct 38.6 L (39.0-53.0) % Sodium (137-145) mmol/L Chloride (98-107) mmol/L BUN (9-20) mg/dL Glucose (74-99) mg/dL POC Glucose (mg/dL) 140 H 136 H (75-99) mg/dL 11/11/18 11/11/18 Range/Units 07:19 12:17 RBC (4.30-5.90) m/uL Hgb (13.0-17.5) gm/dL Hct (39.0-53.0) % Sodium 136 L (137-145) mmol/L Chloride 97 L (98-107) mmol/L BUN 21 H (9-20) mg/dL Glucose 134 H (74-99) mg/dL POC Glucose (mg/dL) 106 H (75-99) mg/dL Diabetes panel 11/11/18 Range/Units 07:19 Sodium 136 L (137-145) mmol/L Potassium 3.7 (3.5-5.1) mmol/L Chloride 97 L (98-107) mmol/L Carbon Dioxide 29 (22-30) mmol/L BUN 21 H (9-20) mg/dL Creatinine 0.74 (0.66-1.25) mg/dL Glucose 134 H (74-99) mg/dL Calcium 8.4 (8.4-10.2) mg/dL Calcium panel 11/11/18 Range/Units 07:19 Calcium 8.4 (8.4-10.2) mg/dL Pituitary panel 11/11/18 Range/Units 07:19 Sodium 136 L (137-145) mmol/L Potassium 3.7 (3.5-5.1) mmol/L Chloride 97 L (98-107) mmol/L Carbon Dioxide 29 (22-30) mmol/L BUN 21 H (9-20) mg/dL Creatinine 0.74 (0.66-1.25) mg/dL Glucose 134 H (74-99) mg/dL Calcium 8.4 (8.4-10.2) mg/dL Adrenal panel 11/11/18 Range/Units 07:19 Sodium 136 L (137-145) mmol/L Potassium 3.7 (3.5-5.1) mmol/L Chloride 97 L (98-107) mmol/L Carbon Dioxide 29 (22-30) mmol/L BUN 21 H (9-20) mg/dL Creatinine 0.74 (0.66-1.25) mg/dL Glucose 134 H (74-99) mg/dL Calcium 8.4 (8.4-10.2) mg/dL Assessment and Plan Assessment: #1 right upper extremity hematoma/ecchymosis #2 atrial fibrillation requiring anticoagulation #3 hypertension #4 hyperlipidemia #5 hypothyroidism #6 diabetes Plan: At this point there does not appear to be any significant severe vascular injury, most likely was due to an intramuscular bleed due to anticoagulation. At this point continue to hold anticoagulation, we will order arterial and venous imaging the ultrasound to evaluate for any active bleeding at this time. Compression and elevation. If there is no obvious active bleeding, would continue to hold anti-coagulation for 24-48 more hours in hopes of no further rebleeding. This was discussed with his benzol still operator who seemingly agrees. He is awaiting undergoing an ablation procedure in which the benzol still operator need him to be on antiplatelet urination for 4 weeks. The patient and his seemingly understand and are willing to proceed
--- NOTE | 2018-11-11 13:24 | P.PN ---
Subjective Patient interviewed and examined I had seen him over the weekend and scheduled for atrial flutter R diversion He is back in atrial flutter and now in atrial fibrillation He has a hematoma in the right biceps area probably intramuscular ELIQUIS is on hold At this time he has no chest discomfort no shortness of breath at rest Impression Typical atrial flutter with RVR, recurrent Atrial fibrillation On amiodarone 200 mg twice daily only for the short term since he has a history of liver failure in the past Diabetes Hypertension Hematoma in the right biceps, ELIQUIS on hold After 4 weeks of anticoagulation on apixaban out proceed with an atrial flutter ablation This and benefits were discussed the patient pros and cons were discussed opt ions were discussed Only short term amiodarone was suggested We will schedule the procedure for him Objective - Vital Signs Vital signs: Vital Signs Temp 98.3 F 11/11/18 12:00 Pulse 116 H 11/11/18 12:00 Resp 20 11/11/18 12:00 BP 103/59 11/11/18 12:00 Pulse Ox 97 11/11/18 12:00 Intake & Output 11/10/18 11/11/18 11/11/18 18:59 06:59 18:59 Intake Total 444 400 180 Output Total 400 Balance 444 0 180 Weight 160.9 kg Intake: Oral 444 400 180 Output: Urine 400 Other: Voiding Method Toilet Toilet # Voids 1 2 - Labs CBC & Chem 7: 11/11/18 07:19 11/11/18 07:19 Labs: Abnormal Lab Results - Last 24 Hours (Table) 11/10/18 11/11/18 11/11/18 Range/Units 21:26 06:28 07:19 RBC 3.94 L (4.30-5.90) m/uL Hgb 12.7 L (13.0-17.5) gm/dL Hct 38.6 L (39.0-53.0) % Sodium (137-145) mmol/L Chloride (98-107) mmol/L BUN (9-20) mg/dL Glucose (74-99) mg/dL POC Glucose (mg/dL) 140 H 136 H (75-99) mg/dL 11/11/18 11/11/18 Range/Units 07:19 12:17 RBC (4.30-5.90) m/uL Hgb (13.0-17.5) gm/dL Hct (39.0-53.0) % Sodium 136 L (137-145) mmol/L Chloride 97 L (98-107) mmol/L BUN 21 H (9-20) mg/dL Glucose 134 H (74-99) mg/dL POC Glucose (mg/dL) 106 H (75-99) mg/dL
[2018-11-11] MEDS: HYDROcodone/APAP 7.5-325MG 1 EACH TAB PO PRN ×3 (15:12→23:12)
--- NOTE | 2018-11-11 15:42 | US ---
EXAMINATION TYPE: US venous doppler duplex UE RT DATE OF EXAM: 11/11/2018 COMPARISON: NONE CLINICAL HISTORY: Hematoma/swelling. Right upper arm swelling and hematoma 2 days post cardiac shock for atrial fibrillation to normal sinus rhythm and procedure done days ago; patient stated was on blo od thinner x 1 month; c/o severe upper arm pain laterally and medially near axilla SIDE PERFORMED: right Limited US exam due to large body habitus and limited range of arm motion. Right Arm: Negative for DVT. Complex mass with fluid area within upper medial arm muscle = 5.9 x 4.9 x 2.7cm. No associated artery or vein is noted with this mass. Grayscale, color doppler, spectral doppler imaging performed of the deep veins of the right upper ext remity. There is normal flow, compressibility and vascular waveforms. IMPRESSION: 1. Complex avascular mass in the right upper extremity could represent a hematoma given the patient i s on blood thinners. Short-term follow-up is recommended in one-3 months to assess for any interval g rowth. If interval growth at that time MRI with contrast would be recommended. If there is further cl inical concern at this time MR could BE performed prior to the repeat ultrasound. 2. No deep venous thrombosis of the right upper extremity.
[2018-11-11 17:22] LABS: Glucose,Whole Blood 146 mg/dL (75-99)
[2018-11-11 20:55] LABS: Glucose,Whole Blood 102 mg/dL (75-99)
[2018-11-11 22:09] LABS: Glucose,Whole Blood 140 mg/dL (75-99)
[2018-11-11] MEDS: QUEtiapine 100 MG TAB PO SCH (22:11)
[2018-11-11] MEDS: ATORVASTATIN 80 MG TAB PO SCH (22:12)
--- NOTE | 2018-11-12 02:12 | P.PN ---
Subjective Progress Note Date: 11/11/18 Principal diagnosis: Patient was admitted for atrial fibrillation with rapid ventricular rate patient was started on amiodarone without any significant improvement in his rate Cardi zem is being admitted in spite of mildly decreased ejection fraction is with do not have any choices to control his heart rate. Patient although asymptomatic at this time. 11/05/2018 Patient is complaining of chest pain chest pain is probably related to tachycardia troponins are being obtained. EKGs are being obtained by cardiology. Patient may end up needing cardioversion 11/06/2018 Patient's troponins are negative patient has on and off chest pain from tachycardia, patient remains on IV amiodarone, patient probably will undergo cardioversion tomorrow. 11/07/2018 Patient will undergo PAULINA cardioversion today. Patient has redness in the left appears to be cellulitic with local is of temperature patient will be started on ceftezolin 11/08/2018 Patient is lying in bed in no acute distress. Patient underwent a PAULINA with cardioversion yesterday. Patient states that he is having some shortness of breath. Lasix 40 mg twice a day was given per cardiology. Patient denies any chest pains or palpitations at this time. Patient denies any nausea or vomiting. Patient is tolerating diet at this time. Patient is currently receiving IV cefazolin for right upper arm cellulitis. Patient is currently in normal sinus rhythm. Guarded prognosis. 11/10/2018 Patient is lying in bed in no acute distress visiting with family at the bedside. Patient is having some right upper arm ecchymosis, swelling, and discomfort that has been worsening. Patient denies any feelings of palpitations at this time. Patient is in A flutter with an elevated heart rate in the 130's per nursing staff after getting up and walking. Patient denies having shortness of breath or chest discomfort. Patient denies any nausea, vomiting, or diarrhea at this time. Patient has been afebrile. Patient is on Eliquis and is having active bleeding under the skin of the right upper arm and for this we will be holding the anticoagulant at this time. Cardiology is following closely. Patient is currently on IV antibiotics as it was cellulitis of the right upper arm. Patient is hemodynamically stable with current hemoglobin 12.4. 11/11/2018 Patient is sitting up at the side of the bed in no acute distress. Patient currently has his right arm out of the sling as he is about to eat lunch. Patient is still having significant swelling with ecchymosis that is slightly dispursing and showing multiple stages bruising. Skin is less taught than previous. Patient is stating that his pain has worsened and would like something more for pain. Patient states that he has been icing the arm periodically which has helped with the pain slightly. Vascular surgery was consulted for the need for continued anticoagulation use. Eliquis is being held at this time. Cardiology is following. Patient denies any shortness of breath except while laying flat, no chest pain, or palpitations at this time. Patient denies any nausea or vomiting. Patient has remained afebrile. Patient is currently wearing 02 via NC at 2 L and does not require 02 except for a CPAP at night for sleep apnea. Patient encouraged to use incentive spirometry and to wean off 02. Patient states that he walks around without oxygen and is fine. Patient is he modynamically stable with hemoglobin at 12.7. Guarded prognosis. Objective - Vital Signs Vital signs: Vital Signs Temp 98.6 F 11/11/18 22:15 Pulse 108 H 11/12/18 01:03 Resp 18 11/12/18 01:03 BP 133/69 11/11/18 22:15 Pulse Ox 97 11/11/18 22:15 Intake & Output 11/11/18 11/11/18 11/12/18 06:59 18:59 06:59 Intake Total 400 580 Output Total 400 Balance 0 580 Weight 160.9 kg Intake: Oral 400 580 Output: Urine 400 Other: Voiding Method Toilet Toilet # Voids 2 1 1 - Exam PHYSICAL EXAMINATION: GENERAL: The patient is alert and oriented x3, not in any acute distress. Obese. Vital signs are stable. Blood pressure is 114/62, pulse is 116, respirations are 20, temp is 98.8F, oxygen saturation is 97% on room air HEENT: Pupils are round and equally reacting to light. EOMI. No scleral icterus. No conjunctival pallor. Normocephalic, atraumatic. No pharyngeal erythema. No thyromegaly. CARDIOVASCULAR: S1 and S2 present. No murmurs, rubs, or gallops. PULMONARY: Diminished lung sounds in the bases, no wheezing or crackles. ABDOMEN: Soft, nontender, obese, normoactive bowel sounds. No palpable organomegaly. MUSCULOSKELETAL: No joint swelling or deformity. EXTREMITIES: No cyanosis, clubbing, or pedal edema. NEUROLOGICAL: Gross neurological examination did not reveal any focal deficits. SKIN: large ecchymosis noted of the upper right arm with swelling and pain upon palpation. Swelling has decreased. Ecchymosis is dispursing and has multiple color variations and stages of healing. - Labs CBC & Chem 7: 11/11/18 07:19 11/11/18 07:19 Labs: Abnormal Lab Results - Last 24 Hours (Table) 11/11/18 11/11/18 11/11/18 Range/Units 06:28 07:19 07:19 RBC 3.94 L (4.30-5.90) m/uL Hgb 12.7 L (13.0-17.5) gm/dL Hct 38.6 L (39.0-53.0) % Sodium 136 L (137-145) mmol/L Chloride 97 L (98-107) mmol/L BUN 21 H (9-20) mg/dL Glucose 134 H (74-99) mg/dL POC Glucose (mg/dL) 136 H (75-99) mg/dL 11/11/18 11/11/18 11/11/18 Range/Units 12:17 17:16 20:54 RBC (4.30-5.90) m/uL Hgb (13.0-17.5) gm/dL Hct (39.0-53.0) % Sodium (137-145) mmol/L Chloride (98-107) mmol/L BUN (9-20) mg/dL Glucose (74-99) mg/dL POC Glucose (mg/dL) 106 H 146 H 102 H (75-99) mg/dL 11/11/18 Range/Units 22:08 RBC (4.30-5.90) m/uL Hgb (13.0-17.5) gm/dL Hct (39.0-53.0) % Sodium (137-145) mmol/L Chloride (98-107) mmol/L BUN (9-20) mg/dL Glucose (74-99) mg/dL POC Glucose (mg/dL) 140 H (75-99) mg/dL Assessment and Plan Assessment: -Atrial fibrillation with rapid ventricular rate: Patient is on anticoagulation with Eliquis 5 mg BID, patient is presently on beta mary and amiodarone. Patient underwent cardioversion and is now currently in a flutter. Eliquis is being held due to the large hematoma on the right arm. Cardiology is following. Patient is back in atrial fibrillation. The plan is to follow up with cardiology for an ablation after 4 weeks of anticoagulation with Apixaban. -Possible cellulitis of the right arm: Patient was started on IV cefazolin as mentioned above. Patient will likely go home on oral Keflex 500 mg 4 times a day for 6 days. -Hypertension -Pain in the left hand and chest pain: Probably improved Secondary to demand ischemia secondary to atrial fibrillation. Troponins and EKGs are being obtained. Troponins were negative 0.012 -Hypertension -Type 2 diabetes mellitus: We'll continue to monitor blood sugars closely. -hyperlipidemia -Obesity and obstructive sleep apnea Ecchymotic hematoma to the right upper arm: CT of the arm was done but found to be inconclusive. Orthopedic is following. Patient has ice packs, a sling, and Eliquis is on hold. Recommendations and discussion: Recommend continue current medication management and symptomatic treatment. Will continue to monitor closely. Eliquis is currently on hold and Vascular surgery was consulted. Will await report and appreciate recommendations. Cardiology is following closely. Guarded prognosis. Further recommendations to follow. Possible discharge in 24-48 hours.
[2018-11-12] MEDS: HYDROcodone/APAP 7.5-325MG 1 EACH TAB PO PRN ×6 (03:47→23:55)
[2018-11-12 06:21] LABS: Basophils % (A) 1 %; Eosinophils # (A) 0.3 k/uL (0-0.7); Eosinophils % (A) 4 %; HCT 37.5 % (39.0-53.0); HGB 12.5 gm/dL (13.0-17.5); Lymphocytes # (A) 1.3 k/uL (1.0-4.8); Lymphocytes % (A) 18 %; MCH 32.3 pg (25.0-35.0); MCHC 33.3 g/dL (31.0-37.0); Monocytes # (A) 0.5 k/uL (0-1.0); Monocytes % (A) 7 %; Neutrophils % (A) 69 %; Platelet Count 194 k/uL (150-450); RBC 3.87 m/uL (4.30-5.90); RDW 13.7 % (11.5-15.5); WBC 7.2 k/uL (3.8-10.6)
[2018-11-12 06:39] LABS: African American GFR (CKD) >90 (>60 ml/min/1.73 sqM); Anion Gap 10 mmol/L; Blood Urea Nitrogen 20 mg/dL (9-20); Calcium 8.3 mg/dL (8.4-10.2); Carbon Dioxide 29 mmol/L (22-30); Chloride 96 mmol/L (98-107); Glucose 97 mg/dL (74-99); Non-African American GFR(CKD) >90 (>60 ml/min/1.73 sqM); Potassium 3.6 mmol/L (3.5-5.1); Sodium 135 mmol/L (137-145)
[2018-11-12] MEDS: LEVOTHYROXINE 100 MCG TAB PO SCH (06:55)
[2018-11-12 07:10] LABS: Glucose,Whole Blood 104 mg/dL (75-99)
[2018-11-12] MEDS: INSULIN DETEMIR (LEVEMIR) 100 UNIT/ML SYR SQ SCH ×2 (07:25→21:44)
[2018-11-12] MEDS: INSULIN ASPART (NovoLOG) 100 UNIT/ML VIAL SQ SCH ×7 (07:26→21:43)
[2018-11-12] MEDS: LIPASE 5,000/PROTEASE 17,000/AMYLASE 24,000 PO SCH ×3 (08:30→17:40)
[2018-11-12] MEDS: LISINOPRIL 5 MG TAB PO SCH (08:31)
[2018-11-12] MEDS: AMIODARONE 200 MG TAB PO SCH ×2 (08:31→19:36)
[2018-11-12] MEDS: metFORMIN 500 MG TAB PO SCH ×2 (08:31→21:44)
[2018-11-12] MEDS: TAMSULOSIN 0.4 MG CAP.ER.24H PO SCH (08:31)
[2018-11-12] MEDS: MEMANTINE 10 MG TAB PO SCH ×2 (08:32→19:39)
[2018-11-12] MEDS: FUROSEMIDE 40 MG TAB PO SCH (08:32)
[2018-11-12] MEDS: PANTOPRAZOLE 40 MG TABLET PO SCH (08:32)
[2018-11-12] MEDS: OXYBUTYNIN CHLORIDE 5 MG TAB PO SCH ×2 (08:32→19:39)
[2018-11-12] MEDS: DONEPEZIL 10 MG TAB PO SCH (08:32)
[2018-11-12] MEDS: METOPROLOL TARTRATE 50 MG TAB PO SCH ×2 (08:32→19:39)
[2018-11-12] MEDS: SERTRALINE 100 MG TAB PO SCH (08:32)
[2018-11-12] MEDS: NYSTATIN 100,000UNIT/GM CREAM 30 GM TUBE TOPICAL SCH (08:43)
--- NOTE | 2018-11-12 09:03 | P.PN ---
Subjective Progress Note Date: 11/12/18 Patient seen and examined. Overall feeling improved. Still some pain in the right arm. No acute distress, resting comfortably Ecchymosis and edema to the right upper arm as previous. Still with palpable radial and ulnar pulses. Motor sensory intact. Ultrasound reviewed. The hematoma area showed no evidence of active flow. Surrounding arterial and venous structures appeared normal. #1 right upper extremity ecchymosis and edema, likely intramuscular spontaneous bleed #2 atrial fibrillation requiring anticoagulation At this point, would trial restarting anticoagulation in [address] anning changes if rebleeding issues. Add compression to the right upper extremity No vascular intervention planned. Please call if further questions or concerns. Objective - Vital Signs Vital signs: Vital Signs Temp 98.4 F 11/12/18 06:00 Pulse 135 H 11/12/18 06:00 Resp 18 11/12/18 06:00 BP 122/72 11/12/18 06:00 Pulse Ox 96 11/12/18 06:00 Intake & Output 11/11/18 11/12/18 11/12/18 18:59 06:59 18:59 Intake Total 580 118 Balance 580 118 Weight 160.4 kg Intake: Oral 580 118 Other: Voiding Method Toilet Toilet # Voids 1 1 - Labs CBC & Chem 7: 11/12/18 05:53 11/12/18 05:53 Labs: Abnormal Lab Results - Last 24 Hours (Table) 11/11/18 11/11/18 11/11/18 Range/Units 12:17 17:16 20:54 RBC (4.30-5.90) m/uL Hgb (13.0-17.5) gm/dL Hct (39.0-53.0) % Sodium (137-145) mmol/L Chloride (98-107) mmol/L POC Glucose (mg/dL) 106 H 146 H 102 H (75-99) mg/dL Calcium (8.4-10.2) mg/dL 11/11/18 11/12/18 11/12/18 Range/Units 22:08 05:53 05:53 RBC 3.87 L (4.30-5.90) m/uL Hgb 12.5 L (13.0-17.5) gm/dL Hct 37.5 L (39.0-53.0) % Sodium 135 L (137-145) mmol/L Chloride 96 L (98-107) mmol/L POC Glucose (mg/dL) 140 H (75-99) mg/dL Calcium 8.3 L (8.4-10.2) mg/dL 11/12/18 Range/Units 07:09 RBC (4.30-5.90) m/uL Hgb (13.0-17.5) gm/dL Hct (39.0-53.0) % Sodium (137-145) mmol/L Chloride (98-107) mmol/L POC Glucose (mg/dL) 104 H (75-99) mg/dL Calcium (8.4-10.2) mg/dL
--- NOTE | 2018-11-12 11:23 | P.PN ---
Subjective Progress Note Date: 11/12/18 This is a pleasant 62-year-old gentleman with past medical history significant for hypertension, hyperlipidemia, diabetes, hepatitis, recurrent pancreatitis, sleep apnea for which he uses CPAP regularly, mild dementia, recent diagnosis of atrial flutter, patient was in the hospital on October 07, seen in consultation at that time by Dr. Thomas for atrial flutter with rapid ventricular response. He underwent a PAULINA with subsequent cardioversion to normal sinus rhythm and did follow-up with Dr. Thomas in the office subsequent to that at which time he was still in a normal sinus rhythm. He also had an echocardiogram with Doppler study performed on that admission which revealed an ejection fraction of 40-45%. Patient presents back to the hospital on this occasion, he states he was at his endocrinology appointment, it was noted that his heart rate was up in the 1:30 range, he did feel some shortness of breath with associated palpitations and complained of feeling an ache and discomfort in his right arm. For these reasons he was admitted to the hospital for further evaluation and treatment. His EKG on presentation here showed atrial flutter with a rapid ventricular response, heart rate 140. Chest x-ray was normal. Blood pressure 112/70 with a heart rate of 140, 97% on 2 L of oxygen. White blood cell count 6.9, hemoglobin 14.1, platelet count 176. Sodium 140, potassium 4.9, BUN 23 and creatinine 0.7, magnesium 1.8. Troponins are negative 2. At the time of my examination this morning, patient states he can still feel his heart racing fast, still complaining of some discomfort in the right arm and mild associated shortness of breath. He is currently on IV Cardizem drip at 5 mg per hour. 11/07/2018 She was seen and examined this morning, continues to be in atrial flutter, complaining of difficulty in breathing and mild chest discomfort. The patient's also complaining of some pain and swelling in his right posterior upper arm area. Blood pressure 114/60 with a heart rate in the 70s. Sodium 139, potassium 4.6, BUN 27, creatinine 0.8. 8 16,019 Patient underwent elective cardioversion yesterday by Dr. Thomas and continues to be in a normal sinus rhythm this morning. He is complaining of some mild shortness of breath today as well as some bilateral peripheral edema. Blood pressure 134/80 with a heart rate in the 70s, 97% on 3 L of oxygen. Sodium 139, potassium 4.5, BUN 33, creatinine 0.9. 11/09/2018 patient was seen and examined this morning, continues to be in a normal sinus rhythm. His breathing is improving, continues to be on IV Lasix at this time. The firm area on the right upper arm today has become quite ecchymotic. The patient states that he did incur some injury to that arm prior to all of this starting. Orthopedic consultation has been requested. 11/10/2018 Patient seen and examined this morning, went into atrial fibrillation with rapid ventricular response and continues to be in A. fib at the time of my examination. Anticoagulation has been placed on hold because of the lytic and ecchymosis in the right upper arm area. Hemodynamically patient is stable, he denies any shortness of breath, no palpitations. 11/11/2018 Patient seen and examined this morning, and chin used to be in atrial fibrillation, heart rate in the 1 teens. We'll increase the dose of beta mary to 100 mg twice a day today. Blood cell count 7.8, hemoglobin 12.7, platelet count 183. Sodium 136, potassium 3.7, BUN 21 and creatinine 0.7. Patient continues to have significant swelling and ecchymosis of that right upper arm, we recommend consulting vascular surgeons. 11/12/2018 The patient was seen and examined this morning, he had been seen yesterday by vascular, it was felt that the patient likely had intramuscular spontaneous ble ed and the recommendation was to continue to hold the Eliquis for 48 more hours. The patient continues to be in atrial fibrillation this morning, his rate is under adequate control and overall he feels well. It is noted this morning that midsternally he has a small round area of ecchymosis about the size of a quarter, that appears to be new as compared with yesterday. He may be able to be discharged home from our perspective, he's been instructed to monitor his body closely for any further spots of ecchymosis. We will resume the Eliquis tomorrow, he will follow-up with Dr. Thomas in the office. Patient had also been seen in consultation by Dr Salgado who plans on doing an ablation proc edure within the next 4-6 weeks. Objective - Vital Signs Vital signs: Vital Signs Temp 98.4 F 11/12/18 06:00 Pulse 135 H 11/12/18 06:00 Resp 18 11/12/18 06:00 BP 122/72 11/12/18 06:00 Pulse Ox 96 11/12/18 06:00 Intake & Output 11/11/18 11/12/18 11/12/18 18:59 06:59 18:59 Intake Total 580 118 Balance 580 118 Weight 160.4 kg Intake: Oral 580 118 Other: Voiding Method Toilet Toilet # Voids 1 1 1 - Exam PHYSICAL EXAMINATION: GENERAL: 62-year-old gentleman in no acute distress at the time of my examination HEENT: Head is atraumatic, normocephalic. Pupils equal, round. Sclera anicteric. Conjunctiva are clear. Mucous membranes of the mouth are moist. Neck is supple. There is no elevated jugular venous pressure. No carotid bruit is heard. HEART EXAMINATION: Heart S1 and S2 irregularly irregular CHEST EXAMINATION: Lungs reveal mild diminished air entry to bilateral bases , No chest wall tenderness is noted on palpation or with deep breathing. Small area of ecchymosis noted midsternally ABDOMEN: Soft, obese, nontender. Bowel sounds are heard. No organomegaly noted. EXTREMITIES: 2+ peripheral pulses with 1+ evidence of peripheral edema and no calf tenderness noted. Patient does have significant ecchymosis and firmness of the right upper extremity. NEUROLOGIC patient is awake, alert and oriented 3 - Labs CBC & Chem 7: 11/12/18 05:53 11/12/18 05:53 Labs: Abnormal Lab Results - Last 24 Hours (Table) 11/11/18 11/11/18 11/11/18 Range/Units 12:17 17:16 20:54 RBC (4.30-5.90) m/uL Hgb (13.0-17.5) gm/dL Hct (39.0-53.0) % Sodium (137-145) mmol/L Chloride (98-107) mmol/L POC Glucose (mg/dL) 106 H 146 H 102 H (75-99) mg/dL Calcium (8.4-10.2) mg/dL 11/11/18 11/12/18 11/12/18 Range/Units 22:08 05:53 05:53 RBC 3.87 L (4.30-5.90) m/uL Hgb 12.5 L (13.0-17.5) gm/dL Hct 37.5 L (39.0-53.0) % Sodium 135 L (137-145) mmol/L Chloride 96 L (98-107) mmol/L POC Glucose (mg/dL) 140 H (75-99) mg/dL Calcium 8.3 L (8.4-10.2) mg/dL 11/12/18 Range/Units 07:09 RBC (4.30-5.90) m/uL Hgb (13.0-17.5) gm/dL Hct (39.0-53.0) % Sodium (137-145) mmol/L Chloride (98-107) mmol/L POC Glucose (mg/dL) 104 H (75-99) mg/dL Calcium (8.4-10.2) mg/dL Assessment and Plan Plan: Assessment and plan #1 atrial flutter with rapid ventricular response, 2 to one conduction, typical status post elective cardioversion yesterday #2 recent diagnosis of atrial flutter in October of this year at which time patient underwent an elective PAULINA with subsequent cardioversion to normal sinus rhythm, on Eliquis 5 mg's one tablet by mouth twice a day for anticoagulation #3 hypertension #4 diabetes #5 hyperlipidemia #6 obesity #7 obstructive sleep apnea #8 hepatitis #9 recurrent pancreatitis Plan From cardiology's perspective, patient may be able to be discharged home today. We will make him a follow-up appointment to see Dr. Thomas in the office post discharge. Eliquis will be resumed tomorrow. Patient has been instructed to monitor for any new areas of ecchymosis. DNP note has been reviewed, I agree with a documented findings and plan of care. Patient was seen and examined.
[2018-11-12 12:05] LABS: Glucose,Whole Blood 100 mg/dL (75-99)
[2018-11-12 17:14] LABS: Glucose,Whole Blood 137 mg/dL (75-99)
[2018-11-12] MEDS: ATORVASTATIN 80 MG TAB PO SCH (19:36)
[2018-11-12] MEDS: QUEtiapine 100 MG TAB PO SCH (19:40)
[2018-11-12 20:56] LABS: Glucose,Whole Blood 57 mg/dL (75-99)
[2018-11-12 21:18] LABS: Glucose,Whole Blood 82 mg/dL (75-99)
--- NOTE | 2018-11-12 22:53 | PN ---
PROGRESS NOTE DATE OF SERVICE: 11/12/2018 This 63-year-old gentleman who was admitted with atrial fibrillation also had right forehead hematoma. No chest pain. No palpitations. No fever. The venous Doppler was done and showed complex avascular mass. Otherwise, Dr. Sherwood is also following the patient closely from vascular surgery point of view. No chest pain. No palpitations. No fever. EXAM: Alert and oriented times three. Pulse is 101, blood pressure 107/75, respiration 18, temperature 98.2, pulse ox 97% on room air. HEENT: Conjunctivae normal. NECK: No JVD. CARDIOVASCULAR: S1, S2 muffled. RESPIRATION: Breath sounds diminished in the bases. A few scattered rhonchi and crackles. ABDOMEN is soft, nontender. LEGS are no edema. No swelling. CENTRAL NERVOUS SYSTEM: No focal deficits. LABS: WBC 7.2, hemoglobin 12.2. Sodium 135. ASSESSMENT: 1. Atrial fibrillation with rapid ventricular rate. 2. Right forehead hematoma. 3. Possible cellulitis of the right arm. 4. Hypertension. 5. Chest pain possibly secondary to demand ischemia. 6. Hypertension. 7. Diabetes mellitus type 2. 8. Hyperlipidemia. 9. Obesity. 10.Obstructive sleep apnea. RECOMMENDATIONS AND DISCUSSION: Recommend to continue current medications, continue with monitoring, symptomatic treatment. Otherwise, at this time, I recommend hold off anticoagulation. Closely follow with vascular surgery. Guarded prognosis. Further recommendations to follow. MMEMELYL / PRISCAN: [id number] /
[2018-11-13] MEDS: HYDROcodone/APAP 7.5-325MG 1 EACH TAB PO PRN ×5 (04:11→21:04)
[2018-11-13] MEDS: LEVOTHYROXINE 100 MCG TAB PO SCH (06:00)
[2018-11-13] MEDS: LIPASE 5,000/PROTEASE 17,000/AMYLASE 24,000 PO SCH ×3 (06:00→17:15)
[2018-11-13 07:09] LABS: Glucose,Whole Blood 152 mg/dL (75-99)
[2018-11-13] MEDS: INSULIN DETEMIR (LEVEMIR) 100 UNIT/ML SYR SQ SCH ×2 (07:23→21:04)
[2018-11-13] MEDS: INSULIN ASPART (NovoLOG) 100 UNIT/ML VIAL SQ SCH ×7 (07:24→21:10)
[2018-11-13] MEDS: TAMSULOSIN 0.4 MG CAP.ER.24H PO SCH (08:52)
[2018-11-13] MEDS: PANTOPRAZOLE 40 MG TABLET PO SCH (08:52)
[2018-11-13] MEDS: OXYBUTYNIN CHLORIDE 5 MG TAB PO SCH ×2 (08:52→21:05)
[2018-11-13] MEDS: LISINOPRIL 5 MG TAB PO SCH (08:53)
[2018-11-13] MEDS: MEMANTINE 10 MG TAB PO SCH ×2 (08:53→21:05)
[2018-11-13] MEDS: DONEPEZIL 10 MG TAB PO SCH (08:53)
[2018-11-13] MEDS: AMIODARONE 200 MG TAB PO SCH ×2 (08:53→21:04)
[2018-11-13] MEDS: FUROSEMIDE 40 MG TAB PO SCH (08:53)
[2018-11-13] MEDS: SERTRALINE 100 MG TAB PO SCH (08:54)
[2018-11-13] MEDS: METOPROLOL TARTRATE 50 MG TAB PO SCH ×2 (08:54→21:06)
[2018-11-13] MEDS: metFORMIN 500 MG TAB PO SCH ×2 (08:54→21:05)
[2018-11-13] MEDS: NYSTATIN 100,000UNIT/GM CREAM 30 GM TUBE TOPICAL SCH (08:54)
--- NOTE | 2018-11-13 10:41 | P.PN ---
Subjective Progress Note Date: 11/13/18 This is a pleasant 62-year-old gentleman with past medical history significant for hypertension, hyperlipidemia, diabetes, hepatitis, recurrent pancreatitis, sleep apnea for which he uses CPAP regularly, mild dementia, recent diagnosis of atrial flutter, patient was in the hospital on October 07, seen in consultation at that time by Dr. Thomas for atrial flutter with rapid ventricular response. He underwent a PAULINA with subsequent cardioversion to normal sinus rhythm and did follow-up with Dr. Thomas in the office subsequent to that at which time he was still in a normal sinus rhythm. He also had an echocardiogram with Doppler study performed on that admission which revealed an ejection fraction of 40-45%. Patient presents back to the hospital on this occasion, he states he was at his endocrinology appointment, it was noted that his heart rate was up in the 1:30 range, he did feel some shortness of breath with associated palpitations and complained of feeling an ache and discomfort in his right arm. For these reasons he was admitted to the hospital for further evaluation and treatment. His EKG on presentation here showed atrial flutter with a rapid ventricular response, heart rate 140. Chest x-ray was normal. Blood pressure 112/70 with a heart rate of 140, 97% on 2 L of oxygen. White blood cell count 6.9, hemoglobin 14.1, platelet count 176. Sodium 140, potassium 4.9, BUN 23 and creatinine 0.7, magnesium 1.8. Troponins are negative 2. At the time of my examination this morning, patient states he can still feel his heart racing fast, still complaining of some discomfort in the right arm and mild associated shortness of breath. He is currently on IV Cardizem drip at 5 mg per hour. 11/07/2018 She was seen and examined this morning, continues to be in atrial flutter, complaining of difficulty in breathing and mild chest discomfort. The patient's also complaining of some pain and swelling in his right posterior upper arm area. Blood pressure 114/60 with a heart rate in the 70s. Sodium 139, potassium 4.6, BUN 27, creatinine 0.8. 8 16,019 Patient underwent elective cardioversion yesterday by Dr. Thomas and continues to be in a normal sinus rhythm this morning. He is complaining of some mild shortness of breath today as well as some bilateral peripheral edema. Blood pressure 134/80 with a heart rate in the 70s, 97% on 3 L of oxygen. Sodium 139, potassium 4.5, BUN 33, creatinine 0.9. 11/09/2018 patient was seen and examined this morning, continues to be in a normal sinus rhythm. His breathing is improving, continues to be on IV Lasix at this time. The firm area on the right upper arm today has become quite ecchymotic. The patient states that he did incur some injury to that arm prior to all of this starting. Orthopedic consultation has been requested. 11/10/2018 Patient seen and examined this morning, went into atrial fibrillation with rapid ventricular response and continues to be in A. fib at the time of my examination. Anticoagulation has been placed on hold because of the lytic and ecchymosis in the right upper arm area. Hemodynamically patient is stable, he denies any shortness of breath, no palpitations. 11/11/2018 Patient seen and examined this morning, and chin used to be in atrial fibrillation, heart rate in the 1 teens. We'll increase the dose of beta mary to 100 mg twice a day today. Blood cell count 7.8, hemoglobin 12.7, platelet count 183. Sodium 136, potassium 3.7, BUN 21 and creatinine 0.7. Patient continues to have significant swelling and ecchymosis of that right upper arm, we recommend consulting vascular surgeons. 11/12/2018 The patient was seen and examined this morning, he had been seen yesterday by vascular, it was felt that the patient likely had intramuscular spontaneous ble ed and the recommendation was to continue to hold the Eliquis for 48 more hours. The patient continues to be in atrial fibrillation this morning, his rate is under adequate control and overall he feels well. It is noted this morning that midsternally he has a small round area of ecchymosis about the size of a quarter, that appears to be new as compared with yesterday. He may be able to be discharged home from our perspective, he's been instructed to monitor his body closely for any further spots of ecchymosis. We will resume the Eliquis tomorrow, he will follow-up with Dr. Thomas in the office. Patient had also been seen in consultation by Dr Salgado who plans on doing an ablation proc edure within the next 4-6 weeks. 11/13/2018 Patient seen and examined this morning, hemodynamically stable. He did have an Robin wrap. On his right upper extremity yesterday and subsequent to that some ecchymosis was noted in his lower forearm area, overall the site looks much softer today and is much less tender for the patient. Blood pressure 110/60 with a heart rate in the 70s. Objective - Vital Signs Vital signs: Vital Signs Temp 97.8 F 11/13/18 08:41 Pulse 101 H 11/13/18 08:41 Resp 20 11/13/18 08:41 BP 109/63 11/13/18 08:41 Pulse Ox 97 11/13/18 08:41 Intake & Output 11/12/18 11/13/18 11/13/18 18:59 06:59 18:59 Intake Total 680 240 222 Output Total 575 Balance 105 240 222 Weight 160 kg Intake: Intake, IV Titration 100 Amount ceFAZolin 2 gm In Sodium 100 Chloride 0.9% 50 ml @ 100 mls/hr IVPB Q8HR [facility] Rx# :[id number] Oral 580 240 222 Output: Urine 575 Other: Voiding Method Toilet Toilet Toilet # Voids 1 1 1 - Exam PHYSICAL EXAMINATION: GENERAL: 62-year-old gentleman in no acute distress at the time of my examination HEENT: Head is atraumatic, normocephalic. Pupils equal, round. Sclera anicteric. Conjunctiva are clear. Mucous membranes of the mouth are moist. Neck is supple. There is no elevated jugular venous pressure. No carotid bruit is heard. HEART EXAMINATION: Heart S1 and S2 irregularly irregular CHEST EXAMINATION: Lungs reveal mild diminished air entry to bilateral bases , No chest wall tenderness is noted on palpation or with deep breathing. Small area of ecchymosis noted midsternally ABDOMEN: Soft, obese, nontender. Bowel sounds are heard. No organomegaly noted. EXTREMITIES: 2+ peripheral pulses with 1+ evidence of peripheral edema and no calf tenderness noted. Patient does have significant ecchymosis of the right upper extremity, soft, small area of ecchymosis in the right forearm. NEUROLOGIC patient is awake, alert and oriented 3 - Labs CBC & Chem 7: 11/12/18 05:53 11/12/18 05:53 Labs: Abnormal Lab Results - Last 24 Hours (Table) 11/12/18 11/12/18 11/12/18 Range/Units 12:04 17:13 20:56 POC Glucose (mg/dL) 100 H 137 H 57 L (75-99) mg/dL 11/13/18 Range/Units 07:07 POC Glucose (mg/dL) 152 H (75-99) mg/dL Assessment and Plan Plan: Assessment and plan #1 atrial flutter with rapid ventricular response, 2 to one conduction, typical status post elective cardioversion yesterday #2 recent diagnosis of atrial flutter in October of this year at which time patient underwent an elective PAULINA with subsequent cardioversion to normal sinus rhythm, on Eliquis 5 mg's one tablet by mouth twice a day for anticoagulation #3 hypertension #4 diabetes #5 hyperlipidemia #6 obesity #7 obstructive sleep apnea #8 hepatitis #9 recurrent pancreatitis Plan From cardiology's perspective, patient may be able to be discharged home today. We will make him a follow-up appointment to see Dr. Thomas in the office post discharge. Eliquis will be resumed tomorrow. Patient has been instructed to monitor for any new areas of ecchymosis. DNP note has been reviewed, I agree with a documented findings and plan of care. Patient was seen and examined.
[2018-11-13 11:59] LABS: Glucose,Whole Blood 47 mg/dL (75-99)
[2018-11-13 12:00] LABS: Glucose,Whole Blood 48 mg/dL (75-99)
[2018-11-13 12:22] LABS: Glucose,Whole Blood 66 mg/dL (75-99)
[2018-11-13 12:41] LABS: Glucose,Whole Blood 87 mg/dL (75-99)
[2018-11-13 16:56] LABS: Glucose,Whole Blood 209 mg/dL (75-99)
[2018-11-13 20:51] LABS: Glucose,Whole Blood 133 mg/dL (75-99)
[2018-11-13] MEDS: ATORVASTATIN 80 MG TAB PO SCH (21:04)
[2018-11-13] MEDS: QUEtiapine 100 MG TAB PO SCH (21:06)
--- NOTE | 2018-11-13 22:45 | PN ---
PROGRESS NOTE DATE OF SERVICE: 11/13/2018. This 63-year-old gentleman admitted with atrial fibrillation also had significant hematoma of the right forearm which is tracked into the right upper arm tract into the forearm at this time. Patient also had minimal bruises on the both chest, right anterior chest, more than the left anterior chest. No chest pain. No palpitations. No fever. No shortness of breath. EXAM: Alert and oriented x2. Pulse 89, blood pressure 96/58, respiration 20, temperature 98 degrees, pulse ox 94% on 2 L. HEENT is conjunctivae normal. NECK: No jugular venous distention. CARDIOVASCULAR: S1, S2 muffled. RESPIRATORY: Breath sounds diminished in the bases. No rhonchi. No crackles. ABDOMEN is soft, nontender. LEGS are no edema. No swelling. CENTRAL NERVOUS SYSTEM: No focal deficits. LABS: WBC 7.2, hemoglobin 12.2, sodium 135. ASSESSMENT: 1. Atrial fibrillation with rapid ventricular rate. 2. Right upper arm hematoma tracking into the forearms. 3. Possible cellulitis of the right arm. 4. Hypertension. 5. Chest pain possibly secondary to demand ischemia. 6. Diabetes mellitus type 2. 7. Hyperlipidemia. 8. Obesity. 9. Obstructive sleep apnea history. RECOMMENDATIONS AND DISCUSSION: Recommend to continue current medications, monitoring, management and symptomatic treatment. Otherwise, at this time, I recommend keep holding the anticoagulations because of the extension of the hematoma. Closely follow with Vascular Surgery and Cardiology. Guarded prognosis. Further recommendations to follow. MMODL / IJN: [id number] /
[2018-11-14] MEDS: HYDROcodone/APAP 7.5-325MG 1 EACH TAB PO PRN ×4 (01:36→21:01)
[2018-11-14 06:27] LABS: Basophils % (A) 1 %; Eosinophils # (A) 0.3 k/uL (0-0.7); Eosinophils % (A) 5 %; HGB 12.6 gm/dL (13.0-17.5); Lymphocytes # (A) 1.7 k/uL (1.0-4.8); Lymphocytes % (A) 29 %; MCH 32.5 pg (25.0-35.0); MCHC 33.1 g/dL (31.0-37.0); MCV 97.9 fL (80.0-100.0); Mean Platelet Volume 7.1; Monocytes # (A) 0.3 k/uL (0-1.0); Monocytes % (A) 5 %; Neutrophils # (A) 3.3 k/uL (1.3-7.7); Neutrophils % (A) 58 %; Platelet Count 204 k/uL (150-450); RBC 3.88 m/uL (4.30-5.90); RDW 13.9 % (11.5-15.5); WBC 5.7 k/uL (3.8-10.6)
[2018-11-14 06:35] LABS: African American GFR (CKD) >90 (>60 ml/min/1.73 sqM); Anion Gap 6 mmol/L; Blood Urea Nitrogen 16 mg/dL (9-20); Calcium 8.9 mg/dL (8.4-10.2); Carbon Dioxide 37 mmol/L (22-30); Chloride 96 mmol/L (98-107); Glucose 102 mg/dL (74-99); Non-African American GFR(CKD) >90 (>60 ml/min/1.73 sqM); Sodium 139 mmol/L (137-145)
[2018-11-14 06:57] LABS: Glucose,Whole Blood 104 mg/dL (75-99)
[2018-11-14] MEDS: LEVOTHYROXINE 100 MCG TAB PO SCH (07:15)
[2018-11-14] MEDS: INSULIN DETEMIR (LEVEMIR) 100 UNIT/ML SYR SQ SCH ×2 (07:15→21:53)
[2018-11-14] MEDS: INSULIN ASPART (NovoLOG) 100 UNIT/ML VIAL SQ SCH ×7 (07:16→21:52)
[2018-11-14] MEDS: LIPASE 5,000/PROTEASE 17,000/AMYLASE 24,000 PO SCH ×3 (07:19→18:15)
[2018-11-14] MEDS: PANTOPRAZOLE 40 MG TABLET PO SCH (08:08)
[2018-11-14] MEDS: OXYBUTYNIN CHLORIDE 5 MG TAB PO SCH ×2 (08:08→21:00)
[2018-11-14] MEDS: FUROSEMIDE 40 MG TAB PO SCH (08:08)
[2018-11-14] MEDS: TAMSULOSIN 0.4 MG CAP.ER.24H PO SCH (08:08)
[2018-11-14] MEDS: metFORMIN 500 MG TAB PO SCH ×2 (08:08→21:00)
[2018-11-14] MEDS: METOPROLOL TARTRATE 50 MG TAB PO SCH ×2 (08:08→21:00)
[2018-11-14] MEDS: SERTRALINE 100 MG TAB PO SCH (08:08)
[2018-11-14] MEDS: LISINOPRIL 5 MG TAB PO SCH (08:08)
[2018-11-14] MEDS: DONEPEZIL 10 MG TAB PO SCH (08:09)
[2018-11-14] MEDS: AMIODARONE 200 MG TAB PO SCH ×2 (08:09→21:00)
[2018-11-14] MEDS: MEMANTINE 10 MG TAB PO SCH ×2 (08:09→21:00)
--- NOTE | 2018-11-14 12:02 | P.PN ---
Subjective Progress Note Date: 11/14/18 This is a pleasant 62-year-old gentleman with past medical history significant for hypertension, hyperlipidemia, diabetes, hepatitis, recurrent pancreatitis, sleep apnea for which he uses CPAP regularly, mild dementia, recent diagnosis of atrial flutter, patient was in the hospital on October 07, seen in consultation at that time by Dr. Thomas for atrial flutter with rapid ventricular response. He underwent a PAULINA with subsequent cardioversion to normal sinus rhythm and did follow-up with Dr. Thomas in the office subsequent to that at which time he was still in a normal sinus rhythm. He also had an echocardiogram with Doppler study performed on that admission which revealed an ejection fraction of 40-45%. Patient presents back to the hospital on this occasion, he states he was at his endocrinology appointment, it was noted that his heart rate was up in the 1:30 range, he did feel some shortness of breath with associated palpitations and complained of feeling an ache and discomfort in his right arm. For these reasons he was admitted to the hospital for further evaluation and treatment. His EKG on presentation here showed atrial flutter with a rapid ventricular response, heart rate 140. Chest x-ray was normal. Blood pressure 112/70 with a heart rate of 140, 97% on 2 L of oxygen. White blood cell count 6.9, hemoglobin 14.1, platelet count 176. Sodium 140, potassium 4.9, BUN 23 and creatinine 0.7, magnesium 1.8. Troponins are negative 2. At the time of my examination this morning, patient states he can still feel his heart racing fast, still complaining of some discomfort in the right arm and mild associated shortness of breath. He is currently on IV Cardizem drip at 5 mg per hour. 11/07/2018 She was seen and examined this morning, continues to be in atrial flutter, complaining of difficulty in breathing and mild chest discomfort. The patient's also complaining of some pain and swelling in his right posterior upper arm area. Blood pressure 114/60 with a heart rate in the 70s. Sodium 139, potassium 4.6, BUN 27, creatinine 0.8. 8 16,019 Patient underwent elective cardioversion yesterday by Dr. Thomas and continues to be in a normal sinus rhythm this morning. He is complaining of some mild shortness of breath today as well as some bilateral peripheral edema. Blood pressure 134/80 with a heart rate in the 70s, 97% on 3 L of oxygen. Sodium 139, potassium 4.5, BUN 33, creatinine 0.9. 11/09/2018 patient was seen and examined this morning, continues to be in a normal sinus rhythm. His breathing is improving, continues to be on IV Lasix at this time. The firm area on the right upper arm today has become quite ecchymotic. The patient states that he did incur some injury to that arm prior to all of this starting. Orthopedic consultation has been requested. 11/10/2018 Patient seen and examined this morning, went into atrial fibrillation with rapid ventricular response and continues to be in A. fib at the time of my examination. Anticoagulation has been placed on hold because of the lytic and ecchymosis in the right upper arm area. Hemodynamically patient is stable, he denies any shortness of breath, no palpitations. 11/11/2018 Patient seen and examined this morning, and chin used to be in atrial fibrillation, heart rate in the 1 teens. We'll increase the dose of beta mary to 100 mg twice a day today. Blood cell count 7.8, hemoglobin 12.7, platelet count 183. Sodium 136, potassium 3.7, BUN 21 and creatinine 0.7. Patient continues to have significant swelling and ecchymosis of that right upper arm, we recommend consulting vascular surgeons. 11/12/2018 The patient was seen and examined this morning, he had been seen yesterday by vascular, it was felt that the patient likely had intramuscular spontaneous ble ed and the recommendation was to continue to hold the Eliquis for 48 more hours. The patient continues to be in atrial fibrillation this morning, his rate is under adequate control and overall he feels well. It is noted this morning that midsternally he has a small round area of ecchymosis about the size of a quarter, that appears to be new as compared with yesterday. He may be able to be discharged home from our perspective, he's been instructed to monitor his body closely for any further spots of ecchymosis. We will resume the Eliquis tomorrow, he will follow-up with Dr. Thomas in the office. Patient had also been seen in consultation by Dr Salgado who plans on doing an ablation proc edure within the next 4-6 weeks. 11/13/2018 Patient seen and examined this morning, hemodynamically stable. He did have an Robin wrap. On his right upper extremity yesterday and subsequent to that some ecchymosis was noted in his lower forearm area, overall the site looks much softer today and is much less tender for the patient. Blood pressure 110/60 with a heart rate in the 70s. 11/14/2018 Patient was seen and examined this morning, overall he feels well. No new areas of ecchymosis noted. Our recommendation is to resume the patient on Eliquis and monitor as an outpatient for any evidence of further bleeding. If patient does well and has no recurrence of this spontaneous muscle bleeding we will continue current dose of Eliquis. If the patient however has subsequent bleeding on resu kym the anticoagulation, he may be a candidate for watchman device Objective - Vital Signs Vital signs: Vital Signs Temp 97.7 F 11/14/18 05:00 Pulse 65 11/14/18 05:00 Resp 18 11/14/18 05:00 BP 109/75 11/14/18 05:00 Pulse Ox 96 11/14/18 05:00 Intake & Output 11/13/18 11/14/18 11/14/18 18:59 06:59 18:59 Intake Total 1148 240 Output Total 500 Balance 648 240 Weight 160.9 kg Intake: Intake, IV Titration 100 Amount ceFAZolin 2 gm In Sodium 100 Chloride 0.9% 50 ml @ 100 mls/hr IVPB Q8HR [facility] Rx# :[id number] Oral 1048 240 Output: Urine 500 Other: Voiding Method Toilet Toilet # Voids 1 1 1 - Exam PHYSICAL EXAMINATION: GENERAL: 62-year-old gentleman in no acute distress at the time of my examination HEENT: Head is atraumatic, normocephalic. Pupils equal, round. Sclera anicteric. Conjunctiva are clear. Mucous membranes of the mouth are moist. Neck is supple. There is no elevated jugular venous pressure. No carotid bruit is heard. HEART EXAMINATION: Heart S1 and S2 irregularly irregular CHEST EXAMINATION: Lungs reveal mild diminished air entry to bilateral bases , No chest wall tenderness is noted on palpation or with deep breathing. Small area of ecchymosis noted midsternally ABDOMEN: Soft, obese, nontender. Bowel sounds are heard. No organomegaly noted. EXTREMITIES: 2+ peripheral pulses with 1+ evidence of peripheral edema and no calf tenderness noted. Patient does have significant ecchymosis of the right upper extremity, soft, small area of ecchymosis in the right forearm. NEUROLOGIC patient is awake, alert and oriented 3 - Labs CBC & Chem 7: 11/14/18 05:51 11/14/18 05:51 Labs: Abnormal Lab Results - Last 24 Hours (Table) 11/13/18 11/13/18 11/13/18 Range/Units 11:57 11:59 12:20 RBC (4.30-5.90) m/uL Hgb (13.0-17.5) gm/dL Hct (39.0-53.0) % Chloride (98-107) mmol/L Carbon Dioxide (22-30) mmol/L Glucose (74-99) mg/dL POC Glucose (mg/dL) 47 L 48 L 66 L (75-99) mg/dL 11/13/18 11/13/18 11/14/18 Range/Units 16:54 20:49 05:51 RBC 3.88 L (4.30-5.90) m/uL Hgb 12.6 L (13.0-17.5) gm/dL Hct 38.0 L (39.0-53.0) % Chloride (98-107) mmol/L Carbon Dioxide (22-30) mmol/L Glucose (74-99) mg/dL POC Glucose (mg/dL) 209 H 133 H (75-99) mg/dL 11/14/18 11/14/18 Range/Units 05:51 06:55 RBC (4.30-5.90) m/uL Hgb (13.0-17.5) gm/dL Hct (39.0-53.0) % Chloride 96 L (98-107) mmol/L Carbon Dioxide 37 H (22-30) mmol/L Glucose 102 H (74-99) mg/dL POC Glucose (mg/dL) 104 H (75-99) mg/dL Assessment and Plan Plan: Assessment and plan #1 atrial flutter with rapid ventricular response, 2 to one conduction, typical status post elective cardioversion yesterday #2 recent diagnosis of atrial flutter in October of this year at which time patient underwent an elective PAULINA with subsequent cardioversion to normal sinus rhythm, on Eliquis 5 mg's one tablet by mouth twice a day for anticoagulation #3 hypertension #4 diabetes #5 hyperlipidemia #6 obesity #7 obstructive sleep apnea #8 hepatitis #9 recurrent pancreatitis Plan From cardiology's perspective, patient may be able to be discharged home today. We will resume the Eliquis 5 mg twice a day. Patient has been instructed regarding monitoring for any further sites of bleeding/ecchymosis. If the patient has no further episodes we will continue current dose of Eliquis. If the patient however has subsequent muscle bleeding after being resumed on anticoagulation he may be a candidate for a watchman device. DNP note has been reviewed, I agree with a documented findings and plan of care. Patient was seen and examined.
[2018-11-14] MEDS: NYSTATIN 100,000UNIT/GM CREAM 30 GM TUBE TOPICAL SCH (12:14)
[2018-11-14 12:24] LABS: Glucose,Whole Blood 175 mg/dL (75-99)
[2018-11-14] MEDS: APIXABAN 5 MG TAB PO SCH ×2 (12:31→21:00)
[2018-11-14] MEDS: HYDROmorphone 0.5 MG/0.5 ML SYRINGE IVP PRN ×2 (12:31→21:53)
[2018-11-14 14:35] LABS: Glucose,Whole Blood 38 mg/dL (75-99)
[2018-11-14 14:42] LABS: Glucose,Whole Blood 48 mg/dL (75-99)
[2018-11-14 14:59] LABS: Glucose,Whole Blood 50 mg/dL (75-99)
[2018-11-14 15:28] LABS: Glucose,Whole Blood 47 mg/dL (75-99)
[2018-11-14 16:13] LABS: Glucose,Whole Blood 53 mg/dL (75-99)
[2018-11-14 17:33] LABS: Glucose,Whole Blood 69 mg/dL (75-99)
[2018-11-14] MEDS: QUEtiapine 100 MG TAB PO SCH (21:00)
[2018-11-14] MEDS: ATORVASTATIN 80 MG TAB PO SCH (21:00)
[2018-11-14 21:19] LABS: Glucose,Whole Blood 232 mg/dL (75-99)
--- NOTE | 2018-11-15 00:13 | P.PN ---
Subjective Progress Note Date: 11/14/18 Principal diagnosis: Patient was admitted for atrial fibrillation with rapid ventricular rate patient was started on amiodarone without any significant improvement in his rate Cardi zem is being admitted in spite of mildly decreased ejection fraction is with do not have any choices to control his heart rate. Patient although asymptomatic at this time. 11/05/2018 Patient is complaining of chest pain chest pain is probably related to tachycardia troponins are being obtained. EKGs are being obtained by cardiology. Patient may end up needing cardioversion 11/06/2018 Patient's troponins are negative patient has on and off chest pain from tachycardia, patient remains on IV amiodarone, patient probably will undergo cardioversion tomorrow. 11/07/2018 Patient will undergo PAULINA cardioversion today. Patient has redness in the left appears to be cellulitic with local is of temperature patient will be started on ceftezolin 11/08/2018 Patient is lying in bed in no acute distress. Patient underwent a PAULINA with cardioversion yesterday. Patient states that he is having some shortness of breath. Lasix 40 mg twice a day was given per cardiology. Patient denies any chest pains or palpitations at this time. Patient denies any nausea or vomiting. Patient is tolerating diet at this time. Patient is currently receiving IV cefazolin for right upper arm cellulitis. Patient is currently in normal sinus rhythm. Guarded prognosis. 11/10/2018 Patient is lying in bed in no acute distress visiting with family at the bedside. Patient is having some right upper arm ecchymosis, swelling, and discomfort that has been worsening. Patient denies any feelings of palpitations at this time. Patient is in A flutter with an elevated heart rate in the 130's per nursing staff after getting up and walking. Patient denies having shortness of breath or chest discomfort. Patient denies any nausea, vomiting, or diarrhea at this time. Patient has been afebrile. Patient is on Eliquis and is having active bleeding under the skin of the right upper arm and for this we will be holding the anticoagulant at this time. Cardiology is following closely. Patient is currently on IV antibiotics as it was cellulitis of the right upper arm. Patient is hemodynamically stable with current hemoglobin 12.4. 11/11/2018 Patient is sitting up at the side of the bed in no acute distress. Patient currently has his right arm out of the sling as he is about to eat lunch. Patient is still having significant swelling with ecchymosis that is slightly dispursing and showing multiple stages bruising. Skin is less taught than previous. Patient is stating that his pain has worsened and would like something more for pain. Patient states that he has been icing the arm periodically which has helped with the pain slightly. Vascular surgery was consulted for the need for continued anticoagulation use. Eliquis is being held at this time. Cardiology is following. Patient denies any shortness of breath except while laying flat, no chest pain, or palpitations at this time. Patient denies any nausea or vomiting. Patient has remained afebrile. Patient is currently wearing 02 via NC at 2 L and does not require 02 except for a CPAP at night for sleep apnea. Patient encouraged to use incentive spirometry and to wean off 02. Patient states that he walks around without oxygen and is fine. Patient is he modynamically stable with hemoglobin at 12.7. Guarded prognosis. 11/14/2018 Patient is lying in bed resting but arousable. Patient is still having some severe right upper arm and shoulder pain. Patient appears to be in no acute distress. Patient denies any chest pain, palpitations, or shortness of breath at this time. Patient is currently off Eliquis still and cardiology and vascular surgery are following. Patient denies any nausea or vomiting at this time. Patient is afebrile. Patient is maintaining oxygenation in the mid 90's on room air. Patient is being closely monitored. Patient is having fluctuating blood sugars and will continue to monitor closely. Guarded prognosis. Objective - Vital Signs Vital signs: Vital Signs Temp 98.3 F 11/14/18 20:39 Pulse 102 H 11/14/18 20:39 Resp 15 11/14/18 20:39 BP 113/67 11/14/18 20:39 Pulse Ox 98 11/14/18 20:39 Intake & Output 11/14/18 11/14/18 11/15/18 06:59 18:59 06:59 Intake Total 480 Balance 480 Weight 160.9 kg Intake: Oral 480 Other: Voiding Method Toilet Toilet Toilet # Voids 1 1 2 # Bowel Movements 0 - Exam PHYSICAL EXAMINATION: GENERAL: The patient is alert and oriented x3, not in any acute distress. Obese. Vital signs are stable. Blood pressure is 112/60, pulse is 110, respirations are 16, temp is 97.9F, oxygen saturation is 93% on room air HEENT: Pupils are round and equally reacting to light. EOMI. No scleral icterus. No conjunctival pallor. Normocephalic, atraumatic. No pharyngeal erythema. No thyromegaly. CARDIOVASCULAR: S1 and S2 present. No murmurs, rubs, or gallops. PULMONARY: Diminished lung sounds in the bases, no wheezing or crackles. ABDOMEN: Soft, nontender, obese, normoactive bowel sounds. No palpable organomegaly. MUSCULOSKELETAL: No joint swelling or deformity. EXTREMITIES: No cyanosis, clubbing, or pedal edema. NEUROLOGICAL: Gross neurological examination did not reveal any focal deficits. SKIN: large ecchymosis noted of the upper right arm that is diffuse and spreading down into the forearm and pain upon palpation. Swelling has decreased. Ecchymosis is dispursing and has multiple color variations and stages of h ealing. There are various notations of bruising to the upper chest as well. - Labs CBC & Chem 7: 11/14/18 05:51 11/14/18 05:51 Labs: Abnormal Lab Results - Last 24 Hours (Table) 11/14/18 11/14/18 11/14/18 Range/Units 05:51 05:51 06:55 RBC 3.88 L (4.30-5.90) m/uL Hgb 12.6 L (13.0-17.5) gm/dL Hct 38.0 L (39.0-53.0) % Chloride 96 L (98-107) mmol/L Carbon Dioxide 37 H (22-30) mmol/L Glucose 102 H (74-99) mg/dL POC Glucose (mg/dL) 104 H (75-99) mg/dL 11/14/18 11/14/18 11/14/18 Range/Units 12:21 14:32 14:40 RBC (4.30-5.90) m/uL Hgb (13.0-17.5) gm/dL Hct (39.0-53.0) % Chloride (98-107) mmol/L Carbon Dioxide (22-30) mmol/L Glucose (74-99) mg/dL POC Glucose (mg/dL) 175 H 38 L 48 L (75-99) mg/dL 11/14/18 11/14/18 11/14/18 Range/Units 14:57 15:16 15:53 RBC (4.30-5.90) m/uL Hgb (13.0-17.5) gm/dL Hct (39.0-53.0) % Chloride (98-107) mmol/L Carbon Dioxide (22-30) mmol/L Glucose (74-99) mg/dL POC Glucose (mg/dL) 50 L 47 L 53 L (75-99) mg/dL 11/14/18 11/14/18 Range/Units 17:31 21:18 RBC (4.30-5.90) m/uL Hgb (13.0-17.5) gm/dL Hct (39.0-53.0) % Chloride (98-107) mmol/L Carbon Dioxide (22-30) mmol/L Glucose (74-99) mg/dL POC Glucose (mg/dL) 69 L 232 H (75-99) mg/dL Assessment and Plan Assessment: -Atrial fibrillation with rapid ventricular rate: Patient is on anticoagulation with Eliquis 5 mg BID, patient is presently on beta mary and amiodarone. Beatriz car underwent cardioversion and is now currently in a flutter. Eliquis is being held due to the large hematoma on the right arm. Cardiology is following. Patient is back in atrial fibrillation. The plan is to follow up with cardiology for an ablation after 4 weeks of anticoagulation with Apixaban. Eliquis will be resumed this evening. -Possible cellulitis of the right arm: Patient was started on IV cefazolin as mentioned above. Patient will likely go home on oral Keflex 500 mg 4 times a day for 6 days. Antibiotics discontinued. -Hypertension -Pain in the left hand and chest pain: Probably improved Secondary to demand ischemia secondary to atrial fibrillation. Troponins and EKGs are being obtained. Troponins were negative 0.012 -Type 2 diabetes mellitus: We'll continue to monitor blood sugars closely. -hyperlipidemia -Obesity and obstructive sleep apnea Ecchymotic hematoma to the right upper arm: CT of the arm was done but found to be inconclusive. Patient has ice packs, a sling, and Eliquis was on hold due to continued bleeding underneath the skin. Eliquis will be resumed this evening. Recommendations and discussion: Recommend continue current medication management and symptomatic treatment. Will continue to monitor closely. Eliquis was on hold and will be resumed this evening. Vascular surgery is following. Cardiology is following closely. Guarded prognosis. Further recommendations to follow. Possible discharge in 24-48 hours.
[2018-11-15 02:25] LABS: Glucose,Whole Blood 130 mg/dL (75-99)
[2018-11-15 03:09] VITALS: PULSE 60; RESP 16
[2018-11-15] MEDS: HYDROcodone/APAP 7.5-325MG 1 EACH TAB PO PRN ×3 (03:09→11:07)
[2018-11-15] MEDS: HYDROmorphone 0.5 MG/0.5 ML SYRINGE IVP PRN (04:02)
[2018-11-15 06:21] LABS: Basophils # (A) 0.1 k/uL (0-0.2); Basophils % (A) 1 %; Eosinophils # (A) 0.3 k/uL (0-0.7); Eosinophils % (A) 4 %; HCT 36.6 % (39.0-53.0); Lymphocytes % (A) 28 %; MCH 31.9 pg (25.0-35.0); MCHC 32.7 g/dL (31.0-37.0); MCV 97.5 fL (80.0-100.0); Monocytes # (A) 0.3 k/uL (0-1.0); Monocytes % (A) 4 %; Neutrophils # (A) 4.5 k/uL (1.3-7.7); Neutrophils % (A) 62 %; Platelet Count 201 k/uL (150-450); RBC 3.76 m/uL (4.30-5.90); WBC 7.3 k/uL (3.8-10.6)
[2018-11-15 06:30] LABS: African American GFR (CKD) >90 (>60 ml/min/1.73 sqM); Anion Gap 9 mmol/L; Blood Urea Nitrogen 19 mg/dL (9-20); Calcium 9.2 mg/dL (8.4-10.2); Carbon Dioxide 30 mmol/L (22-30); Chloride 97 mmol/L (98-107); Glucose 164 mg/dL (74-99); Non-African American GFR(CKD) >90 (>60 ml/min/1.73 sqM); Potassium 3.9 mmol/L (3.5-5.1); Sodium 136 mmol/L (137-145)
[2018-11-15 06:45] LABS: Glucose,Whole Blood 157 mg/dL (75-99)
[2018-11-15] MEDS: INSULIN ASPART (NovoLOG) 100 UNIT/ML VIAL SQ SCH ×2 (06:45→06:56)
[2018-11-15] MEDS: LIPASE 5,000/PROTEASE 17,000/AMYLASE 24,000 PO SCH (06:55)
[2018-11-15] MEDS: INSULIN DETEMIR (LEVEMIR) 100 UNIT/ML SYR SQ SCH (06:57)
[2018-11-15] MEDS: LEVOTHYROXINE 100 MCG TAB PO SCH (06:59)
[2018-11-15] MEDS: METOPROLOL TARTRATE 50 MG TAB PO SCH (09:36)
[2018-11-15] MEDS: LISINOPRIL 5 MG TAB PO SCH (09:37)
[2018-11-15] MEDS: AMIODARONE 200 MG TAB PO SCH (09:37)
[2018-11-15] MEDS: FUROSEMIDE 40 MG TAB PO SCH (09:37)
[2018-11-15] MEDS: SERTRALINE 100 MG TAB PO SCH (09:37)
[2018-11-15] MEDS: DONEPEZIL 10 MG TAB PO SCH (09:37)
[2018-11-15] MEDS: PANTOPRAZOLE 40 MG TABLET PO SCH (09:37)
[2018-11-15] MEDS: metFORMIN 500 MG TAB PO SCH (09:37)
[2018-11-15] MEDS: MEMANTINE 10 MG TAB PO SCH (09:37)
[2018-11-15] MEDS: TAMSULOSIN 0.4 MG CAP.ER.24H PO SCH (09:37)
[2018-11-15] MEDS: OXYBUTYNIN CHLORIDE 5 MG TAB PO SCH (09:37)
[2018-11-15] MEDS: APIXABAN 5 MG TAB PO SCH (09:37)
[2018-11-15] MEDS: NYSTATIN 100,000UNIT/GM CREAM 30 GM TUBE TOPICAL SCH (10:32)
[2018-11-15 11:52] VITALS: BMI 43.9
--- NOTE | 2018-11-15 11:57 | P.PN ---
Subjective Progress Note Date: 11/15/18 This is a pleasant 62-year-old gentleman with past medical history significant for hypertension, hyperlipidemia, diabetes, hepatitis, recurrent pancreatitis, sleep apnea for which he uses CPAP regularly, mild dementia, recent diagnosis of atrial flutter, patient was in the hospital on October 07, seen in consultation at that time by Dr. Thomas for atrial flutter with rapid ventricular response. He underwent a PAULINA with subsequent cardioversion to normal sinus rhythm and did follow-up with Dr. Thomas in the office subsequent to that at which time he was still in a normal sinus rhythm. He also had an echocardiogram with Doppler study performed on that admission which revealed an ejection fraction of 40-45%. Patient presents back to the hospital on this occasion, he states he was at his endocrinology appointment, it was noted that his heart rate was up in the 1:30 range, he did feel some shortness of breath with associated palpitations and complained of feeling an ache and discomfort in his right arm. For these reasons he was admitted to the hospital for further evaluation and treatment. His EKG on presentation here showed atrial flutter with a rapid ventricular response, heart rate 140. Chest x-ray was normal. Blood pressure 112/70 with a heart rate of 140, 97% on 2 L of oxygen. White blood cell count 6.9, hemoglobin 14.1, platelet count 176. Sodium 140, potassium 4.9, BUN 23 and creatinine 0.7, magnesium 1.8. Troponins are negative 2. At the time of my examination this morning, patient states he can still feel his heart racing fast, still complaining of some discomfort in the right arm and mild associated shortness of breath. He is currently on IV Cardizem drip at 5 mg per hour. 11/07/2018 She was seen and examined this morning, continues to be in atrial flutter, complaining of difficulty in breathing and mild chest discomfort. The patient's also complaining of some pain and swelling in his right posterior upper arm area. Blood pressure 114/60 with a heart rate in the 70s. Sodium 139, potassium 4.6, BUN 27, creatinine 0.8. 8 16,019 Patient underwent elective cardioversion yesterday by Dr. Thomas and continues to be in a normal sinus rhythm this morning. He is complaining of some mild shortness of breath today as well as some bilateral peripheral edema. Blood pressure 134/80 with a heart rate in the 70s, 97% on 3 L of oxygen. Sodium 139, potassium 4.5, BUN 33, creatinine 0.9. 11/09/2018 patient was seen and examined this morning, continues to be in a normal sinus rhythm. His breathing is improving, continues to be on IV Lasix at this time. The firm area on the right upper arm today has become quite ecchymotic. The patient states that he did incur some injury to that arm prior to all of this starting. Orthopedic consultation has been requested. 11/10/2018 Patient seen and examined this morning, went into atrial fibrillation with rapid ventricular response and continues to be in A. fib at the time of my examination. Anticoagulation has been placed on hold because of the lytic and ecchymosis in the right upper arm area. Hemodynamically patient is stable, he denies any shortness of breath, no palpitations. 11/11/2018 Patient seen and examined this morning, and chin used to be in atrial fibrillation, heart rate in the 1 teens. We'll increase the dose of beta mary to 100 mg twice a day today. Blood cell count 7.8, hemoglobin 12.7, platelet count 183. Sodium 136, potassium 3.7, BUN 21 and creatinine 0.7. Patient continues to have significant swelling and ecchymosis of that right upper arm, we recommend consulting vascular surgeons. 11/12/2018 The patient was seen and examined this morning, he had been seen yesterday by vascular, it was felt that the patient likely had intramuscular spontaneous ble ed and the recommendation was to continue to hold the Eliquis for 48 more hours. The patient continues to be in atrial fibrillation this morning, his rate is under adequate control and overall he feels well. It is noted this morning that midsternally he has a small round area of ecchymosis about the size of a quarter, that appears to be new as compared with yesterday. He may be able to be discharged home from our perspective, he's been instructed to monitor his body closely for any further spots of ecchymosis. We will resume the Eliquis tomorrow, he will follow-up with Dr. Thomas in the office. Patient had also been seen in consultation by Dr Salgado who plans on doing an ablation proc edure within the next 4-6 weeks. 11/13/2018 Patient seen and examined this morning, hemodynamically stable. He did have an Robin wrap. On his right upper extremity yesterday and subsequent to that some ecchymosis was noted in his lower forearm area, overall the site looks much softer today and is much less tender for the patient. Blood pressure 110/60 with a heart rate in the 70s. 11/14/2018 Patient was seen and examined this morning, overall he feels well. No new areas of ecchymosis noted. Our recommendation is to resume the patient on Eliquis and monitor as an outpatient for any evidence of further bleeding. If patient does well and has no recurrence of this spontaneous muscle bleeding we will continue current dose of Eliquis. If the patient however has subsequent bleeding on resu kym the anticoagulation, he may be a candidate for watchman device. 11/15/2018 Patient was seen and examined this morning, he feels well, his areas of ecchymosis are improving he has no new areas noted any was reinitiated on his Eliquis yesterday. Blood pressure 110/70 with a heart rate in the 60s, 98% on 3 L of oxygen. White blood cell count 7.3, hemoglobin 12, platelet count 201. Sodium 136, potassium 3.9, BUN 19 and creatinine 0.7. Objective - Vital Signs Vital signs: Vital Signs Temp 98.3 F 11/14/18 23:59 Pulse 60 11/15/18 03:08 Resp 16 11/15/18 03:08 BP 110/71 11/15/18 03:08 Pulse Ox 98 11/15/18 03:08 Intake & Output 11/14/18 11/15/18 11/15/18 18:59 06:59 18:59 Intake Total 480 240 Balance 480 240 Weight 159.3 kg 159.3 kg Intake: Oral 480 240 Other: Voiding Method Toilet Toilet # Voids 1 1 0 # Bowel Movements 0 - Exam PHYSICAL EXAMINATION: GENERAL: 62-year-old gentleman in no acute distress at the time of my examination HEENT: Head is atraumatic, normocephalic. Pupils equal, round. Sclera anicteric. Conjunctiva are clear. Mucous membranes of the mouth are moist. Neck is supple. There is no elevated jugular venous pressure. No carotid bruit is heard. HEART EXAMINATION: Heart S1 and S2 irregularly irregular CHEST EXAMINATION: Lungs reveal mild diminished air entry to bilateral bases , No chest wall tenderness is noted on palpation or with deep breathing. Small area of ecchymosis noted midsternally ABDOMEN: Soft, obese, nontender. Bowel sounds are heard. No organomegaly noted. EXTREMITIES: 2+ peripheral pulses with 1+ evidence of peripheral edema and no calf tenderness noted. Patient does have significant ecchymosis of the right upper extremity, soft, small area of ecchymosis in the right forearm. NEUROLOGIC patient is awake, alert and oriented 3 - Labs CBC & Chem 7: 11/15/18 06:01 11/15/18 06:01 Labs: Abnormal Lab Results - Last 24 Hours (Table) 11/14/18 11/14/18 11/14/18 Range/Units 12:21 14:32 14:40 RBC (4.30-5.90) m/uL Hgb (13.0-17.5) gm/dL Hct (39.0-53.0) % Sodium (137-145) mmol/L Chloride (98-107) mmol/L Glucose (74-99) mg/dL POC Glucose (mg/dL) 175 H 38 L 48 L (75-99) mg/dL 11/14/18 11/14/18 11/14/18 Range/Units 14:57 15:16 15:53 RBC (4.30-5.90) m/uL Hgb (13.0-17.5) gm/dL Hct (39.0-53.0) % Sodium (137-145) mmol/L Chloride (98-107) mmol/L Glucose (74-99) mg/dL POC Glucose (mg/dL) 50 L 47 L 53 L (75-99) mg/dL 11/14/18 11/14/18 11/15/18 Range/Units 17:31 21:18 02:04 RBC (4.30-5.90) m/uL Hgb (13.0-17.5) gm/dL Hct (39.0-53.0) % Sodium (137-145) mmol/L Chloride (98-107) mmol/L Glucose (74-99) mg/dL POC Glucose (mg/dL) 69 L 232 H 130 H (75-99) mg/dL 11/15/18 11/15/18 11/15/18 Range/Units 06:01 06:01 06:39 RBC 3.76 L (4.30-5.90) m/uL Hgb 12.0 L (13.0-17.5) gm/dL Hct 36.6 L (39.0-53.0) % Sodium 136 L (137-145) mmol/L Chloride 97 L (98-107) mmol/L Glucose 164 H (74-99) mg/dL POC Glucose (mg/dL) 157 H (75-99) mg/dL Assessment and Plan Plan: Assessment and plan #1 atrial flutter with rapid ventricular response, 2 to one conduction, typical status post elective cardioversion yesterday #2 recent diagnosis of atrial flutter in October of this year at which time patient underwent an elective PAULINA with subsequent cardioversion to normal sinus rhythm, on Eliquis 5 mg's one tablet by mouth twice a day for anticoagulation #3 hypertension #4 diabetes #5 hyperlipidemia #6 obesity #7 obstructive sleep apnea #8 hepatitis #9 recurrent pancreatitis Plan From cardiology's perspective, patient may be able to be discharged home today. Eliquis 5 mg by mouth twice a day was resumed yesterday. Patient has been instructed regarding monitoring for any further sites of bleeding/ecchymosis. If the patient has no further episodes we will continue current dose of Eliquis. If the patient however has subsequent muscle bleeding after being resumed on anticoagulation he may be a candidate for a watchman device. DNP note has been reviewed, I agree with a documented findings and plan of care. Patient was seen and examined.
[2018-11-15 12:05] LABS: Glucose,Whole Blood 139 mg/dL (75-99)
[2018-11-15 12:42] VITALS: BP 111/65; TEMP 97.7
--- NOTE | 2018-11-15 13:08 | DS ---
DISCHARGE SUMMARY DATE OF SERVICE: 11/15/2018 FINAL DIAGNOSES: 1. Atrial fibrillation with rapid ventricular rate, present on admission. 2. Right arm hematoma tracking to the forearm. 3. Possible cellulitis of the right arm. 4. Hypertension. 5. Chest pain possibly secondary to demand ischemia. 6. Diabetes mellitus type 2. 7. Hyperlipidemia. 8. Obesity. 9. Obstructive sleep apnea history. DISCHARGE DISPOSITION: The patient will be discharged in stable condition with guarded prognosis. HISTORY OF PRESENT ILLNESS: This 63-year-old gentleman with past medical history of multiple medical problems admitted with atrial fibrillation. Patient also started on anticoagulants. Patient developed right arm hematoma which was tracking. Patient was seen by Cardiology and as well as vascular surgeon, Dr. Sherwood. The patient is stable at this time. The Eliquis was restarted. The patient improved significantly. Patient will be discharged in stable condition with guarded prognosis. Currently hemoglobin is stable. On exam, vitals are stable. CARDIOVASCULAR: S1, S2 muffled. ABDOMEN: Soft. NERVOUS SYSTEM: No focal deficits. Extensive hematoma of the of the right forearm and right upper arm present. Minimal hematoma the right chest also left chest wall also present. The hemoglobin is 12 at this time. DISCHARGE ADVICE: 1. Diet is cardiac. 2. Activity limited until followup. 3. Follow up with Dr. Sherwood in 2 to 3 days, CBC, BMP. 4. Follow with Cardiology as recommended. 5. Follow up with Dr. Sherwood as recommended. MEDICATIONS: 1. Aricept 10 mg p.o. daily. 2. [place] [address] units t.i.d. 3. Flomax 0.4 daily. 4. Lansoprazole 30 mg p.o. daily. 5. Lantus 100 units subcu b.i.d. 6. Metformin 1000 mg p.o. b.i.d. 7. Mycostatin daily. 8. Namenda 10 mg p.o. b.i.d. 9. NovoLog 100 units subcu a.c. t.i.d. 10.Oxybutynin 5 mg p.o. b.i.d. 11.Seroquel 100 mg q.h.s. 12.Synthroid 100 mcg p.o. daily. 13.Trospium 20 mg p.o. daily. 14.Zestril 5 mg p.o. b.i.d. 15.Zoloft 100 mg p.o. daily. 16.Amiodarone 200 mg p.o. b.i.d. 17.Eliquis 5 mg p.o. b.i.d. 18.Lasix 40 mg p.o. daily. 19.Lipitor 80 mg q.h.s. 20.Lopressor 100 mg p.o. b.i.d. Once again, the patient will be discharged in stable condition with guarded prognosis. MMODL / IJN: [id number] /
== END 2018-11-15 13:20 | disposition home or self-care (01) | DRG 309 ==
LOC: EC 20:53 → 3SCARD 23:24
PROVIDERS: ADMIT Hospitalist; ATTEND Hospitalist
PROC: 5A2204Z Restoration of Cardiac Rhythm, Single (ICD-10-PCS; principal; 2018-11-07 11:15)
DX: I48.3 Typical atrial flutter (principal); K86.1 Other chronic pancreatitis; L03.113 Cellulitis of right upper limb; I24.8 Other forms of acute ischemic heart disease; Z68.41 Body mass index [BMI] 40.0-44.9, adult; I48.0 Paroxysmal atrial fibrillation; Z79.01 Long term (current) use of anticoagulants; N40.0 Benign prostatic hyperplasia without lower urinary tract symptoms; I10 Essential (primary) hypertension; G47.33 Obstructive sleep apnea (adult) (pediatric); Z99.89 Dependence on other enabling machines and devices; K75.9 Inflammatory liver disease, unspecified; E03.9 Hypothyroidism, unspecified; E11.9 Type 2 diabetes mellitus without complications; E66.01 Morbid (severe) obesity due to excess calories; E78.5 Hyperlipidemia, unspecified; F03.90 Unspecified dementia, unspecified severity, without behavioral disturbance, psychotic disturbance, mood disturbance, and anxiety; S00.83XA Contusion of other part of head, initial encounter; M79.81 Nontraumatic hematoma of soft tissue; T45.7X5A Adverse effect of anticoagulant antagonists, vitamin K and other coagulants, initial encounter; Z79.4 Long term (current) use of insulin; Z79.890 Hormone replacement therapy; Z79.899 Other long term (current) drug therapy; Z82.49 Family history of ischemic heart disease and other diseases of the circulatory system; Z87.440 Personal history of urinary (tract) infections; Z82.3 Family history of stroke; Z83.6 Family history of other diseases of the respiratory system; Z82.0 Family history of epilepsy and other diseases of the nervous system; Z88.2 Allergy status to sulfonamides; Z86.19 Personal history of other infectious and parasitic diseases; Z90.49 Acquired absence of other specified parts of digestive tract; M25.511 Pain in right shoulder
CPT/HCPCS: 36415; 71046; 76380; 80048; 80053; 83036; 83735; 83880; 84484; 85025; 85610; 85730; 92960; 93005; 96361; 96365; 96366; 96375; 96376; 99285

== ENCOUNTER 2018-11-15 13:44 | Observation (INO) | payer OTHER, MEDICARE ==
[2018-11-15] MEDS ORDERED: KETOROLAC 30 MG/ML 1 ML VIAL IM STA (14:56)
[2018-11-15] MEDS ORDERED: HYDROmorphone 1 MG/ML 1 ML SYRINGE IM STA (14:56)
--- NOTE | 2018-11-15 15:28 | ED ---
Upper Extremity HPI - General Chief Complaint: Extremity Injury, Upper Stated Complaint: Arm pain Time Seen by Provider: 11/15/18 14:39 Source: patient, RN notes reviewed, old records reviewed Mode of arrival: ambulatory Limitations: no limitations - History of Present Illness Initial Comments: Patient is a 63-year-old male who presents with severe right arm pain. Patient was discharged from the hospital proximally 2 hours ago and returns complaining of worsening right arm pain. Patient reports that he developed hematoma after T and procedure. Patient had a internal hematoma and sats of swelling over his arm. He states that the bruising is improved. Patient states that he was receiving [place] and Toradol as medications upstairs. Patient reports that his last dose of [place] was this morning before discharge. Patient states that he was receiving [place] every 4 hours and his discharge paperwork said [place] every 6 hours. Patient denies any associated chest pain. - Related Data Home Medications Medication Instructions Recorded Confirmed Donepezil HCl [Aricept] 10 mg PO DAILY 10/07/18 11/15/18 INSULIN ASPART (NovoLOG) [NovoLOG 100 unit SQ AC-TID 10/07/18 11/15/18 (formulary)] Insulin Glargine [Lantus] 100 unit SQ BID 10/07/18 11/15/18 Lansoprazole 30 mg PO DAILY 10/07/18 11/15/18 Levothyroxine Sodium [Synthroid] 100 mcg PO DAILY 10/07/18 11/15/18 Lipase/Protease/Amylase [Creon Dr 24,000 units PO AC-TID 10/07/18 11/15/18 24,000 Units Capsule] Memantine [Namenda] 10 mg PO BID 10/07/18 11/15/18 Nystatin 100,000Unit/gm Cream 1 applic TOPICAL DAILY 10/07/18 11/15/18 [Mycostatin Cream] Oxybutynin Chloride 5 mg PO BID 10/07/18 11/15/18 QUEtiapine [SEROquel] 100 mg PO HS 10/07/18 11/15/18 Sertraline HCl [Zoloft] 100 mg PO DAILY 10/07/18 11/15/18 Tamsulosin HCl [Flomax] 0.4 mg PO DAILY 10/07/18 11/15/18 Trospium Chloride 20 mg PO DAILY 10/07/18 11/15/18 metFORMIN HCL 1,000 mg PO BID 10/07/18 11/15/18 Lisinopril [Zestril] 5 mg PO BID 11/02/18 11/15/18 Previous Rx's Medication Instructions Recorded Amiodarone [Cordarone] 200 mg PO BID #60 tab 11/12/18 Apixaban [Eliquis] 5 mg PO BID #60 tab 11/12/18 Atorvastatin [Lipitor] 80 mg PO HS #30 tab 11/12/18 Furosemide [Lasix] 40 mg PO DAILY #30 tab 11/12/18 Metoprolol Tartrate [Lopressor] 100 mg PO BID #60 tab 11/12/18 HYDROcodone/APAP 7.5-325MG [[place] 1 tab PO Q6HR PRN 3 Days #12 tab 11/15/18 7.5-325] Allergies Allergy/AdvReac Type Severity Reaction Status Date / Time Sulfa (Sulfonamide Allergy Swelling Verified 11/15/18 15:08 Antibiotics) Review of Systems ROS Statement: Those systems with pertinent positive or pertinent negative responses have been documented in the HPI. ROS Other: All systems not noted in ROS Statement are negative. 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 Atrial Fib History of Any Multi-Drug Resistant Organisms: MRSA Date of last positivie culture/infection: 2017 MDRO Source:: belly button Past Surgical History: Appendectomy, Cholecystectomy Additional Past Surgical History / Comment(s): Hernia repair. Past Anesthesia/Blood Transfusion Reactions: No Reported Reaction Past Psychological History: No Psychological Hx Reported Smoking Status: Never smoker Past Alcohol Use History: None Reported Past Drug Use History: None Reported - Past Family History Father Family Medical History: CVA/TIA, Hypertension, Myocardial Infarction ([place]) Additional Family Medical History / Comment(s): black lung Mother Family Medical History: No Reported History Brother(s) Additional Family Medical History / Comment(s): brother at 52, ALS General Exam - General Exam Comments Initial Comments: 63-year-old male. Limitations: no limitations General appearance: alert, in no apparent distress Head exam: Present: atraumatic, normocephalic, normal inspection Eye exam: Present: normal appearance, PERRL, EOMI. Absent: scleral icterus, conjunctival injection, periorbital swelling ENT exam: Present: normal exam, mucous membranes moist Neck exam: Present: normal inspection. Absent: tenderness, meningismus, lymph adenopathy Respiratory exam: Present: normal lung sounds bilaterally. Absent: respiratory distress, wheezes, rales, rhonchi, stridor Cardiovascular Exam: Present: regular rate, normal rhythm, normal heart sounds. Absent: systolic murmur, diastolic murmur, rubs, gallop, clicks GI/Abdominal exam: Present: soft, normal bowel sounds. Absent: distended, tenderness, guarding, rebound, rigid Extremities exam: Present: normal inspection, full ROM, normal capillary refill, other (ecchymosis over tricep and bicep. ). Absent: tenderness, pedal edema, joint swelling, calf tenderness Back exam: Present: normal inspection Neurological exam: Present: alert, oriented X3, CN II-XII intact Psychiatric exam: Present: normal affect, normal mood Skin exam: Present: warm, dry, intact, normal color. Absent: rash Course Vital Signs 11/15/18 13:45 Temperature 97.4 F L Pulse Rate 116 H Respiratory 20 Rate Blood Pressure 133/93 O2 Sat by Pulse 97 Oximetry Medical Decision Making - Medical Decision Making Patient is a 63-year-old male presents today for evaluation with complaints of significant right arm pain. Was recently discharged with a history of a flutter with her. Cardioversion. He has spontaneous bleeding within his right arm causing his hematoma. At this time Patient presents after being discharged from hospital with severe right arm pain. He has normal pulses he has full range of motion sensation in the hand. Patient has been given multiple doses of IV pain medication and continues to have severe pains he is not helping. We contacted the vascular specialist Dr. Sherwood who evaluated the Patient as well as his core cutter and reamer. Patient was informed of possible admission and screw able to this for pain management for the right arm pain. Dr. Andrew discussed case with Dr. Hutchison has not [place] the Patient for observation. We'll hold blood thinners at this time. - Lab Data Result diagrams: 11/15/18 16:11 11/15/18 16:11 Lab Results 11/15/18 11/15/18 11/15/18 Range/Units 15:19 16:11 16:11 WBC 10.0 (3.8-10.6) k/uL RBC 4.12 L (4.30-5.90) m/uL Hgb 13.3 (13.0-17.5) gm/dL Hct 39.5 (39.0-53.0) % MCV 96.0 (80.0-100.0) fL MCH 32.3 (25.0-35.0) pg MCHC 33.6 (31.0-37.0) g/dL RDW 13.9 (11.5-15.5) % Plt Count 253 (150-450) k/uL Neutrophils % 74 % Lymphocytes % 18 % Monocytes % 4 % Eosinophils % 3 % Basophils % 1 % Neutrophils # 7.4 (1.3-7.7) k/uL Lymphocytes # 1.8 (1.0-4.8) k/uL Monocytes # 0.4 (0-1.0) k/uL Eosinophils # 0.3 (0-0.7) k/uL Basophils # 0.1 (0-0.2) k/uL Sodium 138 (137-145) mmol/L Potassium 4.0 (3.5-5.1) mmol/L Chloride 94 L (98-107) mmol/L Carbon Dioxide 29 (22-30) mmol/L Anion Gap 15 mmol/L BUN 20 (9-20) mg/dL Creatinine 0.88 (0.66-1.25) mg/dL Est GFR (CKD-EPI)AfAm >90 (>60 ml/min/1.73 sqM) Est GFR (CKD-EPI)NonAf >90 (>60 ml/min/1.73 sqM) Glucose 179 H (74-99) mg/dL POC Glucose (mg/dL) 176 H (75-99) mg/dL POC Glu Consumer Attorney ID Flavia Hanson Calcium 9.6 (8.4-10.2) mg/dL Total Bilirubin 1.4 H (0.2-1.3) mg/dL AST 36 (17-59) U/L ALT 26 (21-72) U/L Alkaline Phosphatase 102 (38-126) U/L Total Protein 7.7 (6.3-8.2) g/dL Albumin 4.0 (3.5-5.0) g/dL Disposition Clinical Impression: Traumatic hematoma of right upper arm, Uncontrolled pain Disposition: ADMITTED IP TO THIS HOSP Is patient prescribed a controlled substance at d/c from ED?: No Referrals: [facility],Clinic [Primary Care Provider] - 1-2 days Time of Disposition: 17:09
[2018-11-15] MEDS ORDERED: HYDROmorphone 1 MG/ML 1 ML SYRINGE IVP STA (15:43)
[2018-11-15 15:44] LABS: Glucose,Whole Blood 176 mg/dL (75-99)
[2018-11-15 16:19] LABS: Basophils # (A) 0.1 k/uL (0-0.2); Basophils % (A) 1 %; Eosinophils # (A) 0.3 k/uL (0-0.7); Eosinophils % (A) 3 %; HCT 39.5 % (39.0-53.0); HGB 13.3 gm/dL (13.0-17.5); Lymphocytes # (A) 1.8 k/uL (1.0-4.8); Lymphocytes % (A) 18 %; MCH 32.3 pg (25.0-35.0); MCHC 33.6 g/dL (31.0-37.0); Mean Platelet Volume 7.2; Monocytes # (A) 0.4 k/uL (0-1.0); Monocytes % (A) 4 %; Neutrophils # (A) 7.4 k/uL (1.3-7.7); Neutrophils % (A) 74 %; Platelet Count 253 k/uL (150-450); RBC 4.12 m/uL (4.30-5.90); RDW 13.9 % (11.5-15.5)
[2018-11-15 16:28] LABS: ALT 26 U/L (21-72); AST 36 U/L (17-59); African American GFR (CKD) >90 (>60 ml/min/1.73 sqM); Alkaline Phosphatase 102 U/L (38-126); Anion Gap 15 mmol/L; Blood Urea Nitrogen 20 mg/dL (9-20); Calcium 9.6 mg/dL (8.4-10.2); Carbon Dioxide 29 mmol/L (22-30); Chloride 94 mmol/L (98-107); Glucose 179 mg/dL (74-99); Sodium 138 mmol/L (137-145); Total Bilirubin 1.4 mg/dL (0.2-1.3); Total Protein 7.7 g/dL (6.3-8.2)
[2018-11-15] MEDS ORDERED: ORPHENADRINE 30 MG/ML 2 ML VIAL IVP STA (16:44)
[2018-11-15] MEDS ORDERED: DIAZEPAM 5 MG/ML 2 ML INJ IVP STA (17:04)
[2018-11-15] MEDS ORDERED: SODIUM CHLORIDE 0.9% 1,000 ML IV ONE (17:04)
[2018-11-15] MEDS ORDERED: ACETAMINOPHEN TAB 325 MG TAB PO PRN (17:09)
[2018-11-15] MEDS ORDERED: HYDROcodone/APAP 5-325MG 1 EACH TAB PO PRN (17:09)
[2018-11-15] MEDS ORDERED: NALOXONE 0.4 MG/ML 1 ML VIAL IV PRN (17:09)
[2018-11-15] MEDS ORDERED: ONDANSETRON 4 MG/2 ML VIAL IVP PRN (17:09)
[2018-11-15] MEDS: HYDROmorphone 1 MG/ML 1 ML SYRINGE IVP PRN (19:58)
[2018-11-15 20:54] LABS: Glucose,Whole Blood 138 mg/dL (75-99)
[2018-11-15] MEDS: SODIUM CHLORIDE 0.9% 1,000 ML IV SCH ×2 (21:05)
[2018-11-15] MEDS: LIDOCAINE 5% PATCH TOPICAL SCH (22:21)
[2018-11-15] MEDS: ACETAMINOPHEN IV (For NPO) 1,000 MG in EMPTY BAG 1 BAG IVPB SCH (22:22)
[2018-11-16] MEDS: ACETAMINOPHEN IV (For NPO) 1,000 MG in EMPTY BAG 1 BAG IVPB SCH ×3 (07:42→23:19)
[2018-11-16] MEDS: LIDOCAINE 5% PATCH TOPICAL SCH (07:42)
[2018-11-16] MEDS ORDERED: PANTOPRAZOLE 40 MG/10 ML VIAL IV SCH (09:00)
[2018-11-16] MEDS: HYDROmorphone 1 MG/ML 1 ML SYRINGE IVP PRN ×4 (10:14→21:14)
[2018-11-16 11:34] LABS: Glucose,Whole Blood 192 mg/dL (75-99)
[2018-11-16] MEDS ORDERED: HYDROcodone/APAP 7.5-325MG 1 EACH TAB PO PRN (13:09)
[2018-11-16] MEDS: METOPROLOL TARTRATE 50 MG TAB PO SCH ×2 (13:48→20:51)
[2018-11-16] MEDS: AMIODARONE 200 MG TAB PO SCH ×2 (13:48→20:51)
[2018-11-16 16:06] LABS: Glucose,Whole Blood 203 mg/dL (75-99)
[2018-11-16] MEDS: SODIUM CHLORIDE 0.9% 1,000 ML IV SCH ×2 (16:10→20:51)
--- NOTE | 2018-11-16 16:47 | P.HPIM ---
History of Present Illness 63-year-old male was recently treated for atrial fibrillation recently underwent cardioversion was discharged on Eliquis after which patient started having swelling hematoma and severe pain secondary to hematoma. Patient was subsequ ently admitted was given [place] and patient was started on Lidoderm patches some improvement in symptoms. Considering his recent cardioversion, patient will be a high risk for stroke. Hold off on anticoagulation at the same time patient cannot tolerate anticoagulation because of his a severe hematoma and severe pain which showed most probably will expand. Will get cardiology opinion and patient may benefit from watchman device. Will continue with Lidoderm patch for now will hold off on anticoagulation until evaluation by cardiology can string his severe pain patient probably will be discharged on tramadol and patient was already given prescription for [place]. Patient is presently in A. fib but as he didn't receive his a morning medication patient was started back on amiodarone and metoprolol. Review of Systems REVIEW OF SYSTEMS: CONSTITUTIONAL: No fever, no malaise, no fatigue. HEENT: No recent visual problems or hearing problems. Denied any sore throat. CARDIOVASCULAR: No chest pain, orthopnea, PND, no palpitations, no syncope. PULMONARY: No shortness of breath, no cough, no hemoptysis. GASTROINTESTINAL: No diarrhea, no nausea, no vomiting, no abdominal pain. NEUROLOGICAL: No headaches, no weakness, no numbness. HEMATOLOGICAL: Denies any bleeding or petechiae. GENITOURINARY: Denies any burning micturition, frequency, or urgency. MUSCULOSKELETAL/RHEUMATOLOGICAL: Denies any joint pain, swelling, or any muscle pain. Right arm hematoma and swelling ENDOCRINE: Denies any polyuria or polydipsia. The rest of the 14-point review of systems is negative. 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 Atrial Fib History of Any Multi-Drug Resistant Organisms: MRSA Date of last positivie culture/infection: 2017 MDRO Source:: belly button Past Surgical History: Appendectomy, Cholecystectomy Additional Past Surgical History / Comment(s): Hernia repair. Past Anesthesia/Blood Transfusion Reactions: No Reported Reaction Past Psychological History: No Psychological Hx Reported Smoking Status: Never smoker Past Alcohol Use History: None Reported Past Drug Use History: None Reported - Past Family History Father Family Medical History: CVA/TIA, Hypertension, Myocardial Infarction ([place]) Additional Family Medical History / Comment(s): black lung Mother Family Medical History: No Reported History Brother(s) Additional Family Medical History / Comment(s): brother at 52, ALS Medications and Allergies Home Medications Medication Instructions Recorded Confirmed Type Donepezil HCl [Aricept] 10 mg PO DAILY 10/07/18 11/15/18 History INSULIN ASPART (NovoLOG) [NovoLOG 100 unit SQ AC-TID 10/07/18 11/15/18 History (formulary)] Insulin Glargine [Lantus] 100 unit SQ BID 10/07/18 11/15/18 History Lansoprazole 30 mg PO DAILY 10/07/18 11/15/18 History Levothyroxine Sodium [Synthroid] 100 mcg PO DAILY 10/07/18 11/15/18 History Lipase/Protease/Amylase [Creon Dr 24,000 units PO AC-TID 10/07/18 11/15/18 History 24,000 Units Capsule] Memantine [Namenda] 10 mg PO BID 10/07/18 11/15/18 History Nystatin 100,000Unit/gm Cream 1 applic TOPICAL DAILY 10/07/18 11/15/18 History [Mycostatin Cream] Oxybutynin Chloride 5 mg PO BID 10/07/18 11/15/18 History QUEtiapine [SEROquel] 100 mg PO HS 10/07/18 11/15/18 History Sertraline HCl [Zoloft] 100 mg PO DAILY 10/07/18 11/15/18 History Tamsulosin HCl [Flomax] 0.4 mg PO DAILY 10/07/18 11/15/18 History Trospium Chloride 20 mg PO DAILY 10/07/18 11/15/18 History metFORMIN HCL 1,000 mg PO BID 10/07/18 11/15/18 History Lisinopril [Zestril] 5 mg PO BID 11/02/18 11/15/18 History Amiodarone [Cordarone] 200 mg PO BID #60 tab 11/12/18 11/15/18 Rx Apixaban [Eliquis] 5 mg PO BID #60 tab 11/12/18 11/15/18 Rx Atorvastatin [Lipitor] 80 mg PO HS #30 tab 11/12/18 11/15/18 Rx Furosemide [Lasix] 40 mg PO DAILY #30 tab 11/12/18 11/15/18 Rx Metoprolol Tartrate [Lopressor] 100 mg PO BID #60 tab 11/12/18 11/15/18 Rx HYDROcodone/APAP 7.5-325MG [[place] 1 tab PO Q6HR PRN 3 Days #12 tab 11/15/18 11/15/18 Rx 7.5-325] traMADol HCL [Ultram] 50 mg PO Q4HR PRN 3 Days #18 tab 11/16/18 Rx Allergies Allergy/AdvReac Type Severity Reaction Status Date / Time Sulfa (Sulfonamide Allergy Swelling Verified 11/15/18 15:08 Antibiotics) Physical Exam Vitals: Vital Signs Temp Pulse Pulse Resp BP BP Pulse Ox 11/16/18 16:00 98.1 F 106 H 18 119/82 96 11/16/18 13:47 120 H 14 142/91 98 11/16/18 11:55 118 H 18 11/16/18 08:00 97.6 F 118 H 18 109/78 96 11/16/18 04:00 97.9 F 107 H 18 144/89 96 11/16/18 00:00 97.7 F 107 H 18 132/83 98 11/15/18 21:21 97.8 F 73 18 151/95 96 11/15/18 21:00 107 H 18 11/15/18 20:38 97.9 F 64 18 148/87 97 11/15/18 18:12 97.4 F L 104 H 18 126/89 97 Intake and Output 11/16/18 11/16/18 11/16/18 06:59 14:59 22:59 Intake Total 600 Balance 600 Intake: Oral 600 Other: Voiding Method Toilet Toilet # Voids 2 PHYSICAL EXAMINATION: GENERAL: The patient is alert and oriented x3, not in any acute distress. Well developed, well nourished. HEENT: Pupils are round and equally reacting to light. EOMI. No scleral icterus. No conjunctival pallor. Normocephalic, atraumatic. No pharyngeal erythema. No thyromegaly. CARDIOVASCULAR: S1 and S2 present. No murmurs, rubs, or gallops. PULMONARY: Chest is clear to auscultation, no wheezing or crackles. ABDOMEN: Soft, nontender, nondistended, normoactive bowel sounds. No palpable organomegaly. MUSCULOSKELETAL: No joint swelling or deformity. EXTREMITIES: No cyanosis, clubbing, or pedal edema. Right arm hematoma swelling NEUROLOGICAL: Gross neurological examination did not reveal any focal deficits. SKIN: No rashes. Results CBC & Chem 7: 11/15/18 16:11 11/15/18 16:11 Labs: Abnormal Lab Results - Last 24 Hours (Table) 11/15/18 11/15/18 11/16/18 Range/Units 16:11 20:53 11:32 Chloride 94 L (98-107) mmol/L Glucose 179 H (74-99) mg/dL POC Glucose (mg/dL) 138 H 192 H (75-99) mg/dL Total Bilirubin 1.4 H (0.2-1.3) mg/dL 11/16/18 Range/Units 16:05 Chloride (98-107) mmol/L Glucose (74-99) mg/dL POC Glucose (mg/dL) 203 H (75-99) mg/dL Total Bilirubin (0.2-1.3) mg/dL Thrombosis Risk Factor Assmnt - Choose All That Apply Any of the Below Risk Factors Present?: No Other Risk Factors: Yes Each Risk Factor Represents 2 Points: Age 61-74 years Other congenital or acquired thrombophilia - If yes, enter type in comment: No Thrombosis Risk Factor Assessment Total Risk Factor Score: 2 Thrombosis Risk Factor Assessment Level: Low Risk Assessment and Plan Plan: Right arm pain secondary to inflammation and the hematoma Eliquis will be held. Testing his recent cardioversion will consult cardiology. Continue with Lidoderm patch and anti-inflammatory medications. -Atrial fibrillation presently not rate controlled as he missed his morning medication patient will be resumed on his medications and will monitor [place]. -Type 2 diabetes mellitus - hyperlipidemia -hypertension - prostatic hypertrophy -Hypothyroidism Will mentioned chronic medical problems patient will be resumed and continued on appropriate home medications
[2018-11-16] MEDS: INSULIN ASPART (NovoLOG) 100 UNIT/ML VIAL SQ SCH (17:07)
[2018-11-16] MEDS: LIPASE 5,000/PROTEASE 17,000/AMYLASE 24,000 PO SCH (17:13)
[2018-11-16 20:29] LABS: Glucose,Whole Blood 201 mg/dL (75-99)
[2018-11-16] MEDS: MEMANTINE 10 MG TAB PO SCH (20:51)
[2018-11-16] MEDS: OXYBUTYNIN CHLORIDE 5 MG TAB PO SCH (20:51)
[2018-11-16] MEDS: INSULIN DETEMIR (LEVEMIR) 100 UNIT/ML SYR SQ SCH (20:52)
[2018-11-16] MEDS: metFORMIN 500 MG TAB PO SCH (20:52)
[2018-11-16] MEDS: LISINOPRIL 5 MG TAB PO SCH (20:52)
[2018-11-16] MEDS ORDERED: ATORVASTATIN 80 MG TAB PO SCH (21:00)
[2018-11-16] MEDS ORDERED: QUEtiapine 100 MG TAB PO SCH (21:00)
[2018-11-16] MEDS ORDERED: METOPROLOL TARTRATE 50 MG TAB PO SCH (21:00)
[2018-11-17 00:43] VITALS: RESP 18
[2018-11-17] MEDS: HYDROmorphone 1 MG/ML 1 ML SYRINGE IVP PRN (03:15)
[2018-11-17] MEDS ORDERED: LEVOTHYROXINE 100 MCG TAB PO SCH (06:30)
[2018-11-17 06:35] LABS: Glucose,Whole Blood 107 mg/dL (75-99)
[2018-11-17] MEDS ORDERED: PANTOPRAZOLE 40 MG TABLET PO SCH (07:30)
[2018-11-17] MEDS ORDERED: FUROSEMIDE 40 MG TAB PO SCH (09:00)
[2018-11-17] MEDS ORDERED: NYSTATIN 100,000UNIT/GM CREAM 30 GM TUBE TOPICAL SCH (09:00)
[2018-11-17] MEDS ORDERED: TAMSULOSIN 0.4 MG CAP.ER.24H PO SCH (09:00)
[2018-11-17] MEDS ORDERED: APIXABAN 5 MG TAB PO SCH (09:00)
[2018-11-17] MEDS ORDERED: SERTRALINE 100 MG TAB PO SCH (09:00)
[2018-11-17] MEDS ORDERED: TROSPIUM CHLORIDE 20 MG TABLET PO SCH (09:00)
[2018-11-17] MEDS: INSULIN ASPART (NovoLOG) 100 UNIT/ML VIAL SQ SCH (09:09)
[2018-11-17] MEDS: LIPASE 5,000/PROTEASE 17,000/AMYLASE 24,000 PO SCH (09:09)
[2018-11-17] MEDS: METOPROLOL TARTRATE 50 MG TAB PO SCH (09:10)
[2018-11-17] MEDS: metFORMIN 500 MG TAB PO SCH (09:10)
[2018-11-17] MEDS: OXYBUTYNIN CHLORIDE 5 MG TAB PO SCH (09:10)
[2018-11-17] MEDS: AMIODARONE 200 MG TAB PO SCH (09:11)
[2018-11-17] MEDS: LIDOCAINE 5% PATCH TOPICAL SCH (09:11)
[2018-11-17] MEDS: LISINOPRIL 5 MG TAB PO SCH (09:11)
[2018-11-17] MEDS: MEMANTINE 10 MG TAB PO SCH (09:11)
[2018-11-17] MEDS: INSULIN DETEMIR (LEVEMIR) 100 UNIT/ML SYR SQ SCH (09:17)
--- NOTE | 2018-11-17 11:05 | P.CRDCN ---
History of Present Illness History of present illness: This is a pleasant 63-year-old male past medical history significant for paroxysmal atrial fibrillation, atrial flutter s/p cardioversion, diabetes mellitus, hypertension, dyslipidemia and chronic pancreatitis. He follows in the office with Dr. Thomas. We have been asked to see him in consultation for anti- coagulation recommendations. He was just discharged home from the hospital yesterday s/p cardioversion and he developed a hematoma on the right arm. He had been seen in consult by vascular surgery and his eliquis was resumed. He returned to the hospital 2 hours after discharge with significant pain in the right upper arm. Eliquis has been held since admission. He is seen and examined sitting up in bed. His hematoma is stable from previous exam. There is some increase hematoma down the lower aspect of the right arm secondary to dependent drainage. EKG reveals atrial fibrillation with rapid ventricular response heart rate is 132. Laboratory data reviewed, WBC 10, hemoglobin 13.3, platelets 253, sodium 138, potassium 4.0, creatinine 0.88. Current cardiac medications include amiodarone 200 mg twice a day, Eliquis 5 mg twice a day, atorvastatin 80 mg daily, Lasix 40 mg daily, lisinopril 5 mg twice a day, Lopressor 100 mg twice a day. At the time of my exam: CONSTITUTIONAL: Denies fever. Denies chills. EYES: Denies blurred vision. Denies vision changes. Denies eye pain. EARS, NOSE, MOUTH & THROAT: Denies headache. Denies sore throat. Denies ear pain. CARDIOVASCULAR: Denies chest pain. Denies shortness of breath. Denies orthopnea. Denies PND. Denies palpitations. RESPIRATORY: Denies cough. GASTROINTESTINAL: Denies abdominal pain. Denies diarrhea. Denies constipation. Denies nausea. Denies vomiting. MUSCULOSKELETAL: Complains of pain to the right arm with movement. INTEGUMENTARY: Denies pruitis. Denies rash. NEUROLOGIC: Denies numbness. Denies tingling. Denies weakness. PSYCHIATRIC: Denies anxiety. Denies depression. ENDOCRINE: Denies fatigue. Denies weight change. Denies polydipsia. Denies polyurina. GENITOURINARY: Denies burning, hematuria or urgency with micturation. HEMATOLOGIC: Denies history of anemia. Denies bleeding. Blood pressure 112/64 heart rate 101 afebrile maintaining oxygen saturation on nasal cannula GENERAL: This is a 63-year-old male in no apparent distress at the time of my examination. HEENT: Head is atraumatic, normocephalic. Pupils are equal, round. Sclerae anicteric. Conjunctivae are clear. Mucous membranes of the mouth are moist. Neck is supple. There is no jugular venous distention. No carotid bruit is heard. LUNGS: Clear to auscultation no wheezes, rales or rhonchi. No chest wall tenderness is noted on palpation or with deep breathing. HEART: Irregular rate and rhythm without murmurs, rubs or gallops. S1 and S2 heard. ABDOMEN: Soft, nontender. Bowel sounds are heard. No organomegaly noted. EXTREMITIES: Right upper extremity with purple ecchymosis that wraps around arm with trace areas noted in the right axilla and down to the lower aspect of the arm. Area is soft, mildly tender with good mobility. Trace bilateral lower extremity non-pitting edema. VASCULAR: Radial and dorsalis pedis pulses palpated, no evidence of clubbing. NEUROLOGIC: Patient is awake, alert and oriented x3. ASSESSMENT Right arm hematoma, stable Paroxysmal atrial fibrillation with rapid ventricular response s/p atrial flutter cardioversion Hypertension Dyslipidemia Morbid obesity Diabetes mellitus PLAN Right arm should be elevated as much as possible. This has been explained to the patient in great detail. This will improve his pain and symptoms. Repeat CBC. Resume eliquis 5 mg BID. He will be scheduled for an ablation in 4-[address] Salgado. If CBC is stable he can be discharged home on Eliquis from a cardiac perspective. Thank you kindly for this consultation. Nurse Practitioner note has been reviewed, I agree with a documented findings and plan of care. Patient was seen and examined. 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 Atrial Fib History of Any Multi-Drug Resistant Organisms: MRSA Date of last positivie culture/infection: 2017 MDRO Source:: belly button Past Surgical History: Appendectomy, Cholecystectomy Additional Past Surgical History / Comment(s): Hernia repair. Past Anesthesia/Blood Transfusion Reactions: No Reported Reaction Past Psychological History: No Psychological Hx Reported Smoking Status: Never smoker Past Alcohol Use History: None Reported Past Drug Use History: None Reported - Past Family History Father Family Medical History: CVA/TIA, Hypertension, Myocardial Infarction ([place]) Additional Family Medical History / Comment(s): black lung Mother Family Medical History: No Reported History Brother(s) Additional Family Medical History / Comment(s): brother at 52, ALS Medications and Allergies Home Medications Medication Instructions Recorded Confirmed Type Donepezil HCl [Aricept] 10 mg PO DAILY 10/07/18 11/15/18 History INSULIN ASPART (NovoLOG) [NovoLOG 100 unit SQ AC-TID 10/07/18 11/15/18 History (formulary)] Insulin Glargine [Lantus] 100 unit SQ BID 10/07/18 11/15/18 History Lansoprazole 30 mg PO DAILY 10/07/18 11/15/18 History Levothyroxine Sodium [Synthroid] 100 mcg PO DAILY 10/07/18 11/15/18 History Lipase/Protease/Amylase [Creon Dr 24,000 units PO AC-TID 10/07/18 11/15/18 History 24,000 Units Capsule] Memantine [Namenda] 10 mg PO BID 10/07/18 11/15/18 History Nystatin 100,000Unit/gm Cream 1 applic TOPICAL DAILY 10/07/18 11/15/18 History [Mycostatin Cream] Oxybutynin Chloride 5 mg PO BID 10/07/18 11/15/18 History QUEtiapine [SEROquel] 100 mg PO HS 10/07/18 11/15/18 History Sertraline HCl [Zoloft] 100 mg PO DAILY 10/07/18 11/15/18 History Tamsulosin HCl [Flomax] 0.4 mg PO DAILY 10/07/18 11/15/18 History Trospium Chloride 20 mg PO DAILY 10/07/18 11/15/18 History metFORMIN HCL 1,000 mg PO BID 10/07/18 11/15/18 History Lisinopril [Zestril] 5 mg PO BID 11/02/18 11/15/18 History Amiodarone [Cordarone] 200 mg PO BID #60 tab 11/12/18 11/15/18 Rx Apixaban [Eliquis] 5 mg PO BID #60 tab 11/12/18 11/15/18 Rx Atorvastatin [Lipitor] 80 mg PO HS #30 tab 11/12/18 11/15/18 Rx Furosemide [Lasix] 40 mg PO DAILY #30 tab 11/12/18 11/15/18 Rx Metoprolol Tartrate [Lopressor] 100 mg PO BID #60 tab 11/12/18 11/15/18 Rx HYDROcodone/APAP 7.5-325MG [[place] 1 tab PO Q6HR PRN 3 Days #12 tab 11/15/18 11/15/18 Rx 7.5-325] traMADol HCL [Ultram] 50 mg PO Q4HR PRN 3 Days #18 tab 11/16/18 Rx Allergies Allergy/AdvReac Type Severity Reaction Status Date / Time Sulfa (Sulfonamide Allergy Swelling Verified 11/15/18 15:08 Antibiotics) Physical Exam Vitals: Vital Signs Temp Pulse Resp BP Pulse Ox 11/17/18 08:00 97.9 F 101 H 18 112/64 98 11/17/18 07:22 98 11/17/18 04:00 98.0 F 91 18 144/72 98 11/17/18 00:00 98.2 F 79 18 130/82 97 11/16/18 20:00 105 H 17 11/16/18 19:46 97.6 F 105 H 17 119/85 98 11/16/18 16:00 98.1 F 106 H 18 119/82 96 11/16/18 13:47 120 H 14 142/91 98 11/16/18 11:55 118 H 18 Intake and Output 11/16/18 11/17/18 11/17/18 22:59 06:59 14:59 Intake Total 900 Balance 900 Intake: Intake, IV Titration 900 Amount Sodium Chloride 0.9% 1, 900 000 ml @ 100 mls/hr IV . Q10H [facility] Rx#:[id number] Other: Voiding Method Toilet Toilet Toilet # Voids 1 Results 11/15/18 16:11 11/15/18 16:11 Current Medications Generic Name Dose Route Start Last Admin Trade Name Freq PRN Reason Stop Dose Admin Acetaminophen 650 mg 11/15/18 17:09 Tylenol Tab PO Q6HR PRN Mild Pain or Fever > 100.5 Hydrocodone Bitart/Acetaminophen 1 each 11/16/18 13:09 11/17/18 10:22 [place] 7.5-325 PO 1 each Q6HR PRN Administration Pain Amiodarone HCl 200 mg 11/16/18 13:15 11/17/18 09:11 Cordarone PO 200 mg BID JOE Administration Lipase/Protease/Amylase 4 each 11/16/18 17:30 11/17/18 09:[address] 5,000 Unit Capsule PO 4 each AC-TID JOE Administration Apixaban 5 mg 11/17/18 09:00 11/17/18 09:11 Eliquis PO 5 mg BID JOE Administration Atorvastatin Calcium 80 mg 11/16/18 21:00 11/16/18 20:52 Lipitor PO 80 mg HS JOE Administration Furosemide 40 mg 11/17/18 09:00 11/17/18 09:10 Lasix PO 40 mg DAILY JOE Administration Hydromorphone HCl 1 mg 11/15/18 17:09 11/17/18 03:15 Dilaudid IVP 1 mg Q3HR PRN Administration Severe Pain Sodium Chloride 1,000 mls @ 100 mls/hr 11/15/18 17:15 11/16/18 20:51 Saline 0.9% IV 100 mls/hr .Q10H JOE Administration Insulin Aspart 50 unit 11/16/18 17:30 11/17/18 09:09 Novolog SQ Not Given AC-TID [facility] Insulin Detemir 75 unit 11/16/18 21:00 11/17/18 09:17 Levemir SQ 75 unit BID@0700,2100 JOE Administration Levothyroxine Sodium 100 mcg 11/17/18 06:30 11/17/18 06:16 Synthroid PO 100 mcg 0630 JOE Administration Lidocaine 1 patch 11/15/18 21:45 11/17/18 09:11 Lidoderm TOPICAL 1 patch DAILY JOE Administration Lisinopril 5 mg 11/16/18 21:00 11/17/18 09:11 Zestril PO 5 mg BID JOE Administration Memantine 10 mg 11/16/18 21:00 11/17/18 09:11 Namenda PO 10 mg BID JOE Administration Metformin HCl 1,000 mg 11/16/18 21:00 11/17/18 09:10 Glucophage PO 1,000 mg BID JOE Administration Metoprolol Tartrate 100 mg 11/16/18 13:44 11/17/18 09:10 Lopressor PO 100 mg BID JOE Administration Naloxone HCl 0.2 mg 11/15/18 17:09 Narcan IV Q2M PRN Opioid Reversal Nystatin 1 applic 11/17/18 09:00 Mycostatin Cream TOPICAL DAILY JOE Ondansetron HCl 4 mg 11/15/18 17:09 Zofran IVP Q8HR PRN Nausea And Vomiting Oxybutynin Chloride 5 mg 11/16/18 21:00 11/17/18 09:10 Ditropan PO 5 mg BID JOE Administration Pantoprazole Sodium 40 mg 11/17/18 07:30 11/17/18 09:11 Protonix PO 40 mg AC-[id number] JOE Administration Quetiapine Fumarate 100 mg 11/16/18 21:00 11/16/18 20:51 Seroquel PO 100 mg HS JOE Administration Sertraline HCl 100 mg 11/17/18 09:00 11/17/18 09:11 Zoloft PO 100 mg DAILY JOE Administration Tamsulosin HCl 0.4 mg 11/17/18 09:00 11/17/18 09:10 Flomax PO 0.4 mg DAILY JOE Administration Intake and Output 11/16/18 11/17/18 11/17/18 22:59 06:59 14:59 Intake Total 900 Balance 900 Intake: Intake, IV Titration 900 Amount Sodium Chloride 0.9% 1, 900 000 ml @ 100 mls/hr IV . Q10H [facility] Rx#:[id number] Other: Voiding Method Toilet Toilet Toilet # Voids 1 11/15/18 16:11 11/15/18 16:11
[2018-11-17 11:22] LABS: HCT 36.1 % (39.0-53.0); HGB 12.2 gm/dL (13.0-17.5); MCH 32.6 pg (25.0-35.0); MCHC 33.8 g/dL (31.0-37.0); MCV 96.5 fL (80.0-100.0); Mean Platelet Volume 7.4; Platelet Count 219 k/uL (150-450); RBC 3.74 m/uL (4.30-5.90); RDW 15.3 % (11.5-15.5)
[2018-11-17 11:35] LABS: Glucose,Whole Blood 160 mg/dL (75-99)
[2018-11-17 12:04] VITALS: BP 123/71; PULSE 82; TEMP 98.6
--- NOTE | 2018-11-17 14:35 | P.DS ---
Providers Date of admission: 11/15/18 19:53 Attending physician: Mary Rush Consults: 11/16/18 13:18 Consult Physician Routine Consulting Provider: [facility] Consult Reason/Comments: anticoagulation Do you want consulting provider notified?: Yes Primary care physician: [facility] Course: 63-year-old was readmitted for Right upper arm hematoma , swelling and pain. Patient was started on tramadol patient will be discharged today patient will be resumed on his Eliquis patient pain and swelling is better today. PHYSICAL EXAMINATION: GENERAL: The patient is alert and oriented x3, not in any acute distress. Well developed, well nourished. HEENT: Pupils are round and equally reacting to light. EOMI. No scleral icterus. No conjunctival pallor. Normocephalic, atraumatic. No pharyngeal erythema. No thyromegaly. CARDIOVASCULAR: S1 and S2 present. No murmurs, rubs, or gallops. PULMONARY: Chest is clear to auscultation, no wheezing or crackles. ABDOMEN: Soft, nontender, nondistended, normoactive bowel sounds. No palpable organomegaly. MUSCULOSKELETAL: No joint swelling or deformity. EXTREMITIES: No cyanosis, clubbing, or pedal edema. Right arm hematoma swelling NEUROLOGICAL: Gross neurological examination did not reveal any focal deficits. SKIN: No rashes. refer to my history of present illness from yesterday for further details of hospitalization course Plan - Discharge Summary Discharge Rx Participant: No New Discharge Prescriptions: New traMADol HCL [Ultram] 50 mg PO Q4HR PRN 3 Days #18 tab PRN Reason: Pain Continue Nystatin 100,000Unit/gm Cream [Mycostatin Cream] 1 applic TOPICAL DAILY Lipase/Protease/Amylase [Creon Dr 24,000 Units Capsule] 24,000 units PO AC- TID Levothyroxine Sodium [Synthroid] 100 mcg PO DAILY Insulin Glargine [Lantus] 100 unit SQ BID Sertraline HCl [Zoloft] 100 mg PO DAILY QUEtiapine [SEROquel] 100 mg PO HS metFORMIN HCL 1,000 mg PO BID Memantine [Namenda] 10 mg PO BID Lansoprazole 30 mg PO DAILY INSULIN ASPART (NovoLOG) [NovoLOG (formulary)] 100 unit SQ AC-TID Tamsulosin HCl [Flomax] 0.4 mg PO DAILY Oxybutynin Chloride 5 mg PO BID Donepezil HCl [Aricept] 10 mg PO DAILY Trospium Chloride 20 mg PO DAILY Lisinopril [Zestril] 5 mg PO BID Amiodarone [Cordarone] 200 mg PO BID #60 tab Furosemide [Lasix] 40 mg PO DAILY #30 tab Atorvastatin [Lipitor] 80 mg PO HS #30 tab Metoprolol Tartrate [Lopressor] 100 mg PO BID #60 tab Apixaban [Eliquis] 5 mg PO BID #60 tab HYDROcodone/APAP 7.5-325MG [[place] 7.5-325] 1 tab PO Q6HR PRN 3 Days #12 tab PRN Reason: Pain Discharge Medication List Donepezil HCl [Aricept] 10 mg PO DAILY 10/07/18 [History] INSULIN ASPART (NovoLOG) [NovoLOG (formulary)] 100 unit SQ AC-TID 10/07/18 [History] Insulin Glargine [Lantus] 100 unit SQ BID 10/07/18 [History] Lansoprazole 30 mg PO DAILY 10/07/18 [History] Levothyroxine Sodium [Synthroid] 100 mcg PO DAILY 10/07/18 [History] Lipase/Protease/Amylase [Creon Dr 24,000 Units Capsule] 24,000 units PO AC-TID 10/07/18 [History] Memantine [Namenda] 10 mg PO BID 10/07/18 [History] Nystatin 100,000Unit/gm Cream [Mycostatin Cream] 1 applic TOPICAL DAILY 10/07/18 [History] Oxybutynin Chloride 5 mg PO BID 10/07/18 [History] QUEtiapine [SEROquel] 100 mg PO HS 10/07/18 [History] Sertraline HCl [Zoloft] 100 mg PO DAILY 10/07/18 [History] Tamsulosin HCl [Flomax] 0.4 mg PO DAILY 10/07/18 [History] Trospium Chloride 20 mg PO DAILY 10/07/18 [History] metFORMIN HCL 1,000 mg PO BID 10/07/18 [History] Lisinopril [Zestril] 5 mg PO BID 11/02/18 [History] Amiodarone [Cordarone] 200 mg PO BID #60 tab 11/12/18 [Rx] Apixaban [Eliquis] 5 mg PO BID #60 tab 11/12/18 [Rx] Atorvastatin [Lipitor] 80 mg PO HS #30 tab 11/12/18 [Rx] Furosemide [Lasix] 40 mg PO DAILY #30 tab 11/12/18 [Rx] Metoprolol Tartrate [Lopressor] 100 mg PO BID #60 tab 11/12/18 [Rx] HYDROcodone/APAP 7.5-325MG [[place] 7.5-325] 1 tab PO Q6HR PRN 3 Days #12 tab 11/15/18 [Rx] traMADol HCL [Ultram] 50 mg PO Q4HR PRN 3 Days #18 tab 11/16/18 [Rx] Follow up Appointment(s)/Referral(s): [facility],Clinic [Primary Care Provider] - 3 Days Discharge Disposition: HOME SELF-CARE
== END 2018-11-17 15:12 | disposition home or self-care (01) ==
LOC: EC 13:44 → 1SOBS 19:53
PROVIDERS: ADMIT Internal Medicine; ATTEND Internal Medicine
DX: S40.021A Contusion of right upper arm, initial encounter (principal); E11.9 Type 2 diabetes mellitus without complications; E78.5 Hyperlipidemia, unspecified; I10 Essential (primary) hypertension; E05.90 Thyrotoxicosis, unspecified without thyrotoxic crisis or storm; E03.9 Hypothyroidism, unspecified; I48.0 Paroxysmal atrial fibrillation; I48.92 Unspecified atrial flutter; E66.01 Morbid (severe) obesity due to excess calories; Z68.41 Body mass index [BMI] 40.0-44.9, adult; N40.0 Benign prostatic hyperplasia without lower urinary tract symptoms; Z90.49 Acquired absence of other specified parts of digestive tract; Z86.14 Personal history of Methicillin resistant Staphylococcus aureus infection; Z87.440 Personal history of urinary (tract) infections; Z86.19 Personal history of other infectious and parasitic diseases; Z87.19 Personal history of other diseases of the digestive system; Z79.899 Other long term (current) drug therapy; Z79.4 Long term (current) use of insulin; Z79.890 Hormone replacement therapy; Z79.01 Long term (current) use of anticoagulants; Z79.891 Long term (current) use of opiate analgesic; Z88.2 Allergy status to sulfonamides; Z82.49 Family history of ischemic heart disease and other diseases of the circulatory system; Z82.3 Family history of stroke; Z82.0 Family history of epilepsy and other diseases of the nervous system; Z83.6 Family history of other diseases of the respiratory system; X58.XXXA Exposure to other specified factors, initial encounter
CPT/HCPCS: 96361 ×2; 96365; 96366; 96375 ×2; 96376 ×3; 96372; 99285; 36415; 80053; 85025; 85027; G0378 ×3; J2360; J3360; J1885; J1170 ×3; J0131 ×2; C9113

== ENCOUNTER → 2018-12-29 | Outpatient (CLI) | payer OTHER, MEDICARE ==
[2018-12-29 14:47] LABS: HCT 37.7 % (39.0-53.0); HGB 12.8 gm/dL (13.0-17.5); MCHC 33.9 g/dL (31.0-37.0); MCV 94.2 fL (80.0-100.0); Mean Platelet Volume 6.2; Platelet Count 200 k/uL (150-450); RDW 13.4 % (11.5-15.5); WBC 8.2 k/uL (3.8-10.6)
[2018-12-29 14:49] LABS: African American GFR (CKD) >90 (>60 ml/min/1.73 sqM); Anion Gap 10 mmol/L; Blood Urea Nitrogen 26 mg/dL (9-20); Carbon Dioxide 25 mmol/L (22-30); Chloride 100 mmol/L (98-107); Glucose 237 mg/dL (74-99); Potassium 4.8 mmol/L (3.5-5.1); Sodium 135 mmol/L (137-145)
== END | disposition home or self-care (01) ==
LOC: LABPAT 13:59
PROVIDERS: ATTEND Internal Medicine Clinical Cardiac Electrophysiology
DX: Z01.812 Encounter for preprocedural laboratory examination (principal); I48.92 Unspecified atrial flutter; I42.9 Cardiomyopathy, unspecified
CPT/HCPCS: 80051; 82565; 82947; 84520; 85027

== ENCOUNTER 2019-01-30 11:09 | Day surgery (SDC) | payer OTHER ==
[2019-01-25 10:16] VITALS: BMI 42.5
[~2019-01-30 11:09] MED LIST: HYDROmorphone 0.5 MG/0.5 ML SYRINGE IVP PRN; LACTATED RINGERS 1,000 ML IV SCH; MIDAZOLAM 2 MG/2 ML VIAL IV PRN; SODIUM CHLORIDE 0.9% 1,000 ML IV SCH
[2019-01-30] MEDS ORDERED: SODIUM CHLORIDE 0.9% 1,000 ML IV ONE (12:19)
[2019-01-30 12:20] LABS: Glucose,Whole Blood 210 mg/dL (75-99)
[2019-01-30 12:29] LABS: Basophils % (A) 1 %; Eosinophils # (A) 0.2 k/uL (0-0.7); Eosinophils % (A) 3 %; HCT 43.1 % (39.0-53.0); HGB 14.6 gm/dL (13.0-17.5); Lymphocytes # (A) 1.6 k/uL (1.0-4.8); Lymphocytes % (A) 24 %; MCH 31.9 pg (25.0-35.0); MCHC 33.9 g/dL (31.0-37.0); MCV 93.9 fL (80.0-100.0); Mean Platelet Volume 6.5; Monocytes # (A) 0.3 k/uL (0-1.0); Monocytes % (A) 4 %; Neutrophils # (A) 4.5 k/uL (1.3-7.7); Neutrophils % (A) 67 %; Platelet Count 176 k/uL (150-450); RBC 4.59 m/uL (4.30-5.90); RDW 13.4 % (11.5-15.5); WBC 6.7 k/uL (3.8-10.6)
[2019-01-30] MEDS ORDERED: INSULIN ASPART (NovoLOG) 100 UNIT/ML VIAL SQ ONE ×2 (12:34→16:51)
[2019-01-30 12:39] LABS: African American GFR (CKD) >90 (>60 ml/min/1.73 sqM); Anion Gap 13 mmol/L; Blood Urea Nitrogen 31 mg/dL (9-20); Calcium 9.4 mg/dL (8.4-10.2); Carbon Dioxide 26 mmol/L (22-30); Chloride 96 mmol/L (98-107); Glucose 229 mg/dL (74-99); Sodium 135 mmol/L (137-145)
[2019-01-30 12:40] LABS: Potassium 4.6 mmol/L (3.5-5.1)
[2019-01-30] MEDS ORDERED: MIDAZOLAM 2 MG/2 ML VIAL ONE (12:56)
[2019-01-30] MEDS ORDERED: NEOSTIGMINE 1 MG/ML 10 ML VIAL ONE (12:56)
[2019-01-30] MEDS ORDERED: PROPOFOL 10 MG/ML 20 ML VIAL IV ONE (12:56)
[2019-01-30] MEDS ORDERED: ROCURONIUM BROMIDE 10 MG/ML 10 ML VIAL IV ONE (12:56)
[2019-01-30] MEDS ORDERED: fentaNYL (PF) 50 MCG/ML 2 ML AMP ONE (12:56)
[2019-01-30] MEDS ORDERED: SUCCINYLCHOLINE CHLORIDE VIAL 200 MG/10 ML VIAL IV ONE (12:56)
[2019-01-30] MEDS ORDERED: ISOPROTERENOL 250 MCG/1.25 ML SYR IV ONE (12:56)
[2019-01-30] MEDS ORDERED: GLYCOPYRROLATE 0.2 MG/ML 2 ML VIAL ONE (12:56)
[2019-01-30] MEDS ORDERED: HEPARIN SODIUM (1,000 UNIT/ML) 1,000 UNIT in SODIUM CHLORIDE 0.9% 1,000 ML IRRIGATION ONE (13:17)
[2019-01-30] MEDS ORDERED: LIDOCAINE 1% INJ 10MG/ML (20 ML MDV) SQ ONE (13:47)
--- NOTE | 2019-01-30 15:31 | P.HPCAR ---
History of Present Illness This is Dr. Salgado dictating an admission note on this patient The patient was interviewed and examined by me IMPRESSION / ASSESSMENT: Typical atrial flutter with RVR, recurrent and symptomatic despite antiarrhythmic drug therapy Paroxysmal atrial fibrillation Type 2 diabetes Hypertension Past history of the hematoma on the right biceps Past history of liver failure, therefore only short term amiodarone recommended Patient stable from a cardiovascular standpoint to proceed with EP study and ablation under general anesthesia PLAN: Proceed with EP study and radiofrequency ablation for typical atrial flutter Thereafter we will stop amiodarone as previously planned Continue anticoagulation lifelong continue treatment for hypertension HPI Patient is a history of recurrent palpitations with significant shortness of breath associated with atrial flutter with RVR. He's had repeated episodes of admissions on account of this and his rates were difficult to control and he failed electrical cardioversion within 6-12 was on antilipid drug therapy He has a history of atrial fibrillation also He denies any chest discomfort dizziness lightheadedness or palpitations in the last one to 2 weeks. He is recovering from a pneumonia, about 3-4 weeks He does not have any significant cough minimal expectoration and no fever chills or rigors No shortness of breath even with walking or on lying down in bed No chest discomfort No fever chills or rigors no urinary tract infections no skin infections ROS: No fever chills or rigors, no cough, phlegm or expectoration, no nausea, vomiting or diarrhea, no hematuria, dysuria, no musculoskeletal complaints, no strokes or seizures, no skin lesions. EXAMINATION: 156/65 mmHg, pulse rate 72 regular, afebrile 97.9F O2 saturation 94% on room air Breath sounds are reduced bilaterally with no rhonchi no crackles Normal heart sounds normal S1 normal S2 no murmurs or gallops or rub Abdomen is soft nontender increased BMI noted No lower extremity edema Patient able to lie flat in bed REVIEW OF LABS, ECG & MEDICAL DATA history of obstructive sleep apnea, uses a CPAP mask regularly History of recurrent pancreatitis and hepatitis White count 6.7, hemoglobin 14.6, sodium 145 potassium 4.6 BUN 31 and creatinine 0.8 Physical Exam Vitals: Vital Signs Temp Pulse BP Pulse Ox 01/30/19 12:20 97.9 F 72 156/65 94 L Intake and Output 01/30/19 01/30/19 01/30/19 06:59 14:59 22:59 Intake Total 324 Balance 324 Intake: IV 324 Other: Weight 154.5 kg Past Medical History Past Medical History: Diabetes Mellitus, Hearing Disorder / Deafness, Hyperlipidemia, Hypertension, Memory Impairment, Osteoarthritis (OA), Prostate Disorder, Sleep Apnea/CPAP/BIPAP, Thyroid Disorder Additional Past Medical History / Comment(s): Hyperthyroidism, Pancreatitis, 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 SEE DR SALGADO'S HISTORY AND PHYSICAL FOR CARDIAC HISTORY, C PAP MACHINE , History of Any Multi-Drug Resistant Organisms: MRSA Date of last positivie culture/infection: 08/03/17 MDRO Source:: belly button Past Surgical History: Appendectomy, Cholecystectomy, Heart Catheterization Additional Past Surgical History / Comment(s): Hernia repair. SURGERY ON PANCREAS- BILE DUCT, RIGHT AND LEFT KNEE ARTHROSCOPIC SURGERY Past Anesthesia/Blood Transfusion Reactions: No Reported Reaction Smoking Status: Never smoker - Past Family History Father Family Medical History: CVA/TIA, Hypertension, Myocardial Infarction ([place]) Additional Family Medical History / Comment(s): black lung Mother Family Medical History: Cancer Additional Family Medical History / Comment(s): LUNG CANCER Brother(s) Additional Family Medical History / Comment(s): brother at 52, ALS Physical Examination Vital Signs Temp Pulse BP Pulse Ox 01/30/19 12:20 97.9 F 72 156/65 94 L Intake and Output 01/30/19 01/30/19 01/30/19 06:59 14:59 22:59 Intake Total 324 Balance 324 Intake: IV 324 Other: Weight 154.5 kg Results 01/30/19 12:00 01/30/19 12:00 CBC 01/30/19 Range/Units 12:00 WBC 6.7 (3.8-10.6) k/uL RBC 4.59 (4.30-5.90) m/uL Hgb 14.6 (13.0-17.5) gm/dL Hct 43.1 (39.0-53.0) % Plt Count 176 (150-450) k/uL Comprehensive Metabolic Panel 01/30/19 Range/Units 12:00 Sodium 135 L (137-145) mmol/L Potassium 4.6 (3.5-5.1) mmol/L Chloride 96 L (98-107) mmol/L Carbon Dioxide 26 (22-30) mmol/L BUN 31 H (9-20) mg/dL Creatinine 0.81 (0.66-1.25) mg/dL Glucose 229 H (74-99) mg/dL Calcium 9.4 (8.4-10.2) mg/dL Current Medications Generic Name Dose Route Start Last Admin Trade Name Freq PRN Reason Stop Dose Admin Hydromorphone HCl 0.5 mg 01/30/19 06:34 Dilaudid IVP 01/31/19 06:35 Q5M PRN Pain Control Sodium Chloride 1,000 mls @ 20 mls/hr 01/30/19 06:34 Saline 0.9% IV .Q24H JOE Lactated Ringer's 1,000 mls @ 20 mls/hr 01/30/19 06:34 Lactated Ringers IV .Q24H JOE Midazolam HCl 2 mg 01/30/19 06:34 Versed IV 01/31/19 06:35 ONCE PRN Anxiety Intake and Output 01/30/19 01/30/19 01/30/19 06:59 14:59 22:59 Intake Total 324 Balance 324 Intake: IV 324 Other: Weight 154.5 kg Patient Weight 01/31/19 06:59 Weight 154.5 kg 01/30/19 12:00 01/30/19 12:00
[2019-01-30] MEDS ORDERED: traMADol 50 MG TAB PO PRN (15:32)
[2019-01-30] MEDS ORDERED: INSULIN ASPART (NovoLOG) 100 UNIT/ML VIAL SQ PRN (15:32)
[2019-01-30] MEDS ORDERED: ACETAMINOPHEN TAB 325 MG TAB PO PRN (15:33)
[2019-01-30] MEDS ORDERED: ACETAMINOPHEN IV (For NPO) 1,000 MG in EMPTY BAG 1 BAG IVPB ONE (15:33)
[2019-01-30] MEDS ORDERED: HYDROcodone/APAP 5-325MG 1 EACH TAB PO PRN (15:33)
[2019-01-30] MEDS ORDERED: FUROSEMIDE 10 MG/ML 4 ML VIAL ONE (15:50)
[2019-01-30] MEDS ORDERED: FUROSEMIDE 10 MG/ML 4 ML VIAL IV ONE ×2 (15:55→15:58)
--- NOTE | 2019-01-30 16:11 | P.PRLE ---
RE: RavinderJames Dear Angeline Mr. Castellon underwent diagnostic EP study and successful radiofrequency ablation for typical atrial flutter with confirmed bidirectional block across th e RF line I'm stopping amiodarone now because he has a history of hepatitis in the past He will continue anticoagulation with ELIQUIS as before If he develops atrial fibrillation the future we will deal with that appropriately Thank you for entrusting me with the care of the patient Warm regards Sincerely Geo Salgado
[2019-01-30] MEDS ORDERED: ENALAPRILAT 1.25 MG/ML 1 ML VIAL IVP ONE (16:18)
[2019-01-30] MEDS ORDERED: LABETALOL SYRINGE 5 MG/ML IVP ONE (16:25)
[2019-01-30 16:46] LABS: Glucose,Whole Blood 238 mg/dL (75-99)
[2019-01-30 17:19] VITALS: RESP 18
[2019-01-30] MEDS: metFORMIN 500 MG TAB PO SCH (17:44)
[2019-01-30 19:28] LABS: Glucose,Whole Blood 242 mg/dL (75-99)
[2019-01-30] MEDS ORDERED: METOPROLOL TARTRATE 50 MG TAB PO SCH (21:00)
[2019-01-30] MEDS ORDERED: QUEtiapine 100 MG TAB PO SCH (21:00)
[2019-01-30] MEDS ORDERED: ATORVASTATIN 80 MG TAB PO SCH (21:00)
[2019-01-30] MEDS ORDERED: TAMSULOSIN 0.4 MG CAP.ER.24H PO SCH (21:00)
[2019-01-30] MEDS: OXYBUTYNIN CHLORIDE 5 MG TAB PO SCH (21:05)
[2019-01-30] MEDS: LISINOPRIL 5 MG TAB PO SCH (21:05)
[2019-01-30] MEDS: APIXABAN 5 MG TAB PO SCH (21:05)
[2019-01-30] MEDS: INSULIN DETEMIR (LEVEMIR) 100 UNIT/ML SYR SQ SCH (21:05)
--- NOTE | 2019-01-30 23:09 | PCN ---
PROCEDURE NOTE Mr. Castellon is a 63-year-old male patient who was admitted to the hospital for recurrent typical atrial flutter with RVR, difficult rate control, who failed electrical cardioversion and required IV followed by p.o. amiodarone for some control. He was brought into the EP lab for an EP study and ablation. He is on Eliquis 5 mg twice daily. Patient was brought to the EP lab in a fasting state. Written informed consent was obtained prior to the procedure. The right and left groins were prepped and draped as per protocol. Two venous sheaths were placed in the right femoral vein, one venous sheath in the left femoral vein. Via these, diagnostic mapping and ablation catheters were placed. An intracardiac echo catheter was placed. First, 3D anatomic mapping of the heart was performed and the right atrial isthmus was identified and a 3D map of the right atrial isthmus was made. The tricuspid valve was tagged. The His bundle was tagged. There was no evidence for right or left atrial thrombi. LV function was normal. No pericardial effusion was noted at baseline. The coronary sinus catheter was placed. Later high right atrial, His bundle and RV catheters were placed. Sinus cycle length 945 milliseconds. WA interval 191 milliseconds. QRS 127 milliseconds. QT 494 milliseconds. AH interval 71 milliseconds. HV interval 46 milliseconds. Sinus node recovery times at 600, 500 and 400 milliseconds were 1314, 1233 and 1261 milliseconds. Corresponding corrected sinus node recovery times were within normal limits. AV node Wenckebach block 440 milliseconds. Slow pathway noted at 450 milliseconds. VA Wenckebach block greater than 600 milliseconds. On Isuprel slow pathway was noted at a paced cycle length of about 320 milliseconds with AV node Wenckebach block at 290 milliseconds. Atrial extrastimulation was performed. No SVT was induced. Atrial ERP 500/190 milliseconds. A mapping ablation catheter was placed in the right atrial isthmus. Three-dimensional electroanatomic mapping was performed. RF ablation was performed from the tricuspid anulus to the IVC eustachian ridge. A complete anatomic line of block was made, and following that differential pacing was performed. Isthmus conduction time was greater than 171 milliseconds. Bidirectional block was noted. Split potentials of greater than 130 milliseconds were noted all along the line uniformly. High-dose Isuprel was used and there was no atrial fibrillation noted. No other arrhythmias were induced with atrial pacing. All catheters were then removed. Patient was extubated, placed on a BiPAP mask. IV Lasix 40 mg IV was administered and he was transferred to the recovery room. IMPRESSION: 1. Successful radiofrequency ablation for typical atrial flutter with confirmed bidirectional block and widely split electrograms along the RF line. 2. On Isuprel, slow pathway was clearly demonstrated, but without induction of any SVT on atrial extrastimulation. PLAN: Continue Eliquis. Stop amiodarone. MMODL / IJN: [id number] /
[2019-01-31] MEDS ORDERED: LEVOTHYROXINE 100 MCG TAB PO SCH (06:30)
[2019-01-31 06:35] LABS: Glucose,Whole Blood 236 mg/dL (75-99)
[2019-01-31] MEDS ORDERED: PANTOPRAZOLE 40 MG TABLET PO SCH (07:30)
[2019-01-31 07:33] VITALS: BP 109/66; PULSE 57; TEMP 97.7
[2019-01-31] MEDS: OXYBUTYNIN CHLORIDE 5 MG TAB PO SCH (08:00)
[2019-01-31] MEDS: LISINOPRIL 5 MG TAB PO SCH (08:00)
[2019-01-31] MEDS: metFORMIN 500 MG TAB PO SCH (08:00)
[2019-01-31] MEDS: APIXABAN 5 MG TAB PO SCH (08:00)
[2019-01-31] MEDS: INSULIN DETEMIR (LEVEMIR) 100 UNIT/ML SYR SQ SCH (08:00)
--- NOTE | 2019-01-31 08:03 | P.DS ---
Providers Attending physician: Geo Salgado Primary care physician: [facility] Course: Patient is doing well. He is ablating in the room upper to the bathroom in the hallway No chest discomfort dizziness lightheadedness palpitations Minimal discomfort groins On examination pulse rate is in the 50s afebrile 97.7F normal respirations Blood pressure 130/64 mmHg pulse ox 95% on room air Breath sounds are clear no rhonchi no crackles Heart sounds S1 and S2 are normal no murmurs or gallops no rub Abdomen soft nontender Extremities warm no edema Groins a few 12 is no hematoma no swelling Twelve-lead ECG today shows sinus mechanism with a prolonged QT interval greater than 500 ms Impression Typical atrial flutter with RVR drug refractory Status post successful ablation yesterday with confirmed bidirectional block with widely split potentials along the line Hypertension Diabetes Increased BMI, morbid obesity BMI 42.6 Prolonged QT interval Suggest Stop amiodarone completely. He also has a history of hepatitis in the past Colostomy to hold Namenda tramadol and reduce the dose of Seroquel for now but ultimately switched to a different category of a sleeping medication that will not prolong the QT interval He will see his primary care practitioner, Reyes [facility] within a week I will give him 2 g of magnesium today Follow-up with Dr. Dr. Thoams/annemarie in 1-2 weeks Lifelong anticoagulation Patient Condition at Discharge: Stable Plan - Discharge Summary Discharge Rx Participant: Yes New Discharge Prescriptions: Continue RX: Nystatin 100,000Unit/gm Cream [Mycostatin Cream] 1 applic TOPICAL DAILY PRN PRN Reason: RED SKIN UNDER ARMS RX: Lipase/Protease/Amylase [Asha Garvin 24,000 Units Capsule] 24,000 units PO AC-TID RX: Levothyroxine Sodium [Synthroid] 100 mcg PO DAILY RX: Insulin Glargine [Lantus] 100 unit SQ BID RX: Sertraline HCl [Zoloft] 100 mg PO DAILY RX: QUEtiapine [SEROquel] 100 mg PO HS RX: metFORMIN HCL 1,000 mg PO BID RX: Memantine [Namenda] 10 mg PO BID RX: Lansoprazole 30 mg PO DAILY RX: INSULIN ASPART (NovoLOG) [NovoLOG (formulary)] 100 unit SQ AC-TID PRN PRN Reason: ELEVATED BLOOD SUGAR RX: Tamsulosin HCl [Flomax] 0.4 mg PO HS RX: Oxybutynin Chloride 5 mg PO BID RX: Donepezil HCl [Aricept] 10 mg PO DAILY RX: Trospium Chloride 20 mg PO DAILY RX: Lisinopril [Zestril] 5 mg PO BID RX: Furosemide [Lasix] 40 mg PO DAILY #30 tab RX: Atorvastatin [Lipitor] 80 mg PO HS #30 tab RX: Metoprolol Tartrate [Lopressor] 100 mg PO BID #60 tab RX: Apixaban [Eliquis] 5 mg PO BID #60 tab RX: traMADol HCL [Ultram] 50 mg PO Q4HR PRN 3 Days #18 tab PRN Reason: Pain Discontinued RX: Amiodarone [Cordarone] 200 mg PO BID #60 tab Discharge Medication List RX: Donepezil HCl [Aricept] 10 mg PO DAILY 10/07/18 [History] RX: INSULIN ASPART (NovoLOG) [NovoLOG (formulary)] 100 unit SQ AC-TID PRN 10/07/18 [History] RX: Insulin Glargine [Lantus] 100 unit SQ BID 10/07/18 [History] RX: Lansoprazole 30 mg PO DAILY 10/07/18 [History] RX: Levothyroxine Sodium [Synthroid] 100 mcg PO DAILY 10/07/18 [History] RX: Lipase/Protease/Amylase [Creon Dr 24,000 Units Capsule] 24,000 units PO AC- TID 10/07/18 [History] RX: Memantine [Namenda] 10 mg PO BID 10/07/18 [History] RX: Nystatin 100,000Unit/gm Cream [Mycostatin Cream] 1 applic TOPICAL DAILY PRN 10/07/18 [History] RX: Oxybutynin Chloride 5 mg PO BID 10/07/18 [History] RX: QUEtiapine [SEROquel] 100 mg PO HS 10/07/18 [History] RX: Sertraline HCl [Zoloft] 100 mg PO DAILY 10/07/18 [History] RX: Tamsulosin HCl [Flomax] 0.4 mg PO HS 10/07/18 [History] RX: Trospium Chloride 20 mg PO DAILY 10/07/18 [History] RX: metFORMIN HCL 1,000 mg PO BID 10/07/18 [History] RX: Lisinopril [Zestril] 5 mg PO BID 11/02/18 [History] RX: Apixaban [Eliquis] 5 mg PO BID #60 tab 11/12/18 [Rx] RX: Atorvastatin [Lipitor] 80 mg PO HS #30 tab 11/12/18 [Rx] RX: Furosemide [Lasix] 40 mg PO DAILY #30 tab 11/12/18 [Rx] RX: Metoprolol Tartrate [Lopressor] 100 mg PO BID #60 tab 11/12/18 [Rx] RX: traMADol HCL [Ultram] 50 mg PO Q4HR PRN 3 Days #18 tab 11/16/18 [Rx] Follow up Appointment(s)/Referral(s): Keli Thomas MD [STAFF PHYSICIAN] - 1 Week Activity/Diet/Wound Care/Special Instructions: Post EP study - Ablation instructions 1. Keep access sites dry for 2 days. 2. No heavy lifting or straining for 2 days. 3. Avoid bending the hips repeatedly for 2 days. 4. You may go up and down stairs slowly Call if the following is noted 1. Bleeding, increasing swelling or pain at the access sites. 2. Increasing chest discomfort, especially upon taking a deep breath. 3. Increasing shortness of breath, at rest or with exertion. 4. Undue cough / phlegm 5. Difficulty or pain while swallowing. 6. Pain or change in color in the extremities. 7. Fever, chills, rigors. 8. Increasing headache or neurologic symptoms. 9. Dizziness, fainting, palpitations Stop amiodarone completely Continue ELIQUIS lifelong No other changes in his medications Follow-up with Joselin Figueroa within 1-2 weeks Discharge Disposition: HOME SELF-CARE
[2019-01-31] MEDS: MAGNESIUM SULFATE-D5W PMX 1 GM in DEXTROSE/WATER 1 100ML.BAG IVPB SCH ×2 (08:16→09:47)
[2019-01-31] MEDS ORDERED: FUROSEMIDE 40 MG TAB PO SCH (09:00)
[2019-01-31] MEDS ORDERED: METOPROLOL TARTRATE 50 MG TAB PO SCH (09:00)
[2019-01-31] MEDS ORDERED: SERTRALINE 100 MG TAB PO SCH (09:00)
[2019-01-31] MEDS ORDERED: DONEPEZIL 10 MG TAB PO SCH (09:00)
[2019-01-31] MEDS ORDERED: TROSPIUM CHLORIDE 20 MG TABLET PO SCH (09:00)
== END 2019-01-31 11:45 | disposition home or self-care (01) ==
LOC: CATHEP 11:09 → 1SOBS 15:21 → CATHEP 01-31 11:45
PROVIDERS: ATTEND Internal Medicine Clinical Cardiac Electrophysiology
DX: I48.3 Typical atrial flutter (principal); I48.0 Paroxysmal atrial fibrillation; I42.9 Cardiomyopathy, unspecified; E11.9 Type 2 diabetes mellitus without complications; I10 Essential (primary) hypertension; E78.5 Hyperlipidemia, unspecified; H91.90 Unspecified hearing loss, unspecified ear; M19.90 Unspecified osteoarthritis, unspecified site; R41.3 Other amnesia; G47.33 Obstructive sleep apnea (adult) (pediatric); Z99.89 Dependence on other enabling machines and devices; E05.90 Thyrotoxicosis, unspecified without thyrotoxic crisis or storm; K21.9 Gastro-esophageal reflux disease without esophagitis; F32.9 Major depressive disorder, single episode, unspecified; N40.0 Benign prostatic hyperplasia without lower urinary tract symptoms; Z87.440 Personal history of urinary (tract) infections; Z86.14 Personal history of Methicillin resistant Staphylococcus aureus infection; K86.1 Other chronic pancreatitis; B18.1 Chronic viral hepatitis B without delta-agent; K77 Liver disorders in diseases classified elsewhere; Z90.49 Acquired absence of other specified parts of digestive tract; E66.01 Morbid (severe) obesity due to excess calories; Z68.41 Body mass index [BMI] 40.0-44.9, adult; Z80.1 Family history of malignant neoplasm of trachea, bronchus and lung; Z82.49 Family history of ischemic heart disease and other diseases of the circulatory system; Z82.0 Family history of epilepsy and other diseases of the nervous system; Z82.8 Family history of other disabilities and chronic diseases leading to disablement, not elsewhere classified; Z79.01 Long term (current) use of anticoagulants; Z79.890 Hormone replacement therapy; Z79.4 Long term (current) use of insulin; Z79.899 Other long term (current) drug therapy; Z88.2 Allergy status to sulfonamides
CPT/HCPCS: 93623; 93662; 93613; 93653; 80048; 85025; C1894; C1769 ×3; C1730; C1759; C1893; C1732; J1940; J2001; J1644; J3475

== ENCOUNTER → 2019-03-09 | Outpatient (CLI) | payer OTHER ==
--- NOTE | 2019-03-09 15:47 | CT ---
EXAMINATION TYPE: CT chest wo con DATE OF EXAM: 03/09/2019 COMPARISON: 10/07/2018 HISTORY: difficulty breathing CT DLP: 313 mGycm, Automated exposure control for dose reduction was used. CONTRAST: None TECHNIQUE: Axial images were obtained at 1 mm thick sections at 10 mm intervals. This will limit po rtions of the examination which may not be visualized within the [id number]. Images were obtained in the prone and supine views. FINDINGS: Portion of the thyroid visualized is normal. No suspicious lung nodules or focal infiltrat es are present. No enlarged mediastinal or hilar adenopathy is evident. The ascending aorta diameter at the level o f the main pulmonary artery is 3.9 cm. The main pulmonary artery diameter at the bifurcation is 2.9 cm. Mild/moderate coronary artery calcification is present. Limited CT sections are obtained through the upper abdomen. Abdomen is essentially unremarkable. IMPRESSIONS: 1. Normal High Resolution Chest CT.
== END | disposition home or self-care (01) ==
LOC: RADCTMAIN 11:51
PROVIDERS: ATTEND Internal Medicine Critical Care Medicine
DX: R06.09 Other forms of dyspnea (principal); Z88.2 Allergy status to sulfonamides
CPT/HCPCS: 71250

== ENCOUNTER 2019-05-05 18:57 | Emergency (ER) | payer OTHER, MEDICARE ==
[2019-05-05 19:09] VITALS: RESP 20; TEMP 98.4
[2019-05-05 20:12] LABS: Basophils # (A) 0.1 k/uL (0-0.2); Basophils % (A) 1 %; Eosinophils # (A) 0.3 k/uL (0-0.7); Eosinophils % (A) 4 %; HCT 42.8 % (39.0-53.0); Lymphocytes # (A) 1.8 k/uL (1.0-4.8); Lymphocytes % (A) 26 %; MCH 30.8 pg (25.0-35.0); MCHC 32.6 g/dL (31.0-37.0); MCV 94.6 fL (80.0-100.0); Mean Platelet Volume 8.1; Monocytes # (A) 0.3 k/uL (0-1.0); Monocytes % (A) 4 %; Neutrophils # (A) 4.4 k/uL (1.3-7.7); Neutrophils % (A) 63 %; Platelet Count 183 k/uL (150-450); RBC 4.53 m/uL (4.30-5.90); RDW 14.1 % (11.5-15.5); WBC 6.9 k/uL (3.8-10.6)
[2019-05-05 20:16] LABS: Appearance,Urine Cloudy (Clear); Bilirubin,Urine Negative (Negative); Blood,Urine Large (Negative); Color,Urine Light Red; Glucose,Urine (UA) 4+ (Negative); Ketones,Urine Negative (Negative); Leukocyte Esterase,Urine Small (Negative); Nitrite,Urine Negative (Negative); PH, Urine 5.5 (5.0-8.0); Protein,Urine 1+ (Negative); RBC,Urine >182 /hpf (0-5); Specific Gravity,Urine 1.018 (1.001-1.035); Urobilinogen,Urine <2.0 mg/dL (<2.0); WBC,Urine 35 /hpf (0-5)
[2019-05-05 20:25] LABS: INR 0.9 (<1.2); Partial Thromboplastin Time 22.7 sec (22.0-30.0); Prothrombin Time 9.8 sec (9.0-12.0)
[2019-05-05 20:28] LABS: ALT 35 U/L (4-49); AST 41 U/L (17-59); African American GFR (CKD) >90 (>60 ml/min/1.73 sqM); Alkaline Phosphatase 95 U/L (38-126); Anion Gap 12 mmol/L; Blood Urea Nitrogen 21 mg/dL (9-20); Carbon Dioxide 22 mmol/L (22-30); Chloride 100 mmol/L (98-107); Glucose 359 mg/dL (74-99); Non-African American GFR(CKD) >90 (>60 ml/min/1.73 sqM); Potassium 4.2 mmol/L (3.5-5.1); Sodium 134 mmol/L (137-145); Total Bilirubin 0.6 mg/dL (0.2-1.3); Total Protein 7.4 g/dL (6.3-8.2)
[2019-05-05] MEDS ORDERED: INSULIN ASPART (NovoLOG) 100 UNIT/ML VIAL SQ ONE (21:15)
--- NOTE | 2019-05-05 21:26 | US ---
EXAMINATION TYPE: US renals and bladder DATE OF EXAM: 05/05/2019 COMPARISON: NONE CLINICAL HISTORY: hematuria. hematuria, history of enlarged prostate EXAM MEASUREMENTS: Right Kidney: 13.2 x 6.0 x 6.0 cm Left Kidney: 12.9 x 6.2 x 6.0 cm Technical limitations due to patient's body habitus Right Kidney: no evidence of hydronephrosis Left Kidney: no evidence of hydronephrosis Bladder: unable to visualize IMPRESSION: No evidence of renal mass or obstruction. No perinephric fluid.
--- NOTE | 2019-05-05 22:16 | ED ---
General Adult HPI - General Chief complaint: Urogenital Stated complaint: Urinating blood Time Seen by Provider: 05/05/19 19:09 Source: patient, RN notes reviewed, old records reviewed Mode of arrival: ambulatory Limitations: no limitations - History of Present Illness Initial comments: 63-year-old male patient passed no history of atrial fibrillation, ant icoagulated on eliquis presents to ED with chief complaint hematuria. Patient reports the hematuria began today. Denies any pain. Denies any other complaints. Denies any other bleeding. Systemic: Pt denies fatigue, fever/chills, rash. Pt denies weakness, night sweats, weight loss. Neuro: Pt denies headache, visual disturbances, syncope or pre-syncope. HEENT: Pt denies ocular discharge or irritation, otalgia, rhinorrhea, pharyngitis or notable lymphadenopathy. Cardiopulmonary: Pt denies chest pain, SOB, heart palpitations, dyspnea on exertion. Abdominal/GI: Pt denies abdominal pain, n/v/d. : Pt denies dysuria, burning w/ urination, frequency/urgency. Denies new onset urinary or bowel incontinence. MSK: Pt denies myalgia, loss of strength or function in extremities. Neuro: Pt denies new onset weakness, paresthesias. - Related Data Home Medications Medication Instructions Recorded Confirmed INSULIN ASPART (NovoLOG) [NovoLOG 100 unit SQ AC-TID PRN 10/07/18 01/30/19 (formulary)] Insulin Glargine [Lantus] 100 unit SQ BID 10/07/18 01/30/19 Lansoprazole 30 mg PO DAILY 10/07/18 01/30/19 Levothyroxine Sodium [Synthroid] 100 mcg PO DAILY 10/07/18 01/30/19 Lipase/Protease/Amylase [Asha Garvin 24,000 units PO AC-TID 10/07/18 01/30/19 24,000 Units Capsule] Nystatin 100,000Unit/gm Cream 1 applic TOPICAL DAILY PRN 10/07/18 01/25/19 [Mycostatin Cream] Oxybutynin Chloride 5 mg PO BID 10/07/18 01/30/19 Sertraline HCl [Zoloft] 100 mg PO DAILY 10/07/18 01/30/19 Tamsulosin HCl [Flomax] 0.4 mg PO HS 10/07/18 01/30/19 Trospium Chloride 20 mg PO DAILY 10/07/18 01/30/19 metFORMIN HCL 1,000 mg PO BID 10/07/18 01/30/19 Lisinopril [Zestril] 5 mg PO BID 11/02/18 01/30/19 Previous Rx's Medication Instructions Recorded Apixaban [Eliquis] 5 mg PO BID #60 tab 11/12/18 Atorvastatin [Lipitor] 80 mg PO HS #30 tab 11/12/18 Furosemide [Lasix] 40 mg PO DAILY #30 tab 11/12/18 Metoprolol Tartrate [Lopressor] 100 mg PO BID #60 tab 11/12/18 QUEtiapine [SEROquel] 25 mg PO HS #15 tab 01/31/19 Allergies Allergy/AdvReac Type Severity Reaction Status Date / Time Sulfa (Sulfonamide Allergy Swelling Verified 05/05/19 19:09 Antibiotics) TB SKIN TEST AdvReac Swelling Uncoded 05/05/19 19:09 Review of Systems ROS Statement: Those systems with pertinent positive or pertinent negative responses have been documented in the HPI. ROS Other: All systems not noted in ROS Statement are negative. 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 SEE DR JURADO'S HISTORY AND PHYSICAL FOR CARDIAC HISTORY, C PAP MACHINE , History of Any Multi-Drug Resistant Organisms: MRSA Date of last positivie culture/infection: 08/03/17 MDRO Source:: belly button Past Surgical History: Appendectomy, Cholecystectomy, Heart Catheterization Additional Past Surgical History / Comment(s): Hernia repair. SURGERY ON PANCREAS- BILE DUCT, RIGHT AND LEFT KNEE ARTHROSCOPIC SURGERY Past Anesthesia/Blood Transfusion Reactions: No Reported Reaction Past Psychological History: Depression Smoking Status: Never smoker - Past Family History Father Family Medical History: CVA/TIA, Hypertension, Myocardial Infarction ([place]) Additional Family Medical History / Comment(s): black lung Mother Family Medical History: Cancer Additional Family Medical History / Comment(s): LUNG CANCER Brother(s) Additional Family Medical History / Comment(s): brother at 52, ALS General Exam - General Exam Comments Initial Comments: Constitutional: NAD, AOX3, Pt has pleasant affect. HEENT: NC/AT, trachea midline, neck supple, no lymphadenopathy. Posterior pharynx non erythematous, without exudates. External ears appear normal, without discharge. Mucous membranes moist. Eyes PERRLA, EOM intact. There is no scleral icterus. No pallor noted. Cardiopulmonary: RRR, no murmurs, rubs or gallops, no JVD noted. Lungs CTAB in anterior and posterior madsen. No peripheral edema. Abdominal exam: Abdomen soft and non-distended. Abdomen non-tender to palpation in all 4 quadrants. Bowel sounds active in LLQ. No hepatosplenomegaly. No ecchymosis Neuro: CN II-XII grossly intact. No nuchal rigidity. No raccon eyes, no welch sign, no hemotympanum. No cervical spinal tenderness. MSK: No posterior calf tenderness bilaterally, homans sign negative bilaterally. Posterior tibialis and radial pulse +2 bilaterally. Sensation intact in upper and lower extremities. Full active ROM in upper and lower extremities, 5/5 stregnth. Limitations: no limitations Course Vital Signs 05/05/19 19:05 Temperature 98.4 F Pulse Rate 62 Respiratory 20 Rate Blood Pressure 155/79 O2 Sat by Pulse 97 Oximetry Medical Decision Making - Medical Decision Making 63-year-old male patient passed no history of atrial fibrillation, anticoagulated on eliquis presents to ED with chief complaint hematuria. Patient reports the hematuria began today. Denies any pain. Denies any other complaints. Denies any other bleeding. Patient vital signs stable, afebrile. Physical exam did not display acute pathology. Laboratory investigations revealed hyperglycemia. Patient administered insulin. Patient known diabetic. UA displayed +4 glucose, large amount of blood. Ultrasound displayed no evidence of renal mass or obstruction. No perinephric fluid. Patient will be discharged, will follow up with primary care provider, will return to ER if condition worsens. Case discussed with Dr. Huang. - Lab Data Result diagrams: 05/05/19 19:49 05/05/19 19:49 Lab Results 05/05/19 05/05/19 05/05/19 Range/Units 19:49 19:49 19:49 WBC 6.9 (3.8-10.6) k/uL RBC 4.53 (4.30-5.90) m/uL Hgb 14.0 (13.0-17.5) gm/dL Hct 42.8 (39.0-53.0) % MCV 94.6 (80.0-100.0) fL MCH 30.8 (25.0-35.0) pg MCHC 32.6 (31.0-37.0) g/dL RDW 14.1 (11.5-15.5) % Plt Count 183 (150-450) k/uL Neutrophils % 63 % Lymphocytes % 26 % Monocytes % 4 % Eosinophils % 4 % Basophils % 1 % Neutrophils # 4.4 (1.3-7.7) k/uL Lymphocytes # 1.8 (1.0-4.8) k/uL Monocytes # 0.3 (0-1.0) k/uL Eosinophils # 0.3 (0-0.7) k/uL Basophils # 0.1 (0-0.2) k/uL PT 9.8 (9.0-12.0) sec INR 0.9 (<1.2) APTT 22.7 (22.0-30.0) sec Sodium 134 L (137-145) mmol/L Potassium 4.2 (3.5-5.1) mmol/L Chloride 100 (98-107) mmol/L Carbon Dioxide 22 (22-30) mmol/L Anion Gap 12 mmol/L BUN 21 H (9-20) mg/dL Creatinine 0.81 (0.66-1.25) mg/dL Est GFR (CKD-EPI)AfAm >90 (>60 ml/min/1.73 sqM) Est GFR (CKD-EPI)NonAf >90 (>60 ml/min/1.73 sqM) Glucose 359 H (74-99) mg/dL Calcium 9.0 (8.4-10.2) mg/dL Total Bilirubin 0.6 (0.2-1.3) mg/dL AST 41 (17-59) U/L ALT 35 (4-49) U/L Alkaline Phosphatase 95 (38-126) U/L Total Protein 7.4 (6.3-8.2) g/dL Albumin 4.0 (3.5-5.0) g/dL Urine Color Urine Appearance (Clear) Urine pH (5.0-8.0) Ur Specific [place] (1.001-1.035) Urine Protein (Negative) Urine Glucose (UA) (Negative) Urine Ketones (Negative) Urine Blood (Negative) Urine Nitrite (Negative) Urine Bilirubin (Negative) Urine Urobilinogen (<2.0) mg/dL Ur Leukocyte Esterase (Negative) Urine RBC (0-5) /hpf Urine WBC (0-5) /hpf 05/05/19 Range/Units 19:49 WBC (3.8-10.6) k/uL RBC (4.30-5.90) m/uL Hgb (13.0-17.5) gm/dL Hct (39.0-53.0) % MCV (80.0-100.0) fL MCH (25.0-35.0) pg MCHC (31.0-37.0) g/dL RDW (11.5-15.5) % Plt Count (150-450) k/uL Neutrophils % % Lymphocytes % % Monocytes % % Eosinophils % % Basophils % % Neutrophils # (1.3-7.7) k/uL Lymphocytes # (1.0-4.8) k/uL Monocytes # (0-1.0) k/uL Eosinophils # (0-0.7) k/uL Basophils # (0-0.2) k/uL PT (9.0-12.0) sec INR (<1.2) APTT (22.0-30.0) sec Sodium (137-145) mmol/L Potassium (3.5-5.1) mmol/L Chloride (98-107) mmol/L Carbon Dioxide (22-30) mmol/L Anion Gap mmol/L BUN (9-20) mg/dL Creatinine (0.66-1.25) mg/dL Est GFR (CKD-EPI)AfAm (>60 ml/min/1.73 sqM) Est GFR (CKD-EPI)NonAf (>60 ml/min/1.73 sqM) Glucose (74-99) mg/dL Calcium (8.4-10.2) mg/dL Total Bilirubin (0.2-1.3) mg/dL AST (17-59) U/L ALT (4-49) U/L Alkaline Phosphatase (38-126) U/L Total Protein (6.3-8.2) g/dL Albumin (3.5-5.0) g/dL Urine Color Light Red Urine Appearance Cloudy (Clear) Urine pH 5.5 (5.0-8.0) Ur Specific [place] 1.018 (1.001-1.035) Urine Protein 1+ H (Negative) Urine Glucose (UA) 4+ H (Negative) Urine Ketones Negative (Negative) Urine Blood Large H (Negative) Urine Nitrite Negative (Negative) Urine Bilirubin Negative (Negative) Urine Urobilinogen <2.0 (<2.0) mg/dL Ur Leukocyte Esterase Small H (Negative) Urine RBC >182 H (0-5) /hpf Urine WBC 35 H (0-5) /hpf Disposition Clinical Impression: Hematuria Disposition: HOME SELF-CARE Condition: Stable Instructions (If sedation given, give patient instructions): Hematuria (ED) Additional Instructions: Follow up with with primary care provider tomorrow, return to ER if condition worsens in any way. Is patient prescribed a controlled substance at d/c from ED?: No Referrals: [facility],Clinic [Primary Care Provider] - 1-2 days
[2019-05-05 22:22] LABS: Glucose,Whole Blood 275 mg/dL (75-99)
--- NOTE | 2019-05-05 22:23 | ED ---
Medical Decision Making - Lab Data Result diagrams: 05/05/19 19:49 05/05/19 19:49 Lab Results 05/05/19 05/05/19 05/05/19 Range/Units 19:49 19:49 19:49 WBC 6.9 (3.8-10.6) k/uL RBC 4.53 (4.30-5.90) m/uL Hgb 14.0 (13.0-17.5) gm/dL Hct 42.8 (39.0-53.0) % MCV 94.6 (80.0-100.0) fL MCH 30.8 (25.0-35.0) pg MCHC 32.6 (31.0-37.0) g/dL RDW 14.1 (11.5-15.5) % Plt Count 183 (150-450) k/uL Neutrophils % 63 % Lymphocytes % 26 % Monocytes % 4 % Eosinophils % 4 % Basophils % 1 % Neutrophils # 4.4 (1.3-7.7) k/uL Lymphocytes # 1.8 (1.0-4.8) k/uL Monocytes # 0.3 (0-1.0) k/uL Eosinophils # 0.3 (0-0.7) k/uL Basophils # 0.1 (0-0.2) k/uL PT 9.8 (9.0-12.0) sec INR 0.9 (<1.2) APTT 22.7 (22.0-30.0) sec Sodium 134 L (137-145) mmol/L Potassium 4.2 (3.5-5.1) mmol/L Chloride 100 (98-107) mmol/L Carbon Dioxide 22 (22-30) mmol/L Anion Gap 12 mmol/L BUN 21 H (9-20) mg/dL Creatinine 0.81 (0.66-1.25) mg/dL Est GFR (CKD-EPI)AfAm >90 (>60 ml/min/1.73 sqM) Est GFR (CKD-EPI)NonAf >90 (>60 ml/min/1.73 sqM) Glucose 359 H (74-99) mg/dL POC Glucose (mg/dL) (75-99) mg/dL POC Glu Sewing Pattern Layout Technician ID Calcium 9.0 (8.4-10.2) mg/dL Total Bilirubin 0.6 (0.2-1.3) mg/dL AST 41 (17-59) U/L ALT 35 (4-49) U/L Alkaline Phosphatase 95 (38-126) U/L Total Protein 7.4 (6.3-8.2) g/dL Albumin 4.0 (3.5-5.0) g/dL Urine Color Urine Appearance (Clear) Urine pH (5.0-8.0) Ur Specific [place] (1.001-1.035) Urine Protein (Negative) Urine Glucose (UA) (Negative) Urine Ketones (Negative) Urine Blood (Negative) Urine Nitrite (Negative) Urine Bilirubin (Negative) Urine Urobilinogen (<2.0) mg/dL Ur Leukocyte Esterase (Negative) Urine RBC (0-5) /hpf Urine WBC (0-5) /hpf 05/05/19 05/05/19 Range/Units 19:49 22:19 WBC (3.8-10.6) k/uL RBC (4.30-5.90) m/uL Hgb (13.0-17.5) gm/dL Hct (39.0-53.0) % MCV (80.0-100.0) fL MCH (25.0-35.0) pg MCHC (31.0-37.0) g/dL RDW (11.5-15.5) % Plt Count (150-450) k/uL Neutrophils % % Lymphocytes % % Monocytes % % Eosinophils % % Basophils % % Neutrophils # (1.3-7.7) k/uL Lymphocytes # (1.0-4.8) k/uL Monocytes # (0-1.0) k/uL Eosinophils # (0-0.7) k/uL Basophils # (0-0.2) k/uL PT (9.0-12.0) sec INR (<1.2) APTT (22.0-30.0) sec Sodium (137-145) mmol/L Potassium (3.5-5.1) mmol/L Chloride (98-107) mmol/L Carbon Dioxide (22-30) mmol/L Anion Gap mmol/L BUN (9-20) mg/dL Creatinine (0.66-1.25) mg/dL Est GFR (CKD-EPI)AfAm (>60 ml/min/1.73 sqM) Est GFR (CKD-EPI)NonAf (>60 ml/min/1.73 sqM) Glucose (74-99) mg/dL POC Glucose (mg/dL) 275 H (75-99) mg/dL POC Glu Sewing Pattern Layout Technician ID Malorie Young Calcium (8.4-10.2) mg/dL Total Bilirubin (0.2-1.3) mg/dL AST (17-59) U/L ALT (4-49) U/L Alkaline Phosphatase (38-126) U/L Total Protein (6.3-8.2) g/dL Albumin (3.5-5.0) g/dL Urine Color Light Red Urine Appearance Cloudy (Clear) Urine pH 5.5 (5.0-8.0) Ur Specific [place] 1.018 (1.001-1.035) Urine Protein 1+ H (Negative) Urine Glucose (UA) 4+ H (Negative) Urine Ketones Negative (Negative) Urine Blood Large H (Negative) Urine Nitrite Negative (Negative) Urine Bilirubin Negative (Negative) Urine Urobilinogen <2.0 (<2.0) mg/dL Ur Leukocyte Esterase Small H (Negative) Urine RBC >182 H (0-5) /hpf Urine WBC 35 H (0-5) /hpf Disposition Clinical Impression: Hematuria Disposition: HOME SELF-CARE Condition: Stable Instructions (If sedation given, give patient instructions): Hematuria (ED) Additional Instructions: Follow up with with primary care provider tomorrow, return to ER if condition worsens in any way. Is patient prescribed a controlled substance at d/c from ED?: No Referrals: [facility],Clinic [Primary Care Provider] - 1-2 days Omer Cloud MD [STAFF PHYSICIAN] - 1-2 days
[2019-05-05 22:29] VITALS: BP 142/70; PULSE 72
== END 2019-05-05 22:29 | disposition home or self-care (01) ==
LOC: EC 18:57
DX: R31.9 Hematuria, unspecified (principal); E11.65 Type 2 diabetes mellitus with hyperglycemia; E78.5 Hyperlipidemia, unspecified; I10 Essential (primary) hypertension; M19.90 Unspecified osteoarthritis, unspecified site; E05.91 Thyrotoxicosis, unspecified with thyrotoxic crisis or storm; N40.0 Benign prostatic hyperplasia without lower urinary tract symptoms; F32.9 Major depressive disorder, single episode, unspecified; G47.30 Sleep apnea, unspecified; Z79.890 Hormone replacement therapy; Z79.4 Long term (current) use of insulin; Z79.899 Other long term (current) drug therapy; Z99.89 Dependence on other enabling machines and devices; Z88.2 Allergy status to sulfonamides; Z95.5 Presence of coronary angioplasty implant and graft; Z90.49 Acquired absence of other specified parts of digestive tract; Z86.14 Personal history of Methicillin resistant Staphylococcus aureus infection
CPT/HCPCS: 36415; 76770; 80053; 81001; 85025; 85610; 85730; 87086; 99284

== ENCOUNTER → 2019-09-18 | Outpatient (CLI) | payer OTHER ==
--- NOTE | 2019-09-18 15:13 | CT ---
EXAMINATION TYPE: CT abdomen wo/w con DATE OF EXAM: 09/18/2019 COMPARISON: None. HISTORY: Chronic pancreatitis per order. Recurrent episodes of pancreatitis and pain for 2 to [address] DLP: 4356.1 mGycm, Automated Exposure Control for Dose Reduction was Utilized. CONTRAST: CT scan of the abdomen is performed with oral water and without and with IV Contrast, patient injecte d with 100 mL of Isovue 300. Pancreatic protocol. FINDINGS: LUNG BASES: Mild cardiomegaly is present. LIVER/GB: Cholecystectomy clips are noted. Heterogeneous liver without discrete solid or cystic mass. PANCREAS: Pancreas is overall normal in size without calcification. Postcontrast images show slightly heterogeneous enhancement without concerning solid or cystic mass. No ductal dilatation or surroundi ng inflammatory changes noted. SPLEEN: No significant abnormality is seen. ADRENALS: No significant abnormality is seen. KIDNEYS: Noncontrast images show no renal calculi bilaterally. Postcontrast images show no concerning solid or cystic renal mass or hydronephrosis seen bilaterally. BOWEL: Suboptimal distention of bowel loops without suspicious dilatation. LYMPH NODES: No greater than 1cm abdominal lymph nodes are appreciated. OSSEOUS STRUCTURES: Facet arthropathy lower lumbar spine. [id number] disc space narrowing lum bosacral junction. OTHER: No significant additional abnormality is seen. IMPRESSION: No CT evidence for complication related to acute or chronic pancreatitis.
== END | disposition home or self-care (01) ==
LOC: RADCTMAIN 13:15
PROVIDERS: ATTEND Internal Medicine
DX: Z01.89 Encounter for other specified special examinations (principal); K86.1 Other chronic pancreatitis
CPT/HCPCS: 82565; 84520; 74170; 36415; Q9967

== ENCOUNTER 2019-11-13 06:58 | Day surgery (SDC) | payer OTHER ==
[2019-11-08 08:30] VITALS: BMI 42.5
[~2019-11-13 06:58] MED LIST changes: -HYDROmorphone 0.5 MG/0.5 ML SYRINGE IVP PRN; +LIDOCAINE 1% (10MG/ML) FOR IV START INTRADERMA PRN; -MIDAZOLAM 2 MG/2 ML VIAL IV PRN; -SODIUM CHLORIDE 0.9% 1,000 ML IV SCH
[2019-11-13 07:24] VITALS: RESP 16; TEMP 99
[2019-11-13 07:35] LABS: Glucose,Whole Blood 287 mg/dL (75-99)
[2019-11-13] MEDS ORDERED: INSULIN ASPART (NovoLOG) 100 UNIT/ML VIAL SQ ONE (07:54)
[2019-11-13] MEDS ORDERED: MIDAZOLAM 2 MG/2 ML VIAL ONE (08:14)
[2019-11-13] MEDS ORDERED: PROPOFOL 10 MG/ML 20 ML VIAL IV ONE (08:14)
[2019-11-13] MEDS ORDERED: LACTATED RINGERS 1,000 ML IV ONE (08:55)
--- NOTE | 2019-11-13 09:03 | P.PCN ---
Date of Procedure: 11/13/19 Description of Procedure: BRIEF HISTORY: Patient is a 64-year-old male presenting for outpatient colonoscopy for evaluation of history of colon polyps. Denies any change in bowel habits blood per rectum but does have chronic abdominal pain secondary to chronic pancreatitis. PROCEDURE PERFORMED: Colonoscopy. PREOPERATIVE DIAGNOSIS: History of colon polyps. ESTIMATED BLOOD LOSS: Minimal. IV sedation per Anesthesia. PROCEDURE: After informed consent was obtained, the patient, was brought into the endoscopy unit. IV sedation was administered by Anesthesia under continuous monitoring. Digital rectal examination was normal. Initially the Olympus CF-190 flexible video colonoscope was then inserted in the rectum, gradually advanced into the cecum without any difficulty. Careful examination was performed as the scope was gradually being withdrawn. Ileocecal valve and the appendiceal orifice were visualized and appeared normal. Prep was fair with large amount of liquid stool throughout the entire examined colon. Mucosa of the cecum, ascending colon, transverse colon, descending colon, sigmoid colon, and rectum which was exam one did appear normal, however fair prep prohibited complete visualization of mucosa. Retroflexion was performed in the rectum and no lesions were seen, low- grade internal hemorrhoids. The patient tolerated the procedure well. IMPRESSION: Fair prep. Low-grade internal hemorrhoids. Otherwise, normal-appearing colon from rectum to cecum. RECOMMENDATIONS: Findings of this examination were discussed with the patient. Okay to resume diet. Okay to resume medications. Would recommend repeat colonoscopy in 3 years for fair prep and history of colon polyps.
[2019-11-13 09:15] VITALS: BP 128/65; PULSE 66
[2019-11-13 09:26] LABS: Glucose,Whole Blood 184 mg/dL (75-99)
== END 2019-11-13 09:50 | disposition home or self-care (01) ==
LOC: ORWHC2ENDO 06:58
PROVIDERS: ATTEND Internal Medicine
DX: K64.8 Other hemorrhoids (principal); I85.00 Esophageal varices without bleeding; K86.1 Other chronic pancreatitis; Z86.010 Personal history of colon polyps; G89.29 Other chronic pain; I10 Essential (primary) hypertension; E78.5 Hyperlipidemia, unspecified; F03.90 Unspecified dementia, unspecified severity, without behavioral disturbance, psychotic disturbance, mood disturbance, and anxiety; F32.9 Major depressive disorder, single episode, unspecified; G47.33 Obstructive sleep apnea (adult) (pediatric); M19.90 Unspecified osteoarthritis, unspecified site; E66.01 Morbid (severe) obesity due to excess calories; E11.9 Type 2 diabetes mellitus without complications; E07.9 Disorder of thyroid, unspecified; Z91.09 Other allergy status, other than to drugs and biological substances; Z88.2 Allergy status to sulfonamides; Z79.01 Long term (current) use of anticoagulants; Z79.890 Hormone replacement therapy; Z79.52 Long term (current) use of systemic steroids; Z79.4 Long term (current) use of insulin; Z90.49 Acquired absence of other specified parts of digestive tract; Z98.890 Other specified postprocedural states; Z99.89 Dependence on other enabling machines and devices; Z68.42 Body mass index [BMI] 45.0-49.9, adult
CPT/HCPCS: 45378; J2250; J2704

== ENCOUNTER 2020-01-05 19:02 | Emergency (ER) | payer OTHER ==
[2020-01-05 19:09] VITALS: PULSE 68; RESP 18
--- NOTE | 2020-01-05 19:54 | CT ---
EXAMINATION TYPE: CT brain nickolas [email or web address] con DATE OF EXAM: 01/05/2020 COMPARISON: None HISTORY: Fall. Headache. Neck pain. CT DLP: mGycm Automated exposure control for dose reduction was used. There is mild cerebral cortical atrophy. There is no mass effect nor midline shift. There is no sign of intracranial hemorrhage. The calvarium is intact. There is no evidence of cerebral edema. Skull ba se is intact. There is incomplete pneumatization of the left side mastoid air cells. Occipital bone i s intact. Cervical vertebra have normal alignment. There is mild narrowing of disc spaces at C4-5 C5-6 with spu rring of the endplates mainly at C4-5. There is mild multilevel cervical hypertrophic facet arthropat hy. Prevertebral soft tissues are intact. There is no evidence of cervical spine fracture. IMPRESSION: Spondylotic mild changes in the lower cervical spine. No fracture seen. Mild cerebral atrophy. No acute intracranial abnormality.
[2020-01-05 20:21] VITALS: BP 161/70; TEMP 98.1
--- NOTE | 2020-01-05 20:39 | ED ---
General Adult HPI - General Chief complaint: Dizziness Stated complaint: fall, facial injury Time Seen by Provider: 01/05/20 19:16 Source: patient, RN notes reviewed, old records reviewed Mode of arrival: ambulatory Limitations: no limitations - History of Present Illness Initial comments: 64-year-old male patient presents ED for evaluation of mild head trauma that occurred yesterday. Patient reports that he is somewhat unsteady on his feet at baseline yesterday when he was walking he stumbled still for his face on the wall. Patient then fell down. Denies any loss of consciousness. Reports that since then he has had a mild headache throughout the day. Patient is on eliquis and presents ED to make sure that he has not had any bleeding in the brain. Denies any pain in any other areas or any other acute complaints. Systemic: Pt denies fatigue, fever/chills, rash. Pt denies weakness, night sweats, weight loss. Neuro: Pt denies headache, visual disturbances, syncope or pre-syncope. HEENT: Pt denies ocular discharge or irritation, otalgia, rhinorrhea, pharyngitis or notable lymphadenopathy. Cardiopulmonary: Pt denies chest pain, SOB, heart palpitations, dyspnea on exertion. Abdominal/GI: Pt denies abdominal pain, n/v/d. : Pt denies dysuria, burning w/ urination, frequency/urgency. Denies new onset urinary or bowel incontinence. MSK: Pt denies myalgia, loss of strength or function in extremities. Neuro: Pt denies new onset weakness, paresthesias. - Related Data Home Medications Medication Instructions Recorded Confirmed INSULIN ASPART (NovoLOG) [NovoLOG 100 unit SQ AC-TID PRN 10/07/18 11/09/19 (formulary)] Insulin Glargine [Lantus] 100 unit SQ BID 10/07/18 11/09/19 Lansoprazole 30 mg PO DAILY 10/07/18 11/09/19 Levothyroxine Sodium [Synthroid] 100 mcg PO DAILY 10/07/18 11/09/19 Lipase/Protease/Amylase [Asha Garvin 24,000 units PO AC-TID 10/07/18 11/09/19 24,000 Units Capsule] Nystatin 100,000Unit/gm Cream 1 applic TOPICAL DAILY PRN 07/05/19 08/06/20 [Mycostatin Cream] Sertraline HCl [Zoloft] 100 mg PO DAILY 10/07/18 11/09/19 Tamsulosin HCl [Flomax] 0.4 mg PO HS 10/07/18 11/09/19 Trospium Chloride 20 mg PO DAILY 10/07/18 11/09/19 metFORMIN HCL 1,000 mg PO BID 10/07/18 11/09/19 lisinopriL [Zestril] 5 mg PO BID 11/02/18 11/09/19 Donepezil [Aricept] 5 mg PO HS 11/08/19 11/09/19 Empagliflozin [Jardiance] 25 mg PO DAILY 11/08/19 11/09/19 Gabapentin [Neurontin] 300 mg PO BID 11/08/19 11/09/19 Memantine [Namenda] 10 mg PO DAILY 11/08/19 11/09/19 Metoprolol Tartrate [Lopressor] 50 mg PO BID 11/08/19 11/09/19 predniSONE 10 mg PO BID 11/08/19 11/09/19 Previous Rx's Medication Instructions Recorded Apixaban [Eliquis] 5 mg PO BID #60 tab 11/12/18 Atorvastatin [Lipitor] 80 mg PO HS #30 tab 11/12/18 Furosemide [Lasix] 40 mg PO DAILY #30 tab 11/12/18 Allergies Allergy/AdvReac Type Severity Reaction Status Date / Time Sulfa (Sulfonamide Allergy Swelling Verified 01/05/20 19:06 Antibiotics) TB SKIN TEST AdvReac Swelling Uncoded 11/13/19 07:24 Review of Systems ROS Statement: Those systems with pertinent positive or pertinent negative responses have been documented in the HPI. ROS Other: All systems not noted in ROS Statement are negative. 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 SEE DR JURADO'S HISTORY AND PHYSICAL FOR CARDIAC HISTORY, C PAP MACHINE , History of Any Multi-Drug Resistant Organisms: MRSA Date of last positivie culture/infection: 08/03/17 MDRO Source:: belly button Past Surgical History: Appendectomy, Cholecystectomy, Heart Catheterization, Hernia Repair, Orthopedic Surgery Additional Past Surgical History / Comment(s): Hernia repair. SURGERY ON PANCREAS- BILE DUCT, RIGHT AND LEFT KNEE ARTHROSCOPIC SURGERY, COLONOSCOPY/EGD Past Anesthesia/Blood Transfusion Reactions: No Reported Reaction Past Psychological History: Depression Smoking Status: Never smoker Past Alcohol Use History: None Reported Past Drug Use History: None Reported - Past Family History Father Family Medical History: CVA/TIA, Hypertension, Myocardial Infarction ([place]) Additional Family Medical History / Comment(s): black lung Mother Family Medical History: Cancer Additional Family Medical History / Comment(s): LUNG CANCER Brother(s) Additional Family Medical History / Comment(s): brother at 52, ALS General Exam - General Exam Comments Initial Comments: Constitutional: NAD, AOX3, Pt has pleasant affect. HEENT: NC/AT, trachea midline, neck supple, no lymphadenopathy. External ears appear normal, without discharge. Mucous membranes moist. Eyes PERRLA, EOM intact. There is no scleral icterus. No pallor noted. Cardiopulmonary: RRR, no murmurs, rubs or gallops, no JVD noted. Lungs CTAB in anterior and posterior madsen. No peripheral edema. Abdominal exam: Abdomen soft and non-distended. Abdomen non-tender to palpation in all 4 quadrants. Bowel sounds active in LLQ. No hepatosplenomegaly. No ecchymosis Neuro: CN II-XII intact. No nuchal rigidity. No raccon eyes, no welch sign, no hemotympanum. No cervical spinal tenderness. MSK: No posterior calf tenderness bilaterally, homans sign negative bilaterally. Posterior tibialis and radial pulse +2 bilaterally. Sensation intact in upper and lower extremities. Full active ROM in upper and lower extremities, 5/5 stregnth. Limitations: no limitations Course Vital Signs 01/05/20 01/05/20 19:06 20:19 Temperature 98 F 98.1 F Pulse Rate 68 68 Respiratory 18 18 Rate Blood Pressure 160/65 161/70 O2 Sat by Pulse 98 96 Oximetry Medical Decision Making - Medical Decision Making 64-year-old male patient presents to ED for evaluation. Pt had a fall yesterday as he is on blood thinners. Patient vital signs are stable, afebrile. Physical exam did not display acute pathology. CT brain C-spine negative for acute process. Patient discharged to follow up with primary care provider and return to ER for any worsening symptoms. Case discussed with Dr. Guzman. Disposition Clinical Impression: Fall Disposition: HOME SELF-CARE Condition: Stable Instructions (If sedation given, give patient instructions): Fall Prevention (ED) Additional Instructions: Follow up with primary care provider tomorrow. Return to ER if any worsening symptoms. Is patient prescribed a controlled substance at d/c from ED?: No Referrals: [facility],Clinic [Primary Care Provider] - 1-2 days
== END 2020-01-05 20:45 | disposition home or self-care (01) ==
LOC: EC 19:02
DX: R51.9 Headache, unspecified (principal); I10 Essential (primary) hypertension; E11.9 Type 2 diabetes mellitus without complications; E07.9 Disorder of thyroid, unspecified; N40.0 Benign prostatic hyperplasia without lower urinary tract symptoms; G47.30 Sleep apnea, unspecified; H91.90 Unspecified hearing loss, unspecified ear; F03.90 Unspecified dementia, unspecified severity, without behavioral disturbance, psychotic disturbance, mood disturbance, and anxiety; F32.9 Major depressive disorder, single episode, unspecified; Z79.899 Other long term (current) drug therapy; Z79.4 Long term (current) use of insulin; Z79.84 Long term (current) use of oral hypoglycemic drugs; Z79.890 Hormone replacement therapy; Z79.51 Long term (current) use of inhaled steroids; Z99.89 Dependence on other enabling machines and devices; Z88.2 Allergy status to sulfonamides; Z91.09 Other allergy status, other than to drugs and biological substances; W01.198A Fall on same level from slipping, tripping and stumbling with subsequent striking against other object, initial encounter; Y93.01 Activity, walking, marching and hiking
CPT/HCPCS: 70450; 72125; 99284

== ENCOUNTER 2022-04-10 07:59 | Day surgery (SDC) | payer MEDICARE, OTHER ==
--- NOTE | 2022-04-09 08:51 | P.HPOR ---
History of Present Illness H&P Date: 04/09/22 Chief Complaint: Left hand pain and numbness The patient is a 65-year-old [id number] male who presents with progressive left hand pain and numbness for the past several months worsening recently. He notes pain with gripping and grasping. He is having night symptom s. He's been wearing braces and taking medications with only minimal relief. He notes diffuse numbness in his left digits. 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 SEE DR JURADO'S HISTORY AND PHYSICAL FOR CARDIAC HISTORY, C PAP MACHINE , high frequency hearing loss . recently seen by Dr Thomas for testing. History of Any Multi-Drug Resistant Organisms: MRSA Date of last positivie culture/infection: 08/03/17 MDRO Source:: belly button Past Surgical History: Ablation, Appendectomy, Cholecystectomy, Heart Catheterization, Hernia Repair, Orthopedic Surgery Additional Past Surgical History / Comment(s): Hernia repair. SURGERY ON PANCREAS- BILE DUCT, RIGHT AND LEFT KNEE ARTHROSCOPIC SURGERY, COLONOSCOPY/EGD Past Anesthesia/Blood Transfusion Reactions: No Reported Reaction Additional Past Anesthesia/Blood Transfusion Reaction / Comment(s): when pt had ablation ended ended up on Ventilator. Smoking Status: Never smoker - Past Family History Father Family Medical History: CVA/TIA, Deep Vein Thrombosis (DVT), Hypertension, Myocardial Infarction ([place]) Additional Family Medical History / Comment(s): black lung Mother Family Medical History: Cancer Additional Family Medical History / Comment(s): LUNG CANCER Brother(s) Additional Family Medical History / Comment(s): brother at 52, ALS. 2 brothers had aneursym Medications and Allergies Home Medications Medication Instructions Recorded Confirmed Type INSULIN ASPART (NovoLOG) [NovoLOG 100 unit SQ AC-TID PRN 10/07/18 04/07/22 History (formulary)] Insulin Glargine [Lantus Vial] 100 unit SQ BID 10/07/18 04/07/22 History Levothyroxine Sodium [Synthroid] 125 mcg PO DAILY 10/07/18 04/07/22 History Lipase/Protease/Amylase [Asha Garvin 24,000 units PO AC-TID 10/07/18 04/07/22 History 24,000 Unit Capsule] Nystatin 100,000Unit/gm Cream 1 applic TOPICAL DAILY PRN 10/07/18 04/07/22 History [Mycostatin Cream] Sertraline HCl [Zoloft] 100 mg PO DAILY 10/07/18 04/07/22 History Tamsulosin HCl [Flomax] 0.4 mg PO HS 10/07/18 04/07/22 History Trospium Chloride 20 mg PO BID 10/07/18 04/07/22 History metFORMIN HCL [Glucophage] 1,000 mg PO BID 10/07/18 04/07/22 History lisinopriL [Zestril] 5 mg PO BID 11/02/18 04/07/22 History Apixaban [Eliquis] 5 mg PO BID #60 tab 11/12/18 04/07/22 Rx Atorvastatin [Lipitor] 80 mg PO HS #30 tab 11/12/18 04/07/22 Rx Donepezil [Aricept] 5 mg PO HS 11/08/19 04/07/22 History Empagliflozin [Jardiance] 25 mg PO DAILY 11/08/19 04/07/22 History Gabapentin [Neurontin] 300 mg PO DAILY 11/08/19 04/07/22 History Memantine [Namenda] 10 mg PO BID 11/08/19 04/07/22 History Metoprolol Tartrate [Lopressor] 50 mg PO BID 11/08/19 04/07/22 History Dicyclomine [Bentyl] 20 mg PO Q6H PRN 04/07/22 04/07/22 History Furosemide [Lasix] 40 mg PO BID 04/07/22 04/07/22 History Gabapentin 900 mg PO HS 04/07/22 04/07/22 History Pantoprazole [Protonix] 40 mg PO BID 04/07/22 04/07/22 History Semaglutide [Ozempic] 1 mg SQ TU 04/07/22 04/07/22 History oxyCODONE-APAP 7.5-325MG [Percocet 1 tab PO Q8H PRN 04/07/22 04/07/22 History 7.5-325 mg] Allergies Allergy/AdvReac Type Severity Reaction Status Date / Time Sulfa (Sulfonamide Allergy Swelling Verified 04/07/22 12:46 Antibiotics) TB SKIN TEST AdvReac Swelling Uncoded 04/07/22 12:46 Physical Examination - Wrist & Hand left Location of pain: palmar wrist Symptoms: tingling in thumb, index, long fingers Appearance: other (Mild left thenar wasting) Strength: lead engineer: 4/5 Tests: Tinel's sign median nerve: positive, carpal tunnel tests: positive (On the left) Results The patient is a well-developed well-nourished male proximal a 6 foot 3, 350 pounds of endomorphic habitus. HEENT exam is nonfocal, neck is supple. He is nontender about the left shoulder and elbow. On examination of his left wrist has a positive Tinel's over the carpal canal. Abductor pollicis brevis strength 5 -/5. Light touch is diminished in the left thumb, index, middle, and ring fingers. Previous EMG report left upper extremity shows evidence of severe carpal tunnel syndrome by report. Assessment and Plan Assessment: Left carpal tunnel syndromesymptomatic Atrial fibrillation on anticoagulation Plan: I talked to the patient regarding his condition along with treatment options. At this point is quite symptomatic despite previous conservative measures. After thorough discussion he opted to proceed with surgery. We'll pursue left carpal tunnel release utilizing local anesthetic and IV sedation. We will perform this in outpatient procedure. Risks and benefits were discussed at length in layman's terms.
[~2022-04-10 07:59] MED LIST changes: -LACTATED RINGERS 1,000 ML IV SCH; -LIDOCAINE 1% (10MG/ML) FOR IV START INTRADERMA PRN; +ceFAZolin 3 GM in SODIUM CHLORIDE 0.9% 100 ML IVPB PRN
[2022-04-10] MEDS ORDERED: ONDANSETRON 4 MG/2 ML VIAL IVP ONE (08:15)
[2022-04-10] MEDS ORDERED: MIDAZOLAM 2 MG/2 ML VIAL IV PRN (08:15)
[2022-04-10] MEDS ORDERED: LACTATED RINGERS 1,000 ML IV SCH (08:15)
[2022-04-10] MEDS ORDERED: DEXAMETHASONE SOD PHOSPHATE 4 MG/ML 1 ML VIAL IV ONE (08:15)
[2022-04-10] MEDS ORDERED: LIDOCAINE 1% (10MG/ML) FOR IV START INTRADERMA PRN (08:15)
[2022-04-10] MEDS ORDERED: HYDROmorphone 0.5 MG/0.5 ML SYRINGE IVP PRN (08:15)
[2022-04-10 08:35] VITALS: RESP 18; TEMP 98.2
[2022-04-10 08:44] LABS: Glucose,Whole Blood 155 mg/dL (70-110)
[2022-04-10] MEDS ORDERED: PROPOFOL 10 MG/ML 20 ML VIAL IV ONE (10:41)
[2022-04-10] MEDS ORDERED: KETOROLAC 15 MG/ML 1 ML VIAL ONE (10:41)
[2022-04-10] MEDS ORDERED: LIDOCAINE 2% INJ 20 MG/ML (2 ML VIAL) ONE (10:41)
[2022-04-10] MEDS ORDERED: MIDAZOLAM 2 MG/2 ML VIAL ONE (10:41)
[2022-04-10] MEDS ORDERED: BUPIVACAINE (PF) 0.25% 30 ML VIAL SQ ONE (10:46)
[2022-04-10] MEDS ORDERED: LACTATED RINGERS 1,000 ML IV ONE (11:14)
--- NOTE | 2022-04-10 11:15 | P.OP ---
Date of Procedure: 04/10/22 Preoperative Diagnosis: Left carpal tunnel syndrome Postoperative Diagnosis: Same Procedure(s) Performed: Left carpal tunnel release Anesthesia: MAC, local Surgeon: Mack Blanco Estimated Blood Loss (ml): 2 Pathology: none sent Condition: stable Disposition: PACU Indications for Procedure: Patient 66-year-old male presents with progressive left hand pain and numbness secondary to carpal tunnel syndrome despite conservative measures. A discussion of the risks and benefits of operative intervention versus continued conservative measures was made with patient. He opted to proceed with surgery. Operative risks to include infection, neurovascular injury, development of blood clots, possible incomplete resolution of symptoms, possible recurrence of symptoms, possible development of reflex sympathetic dystrophy were discussed. Informed consent was obtained. Operative Findings: as below Description of Procedure: The patient was brought to the operating room, and after induction of IV sedation the left upper extremity was prepped and draped in normal fashion. The proposed incision site was outlined skin marker in line with the radial aspect the fourth ray extending from the volar wrist crease distally 2-1/2 cm. One quarter percent plain Marcaine was injected into the proposed incision site. 9 mL was utilized. The tourniquet was inflated to 250 mmHg. The skin incision was then made. The skin was incised sharply. Subcutaneous tissues were divided sharply the superficial palmar fascia was identified and split in line with the skin incision. The transverse carpal ligament was identified and transected under direct visualization distally to level the palmar fat pad. Proximal was taken level of the volar wrist crease. A plane above and below the transverse carpal ligament was then bluntly developed with tenotomies. The confluence of the distal forearm fascia and the transverse carpal ligament was then transected under direct visualization proximally with the tines pointed in the ulnar d irection. I felt this was adequate proximal release. Neural lysis was not performed. The wound was irrigated with normal saline. Electrocautery was used for hemostasis. The skin was reapproximated with simple 3-0 nylon sutures. A sterile dressing was applied. The tourniquet was deflated with less than 15 minutes total tourniquet time. Patient was awoken from sedation and transferred to the recovery room in good condition. Blood loss was estimated 1 mL. No complications were incurred. Sponge and needle counts were correct at the end the case.
[2022-04-10 11:37] VITALS: BP 124/74; PULSE 65
== END 2022-04-10 11:48 | disposition home or self-care (01) ==
LOC: OR 07:59
PROVIDERS: ATTEND Orthopaedic Surgery
DX: G56.02 Carpal tunnel syndrome, left upper limb (principal); I48.91 Unspecified atrial fibrillation; I48.92 Unspecified atrial flutter; E11.9 Type 2 diabetes mellitus without complications; H91.90 Unspecified hearing loss, unspecified ear; E78.5 Hyperlipidemia, unspecified; R41.3 Other amnesia; G47.30 Sleep apnea, unspecified; E07.9 Disorder of thyroid, unspecified; Z90.89 Acquired absence of other organs; Z90.49 Acquired absence of other specified parts of digestive tract; Z95.5 Presence of coronary angioplasty implant and graft; Z98.890 Other specified postprocedural states; Z82.49 Family history of ischemic heart disease and other diseases of the circulatory system; Z80.1 Family history of malignant neoplasm of trachea, bronchus and lung; Z79.4 Long term (current) use of insulin; Z79.890 Hormone replacement therapy; Z79.899 Other long term (current) drug therapy; Z88.2 Allergy status to sulfonamides
CPT/HCPCS: 64721; J2250; J1100; J0690; J2405; J1885; J2704; J2001

== ENCOUNTER 2022-11-12 17:07 | Emergency (ER) | payer OTHER ==
[2022-11-12 17:18] VITALS: RESP 18
[2022-11-12 17:22] LABS: Glucose,Whole Blood 134 mg/dL (70-110)
--- NOTE | 2022-11-12 17:52 | ED ---
Syncope HPI - General Chief Complaint: Fall Stated Complaint: fall on thinners Time Seen by Provider: 11/12/22 17:35 Source: patient, RN notes reviewed, old records reviewed, Caregiver Mode of arrival: wheelchair Limitations: no limitations - History of Present Illness Initial Comments: This is a 67-year-old male to the emergency department today. Presents after a fall. Patient had a fall going to the bathroom today was unable to get up. Patient presents here by EMS for evaluation of persistent weakness for genetic injury from fall, patient is on blood thinners oh denies loss of consciousness complaining of headache neck pain right hip pain right knee pain. Patient does believe he may have passed out prior to fall or after the fall. No current chest pain or shortness of breath MD Complaint: loss of consciousness -: hour(s) Prodromal Symptoms: lightheaded -: second(s) Witnessed: yes - by bystander Injuries Sustained Associated with Event: None Current Symptoms: back to baseline History: previous syncopal episode Context: during exertion Treatments Prior to Arrival: none - Related Data Home Medications Medication Instructions Recorded Confirmed INSULIN ASPART (NovoLOG) [NovoLOG 100 unit SQ TID-W/MEALS PRN 10/07/18 05/21/22 (formulary)] Insulin Glargine [Lantus Vial] 100 unit SQ BID 10/07/18 05/21/22 Lipase/Protease/Amylase [Asha Garvin 96,000 units PO 5XD PRN 10/07/18 05/21/22 24,000 Unit Capsule] Sertraline HCl [Zoloft] 100 mg PO DAILY 10/07/18 05/21/22 Tamsulosin HCl [Flomax] 0.4 mg PO HS 10/07/18 05/21/22 Trospium Chloride 20 mg PO BID 10/07/18 05/21/22 metFORMIN HCL [Glucophage] 1,000 mg PO BID 10/07/18 05/21/22 lisinopriL [Zestril] 5 mg PO BID 11/02/18 05/21/22 Donepezil [Aricept] 5 mg PO HS 11/08/19 05/21/22 Empagliflozin [Jardiance] 25 mg PO DAILY 11/08/19 05/21/22 Gabapentin [Neurontin] 300 mg PO DAILY 11/08/19 05/21/22 Memantine [Namenda] 10 mg PO BID 11/08/19 05/21/22 Dicyclomine [Bentyl] 20 mg PO Q6H PRN 04/07/22 05/21/22 Furosemide [Lasix] 40 mg PO BID 04/07/22 05/21/22 Gabapentin 900 mg PO HS 04/07/22 05/21/22 Pantoprazole [Protonix] 40 mg PO BID 04/07/22 05/21/22 Semaglutide [Ozempic] 1 mg SQ TU 04/07/22 05/21/22 oxyCODONE-APAP 7.5-325MG [Percocet 1 tab PO Q8H PRN 04/07/22 05/21/22 7.5-325 mg] Carboxymethylcellulose Sodium 1 drop BOTH EYES QID PRN 05/21/22 05/21/22 [Refresh Tears] Clotrimazole [Lotrimin AF] 1 applic TOPICAL DAILY PRN 05/21/22 05/21/22 Dextran/Hypromellose/Glycerin 1 drop BOTH EYES QID 05/21/22 05/21/22 [Genteal Tears 0.1%-0.2%-0.3%] Levothyroxine Sodium [Synthroid] 125 mcg PO DAILY 05/21/22 05/21/22 Metoprolol Tartrate [Lopressor] 50 mg PO BID 05/21/22 05/22/22 Previous Rx's Medication Instructions Recorded Apixaban [Eliquis] 5 mg PO BID #60 tab 11/12/18 Atorvastatin [Lipitor] 80 mg PO HS #30 tab 11/12/18 Aspirin 81 mg PO DAILY #30 tab 05/25/22 Ondansetron [Zofran] 4 mg PO Q8HR PRN #30 tab 05/25/22 Allergies Allergy/AdvReac Type Severity Reaction Status Date / Time Sulfa (Sulfonamide Allergy Swelling Verified 11/12/22 17:18 Antibiotics) TB SKIN TEST AdvReac Swelling Uncoded 11/12/22 17:18 Review of Systems ROS Statement: Those systems with pertinent positive or pertinent negative responses have been documented in the HPI. ROS Other: All systems not noted in ROS Statement are negative. 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 SEE DR JURADO'S HISTORY AND PHYSICAL FOR CARDIAC HISTORY, C PAP MACHINE , high frequency hearing loss . recently seen by Dr Thomas for testing. History of Any Multi-Drug Resistant Organisms: MRSA Date of last positivie culture/infection: 08/03/17 MDRO Source:: belly button Past Surgical History: Ablation, Appendectomy, Cholecystectomy, Heart Catheterization, Hernia Repair, Orthopedic Surgery Additional Past Surgical History / Comment(s): Hernia repair. SURGERY ON PANCREAS- BILE DUCT, RIGHT AND LEFT KNEE ARTHROSCOPIC SURGERY, COLONOSCOPY/EGD Past Anesthesia/Blood Transfusion Reactions: No Reported Reaction Additional Past Anesthesia/Blood Transfusion Reaction / Comment(s): when pt had ablation ended ended up on Ventilator. Past Psychological History: Depression Smoking Status: Never smoker Past Alcohol Use History: None Reported Past Drug Use History: None Reported - Past Family History Father Family Medical History: CVA/TIA, Deep Vein Thrombosis (DVT), Hypertension, Myocardial Infarction (SC) Additional Family Medical History / Comment(s): black lung Mother Family Medical History: Cancer Additional Family Medical History / Comment(s): LUNG CANCER Brother(s) Additional Family Medical History / Comment(s): brother at 52, ALS. 2 brothers had aneursym General Exam Limitations: no limitations General appearance: alert, in no apparent distress Head exam: Present: atraumatic, normocephalic, normal inspection Eye exam: Present: normal appearance, PERRL, EOMI. Absent: scleral icterus, conjunctival injection, periorbital swelling ENT exam: Present: normal exam, mucous membranes moist Neck exam: Present: normal inspection. Absent: tenderness, meningismus, lymphadenopathy Respiratory exam: Present: normal lung sounds bilaterally. Absent: respiratory distress, wheezes, rales, rhonchi, stridor Cardiovascular Exam: Present: regular rate, normal rhythm, normal heart sounds. Absent: systolic murmur, diastolic murmur, rubs, gallop, clicks GI/Abdominal exam: Present: soft, normal bowel sounds. Absent: distended, tenderness, guarding, rebound, rigid Extremities exam: Present: normal inspection, full ROM, normal capillary refill. Absent: tenderness, pedal edema, joint swelling, calf tenderness Back exam: Present: normal inspection Neurological exam: Present: alert, oriented X3, CN II-XII intact Psychiatric exam: Present: normal affect, normal mood Skin exam: Present: warm, dry, intact, normal color. Absent: rash Course Vital Signs 11/12/22 11/12/22 11/12/22 17:15 18:20 18:50 Temperature 97.7 F Pulse Rate 61 67 73 Respiratory 18 18 18 Rate Blood Pressure 130/57 132/78 131/49 O2 Sat by Pulse 100 99 99 Oximetry 11/12/22 11/12/22 19:37 20:49 Temperature 98.2 F Pulse Rate 64 66 Respiratory 18 18 Rate Blood Pressure 128/61 136/62 O2 Sat by Pulse 99 99 Oximetry - Reevaluation(s) Reevaluation #1: 11/12/22 20:25 Medical records reviewed Reevaluation #2: 11/12/22 20:26 Patient symptoms are improved, able to ambulate Reevaluation #3: 11/12/22 20:26 Patient informed results and questions answered Reevaluation #4: 11/12/22 20:26 Was pt. sent in by a medical professional or institution (JENNIFER Taylor, PARCEL POST CLERK, urgent care, hospital, or long term...) When possible be specific @ -no Did you speak to anyone other than the patient for history (EMS, parent, family, police, friend...)? What history was obtained from this source @ -no Did you review nursing and triage notes (agree or disagree)? Why? @ -agree Are old charts reviewed (outside hosp., previous admission, EMS record, old EKG, old radiological studies, urgent care reports/EKG's, long term records)? Report findings @ -yes Differential Diagnosis (chest pain, altered mental status, abdominal pain women, abdominal pain men, vaginal bleeding, weakness, fever, dyspnea, syncope, headache, dizziness, GI bleed, back pain, seizure, CVA, palpatations, mental health, musculoskeletal)? @ -prior EKG interpreted by me (3pts min.). @ -yes X-rays interpreted by me (1pt min.). @ -yes CT interpreted by me (1pt min.). @ -yes U/S interpreted by me (1pt. min.). @ -no What testing was considered but not performed or refused? (CT, X-rays, U/S, labs)? Why? @ -none What meds were considered but not given or refused? Why? @ -none Did you discuss the management of the patient with other professionals (professionals i.e. Dr., PA, PARCEL POST CLERK, lab, RT, psych nurse, social media sr strategy manager, academic counselor, teacher, pharmaceutical officer, keycase assembler)? Give summary @ -no Was smoking cessation discussed for >3mins.? @ -no Was critical care preformed (if so, how long)? @ -no Were there social determinants of health that impacted care today? How? (Homelessness, low income, unemployed, alcoholism, drug addiction, transportation, low edu. Level, literacy, decrease access to med. care, residential, rehab)? @ -none Was there de-escalation of care discussed even if they declined (Discuss DNR or withdrawal of care, Hospice)? DNR status @ -no What co-morbidities impacted this encounter? (DM, HTN, Smoking, COPD, CAD, Cancer, CVA, ARF, Chemo, Hep., AIDS, mental health diagnosis, sleep apnea, morbid obesity)? @ -none Was patient admitted / discharged? Hospital course, mention meds given and route, prescriptions, significant lab abnormalities, going to OR and other pertinent info. @ - 67 male to the emergency department today. Patient presents today for evaluation of weakness after fall. Patient has improved strength throughout ER stay feels well for traumatic injury from fall lab testing is normal patient can be discharged home Discharge Undiagnosed new problem with uncertain prognosis? @ -no Drug Therapy requiring intensive monitoring for toxicity (Heparin, Nitro, Insulin, Cardizem)? @ -no Were any procedures done? @ -no Diagnosis/symptom? @ -Weakness, falls, chronic pain Acute, or Chronic, or Acute on Chronic? @ -Acute Uncomplicated (without systemic symptoms) or Complicated (systemic symptoms)? @ -Complicated Side effects of treatment? @ -no Exacerbation, Progression, or Severe Exacerbation? @ -exacerbation Poses a threat to life or bodily function? How? (Chest pain, USA, SC, pneumonia, PE, COPD, DKA, ARF, appy, cholecystitis, CVA, Diverticulitis, Homicidal, Suicidal, threat to staff... and all critical care pts) @ -no Reevaluation #5: 11/12/22 20:26 Differential Weakness: Hypoglycemia, shock, sepsis, hyponatremia, anemia, infection, SC, ETOH, adverse medicine reaction, overdose, stroke, this is not meant to be an all-inclusive list. EKG Findings - EKG Comments: EKG Findings:: EKG is sinus 63 TN 135 QRS 109 QTC 424 - EKG Results: EKG: interpreted by DANETTE Medical Decision Making - Medical Decision Making 67 male to the emergency department today. Patient presents today for evaluation of weakness after fall. Patient has improved strength throughout ER stay feels well for traumatic injury from fall lab testing is normal patient can be discharged home patient does feel improved here with increasing strength and feels he is able to ambulate without difficulty - Lab Data Result diagrams: 11/12/22 18:02 11/12/22 18:02 Lab Results 11/12/22 11/12/22 11/12/22 Range/Units 17:20 18:02 18:02 WBC 6.1 (3.8-10.6) k/uL RBC 4.44 (4.30-5.90) m/uL Hgb 13.7 (13.0-17.5) gm/dL Hct 40.9 (39.0-53.0) % MCV 92.0 (80.0-100.0) fL MCH 30.8 (25.0-35.0) pg MCHC 33.5 (31.0-37.0) g/dL RDW 14.6 (11.5-15.5) % Plt Count 153 (150-450) k/uL MPV 7.9 Neutrophils % 71 % Lymphocytes % 18 % Monocytes % 6 % Eosinophils % 4 % Basophils % 0 % Neutrophils # 4.3 (1.3-7.7) k/uL Lymphocytes # 1.1 (1.0-4.8) k/uL Monocytes # 0.4 (0-1.0) k/uL Eosinophils # 0.2 (0-0.7) k/uL Basophils # 0.0 (0-0.2) k/uL PT 10.3 (9.0-12.0) sec INR 1.0 (<1.2) APTT 23.6 (22.0-30.0) sec Sodium (137-145) mmol/L Potassium (3.5-5.1) mmol/L Chloride (98-107) mmol/L Carbon Dioxide (22-30) mmol/L Anion Gap mmol/L BUN (9-20) mg/dL Creatinine (0.66-1.25) mg/dL Est GFR (CKD-EPI)AfAm (>60 ml/min/1.73 sqM) Est GFR (CKD-EPI)NonAf (>60 ml/min/1.73 sqM) Glucose (74-99) mg/dL POC Glucose (mg/dL) 134 H (70-110) mg/dL POC Glu Human Resources Operations Manager ID Marily Lam Calcium (8.4-10.2) mg/dL Phosphorus (2.5-4.5) mg/dL Magnesium (1.6-2.3) mg/dL Total Bilirubin (0.2-1.3) mg/dL AST (17-59) U/L ALT (4-49) U/L Alkaline Phosphatase (38-126) U/L Troponin I (0.000-0.034) ng/mL NT-Pro-B Natriuret Pep pg/mL Total Protein (6.3-8.2) g/dL Albumin (3.5-5.0) g/dL Lipase (23-300) U/L Urine Color Urine Appearance (Clear) Urine pH (5.0-8.0) Ur Specific Morrison (1.001-1.035) Urine Protein (Negative) Urine Glucose (UA) (Negative) Urine Ketones (Negative) Urine Blood (Negative) Urine Nitrite (Negative) Urine Bilirubin (Negative) Urine Urobilinogen (<2.0) mg/dL Ur Leukocyte Esterase (Negative) 11/12/22 11/12/22 11/12/22 Range/Units 18:02 18:02 18:02 WBC (3.8-10.6) k/uL RBC (4.30-5.90) m/uL Hgb (13.0-17.5) gm/dL Hct (39.0-53.0) % MCV (80.0-100.0) fL MCH (25.0-35.0) pg MCHC (31.0-37.0) g/dL RDW (11.5-15.5) % Plt Count (150-450) k/uL MPV Neutrophils % % Lymphocytes % % Monocytes % % Eosinophils % % Basophils % % Neutrophils # (1.3-7.7) k/uL Lymphocytes # (1.0-4.8) k/uL Monocytes # (0-1.0) k/uL Eosinophils # (0-0.7) k/uL Basophils # (0-0.2) k/uL PT (9.0-12.0) sec INR (<1.2) APTT (22.0-30.0) sec Sodium 138 (137-145) mmol/L Potassium 3.8 (3.5-5.1) mmol/L Chloride 98 (98-107) mmol/L Carbon Dioxide 24 (22-30) mmol/L Anion Gap 16 mmol/L BUN 21 H (9-20) mg/dL Creatinine 0.75 (0.66-1.25) mg/dL Est GFR (CKD-EPI)AfAm >90 (>60 ml/min/1.73 sqM) Est GFR (CKD-EPI)NonAf >90 (>60 ml/min/1.73 sqM) Glucose 117 H (74-99) mg/dL POC Glucose (mg/dL) (70-110) mg/dL POC Glu Human Resources Operations Manager ID Calcium 9.7 (8.4-10.2) mg/dL Phosphorus 3.6 (2.5-4.5) mg/dL Magnesium 1.7 (1.6-2.3) mg/dL Total Bilirubin 0.5 (0.2-1.3) mg/dL AST 32 (17-59) U/L ALT 30 (4-49) U/L Alkaline Phosphatase 89 (38-126) U/L Troponin I <0.012 (0.000-0.034) ng/mL NT-Pro-B Natriuret Pep 85 pg/mL Total Protein 7.5 (6.3-8.2) g/dL Albumin 4.0 (3.5-5.0) g/dL Lipase 167 (23-300) U/L Urine Color Light Yellow Urine Appearance Clear (Clear) Urine pH 5.0 (5.0-8.0) Ur Specific Morrison 1.018 (1.001-1.035) Urine Protein Negative (Negative) Urine Glucose (UA) 4+ H (Negative) Urine Ketones Negative (Negative) Urine Blood Negative (Negative) Urine Nitrite Negative (Negative) Urine Bilirubin Negative (Negative) Urine Urobilinogen <2.0 (<2.0) mg/dL Ur Leukocyte Esterase Negative (Negative) - EKG Data -: EKG Interpreted by Pr - Radiology Data Radiology results: report reviewed (CT brain C-spine x-ray chest as well as x- ray pelvis and x-ray right hip right knee negative for traumatic injury), image reviewed Disposition Clinical Impression: Fall, Weakness, Uncontrolled pain Disposition: HOME SELF-CARE Condition: Good Instructions (If sedation given, give patient instructions): Fall Prevention for Older Adults (ED), Weakness (ED) Is patient prescribed a controlled substance at d/c from ED?: No Referrals: [facility],Clinic [Primary Care Provider] - 1-2 days Time of Disposition: 20:20
[2022-11-12] MEDS ORDERED: MORPHINE SULFATE 4 MG/ML SYRINGE IV STA (17:54)
[2022-11-12] MEDS ORDERED: SODIUM CHLORIDE 0.9% 500 ML 500 ML IV STA (17:54)
[2022-11-12 18:20] LABS: Basophils % (A) 0 %; Eosinophils # (A) 0.2 k/uL (0-0.7); Eosinophils % (A) 4 %; HCT 40.9 % (39.0-53.0); HGB 13.7 gm/dL (13.0-17.5); Lymphocytes # (A) 1.1 k/uL (1.0-4.8); Lymphocytes % (A) 18 %; MCH 30.8 pg (25.0-35.0); MCHC 33.5 g/dL (31.0-37.0); Mean Platelet Volume 7.9; Monocytes # (A) 0.4 k/uL (0-1.0); Monocytes % (A) 6 %; Neutrophils # (A) 4.3 k/uL (1.3-7.7); Neutrophils % (A) 71 %; Platelet Count 153 k/uL (150-450); RBC 4.44 m/uL (4.30-5.90); RDW 14.6 % (11.5-15.5); WBC 6.1 k/uL (3.8-10.6)
[2022-11-12 18:29] LABS: AST 32 U/L (17-59); African American GFR (CKD) >90 (>60 ml/min/1.73 sqM); Alkaline Phosphatase 89 U/L (38-126); Blood Urea Nitrogen 21 mg/dL (9-20); Carbon Dioxide 24 mmol/L (22-30); Glucose 117 mg/dL (74-99); Non-African American GFR(CKD) >90 (>60 ml/min/1.73 sqM); Phosphorus 3.6 mg/dL (2.5-4.5); Total Bilirubin 0.5 mg/dL (0.2-1.3); Total Protein 7.5 g/dL (6.3-8.2)
[2022-11-12 18:38] LABS: NT-Pro-B-Type Natriuretic Pept 85 pg/mL
[2022-11-12 18:41] LABS: Partial Thromboplastin Time 23.6 sec (22.0-30.0); Prothrombin Time 10.3 sec (9.0-12.0)
[2022-11-12 18:46] LABS: ALT 30 U/L (4-49); Anion Gap 16 mmol/L; Calcium 9.7 mg/dL (8.4-10.2); Chloride 98 mmol/L (98-107); Lipase 167 U/L (23-300); Magnesium 1.7 mg/dL (1.6-2.3); Potassium 3.8 mmol/L (3.5-5.1); Sodium 138 mmol/L (137-145)
--- NOTE | 2022-11-12 19:19 | CT ---
EXAMINATION TYPE: CT brain cspine wo con DATE OF EXAM: 11/12/2022 COMPARISON: 05/21/2022 HISTORY: Fall on thinners. CT DLP: 2099.5 mGycm. Automated Exposure Control for Dose Reduction was Utilized. TECHNIQUE: CT scan of the head and cervical spine are performed without contrast. FINDINGS: There is no acute intracranial hemorrhage, mass effect, or midline shift identified. The v entricles and sulci are within normal limits in size. The globes are intact and the visualized sinuse s are clear. Cervical spine is visualized in its entirety from C1 through upper thoracic levels and demonstrates s atisfactory alignment without evidence of acute fracture or dislocation. Prevertebral soft tissue ap pears within normal limits. The C1-C2 articulation is unremarkable. IMPRESSION: 1. There is no acute fracture or dislocation evident in the cervical spine. 2. No acute intracranial hemorrhage, mass effect, or midline shift is seen.
--- NOTE | 2022-11-12 19:30 | XR ---
EXAMINATION TYPE: XR chest 1V DATE OF EXAM: 11/12/2022 6:42 PM COMPARISON: Chest radiographs from 05/21/2022 TECHNIQUE: XR chest 1V Frontal view of the chest. CLINICAL INDICATION:Male, 67 years old with history of fall; FINDINGS: Patient is rotated which limits evaluation. Lungs/Pleura: There is no evidence of pleural effusion, focal consolidation, or pneumothorax. Pulmonary vascularity: Unremarkable. Heart/mediastinum: Cardiomediastinal silhouette is unremarkable. Musculoskeletal: No acute osseous pathology. IMPRESSION: No acute cardiopulmonary disease/process.
--- NOTE | 2022-11-12 19:33 | XR ---
EXAMINATION TYPE: XR knee complete RT DATE OF EXAM: 11/12/2022 6:41 PM INDICATION: Patient age:Male; 67 years old; Reason for study: fall; [facility]. COMPARISON: None. TECHNIQUE: The Right knee(s) was examined in 3 projections. Frontal, lateral and oblique. FINDINGS: No acute fracture or dislocation. Tricompartmental joint space narrowing with sclerosis a nd marginal osteophytosis. No soft tissue edema or joint effusion. Patella karena. IMPRESSION: 1. No acute osseous pathology. 2. Moderate to severe tricompartmental osteoarthritic changes. 3. Patella karena.
--- NOTE | 2022-11-12 19:34 | XR ---
EXAMINATION TYPE: XR Hip RT and AP Pelvis DATE OF EXAM: 11/12/2022 6:42 PM INDICATION: Patient age:Male; 67 years old; Reason for study: fall; [facility]. COMPARISON: None. TECHNIQUE: The right hip was examined in the frontal and lateral projections and a AP pelvis. FINDINGS: No evidence of any acute osseous pathology, joint dislocation, or soft tissue swelling. Ost eoarthritic changes of both hips with medial joint space narrowing and acetabular sclerosis. Degenera tive changes of the visualized lumbar spine. Right pelvic phlebolith. Penile prosthesis. IMPRESSION: 1. No acute osseous pathology. 2. Mild osteoarthritic changes of both hips.
[2022-11-12 19:39] LABS: Appearance,Urine Clear (Clear); Bilirubin,Urine Negative (Negative); Blood,Urine Negative (Negative); Color,Urine Light Yellow; Glucose,Urine (UA) 4+ (Negative); Ketones,Urine Negative (Negative); Leukocyte Esterase,Urine Negative (Negative); Nitrite,Urine Negative (Negative); Protein,Urine Negative (Negative); Specific Gravity,Urine 1.018 (1.001-1.035); Urobilinogen,Urine <2.0 mg/dL (<2.0)
[2022-11-12 20:50] VITALS: BP 136/62; PULSE 66; TEMP 98.2
== END 2022-11-12 20:50 | disposition home or self-care (01) ==
LOC: EC 17:07
DX: M25.551 Pain in right hip (principal); M16.0 Bilateral primary osteoarthritis of hip; R53.1 Weakness; E11.9 Type 2 diabetes mellitus without complications; E78.5 Hyperlipidemia, unspecified; G47.30 Sleep apnea, unspecified; I10 Essential (primary) hypertension; I48.91 Unspecified atrial fibrillation; E07.9 Disorder of thyroid, unspecified; F32.A Depression, unspecified; Z79.01 Long term (current) use of anticoagulants; Z79.4 Long term (current) use of insulin; Z79.84 Long term (current) use of oral hypoglycemic drugs; Z79.890 Hormone replacement therapy; Z79.899 Other long term (current) drug therapy; Z88.2 Allergy status to sulfonamides; Z88.8 Allergy status to other drugs, medicaments and biological substances; Z90.49 Acquired absence of other specified parts of digestive tract; W18.30XA Fall on same level, unspecified, initial encounter; Y92.002 Bathroom of unspecified non-institutional (private) residence as the place of occurrence of the external cause
CPT/HCPCS: 36415; 93005; 83880; 80053; 83690; 83735; 84100; 84484; 85025; 85610; 85730; 81003; 73502; 73562; 71045; 72125; 70450; 99284; 96374; J2270

== ENCOUNTER 2023-03-25 11:04 | Emergency (ER) | payer OTHER ==
[2023-03-25 11:47] VITALS: BP 116/48; PULSE 66; RESP 18; TEMP 98.1
[2023-03-25] MEDS ORDERED: KETOROLAC 15 MG/ML 1 ML VIAL IM STA (11:56)
--- NOTE | 2023-03-25 12:03 | ED ---
Lower Extremity Injury HPI - General Chief Complaint: Extremity Injury, Lower Stated Complaint: Fall-knee pain Time Seen by Provider: 03/25/23 11:47 Source: patient, family, RN notes reviewed Mode of arrival: ambulatory Limitations: no limitations - History of Present Illness Initial Comments: Patient is a 67-year-old male presented ER with chief complaint of bilateral knee pain. Patient states he is going to the bathroom on Wednesday, [id number], and his legs gave out. He states he hit the inside of his knees on the toilet. Patient denies any head injury, loss of consciousness, prior dizziness or lightheadedness before fall. Patient states for the past couple of days he has been having 9-10 pain as his right knee. He denies any numbness or tingling. He states he's been prescribed Percocet and has been taking those with some relief/ Denies any chest pain, shortness of breath or other complaints. - Related Data Home Medications Medication Instructions Recorded Confirmed INSULIN ASPART (NovoLOG) [NovoLOG 100 unit SQ TID-W/MEALS PRN 10/07/18 05/21/22 (formulary)] Insulin Glargine [Lantus Vial] 100 unit SQ BID 10/07/18 05/21/22 Lipase/Protease/Amylase [Asha Garvin 96,000 units PO 5XD PRN 10/07/18 05/21/22 24,000 Unit Capsule] Sertraline HCl [Zoloft] 100 mg PO DAILY 10/07/18 05/21/22 Tamsulosin HCl [Flomax] 0.4 mg PO HS 10/07/18 05/21/22 Trospium Chloride 20 mg PO BID 10/07/18 05/21/22 metFORMIN HCL [Glucophage] 1,000 mg PO BID 10/07/18 05/21/22 lisinopriL [Zestril] 5 mg PO BID 11/02/18 05/21/22 Donepezil [Aricept] 5 mg PO HS 11/08/19 05/21/22 Empagliflozin [Jardiance] 25 mg PO DAILY 11/08/19 05/21/22 Gabapentin [Neurontin] 300 mg PO DAILY 11/08/19 05/21/22 Memantine [Namenda] 10 mg PO BID 11/08/19 05/21/22 Dicyclomine [Bentyl] 20 mg PO Q6H PRN 04/07/22 05/21/22 Furosemide [Lasix] 40 mg PO BID 04/07/22 05/21/22 Gabapentin 900 mg PO HS 04/07/22 05/21/22 Pantoprazole [Protonix] 40 mg PO BID 04/07/22 05/21/22 Semaglutide [Ozempic] 1 mg SQ TU 04/07/22 05/21/22 oxyCODONE-APAP 7.5-325MG [Percocet 1 tab PO Q8H PRN 04/07/22 05/21/22 7.5-325 mg] Carboxymethylcellulose Sodium 1 drop BOTH EYES QID PRN 05/21/22 05/21/22 [Refresh Tears] Clotrimazole [Lotrimin AF] 1 applic TOPICAL DAILY PRN 05/21/22 05/21/22 Dextran/Hypromellose/Glycerin 1 drop BOTH EYES QID 05/21/22 05/21/22 [Genteal Tears 0.1%-0.2%-0.3%] Levothyroxine Sodium [Synthroid] 125 mcg PO DAILY 05/21/22 05/21/22 Metoprolol Tartrate [Lopressor] 50 mg PO BID 05/21/22 05/22/22 Previous Rx's Medication Instructions Recorded Apixaban [Eliquis] 5 mg PO BID #60 tab 11/12/18 Atorvastatin [Lipitor] 80 mg PO HS #30 tab 11/12/18 Aspirin 81 mg PO DAILY #30 tab 05/25/22 Ondansetron [Zofran] 4 mg PO Q8HR PRN #30 tab 05/25/22 Allergies Allergy/AdvReac Type Severity Reaction Status Date / Time Sulfa (Sulfonamide Allergy Swelling Verified 03/25/23 11:34 Antibiotics) TB SKIN TEST AdvReac Swelling Uncoded 03/25/23 11:34 Review of Systems ROS Statement: Those systems with pertinent positive or pertinent negative responses have been documented in the HPI. ROS Other: All systems not noted in ROS Statement are negative. 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 SEE DR JURADO'S HISTORY AND PHYSICAL FOR CARDIAC HISTORY, C PAP MACHINE , high frequency hearing loss . recently seen by Dr Thomas for testing. History of Any Multi-Drug Resistant Organisms: MRSA Date of last positivie culture/infection: 08/03/17 MDRO Source:: belly button Past Surgical History: Ablation, Appendectomy, Cholecystectomy, Heart Catheterization, Hernia Repair, Orthopedic Surgery Additional Past Surgical History / Comment(s): Hernia repair. SURGERY ON P ANCREAS- BILE DUCT, RIGHT AND LEFT KNEE ARTHROSCOPIC SURGERY, COLONOSCOPY/EGD Past Anesthesia/Blood Transfusion Reactions: No Reported Reaction Additional Past Anesthesia/Blood Transfusion Reaction / Comment(s): when pt had ablation ended ended up on Ventilator. Past Psychological History: Depression Smoking Status: Never smoker Past Alcohol Use History: None Reported Past Drug Use History: None Reported - Past Family History Father Family Medical History: CVA/TIA, Deep Vein Thrombosis (DVT), Hypertension, Myocardial Infarction ([place]) Additional Family Medical History / Comment(s): black lung Mother Family Medical History: Cancer Additional Family Medical History / Comment(s): LUNG CANCER Brother(s) Additional Family Medical History / Comment(s): brother at 52, ALS. 2 brothers had aneursym General Exam Limitations: no limitations General appearance: alert, in no apparent distress Head exam: Present: atraumatic, normocephalic, normal inspection Respiratory exam: Present: normal lung sounds bilaterally. Absent: respiratory distress, wheezes, rales, rhonchi, stridor Cardiovascular Exam: Present: regular rate, normal rhythm, normal heart sounds. Absent: systolic murmur, diastolic murmur, rubs, gallop, clicks Extremities exam: Present: tenderness (Yellow bruise noted on the left medial knee joint line. 2+ left dorsalis pedis pulse. Sensation intact. Patient has full active range of motion.), other (Mild suprapatellar edema of the right knee. There is mild ecchymosis and tenderness along the medial joint line. Patient has full active range of motion. 2+ right dorsalis pedis pulse. Sensation intact.) Neurological exam: Present: alert, oriented X3, CN II-XII intact Psychiatric exam: Present: normal affect, normal mood Skin exam: Present: warm, dry, intact, normal color. Absent: rash Course Vital Signs 03/25/23 11:29 Temperature 98.1 F Pulse Rate 66 Respiratory 18 Rate Blood Pressure 116/48 O2 Sat by Pulse 98 Oximetry - Reevaluation(s) Reevaluation #1: 03/25/23 12:45 Patient informed of x-ray results. Patient informed on plan of CT scan. Patient stable condition. Time: 12:45 Reevaluation #2: 03/25/23 15:45 Patient is up-to-date on results of computed tomography scan. Patient will be discharged. Medical Decision Making - Medical Decision Making Was pt. sent in by a medical professional or institution (, PA, DRAPERY COUNSELOR, urgent care, hospital, or [facility]...) When possible be specific @ -No Did you speak to anyone other than the patient for history (EMS, parent, family, police, friend...)? What history was obtained from this source @ -Family at bedside who provided some HPI. Did you review nursing and triage notes (agree or disagree)? Why? @ -I reviewed and agree with nursing and triage notes Were old charts reviewed (outside hosp., previous admission, EMS record, old EKG, old radiological studies, urgent care reports/EKG's, [facility] records)? Report findings @ -No old charts were reviewed Differential Diagnosis (chest pain, altered mental status, abdominal pain women, abdominal pain men, vaginal bleeding, weakness, fever, dyspnea, syncope, headache, dizziness, GI bleed, back pain, seizure, CVA, palpatations, mental health, musculoskeletal)? @ -Differential Musculoskeletal: Muscular strain, contusion, ligament sprain, fracture, arthritis, septic arthritis, bursitis, cellulitis, muscle spasm, nerve compression, DVT, arterial occlusion, herpes zoster, electrolyte abnormality, tumor.... This is not meant to be in all inclusive list EKG interpreted by me (3pts min.). @ -None X-rays interpreted by me (1pt min.). @ -Bilateral knee x-rays show a lucency along the upper pole of the left patella. CT was recommended for further assessment. Small bilateral suprapatella bursal fluid collections. Bilateral severe osteoarthritis. CT interpreted by me (1pt min.). @ -CT of left knee show patella intact. Severe osteoarthrosis changes of the knee without evidence of fracture. There are multiple calcified joint bodies posterior to the left femoral condyle. CT of right knee show severe osteoarthrosis changes without evidence of fracture there are tiny joint bodies present posterior to the femoral condyles. U/S interpreted by me (1pt. min.). @ -None done What testing was considered but not performed or refused? (CT, X-rays, U/S, labs)? Why? @ -None What meds were considered but not given or refused? Why? @ -None Did you discuss the management of the patient with other professionals (professionals i.e. , PA, DRAPERY COUNSELOR, lab, RT, psych nurse, adoption social worker, corporate executive chef, teacher, chief clinical officer, case making machine operator)? Give summary @ -No Was smoking cessation discussed for >3mins.? @ -No Was critical care preformed (if so, how long)? @ -No Were there social determinants of health that impacted care today? How? (Homelessness, low income, unemployed, alcoholism, drug addiction, transportation, low edu. Level, literacy, decrease access to med. care, skilled nursing, rehab)? @ -No Was there de-escalation of care discussed even if they declined (Discuss DNR or withdrawal of care, Hospice)? DNR status @ -No What co-morbidities impacted this encounter? (DM, HTN, Smoking, COPD, CAD, Cancer, CVA, ARF, Chemo, Hep., AIDS, mental health diagnosis, sleep apnea, mo rbid obesity)? @ -Morbid obesity Was patient admitted / discharged? Hospital course, mention meds given and route, prescriptions, significant lab abnormalities, going to OR and other pertinent info. @ -Discharged. Patient is a 67 year old male presenting to the ER with a chief complaint of bilateral knee pain. Upon examination, patient's vitals were stable. Physical exam was significant for bilateral medial joint space tenderness. Patient was neurovascularly intact. Patient had full active range of motion of both knees. Patient received IM Toradol for pain control with mild improvement. Bilateral knee x-rays show a lucency along the upper pole of the left patella. Small bilateral suprapatella bursal fluid collections. Bilateral severe osteoarthritis. CT was recommended for further fracture assessment. Due to patient having difficulty bearing weight on either knee CT of bilateral knees was performed. CT of left knee show intact patella with severe osteoarthrosis changes of the knee without evidence of fracture. There are multiple calcified joint bodies posterior to the left femoral condyle. CT of right knee showed s evere osteoarthrosis changes without evidence of fracture there are tiny joint bodies present posterior to the femoral condyles. I discussed lab and imaging results with patient and , at bedside. Patient received IM 0.5 mg Dilaudid prior to discharge due to increasing pain. I discussed with patient that he should follow-up with orthopedics if symptoms persist. Patient stated he is prescribed Percocet for pain control daily. I advised him to take that as prescribed for pain. Return parameters were discussed. Patient will be discharged in stable condition with follow-up to PCP/orthopedics. Patient expressed understanding and agreement with care plan. Undiagnosed new problem with uncertain prognosis? @ -No Drug Therapy requiring intensive monitoring for toxicity (Heparin, Nitro, Insulin, Cardizem)? @ -No Were any procedures done? @ -No Diagnosis/symptom? @ -Osteoarthritis of bilateral knees Acute, or Chronic, or Acute on Chronic? @ -Chronic Uncomplicated (without systemic symptoms) or Complicated (systemic symptoms)? @ -Uncomplicated Side effects of treatment? @ -No Exacerbation, Progression, or Severe Exacerbation? @ -No Poses a threat to life or bodily function? How? (Chest pain, [place], [place], pneumonia, PE, COPD, DKA, ARF, appy, cholecystitis, CVA, Diverticulitis, Homicidal, Suicidal, threat to staff... and all critical care pts) @ -No - Radiology Data Radiology results: report reviewed, image reviewed Disposition Clinical Impression: Bilateral knee pain Disposition: HOME SELF-CARE Condition: Stable Instructions (If sedation given, give patient instructions): Knee Pain (ED) Additional Instructions: Please return to the Emergency Department if symptoms worsen or any other concerns. Please follow-up with orthopedics if symptoms persist. Is patient prescribed a controlled substance at d/c from ED?: No Referrals: [facility]inic [Primary Care Provider] - 1-2 days Bacilio Foley DO [Doctor of Osteopathic Medicine] - 1-2 days Time of Disposition: 15:39
--- NOTE | 2023-03-25 12:40 | XR ---
EXAMINATION TYPE: XR knee complete bilateral DATE OF EXAM: 03/25/2023 COMPARISON: NONE HISTORY: Pain TECHNIQUE: Three views of each knee are submitted. FINDINGS: Severe arthropathy of the medial compartment and patellofemoral compartment bilateral knee. Marginal spurring of the tricompartment joint space bilaterally. There is a small amount of fluid in the supra patellar bursa bilaterally. There is a linear lucency along the upper pole of the left patella. A bony density is seen superiorly . There is a chronic fragmentation of the tibial tubercle on the left. IMPRESSION: 1. There is a lucency along the upper pole of the left patella. Recommend CT scan to assess for fract ure. 2. Small bilateral suprapatellar bursal fluid collections. 3. Bilateral severe osteoarthritis.
--- NOTE | 2023-03-25 15:18 | CT ---
EXAMINATION TYPE: CT knee LT wo con, CT knee RT wo con CT DLP: 150.1 mGycm, Automated exposure control for dose reduction was used. DATE OF EXAM: 03/25/2023 2:38 PM COMPARISON: Knee radiographs 03/25/2023. CLINICAL INDICATION:Male, 67 years old with history of pain, Pain, S/P Fall TECHNIQUE: Axial images were obtained of the CT knee LT wo con, CT knee RT wo con, Additional coronal and sagittal reformatted images and soft tissue and bone window were obtained for review. 3-D recons truction was created on a separate workstation. Contrast used: mL of , (None if empty) Oral contrast used: (None if empty) FINDINGS: Left knee with osteophyte formation of the tibial plateau, femoral condyles and patella. At least 2 calcified joint bodies posterior to the left femoral condyle laterally measuring up to 19 x 5 and 18 x 3 mm and another joint body near the superior lateral aspect of the patella measuring at l east 14 x 10 mm. There is severe joint space narrowing also present with small joint effusion.. No ev idence of fracture. A fabella is present. Additional joint body in between the femoral condyles measu ring up to 14 mm. Right knee demonstrates osteophyte formation of the tibial plateau and femoral condyles and patella. Small calcifications are seen posterior to the femoral condyles likely representing small joint carole s. There is severe joint space narrowing with small pleural effusion. Small calcified joint body sanjuanita uring 5 mm posterior to the lateral femoral condyle. IMPRESSION Left: The patella is intact. Severe osteoarthrosis changes of the knee without evidence of fracture t here is at least 2 calcified joint bodies posterior to the left femoral condyle. Right: Severe osteoarthrosis changes of the knee without evidence of fracture there are tiny joint juliana dies also present posterior to the femoral condyles.
[2023-03-25] MEDS ORDERED: HYDROmorphone 0.5 MG/0.5 ML SYRINGE IM STA (15:38)
== END 2023-03-25 16:32 | disposition home or self-care (01) ==
LOC: EC 11:04
DX: M17.0 Bilateral primary osteoarthritis of knee (principal); E11.9 Type 2 diabetes mellitus without complications; I10 Essential (primary) hypertension; N40.0 Benign prostatic hyperplasia without lower urinary tract symptoms; E07.9 Disorder of thyroid, unspecified; F32.A Depression, unspecified; Z79.4 Long term (current) use of insulin; Z79.84 Long term (current) use of oral hypoglycemic drugs; Z79.899 Other long term (current) drug therapy; Z88.2 Allergy status to sulfonamides; Z91.048 Other nonmedicinal substance allergy status; Z90.49 Acquired absence of other specified parts of digestive tract
CPT/HCPCS: 73562; 73700 ×2; 99284; 96372 ×2; J1885; J1170

== ENCOUNTER 2023-04-05 18:46 | Inpatient (IN) | payer OTHER, MEDICARE ==
[2023-04-05 19:04] LABS: Glucose,Whole Blood 102 mg/dL (70-110)
[2023-04-05] MEDS ORDERED: SODIUM CHLORIDE 0.9% 500 ML 500 ML IV STA (19:09)
--- NOTE | 2023-04-05 19:15 | ED ---
General Adult HPI - General Chief complaint: Weakness Stated complaint: Low blood sugar; slurred speech Time Seen by Provider: 04/05/23 18:55 Source: patient, RN notes reviewed, old records reviewed Mode of arrival: wheelchair - History of Present Illness Initial comments: This is 67-year-old male who presents emergency Department because his stated he had slurred speech started this morning but got progressively worse throughout the day. Patient's states he still not speaking correctly. Patient has no facial droop according to patient has not had any weakness or numbness anywhere else. Patient has no headache. Patient sugar was low at 55 at home but now it's 101. Patient states that he's been low before but never sounded her look like this. Patient has just generalized weakness and that it stayed the same throughout the day. Patient has had no fevers chills. The been no chest pain difficulty breathing. His been no vomiting or diarrhea. - Related Data Home Medications Medication Instructions Recorded Confirmed INSULIN ASPART (NovoLOG) [NovoLOG 100 unit SQ TID-W/MEALS PRN 10/07/18 05/21/22 (formulary)] Insulin Glargine [Lantus Vial] 100 unit SQ BID 10/07/18 05/21/22 Lipase/Protease/Amylase [Asha Garvin 96,000 units PO 5XD PRN 10/07/18 05/21/22 24,000 Unit Capsule] Sertraline HCl [Zoloft] 100 mg PO DAILY 10/07/18 05/21/22 Tamsulosin HCl [Flomax] 0.4 mg PO HS 10/07/18 05/21/22 Trospium Chloride 20 mg PO BID 10/07/18 05/21/22 metFORMIN HCL [Glucophage] 1,000 mg PO BID 10/07/18 05/21/22 lisinopriL [Zestril] 5 mg PO BID 11/02/18 05/21/22 Donepezil [Aricept] 5 mg PO HS 11/08/19 05/21/22 Empagliflozin [Jardiance] 25 mg PO DAILY 11/08/19 05/21/22 Gabapentin [Neurontin] 300 mg PO DAILY 11/08/19 05/21/22 Memantine [Namenda] 10 mg PO BID 11/08/19 05/21/22 Dicyclomine [Bentyl] 20 mg PO Q6H PRN 04/07/22 05/21/22 Furosemide [Lasix] 40 mg PO BID 04/07/22 05/21/22 Gabapentin 900 mg PO HS 04/07/22 05/21/22 Pantoprazole [Protonix] 40 mg PO BID 04/07/22 05/21/22 Semaglutide [Ozempic] 1 mg SQ TU 04/07/22 05/21/22 oxyCODONE-APAP 7.5-325MG [Percocet 1 tab PO Q8H PRN 04/07/22 05/21/22 7.5-325 mg] Carboxymethylcellulose Sodium 1 drop BOTH EYES QID PRN 05/21/22 05/21/22 [Refresh Tears] Clotrimazole [Lotrimin AF] 1 applic TOPICAL DAILY PRN 05/21/22 05/21/22 Dextran/Hypromellose/Glycerin 1 drop BOTH EYES QID 05/21/22 05/21/22 [Genteal Tears 0.1%-0.2%-0.3%] Levothyroxine Sodium [Synthroid] 125 mcg PO DAILY 05/21/22 05/21/22 Metoprolol Tartrate [Lopressor] 50 mg PO BID 05/21/22 05/22/22 Previous Rx's Medication Instructions Recorded Apixaban [Eliquis] 5 mg PO BID #60 tab 11/12/18 Atorvastatin [Lipitor] 80 mg PO HS #30 tab 11/12/18 Aspirin 81 mg PO DAILY #30 tab 05/25/22 Ondansetron [Zofran] 4 mg PO Q8HR PRN #30 tab 05/25/22 Allergies Allergy/AdvReac Type Severity Reaction Status Date / Time Sulfa (Sulfonamide Allergy Swelling Verified 04/05/23 18:51 Antibiotics) TB SKIN TEST AdvReac Swelling Uncoded 03/25/23 11:34 Review of Systems ROS Statement: Those systems with pertinent positive or pertinent negative responses have been documented in the HPI. ROS Other: All systems not noted in ROS Statement are negative. 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 SEE DR JURADO'S HISTORY AND PHYSICAL FOR CARDIAC HISTORY, C PAP MACHINE , high frequency hearing loss . recently seen by Dr Thomas for testing. History of Any Multi-Drug Resistant Organisms: MRSA Date of last positivie culture/infection: 08/03/17 MDRO Source:: belly button Past Surgical History: Ablation, Appendectomy, Cholecystectomy, Heart Cathet erization, Hernia Repair, Orthopedic Surgery Additional Past Surgical History / Comment(s): Hernia repair. SURGERY ON PANCREAS- BILE DUCT, RIGHT AND LEFT KNEE ARTHROSCOPIC SURGERY, COLONOSCOPY/EGD Past Anesthesia/Blood Transfusion Reactions: No Reported Reaction Additional Past Anesthesia/Blood Transfusion Reaction / Comment(s): when pt had ablation ended ended up on Ventilator. Past Psychological History: Depression Smoking Status: Never smoker Past Alcohol Use History: None Reported Past Drug Use History: None Reported - Past Family History Father Family Medical History: CVA/TIA, Deep Vein Thrombosis (DVT), Hypertension, Myocardial Infarction (AR) Additional Family Medical History / Comment(s): black lung Mother Family Medical History: Cancer Additional Family Medical History / Comment(s): LUNG CANCER Brother(s) Additional Family Medical History / Comment(s): brother at 52, ALS. 2 brothers had aneursym General Exam - General Exam Comments Initial Comments: GENERAL: Patient is well-developed and well-nourished. Patient is nontoxic and well- hydrated and is in no acute distress. ENT: Neck is soft and supple. No significant lymphadenopathy is noted. Oropharynx is clear. Moist mucous membranes. Neck has full range of motion without eliciting any pain. EYES: The sclera were anicteric and conjunctiva were pink and moist. Extraocular movements were intact and pupils were equal round and reactive to light. Eyelids were unremarkable. PULMONARY: Unlabored respirations. Good breath sounds bilaterally. No audible rales rhonchi or wheezing was noted. CARDIOVASCULAR: There is a regular rate and rhythm without any murmurs gallops or rubs. ABDOMEN: Soft and nontender with normal bowel sounds. SKIN: Skin is clear with no lesions or rashes and otherwise unremarkable. NEUROLOGIC: Patient is alert and oriented x3. Cranial nerves II through XII are grossly intact. Motor and sensory are also intact. Patient's speech is extremely slow and very quiet difficult to ascertain the says this is highly abnormal MUSCULOSKELETAL: Normal extremities with adequate strength and full range of motion. No lower extremity swelling or edema. No calf tenderness. LYMPHATICS: No significant lymphadenopathy is noted PSYCHIATRIC: Normal psychiatric evaluation. Course Vital Signs 04/05/23 18:47 Temperature 97.8 F Pulse Rate 60 Respiratory 18 Rate Blood Pressure 105/64 O2 Sat by Pulse 100 Oximetry Medical Decision Making - Medical Decision Making EKG is interpreted by myself. EKG shows a sinus rhythm at [address] interval 176 years 101 QT interval 42 QTC is 44. Patient's EKG shows no ST segment elevation or depression. Was pt. sent in by a medical professional or institution (, [facility]ER, [employer], urgent care, hospital, or penitentiary...) When possible be specific @ -No Did you speak to anyone other than the patient for history (EMS, parent, family, police, friend...)? What history was obtained from this source @ - gave most of the history Did you review nursing and triage notes (agree or disagree)? Why? @ -I reviewed and agree with nursing and triage notes Were old charts reviewed (outside hosp., previous admission, EMS record, old EKG, old radiological studies, urgent care reports/EKG's, penitentiary records)? Report findings @ -I reviewed prior charts elaborate on this patient Differential Diagnosis (chest pain, altered mental status, abdominal pain women, abdominal pain men, vaginal bleeding, weakness, fever, dyspnea, syncope, head ache, dizziness, GI bleed, back pain, seizure, CVA, palpatations, mental health, musculoskeletal)? @ -Differential CVA Ischemic stroke, hemorrhagic stroke, brain tumor, atypical migraine, Wernicke's encephalopathy, seizure, multiple sclerosis, meningitis, encephalitis, hypoglyce dino, Guillain-Coyle, electrolytes disturbance, myasthenia gravis.... This is not meant to be an all-inclusive list EKG interpreted by me (3pts min.). @ -As above X-rays interpreted by me (1pt min.). @ -Chest x-ray showed no acute abnormality CT interpreted by me (1pt min.). @ -CT of the brain shows no acute abnormality. CT angiogram of the head and neck show no acute abnormality. U/S interpreted by me (1pt. min.). @ -None done What testing was considered but not performed or refused? (CT, X-rays, U/S, labs)? Why? @ -None What meds were considered but not given or refused? Why? @ -None Did you discuss the management of the patient with other professionals (professionals i.e. , PA, [employer], lab, RT, psych nurse, director of social work, patrol police sergeant, teacher, helicopter officer, onsite case manager)? Give summary @ -I spoke with arnold. There agreed to admit the patient Was smoking cessation discussed for >3mins.? @ -No Was critical care preformed (if so, how long)? @ -No Were there social determinants of health that impacted care today? How? (Homelessness, low income, unemployed, alcoholism, drug addiction, transportation, low edu. Level, literacy, decrease access to med. care, care home, rehab)? @ -No Was there de-escalation of care discussed even if they declined (Discuss DNR or withdrawal of care, Hospice)? DNR status @ -No What co-morbidities impacted this encounter? (DM, HTN, Smoking, COPD, CAD, Cancer, CVA, ARF, Chemo, Hep., AIDS, mental health diagnosis, sleep apnea, morbid obesity)? @ -None Was patient admitted / discharged? Hospital course, mention meds given and route, prescriptions, significant lab abnormalities, going to OR and other pertinent info. @ -Patient's slurred speech vastly improved while he was in the emergency department. Patient's CTs were negative. I spoke with arnold physician's agreed to admit the patient admitted the patient I consulted neurology Undiagnosed new problem with uncertain prognosis? @ -No Drug Therapy requiring intensive monitoring for toxicity (Heparin, Nitro, Insulin, Cardizem)? @ -No Were any procedures done? @ -No Diagnosis/symptom? @ -TIA Acute, or Chronic, or Acute on Chronic? @ -Acute Uncomplicated (without systemic symptoms) or Complicated (systemic symptoms)? @ -complicated Side effects of treatment? @ -No Exacerbation, Progression, or Severe Exacerbation? @ -No Poses a threat to life or bodily function? How? (Chest pain, USA, AR, pneumonia, PE, COPD, DKA, ARF, appy, cholecystitis, CVA, Diverticulitis, Homicidal, Suicid al, threat to staff... and all critical care pts) @ -No - Lab Data Result diagrams: 04/05/23 19:42 04/05/23 19:42 Lab Results 04/05/23 04/05/23 04/05/23 Range/Units 19:02 19:42 19:42 WBC 7.4 (3.8-10.6) k/uL RBC 4.53 (4.30-5.90) m/uL Hgb 13.5 (13.0-17.5) gm/dL Hct 41.6 (39.0-53.0) % MCV 91.9 (80.0-100.0) fL MCH 29.9 (25.0-35.0) pg MCHC 32.5 (31.0-37.0) g/dL RDW 14.3 (11.5-15.5) % Plt Count 155 (150-450) k/uL MPV 8.1 Neutrophils % 62 % Lymphocytes % 27 % Monocytes % 4 % Eosinophils % 5 % Basophils % 0 % Neutrophils # 4.6 (1.3-7.7) k/uL Lymphocytes # 2.0 (1.0-4.8) k/uL Monocytes # 0.3 (0-1.0) k/uL Eosinophils # 0.4 (0-0.7) k/uL Basophils # 0.0 (0-0.2) k/uL PT 10.2 (10.0-12.5) sec INR 0.9 (<1.2) APTT 27.1 (22.0-30.0) sec Sodium (137-145) mmol/L Potassium (3.5-5.1) mmol/L Chloride (98-107) mmol/L Carbon Dioxide (22-30) mmol/L Anion Gap mmol/L BUN (9-20) mg/dL Creatinine (0.66-1.25) mg/dL Est GFR (CKD-EPI)AfAm (>60 ml/min/1.73 sqM) Est GFR (CKD-EPI)NonAf (>60 ml/min/1.73 sqM) Glucose (74-99) mg/dL POC Glucose (mg/dL) 102 (70-110) mg/dL POC Glu Finance Mgr ID Elaine Schmidt Calcium (8.4-10.2) mg/dL Total Bilirubin (0.2-1.3) mg/dL AST (17-59) U/L ALT (4-49) U/L Alkaline Phosphatase (38-126) U/L Creatine Kinase (55-170) U/L Total Protein (6.3-8.2) g/dL Albumin (3.5-5.0) g/dL Lipase (23-300) U/L 04/05/23 Range/Units 19:42 WBC (3.8-10.6) k/uL RBC (4.30-5.90) m/uL Hgb (13.0-17.5) gm/dL Hct (39.0-53.0) % MCV (80.0-100.0) fL MCH (25.0-35.0) pg MCHC (31.0-37.0) g/dL RDW (11.5-15.5) % Plt Count (150-450) k/uL MPV Neutrophils % % Lymphocytes % % Monocytes % % Eosinophils % % Basophils % % Neutrophils # (1.3-7.7) k/uL Lymphocytes # (1.0-4.8) k/uL Monocytes # (0-1.0) k/uL Eosinophils # (0-0.7) k/uL Basophils # (0-0.2) k/uL PT (10.0-12.5) sec INR (<1.2) APTT (22.0-30.0) sec Sodium 137 (137-145) mmol/L Potassium 4.0 (3.5-5.1) mmol/L Chloride 97 L (98-107) mmol/L Carbon Dioxide 24 (22-30) mmol/L Anion Gap 16 mmol/L BUN 29 H (9-20) mg/dL Creatinine 1.29 H (0.66-1.25) mg/dL Est GFR (CKD-EPI)AfAm 67 (>60 ml/min/1.73 sqM) Est GFR (CKD-EPI)NonAf 58 (>60 ml/min/1.73 sqM) Glucose 106 H (74-99) mg/dL POC Glucose (mg/dL) (70-110) mg/dL POC Glu Finance Mgr ID Calcium 9.4 (8.4-10.2) mg/dL Total Bilirubin 0.5 (0.2-1.3) mg/dL AST 31 (17-59) U/L ALT 25 (4-49) U/L Alkaline Phosphatase 94 (38-126) U/L Creatine Kinase 63 (55-170) U/L Total Protein 7.6 (6.3-8.2) g/dL Albumin 4.4 (3.5-5.0) g/dL Lipase 204 (23-300) U/L Disposition Clinical Impression: Transient cerebral ischemia Disposition: ADMITTED IP TO THIS HOSP Referrals: [facility],Clinic [Primary Care Provider] - 1-2 days Time of Disposition: 20:51
--- NOTE | 2023-04-05 19:37 | CT ---
EXAMINATION TYPE: CT brain wo con CT DLP: 1181.6 mGycm, Automated exposure control for dose reduction was used. DATE OF EXAM: 04/05/2023 7:33 PM COMPARISON: 11/12/2022.. CLINICAL INDICATION:Male, 67 years old with history of Neuro deficit, acute, stroke suspected, cva TECHNIQUE: Brain: Axial CT images of the brain were obtained with coronal and sagittal reformats created and rev iewed. Contrast used: None. Oral contrast used: None. FINDINGS: Brain: Extra-axial spaces: No abnormal extra-axial fluid collections. Ventricular system: Within normal limits Cerebral parenchyma: No acute intraparenchymal hemorrhage or mass effect. The eaton-white junction is well differentiated. Cerebellum: Unremarkable. Mass effect: No evidence of midline shift. Intracranial vasculature: unremarkable Soft tissues: Normal. Calvarium/osseous structures: No depressed skull fracture. Paranasal sinuses and mastoid air cells: Mild scattered paranasal sinus disease. Visualized orbits: Orbital contents are intact. IMPRESSION: No acute intracranial process.
--- NOTE | 2023-04-05 20:07 | CT ---
EXAMINATION TYPE: CT angio head neck CT DLP: 1086.4 mGycm, Automated exposure control for dose reduction was used. DATE OF EXAM: 04/05/2023 7:51 PM COMPARISON: CT brain same day.. CLINICAL INDICATION:Male, 67 years old with history of Neuro deficit, acute, stroke suspected; PH, c va TECHNIQUE: Axially acquired helical CT angiogram of the head and neck was obtained with contrast. Axi al images are supplemented with 3D reconstructions and MIP images which were post-processed at an in dependent workstation. NASCET criteria used. Contrast used:65cc mL of Isovue 300 with IV Contrast, Oral contrast used: None. FINDINGS: CTA HEAD: No evidence of acute intracranial hemorrhage, mass effect, or midline shift. The ventricles, sulci, a nd cisterns are unremarkable. The visualized portions of the internal carotid arteries, middle cerebral arteries, anterior cerebral arteries, and posterior cerebral arteries are patent. The basilar and vertebral arteries are patent. Atherosclerosis of the intracranial right vertebral ar robbi. CTA NECK: Right Carotid System: The common carotid and external carotid arteries are patent. There is less than 25% stenosis at the c arotid bifurcation secondary to calcified/noncalcified plaque. The rest of the internal carotid arter y is patent. Left Carotid System: The common carotid and external carotid arteries are patent. There is less than 25% stenosis at the c arotid bifurcation secondary to calcified/noncalcified plaque. The rest of the internal carotid arter y is patent. Vertebral arteries are patent without evidence hemodynamically significant stenosis. There is a three-vessel aortic arch. The origins of the great vessels are patent. No evidence of hemo dynamically significant stenosis. IMPRESSION: 1. No evidence of dissection of the cervical internal carotid arteries or vertebral arteries or any e vidence of significant stenosis at the carotid bifurcations. 2. No evidence of intracranial high-grade stenosis or intracranial aneurysm.
[2023-04-05 20:17] LABS: Basophils % (A) 0 %; Eosinophils # (A) 0.4 k/uL (0-0.7); Eosinophils % (A) 5 %; HCT 41.6 % (39.0-53.0); HGB 13.5 gm/dL (13.0-17.5); Lymphocytes % (A) 27 %; MCH 29.9 pg (25.0-35.0); MCHC 32.5 g/dL (31.0-37.0); MCV 91.9 fL (80.0-100.0); Mean Platelet Volume 8.1; Monocytes # (A) 0.3 k/uL (0-1.0); Monocytes % (A) 4 %; Neutrophils # (A) 4.6 k/uL (1.3-7.7); Neutrophils % (A) 62 %; Platelet Count 155 k/uL (150-450); RBC 4.53 m/uL (4.30-5.90); RDW 14.3 % (11.5-15.5); WBC 7.4 k/uL (3.8-10.6)
[2023-04-05 20:26] LABS: INR 0.9 (<1.2); Partial Thromboplastin Time 27.1 sec (22.0-30.0); Prothrombin Time 10.2 sec (10.0-12.5)
[2023-04-05 20:31] LABS: ALT 25 U/L (4-49); AST 31 U/L (17-59); African American GFR (CKD) 67 (>60 ml/min/1.73 sqM); Albumin 4.4 g/dL (3.5-5.0); Alkaline Phosphatase 94 U/L (38-126); Anion Gap 16 mmol/L; Blood Urea Nitrogen 29 mg/dL (9-20); Calcium 9.4 mg/dL (8.4-10.2); Carbon Dioxide 24 mmol/L (22-30); Chloride 97 mmol/L (98-107); Creatine Kinase 63 U/L (55-170); Glucose 106 mg/dL (74-99); Lipase 204 U/L (23-300); Non-African American GFR(CKD) 58 (>60 ml/min/1.73 sqM); Sodium 137 mmol/L (137-145); Total Bilirubin 0.5 mg/dL (0.2-1.3); Total Protein 7.6 g/dL (6.3-8.2)
--- NOTE | 2023-04-05 20:43 | XR ---
EXAMINATION TYPE: XR chest 2V DATE OF EXAM: 04/05/2023 8:24 PM CLINICAL INDICATION:Male, 67 years old with history of altered mental status; [facility] COMPARISON: Chest radiographs from 11/12/2022. TECHNIQUE: XR chest 2V Frontal and lateral views of the chest. FINDINGS: Lungs/Pleura: There is no evidence of pleural effusion, focal consolidation, or pneumothorax. Pulmonary vascularity: Unremarkable. Heart/mediastinum: Cardiomediastinal silhouette is unremarkable. Musculoskeletal: No acute osseous pathology. IMPRESSION: Low lung volumes with a generalized hazy appearance which could represent atelectasis versus pulmonar y edema correlate with serum BNP.
[2023-04-05] MEDS ORDERED: ASPIRIN 325 MG TAB PO STA (20:51)
[2023-04-05] MEDS: oxyCODONE-APAP 7.5-325MG 1 EACH TAB PO PRN (22:35)
[2023-04-06 00:49] LABS: Glucose,Whole Blood 186 mg/dL (70-110)
[2023-04-06] MEDS ORDERED: MORPHINE SULFATE 2 MG/ML SYRINGE IVP STA ×2 (01:25→02:11)
[2023-04-06] MEDS ORDERED: ONDANSETRON 4 MG/2 ML VIAL IVP STA (02:11)
--- NOTE | 2023-04-06 02:12 | P.HPIM ---
History of Present Illness H&P Date: 04/05/23 Patient is a 67-year-old male with a PMH of Rocky tierney on Eliquis, history of TIA, memory impairment, chronic pancreatitis, type II DM, hypertension, and hyperlipidemia who presents to the emergency room with complaints of slurred speech and abnormal gait. The history was supplemented by the patient's at the bedside. She reports that the patient developed stammer and slurring of his words at around 5 PM earlier tonight. The symptoms persisted until around 9 PM and essentially resolved completely. Patient's checked his blood glucose just prior to arrival and noted that it was 55. She also noted that his gait was abnormal and he was having difficulty walking straight. The patient reports that he feels essentially at baseline at the time of interview and his primary complaint was his chronic abdominal discomfort for which he takes Percocet at home. He denied experiencing focal weakness, numbness, or tingling. Also denied facial droop, visual disturbances, chest pain, shortness of breath, nausea, vomiting. Of note, the patient was previously admitted to the hospital for TIA and 05/21/22 when workup was unremarkable. CT brain in the emergency room was unremarkable with CT angiogram head and neck also unremarkable. EKG revealed sinus rhythm at 60 bpm with diffusely flattened T waves with no additional ST/T-wave changes noted as reviewed by me. Chest x- ray revealed findings concerning for pulmonary edema. Laboratory evaluation revealed a glucose of 106, BNP 29, creatinine 1.29 (baseline 0.75), troponin less than 0.012. ED documentation reviewed and case discussed with ED provider. Review of systems: Pertinent positives and negatives as discussed in HPI, a complete review of systems was performed and all other systems are negative. Physical examination: Vital signs reviewed General: non toxic, no distress, appears at stated age, morbidly obese Derm: no unusual rashes/lesions, warm Head: atraumatic, normocephalic, symmetric Eyes: EOMI, no lid lag, anicteric sclera, pupils equal round reactive to light ENT: Nose and ears atraumatic Neck: No cervical lymphadenopathy, trachea midline, supple Mouth: no lip lesion, mucus membranes moist Cardiovascular: S1S2 reg, no murmur, positive dorsalis pedis pulse bilateral, no edema Lungs: CTA bilateral, no rhonchi, no rales, no accessory muscle use Abdominal: soft, mild epigastric tenderness, no guarding Ext: muscle strength 5 out of 5 in all 4 extremities grossly, no gross muscle atrophy, no contractures, Neuro: CN II-XI grossly intact, no gross focal neuro deficits, absent pronator drift Psych: Alert, oriented, appropriate affect Assessment: Slurred speech and impaired gait, TIA versus hypoglycemic encephalopathy LOULOU Chronic conditions: A. fib, memory impairment, hypertension, hyperlipidemia, type II DM, chronic pancreatitis Imaging: CT brain in the emergency room was unremarkable with CT angiogram head and neck also unremarkable. EKG revealed sinus rhythm at 60 bpm with diffusely flattened T waves with no additional ST/T-wave changes noted as reviewed by me. Chest x- ray revealed findings concerning for pulmonary edema. Data Review: Laboratory evaluation revealed a glucose of 106, BNP 29, creatinine 1.29 (baseline 0.75), troponin less than 0.012. Plan: S/p ASA 325 mg C/w ASA and Statin Fall precautions Neurology consult PT/speech consult Neuro checks Echocardiogram from 05/22 showed mild MR, AR, and TR Brain MRI from 05/23 revealed age-appropriate changes Monitor blood glucose levels and check A1c levels Insulin home medication levels may need to be adjusted prior to discharge Monitor BMP Check pro-BNP levels DVT prophylaxis: Eliquis The patient is admitted with an anticipated less than 2 midnight stay for evaluation of TIA CODE STATUS: Full Code Discussed with: Patient, Anticipated discharge place: Home Past Medical History Past Medical History: Atrial Fibrillation, Atrial Flutter, Diabetes Mellitus, Hearing Disorder / Deafness, Hyperlipidemia, Hypertension, Memory Impairment, Osteoarthritis (OA), Prostate Disorder, Sleep Apnea/CPAP/BIPAP, Thyroid Disorder Additional Past Medical History / Comment(s): ON ORAL STEROIDS FOR BILAT OPTIC NERVE SWELLING completed, DEMENTIA, Pancreatitis, 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 SEE DR JURADO'S HISTORY AND PHYSICAL FOR CARDIAC HISTORY, C PAP MACHINE , high frequency hearing loss . recently seen by Dr Thomas for testing. History of Any Multi-Drug Resistant Organisms: MRSA Date of last positivie culture/infection: 08/03/17 MDRO Source:: belly button Past Surgical History: Ablation, Appendectomy, Cholecystectomy, Heart Catheterization, Hernia Repair, Orthopedic Surgery Additional Past Surgical History / Comment(s): Hernia repair. SURGERY ON PANCREAS- BILE DUCT, RIGHT AND LEFT KNEE ARTHROSCOPIC SURGERY, COLONOSCOPY/EGD Past Anesthesia/Blood Transfusion Reactions: No Reported Reaction Additional Past Anesthesia/Blood Transfusion Reaction / Comment(s): when pt had ablation ended ended up on Ventilator. Past Psychological History: Depression Smoking Status: Never smoker Past Alcohol Use History: None Reported Past Drug Use History: None Reported - Past Family History Father Family Medical History: CVA/TIA, Deep Vein Thrombosis (DVT), Hypertension, Myocardial Infarction ([place]) Additional Family Medical History / Comment(s): black lung Mother Family Medical History: Cancer Additional Family Medical History / Comment(s): LUNG CANCER Brother(s) Additional Family Medical History / Comment(s): brother at 52, ALS. 2 brothers had aneursym Medications and Allergies Home Medications Medication Instructions Recorded Confirmed Type INSULIN ASPART (NovoLOG) [NovoLOG 100 unit SQ TID-W/MEALS 10/07/18 04/05/23 History (formulary)] Insulin Glargine [Lantus Vial] 100 unit SQ BID 10/07/18 04/05/23 History Lipase/Protease/Amylase [Creon Dr 2 capsule PO QID PRN 10/07/18 04/05/23 History 24,000 Unit Capsule] Sertraline HCl [Zoloft] 100 mg PO DAILY 10/07/18 04/05/23 History Tamsulosin HCl [Flomax] 0.4 mg PO HS 10/07/18 04/05/23 History Trospium Chloride 20 mg PO BID 10/07/18 04/05/23 History metFORMIN HCL [Glucophage] 1,000 mg PO BID 10/07/18 04/05/23 History lisinopriL [Zestril] 5 mg PO BID 11/02/18 04/05/23 History Apixaban [Eliquis] 5 mg PO BID #60 tab 11/12/18 04/05/23 Rx Atorvastatin [Lipitor] 80 mg PO HS #30 tab 11/12/18 04/05/23 Rx Donepezil [Aricept] 5 mg PO HS 11/08/19 04/05/23 History Empagliflozin [Jardiance] 25 mg PO DAILY 11/08/19 04/05/23 History Memantine [Namenda] 10 mg PO BID 11/08/19 04/05/23 History Dicyclomine [Bentyl] 20 mg PO Q6H 04/07/22 04/05/23 History Furosemide [Lasix] 40 mg PO DAILY 04/07/22 04/05/23 History Gabapentin 300 mg PO QID 04/07/22 04/05/23 History Pantoprazole [Protonix] 40 mg PO BID 04/07/22 04/05/23 History Semaglutide [Ozempic] 1 mg SQ TU 04/07/22 04/05/23 History oxyCODONE-APAP 7.5-325MG [Percocet 1 tab PO QID 04/07/22 04/05/23 History 7.5-325 mg] Carboxymethylcellulose Sodium 1 drop BOTH EYES QID PRN 05/21/22 04/05/23 History [Refresh Tears] Clotrimazole [Lotrimin AF] 1 applic TOPICAL DAILY PRN 05/21/22 04/05/23 History Dextran/Hypromellose/Glycerin 1 drop BOTH EYES QID 05/21/22 04/05/23 History [Genteal Tears 0.1%-0.2%-0.3%] Levothyroxine Sodium [Synthroid] 125 mcg PO DAILY 05/21/22 04/05/23 History Metoprolol Tartrate [Lopressor] 50 mg PO BID 05/21/22 04/05/23 History Ondansetron [Zofran] 4 mg PO Q8HR PRN #30 tab 05/25/22 04/05/23 Rx Allergies Allergy/AdvReac Type Severity Reaction Status Date / Time Sulfa (Sulfonamide Allergy Swelling Verified 04/05/23 22:13 Antibiotics) TB SKIN TEST AdvReac Swelling Uncoded 03/25/23 11:34 Physical Exam Vitals: Vital Signs Temp Pulse Resp BP Pulse Ox 04/05/23 22:34 98.1 F 66 18 129/50 98 04/05/23 21:17 64 18 116/49 94 L 04/05/23 20:45 63 17 116/49 97 04/05/23 20:30 64 15 116/49 99 04/05/23 20:15 63 13 116/49 98 04/05/23 20:00 63 19 116/49 99 04/05/23 19:45 64 10 L 70/24 93 L 04/05/23 19:37 65 15 04/05/23 18:47 97.8 F 60 18 105/64 100 Intake and Output 04/05/23 04/05/23 04/06/23 14:59 22:59 06:59 Other: Weight 144.242 kg Results CBC & Chem 7: 04/05/23 19:42 04/05/23 19:42 Labs: Abnormal Lab Results - Last 24 Hours (Table) 04/05/23 Range/Units 19:42 Chloride 97 L (98-107) mmol/L BUN 29 H (9-20) mg/dL Creatinine 1.29 H (0.66-1.25) mg/dL Glucose 106 H (74-99) mg/dL
[2023-04-06] MEDS: DICYCLOMINE 20 MG TAB PO SCH ×4 (02:43→20:32)
[2023-04-06] MEDS: LEVOTHYROXINE 125 MCG TAB PO SCH (06:11)
[2023-04-06 07:37] LABS: Glucose,Whole Blood 213 mg/dL (70-110)
[2023-04-06 07:53] LABS: African American GFR (CKD) 68 (>60 ml/min/1.73 sqM); Anion Gap 16 mmol/L; Blood Urea Nitrogen 37 mg/dL (9-20); Calcium 8.4 mg/dL (8.4-10.2); Carbon Dioxide 20 mmol/L (22-30); Chloride 101 mmol/L (98-107); Glucose 218 mg/dL (74-99); Non-African American GFR(CKD) 59 (>60 ml/min/1.73 sqM); Potassium 4.3 mmol/L (3.5-5.1); Sodium 137 mmol/L (137-145)
[2023-04-06 08:01] LABS: NT-Pro-B-Type Natriuretic Pept 47 pg/mL
[2023-04-06] MEDS: ASPIRIN 81 MG PO SCH (08:46)
[2023-04-06] MEDS: APIXABAN 5 MG TAB PO SCH ×2 (08:47→20:32)
[2023-04-06] MEDS: INSULIN ASPART (NovoLOG) 100 UNIT/ML VIAL SQ SCH ×4 (08:47→20:33)
[2023-04-06] MEDS: SERTRALINE 100 MG TAB PO SCH (08:47)
[2023-04-06] MEDS: GABAPENTIN 300 MG CAP PO SCH ×4 (08:48→20:32)
[2023-04-06] MEDS: METOPROLOL TARTRATE 50 MG TAB PO SCH ×2 (08:48→20:32)
[2023-04-06] MEDS: MEMANTINE 10 MG TAB PO SCH ×2 (08:48→20:32)
[2023-04-06] MEDS ORDERED: ASPIRIN 325 MG TAB PO SCH (09:00)
[2023-04-06] MEDS: oxyCODONE-APAP 7.5-325MG 1 EACH TAB PO PRN ×3 (11:01→20:32)
[2023-04-06 11:10] LABS: Chol/HDL Ratio 3.25 Ratio; LDL Cholesterol,Calculated 44.5 mg/dL (0.0-131.0)
--- NOTE | 2023-04-06 11:13 | P.PN ---
Subjective Progress Note Date: 04/06/23 Hospital Course: 67-year-old male with a PMH of Rocky tierney on Eliquis, history of TIA, memory impairment, chronic pancreatitis, type II DM, hypertension, and hyperlipidemia who presents to the emergency room with complaints of slurred speech and abnormal gait. Initial vitals within normal limits. CT brain in the emergency room was unremarkable with CT angiogram head and neck also unremarkable. EKG revealed sinus rhythm at 60 bpm with diffusely flattened T waves with no additional ST/T-wave changes. Chest x-ray revealed findings concerning for pulmonary edema. Laboratory evaluation revealed a glucose of 106, BNP 29, creatinine 1.29 (baseline 0.75), troponin less than 0.012. Patient admitted for acute encephalopathy and acute kidney injury. Neurology consulted. Subjective: Patient seen and examined at bedside. This morning patient has been slightly hypotensive, and lightheaded. Denies any chest pain. No new neurological symptoms. Pertinent positives and negatives as discussed above, a complete review of systems was performed and all other systems are negative. Vitals Signs Reviewed. General: nontoxic, no distress, appears at stated age, morbidly obese Derm: warm, dry Head: atraumatic, normocephalic, symmetric Eyes: EOMI, no lid lag, anicteric sclera Mouth: no lip lesion, mucus membranes moist Cardiovascular: S1S2 reg, systolic murmur Lungs: CTA bilateral, no rhonchi, no rales , no accessory muscle use Abdominal: soft, nontender to palpation, no guarding, no appreciable organomegaly Ext: no gross muscle atrophy, no edema, no contractures Neuro: CN II-XI grossly intact, no focal neuro deficits Psych: Alert, oriented, appropriate affect Data Reviewed Today: Pertinent Labs: Sodium 137, potassium 4.3, bicarb 20, BUN 37, creatinine 1.27, blood sugars range between 106-218 Imaging: EKG independently interpreted from this morning, shows normal sinus rhythm, flattened T waves have resolved Assessment and Plan: Active: Acute encephalopathy, secondary to hypoglycemia versus TIA Insulin-dependent diabetes Acute kidney injury - Patient was hypoglycemic initially - Current insulin regimen is dependent on his fasting and pre-meal blood sugar levels, he claims that he occasionally takes a Harned units of long-acting in the morning and at night, with additional short acting insulin all dependent on his blood sugars - We will continue to keep him on sliding scale insulin, check A1c, may need further adjustment to his insulin regimen - on ASA 81, lipitor 80 - echo ordered with bubble study - neurology consulted - TSH, B12 ordered - neuro checks - Was given IV fluids in the ER - hold lasix - Renal US ordered - hold lisinopril - PT/OT/speech therapy Chronic: GERD Paroxysmal Afib Depression Hypothyroidism DVT ppx: eliquis Code status: FC Anticipated discharge place: pending clinical course Anticipated discharge time: pending clinical course Objective - Vital Signs Vital signs: Vital Signs Temp 99.5 F 04/06/23 07:37 Pulse 82 04/06/23 10:56 Resp 18 04/06/23 10:56 BP 136/68 04/06/23 10:56 Pulse Ox 92 L 04/06/23 10:56 FiO2 Intake & Output 04/05/23 04/06/23 04/06/23 18:59 06:59 18:59 Weight 144.242 kg - Labs CBC & Chem 7: 04/05/23 19:42 04/06/23 07:26 Labs: Abnormal Lab Results - Last 24 Hours (Table) 04/05/23 04/06/23 04/06/23 Range/Units 19:42 00:48 07:26 Chloride 97 L (98-107) mmol/L Carbon Dioxide (22-30) mmol/L BUN 29 H (9-20) mg/dL Creatinine 1.29 H (0.66-1.25) mg/dL Glucose 106 H (74-99) mg/dL POC Glucose (mg/dL) 186 H (70-110) mg/dL Hemoglobin A1c (<=6.0) % Triglycerides 155.00 H (0.00-149.00) mg/dL HDL Cholesterol 33.50 L (40.00-60.00) mg/dL 04/06/23 04/06/23 04/06/23 Range/Units 07:26 07:26 07:34 Chloride (98-107) mmol/L Carbon Dioxide 20 L (22-30) mmol/L BUN 37 H (9-20) mg/dL Creatinine 1.27 H (0.66-1.25) mg/dL Glucose 218 H (74-99) mg/dL POC Glucose (mg/dL) 213 H (70-110) mg/dL Hemoglobin A1c 7.6 H (<=6.0) % Triglycerides (0.00-149.00) mg/dL HDL Cholesterol (40.00-60.00) mg/dL
[2023-04-06 12:39] LABS: Glucose,Whole Blood 224 mg/dL (70-110)
--- NOTE | 2023-04-06 12:46 | US ---
EXAMINATION TYPE: US kidneys/renal and bladder DATE OF EXAM: 04/06/2023 COMPARISON: NONE CLINICAL INDICATION: Male, 67 years old with history of LOULOU; LOULOU EXAM MEASUREMENTS: Right Kidney: 12.5x6.1x6.3 cm Left Kidney: 12.3x5.8x5.2 cm Right Kidney: No hydronephrosis or masses seen Left Kidney: No hydronephrosis or masses seen Bladder: wnl Bilateral Jets seen: right jet seen There is no evidence for hydronephrosis at this point in time. No nephrolithiasis is seen. No coretta s are identified. The urinary bladder is anechoic. Bilateral ureteral jets are seen. exam limited by bowel and body habitus IMPRESSION: 1. No acute renal ultrasound abnormality.
[2023-04-06] MEDS: ONDANSETRON 4 MG/2 ML VIAL IVP PRN ×2 (12:59→17:47)
--- NOTE | 2023-04-06 15:15 | P.CNNES ---
History of Present Illness Consult date: 04/06/23 Requesting physician: Wale Escamilla Reason for Consult: TIA History of Present Illness: This is a 67-year-old gentleman who presented emergency department because of slurring the speech, dizziness, with generalized weakness. Patient's is at bedside who provided some the history. It seems that the patient has been pinedo ving the dizziness is worsening since yesterday at 3 PM as well as slurring the speech and speech not making sense with generalized weakness. Patient has an old TIA in the past. He has history of atrial fibrillation and is on Eliquis. Has early onset dementia and follows-up up with Dr. Mckeon's PA. He does have underlying diabetes, hypertension, neuropathy. His slurring his speech has improved and his speech is back to baseline. He feels overall he is improved compared to yesterday. I spoke with the ED physician and he stated that the patient's examination was inconsistent in which when he was examined the patient the patient was not showing any strength in the uppers then when he asked him to sit up he had a profound significant strength and was able to lean on the rail to sit up Some of her workup during his hospital visit consisted of: CBC with differential is unremarkable Hemoglobin A1c 7.6 TSH is 2.08 Creatinine is 1.27, sodium, calcium all within normal limits Lipid panels triglyceride of 155, cholesterol 109, LDLs were 44 and HDL is [address] of the head is reported as no acute intracranial process. I personally reviewed the CT and agree with the report. CT angiography of the head and neck was reported as no evidence of dissection of the cervical internal carotid artery vertebral artery or any evidence of significant stenosis at the carotid bifurcation. No evidence of intracranial high-grade stenosis or intracranial aneurysm. EKG is reported as sinus rhythm. Review of Systems The positive and negative as per HPI. 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 SEE DR JURADO'S HISTORY AND PHYSICAL FOR CARDIAC HISTORY, C PAP MACHINE , high frequency hearing loss . recently seen by Dr Thomas for testing. History of Any Multi-Drug Resistant Organisms: MRSA Date of last positivie culture/infection: 08/03/17 MDRO Source:: belly button Past Surgical History: Ablation, Appendectomy, Cholecystectomy, Heart Catheterization, Hernia Repair, Orthopedic Surgery Additional Past Surgical History / Comment(s): Hernia repair. SURGERY ON PANCREAS- BILE DUCT, RIGHT AND LEFT KNEE ARTHROSCOPIC SURGERY, COLONOSCOPY/EGD Past Anesthesia/Blood Transfusion Reactions: No Reported Reaction Additional Past Anesthesia/Blood Transfusion Reaction / Comment(s): when pt had ablation ended ended up on Ventilator. Past Psychological History: Depression Smoking Status: Never smoker Past Alcohol Use History: None Reported Past Drug Use History: None Reported - Past Family History Father Family Medical History: CVA/TIA, Deep Vein Thrombosis (DVT), Hypertension, Myocardial Infarction ([place]) Additional Family Medical History / Comment(s): black lung Mother Family Medical History: Cancer Additional Family Medical History / Comment(s): LUNG CANCER Brother(s) Additional Family Medical History / Comment(s): brother at 52, ALS. 2 brothers had aneursym Medications and Allergies Home Medications Medication Instructions Recorded Confirmed Type INSULIN ASPART (NovoLOG) [NovoLOG 100 unit SQ TID-W/MEALS 10/07/18 04/05/23 History (formulary)] Insulin Glargine [Lantus Vial] 100 unit SQ BID 10/07/18 04/05/23 History Lipase/Protease/Amylase [Asha Dr 2 capsule PO QID PRN 10/07/18 04/05/23 History 24,000 Unit Capsule] Sertraline HCl [Zoloft] 100 mg PO DAILY 10/07/18 04/05/23 History Tamsulosin HCl [Flomax] 0.4 mg PO HS 10/07/18 04/05/23 History Trospium Chloride 20 mg PO BID 10/07/18 04/05/23 History metFORMIN HCL [Glucophage] 1,000 mg PO BID 10/07/18 04/05/23 History lisinopriL [Zestril] 5 mg PO BID 11/02/18 04/05/23 History Apixaban [Eliquis] 5 mg PO BID #60 tab 11/12/18 04/05/23 Rx Atorvastatin [Lipitor] 80 mg PO HS #30 tab 11/12/18 04/05/23 Rx Donepezil [Aricept] 5 mg PO HS 11/08/19 04/05/23 History Empagliflozin [Jardiance] 25 mg PO DAILY 11/08/19 04/05/23 History Memantine [Namenda] 10 mg PO BID 11/08/19 04/05/23 History Dicyclomine [Bentyl] 20 mg PO Q6H 04/07/22 04/05/23 History Furosemide [Lasix] 40 mg PO DAILY 04/07/22 04/05/23 History Gabapentin 300 mg PO QID 04/07/22 04/05/23 History Pantoprazole [Protonix] 40 mg PO BID 04/07/22 04/05/23 History Semaglutide [Ozempic] 1 mg SQ TU 04/07/22 04/05/23 History oxyCODONE-APAP 7.5-325MG [Percocet 1 tab PO QID 04/07/22 04/05/23 History 7.5-325 mg] Carboxymethylcellulose Sodium 1 drop BOTH EYES QID PRN 05/21/22 04/05/23 History [Refresh Tears] Clotrimazole [Lotrimin AF] 1 applic TOPICAL DAILY PRN 05/21/22 04/05/23 History Dextran/Hypromellose/Glycerin 1 drop BOTH EYES QID 05/21/22 04/05/23 History [Genteal Tears 0.1%-0.2%-0.3%] Levothyroxine Sodium [Synthroid] 125 mcg PO DAILY 05/21/22 04/05/23 History Metoprolol Tartrate [Lopressor] 50 mg PO BID 05/21/22 04/05/23 History Ondansetron [Zofran] 4 mg PO Q8HR PRN #30 tab 05/25/22 04/05/23 Rx Allergies Allergy/AdvReac Type Severity Reaction Status Date / Time Sulfa (Sulfonamide Allergy Swelling Verified 04/05/23 22:13 Antibiotics) TB SKIN TEST AdvReac Swelling Uncoded 03/25/23 11:34 Physical Examination - Vital Signs Vital Signs: Vital Signs Temp Pulse Pulse Resp BP BP Pulse Ox 04/06/23 14:54 98.1 F 88 18 123/62 96 04/06/23 13:52 83 20 120/56 96 04/06/23 13:41 82 18 111/53 96 04/06/23 11:52 80 20 110/53 95 04/06/23 11:25 97.6 F 85 18 155/79 100 04/06/23 10:56 82 18 136/68 92 L 04/06/23 08:43 65 18 95/51 96 04/06/23 07:37 99.5 F 96 20 113/68 96 04/06/23 06:13 96 16 100/44 96 04/06/23 04:00 82 20 107/73 94 L 04/06/23 00:00 70 20 108/49 96 04/05/23 22:34 98.1 F 66 18 129/50 98 04/05/23 21:17 64 18 116/49 94 L 04/05/23 20:45 63 17 116/49 97 04/05/23 20:30 64 15 116/49 99 04/05/23 20:15 63 13 116/49 98 04/05/23 20:00 63 19 116/49 99 04/05/23 19:45 64 10 L /24 93 L 04/05/23 19:37 65 15 04/05/23 18:47 97.8 F 60 18 105/64 100 GENERAL: The patient is a an obese gentleman lying in bed and is not in acute distress. NEUROLOGICAL: Higher mental function: The patient is awake, alert, oriented to self, place and time. Patient is following commands. No aphasia and no neglect. Cranial nerves: The pupils are round, equal and reactive to light and accommodation. Visual madsen are full to confrontation throughout. Extraocular movement is intact no nystagmus is noted. Facial sensation is normal to touch throughout. The facial strength is normal throughout. Hearing is normal bilaterally to hand rub. Tongue is midline and moved [id number] without any difficulty. No dysarthria is noted. Shoulder shrug is normal bilaterally. Motor: The strength is 5 over 5 throughout. Normal tone and bulk. Cerebellum: Normal finger to nose bilaterally. Sensation: Sensation is normal to touch throughout. Reflexes (right/left): 1+ throughout. Plantars are downgoing bilaterally. Results - Laboratory Findings CBC and BMP: 04/05/23 19:42 04/06/23 07:26 Abnormal Lab Findings: Abnormal Labs 04/05/23 04/06/23 04/06/23 19:42 00:48 07:26 Chloride 97 L Carbon Dioxide BUN 29 H Creatinine 1.29 H Glucose 106 H POC Glucose (mg/dL) 186 H Hemoglobin A1c Triglycerides 155.00 H HDL Cholesterol 33.50 L 04/06/23 04/06/23 04/06/23 07:26 07:26 07:34 Chloride Carbon Dioxide 20 L BUN 37 H Creatinine 1.27 H Glucose 218 H POC Glucose (mg/dL) 213 H Hemoglobin A1c 7.6 H Triglycerides HDL Cholesterol 04/06/23 12:39 Chloride Carbon Dioxide BUN Creatinine Glucose POC Glucose (mg/dL) 224 H Hemoglobin A1c Triglycerides HDL Cholesterol Assessment and Plan Assessment: This is a 67-year-old gentleman who presents because of the worsening of the dizziness, slurring the speech aphasia and generalized weakness since yesterday 3 PM. His symptoms has improved. Episode of transient dysarthria with dizziness and aphasia probable transient ischemic attack. Cannot rule out underlying metabolic encephalopathy. History of TIA Early onset dementia per her neurology team as outpatient (See's Dr. Mike RODRIGUEZ) Acute kidney insufficiency Atrial fibrillation on eliquis Hypertension Diabetes mellitus and his hemoglobin A1c 7.6 Peripheral neuropathy Obesity Plan: I ordered MRI of the brain to rule out any acute or subacute stroke. I ordered ammonia level, vitamin B-12 was ordered by the primary team Patient is resumed on his home dose of eliquis 5mg bid. He was started on aspirin 81 mg daily by the primary team. He is on Lipitor 80 mg daily at bedtime. 2-D echo was ordered and is pending Continue her checks Cardiac monitoring PT, OT and IRRIGATION DISTRICT MANAGER are consulted We'll defer the rest of the medical management to primary team For DVT prophylaxis is on eliquis. The plan is discussed with patient, who is at bedside and Primary team. Thank you for the consultation. Time with Patient: Greater than 30
[2023-04-06 16:52] LABS: Glucose,Whole Blood 160 mg/dL (70-110)
[2023-04-06] MEDS: PANTOPRAZOLE 40 MG TABLET PO SCH (17:05)
[2023-04-06 20:27] LABS: Glucose,Whole Blood 157 mg/dL (70-110)
[2023-04-06] MEDS: ATORVASTATIN 80 MG TAB PO SCH (20:32)
[2023-04-06] MEDS: TAMSULOSIN 0.4 MG CAP.ER.24H PO SCH (20:32)
[2023-04-07] MEDS: DONEPEZIL 5 MG TAB PO SCH ×2 (00:15→20:41)
[2023-04-07] MEDS: DICYCLOMINE 20 MG TAB PO SCH ×4 (03:59→20:45)
[2023-04-07 06:10] LABS: Glucose,Whole Blood 144 mg/dL (70-110)
[2023-04-07] MEDS: INSULIN ASPART (NovoLOG) 100 UNIT/ML VIAL SQ SCH ×4 (06:17→20:33)
[2023-04-07] MEDS: PANTOPRAZOLE 40 MG TABLET PO SCH ×2 (06:18→17:15)
[2023-04-07] MEDS: LEVOTHYROXINE 125 MCG TAB PO SCH (06:18)
[2023-04-07 08:14] LABS: African American GFR (CKD) >90 (>60 ml/min/1.73 sqM); Anion Gap 12 mmol/L; Blood Urea Nitrogen 23 mg/dL (9-20); Calcium 8.4 mg/dL (8.4-10.2); Carbon Dioxide 24 mmol/L (22-30); Chloride 103 mmol/L (98-107); Glucose 149 mg/dL (74-99); Non-African American GFR(CKD) >90 (>60 ml/min/1.73 sqM); Potassium 3.8 mmol/L (3.5-5.1); Sodium 139 mmol/L (137-145)
[2023-04-07] MEDS: SERTRALINE 100 MG TAB PO SCH (08:16)
[2023-04-07] MEDS: oxyCODONE-APAP 7.5-325MG 1 EACH TAB PO PRN ×3 (08:16→22:36)
[2023-04-07] MEDS: MEMANTINE 10 MG TAB PO SCH ×2 (08:16→20:41)
[2023-04-07] MEDS: GABAPENTIN 300 MG CAP PO SCH ×4 (08:16→20:41)
[2023-04-07] MEDS: ASPIRIN 81 MG PO SCH (08:16)
[2023-04-07] MEDS: METOPROLOL TARTRATE 50 MG TAB PO SCH ×2 (08:17→20:41)
[2023-04-07] MEDS: APIXABAN 5 MG TAB PO SCH ×2 (08:17→20:41)
[2023-04-07 11:28] LABS: Glucose,Whole Blood 195 mg/dL (70-110)
--- NOTE | 2023-04-07 11:57 | CA ---
Transthoracic Echo Report Name: James Castellon Age: 67 Gender: M : 1955 Exam Date: 04/06/2023 13:50 Exam Location: [place] [facility] Ht (in): 75 Wt (lb): 318 Ordering Physician: Phu Barros MD Attending/Referring Phys: Employment Law Attorney Idris Burciaga Procedure CPT: Indications: Suspected TIA Cardiac Hx: Technical Quality: Technically difficult study Contrast 1: Definity Total Dose (mL): 2 Contrast 2: Agitated Saline Total Dose (mL): 10 MEASUREMENTS (Male / Female) Normal Values 2D ECHO LV Diastolic Diameter PLAX 5.4 cm 4.2 - 5.9 / 3.9 - 5.3 cm IVS Diastolic Thickness 1.1 cm 0.6 - 1.0 / 0.6 - 0.9 cm LVPW Diastolic Thickness 1.4 cm 0.6 - 1.0 / 0.6 - 0.9 cm LV Relative Wall Thickness 0.5 RV Internal Dim ED PLAX 2.7 cm LVOT Diameter 2.0 cm Aortic Root Diameter 2.8 cm LA Systolic Diameter LX 3.9 cm 3.0 - 4.0 / 2.7 - 3.8 cm LA Volume 63.3 cm??? 18 - 58 / 22 - 52 cm??? LA Volume Index 22.5 cm???/m??? 16 - 28 cm???/m??? DOPPLER AV Peak Velocity 243.1 cm/s AV Peak Gradient 23.6 mmHg AV Mean Velocity 144.5 cm/s AV Mean Gradient 10.9 mmHg AV Velocity Time Integral 44.5 cm LVOT Peak Velocity 112.1 cm/s LVOT Peak Gradient 5.0 mmHg LVOT Velocity Time Integral 26.1 cm LVOT Stroke Volume 84.6 cm??? LVOT Stroke Volume Index 31.7 ml/m??? LVOT Cardiac Index 2402.2 cm???/min???m??? AV Area Cont Eq vti 1.9 cm??? AV Area Cont Eq pk 1.5 cm??? MV Peak Velocity 102.8 cm/s MV Peak Gradient 4.2 mmHg MV Mean Velocity 50.5 cm/s MV Mean Gradient 1.3 mmHg MV Velocity Time Integral 34.5 cm Mitral E Point Velocity 97.7 cm/s Mitral A Point Velocity 86.0 cm/s Mitral E to A Ratio 1.1 MV Deceleration Time 241.7 ms TR Peak Velocity 213.8 cm/s TR Peak Gradient 18.3 mmHg Right Ventricular Systolic Press 23.3 mmHg PV Peak Velocity 144.8 cm/s PV Peak Gradient 8.4 mmHg FINDINGS Left Ventricle Normal LV size. Mild concentric LVH. Left ventricular ejection fraction is estimated at 55-60 %. Right Ventricle Upper limits of normal in size. Right Atrium Mild right atrial dilatation. Negative agitated saline study. Left Atrium Mildly increased left atrial volume. Mildly increased left atrial area. LA volume index= 23ml/m2 Mitral Valve Structurally normal mitral valve. No mitral regurgitation. No mitral stenosis. Aortic Valve Aortic valve not well visualized. At least mild to moderate AV calcification. Peak gradient= 24mmHg. Mean gradient= 11mmHg. Tricuspid Valve Tricuspid valve not well visualized. Mild TR. Pulmonic Valve Pulmonic valve not well visualized. Pericardium Not well visualized. Aorta Normal size aortic root. CONCLUSIONS Negative bubble study, no shunt. Normal LV size and systolic function with mild concentric LVH. Enlarged left atrium. Mild mitral and tricuspid regurgitation. Aortic valve sclerosis with mild restriction peak gradient of about 24 mmHg. No pericardial effusion. No pulmonary hypertension Previewed by: Dr. Car Restrepo MD (Electronically Signed) Final Date: 07 April 2023 11:56
[2023-04-07 12:07] VITALS: BMI 39.7
--- NOTE | 2023-04-07 12:17 | P.PN ---
Subjective Progress Note Date: 04/07/23 I am following-up with patient and continues to be improving. He continues to have numbness over the right side. He is walking with therapy in the hallway without any issues. Objective - Vital Signs Vital signs: Vital Signs Temp 97.7 F 04/07/23 08:00 Pulse 60 04/07/23 11:58 Resp 16 04/07/23 11:58 BP 145/56 04/07/23 11:58 Pulse Ox 98 04/07/23 11:58 FiO2 Intake & Output 04/06/23 04/07/23 04/07/23 18:59 06:59 18:59 Intake Total 0 120 Balance 0 120 Weight 144.242 kg 144.242 kg Intake: Oral 0 120 Other: Voiding Method Toilet Toilet Diaper Diaper # Voids 1 - Exam GENERAL: The patient is a an obese gentleman lying in bed and is not in acute distress. NEUROLOGICAL: Higher mental function: The patient is awake, alert, oriented to self, place and time. Patient is following commands. No aphasia and no neglect. Cranial nerves: The pupils are round, equal and reactive to light and accommodation. Visual madsen are full to confrontation throughout. Extraocular movement is intact no nystagmus is noted. Facial sensation is normal to touch throughout. The facial strength is normal throughout. Hearing is normal bi laterally to hand rub. Tongue is midline and moved [id number] without any difficulty. No dysarthria is noted. Shoulder shrug is normal bilaterally. Motor: The strength is 5 over 5 throughout. Normal tone and bulk. Cerebellum: Normal finger to nose bilaterally. Sensation: Decrease sensation to touch over the right side. Reflexes (right/left): 1+ throughout. Plantars are downgoing bilaterally. Some of her workup during his hospital visit consisted of: CBC with differential is unremarkable Hemoglobin A1c 7.6 TSH is 2.08 Vitamin B12: 567 Ammonia 19 Creatinine is 1.27, sodium, calcium all within normal limits Lipid panels triglyceride of 155, cholesterol 109, LDLs were 44 and HDL is [address] of the head is reported as no acute intracranial process. I personally reviewed the CT and agree with the report. CT angiography of the head and neck was reported as no evidence of dissection of the cervical internal carotid artery vertebral artery or any evidence of significant stenosis at the carotid bifurcation. No evidence of intracranial high-grade stenosis or intracranial aneurysm. EKG is reported as sinus rhythm. 2D echo: Is negative bubble study, no shunt. Normal LV size and systolic function with mild concentric LVH. Enlarged left atrium. Aortic valve sclerosis with mild restriction peak gradient of about 24mmHg. No pulmonary hypertnesion. - Labs CBC & Chem 7: 04/05/23 19:42 04/07/23 06:42 Labs: Abnormal Lab Results - Last 24 Hours (Table) 04/06/23 04/06/23 04/06/23 Range/Units 12:39 16:50 20:25 BUN (9-20) mg/dL Glucose (74-99) mg/dL POC Glucose (mg/dL) 224 H 160 H 157 H (70-110) mg/dL 04/07/23 04/07/23 04/07/23 Range/Units 06:07 06:42 11:27 BUN 23 H (9-20) mg/dL Glucose 149 H (74-99) mg/dL POC Glucose (mg/dL) 144 H 195 H (70-110) mg/dL Assessment and Plan Assessment: This is a 67-year-old gentleman who presents because of the worsening of the dizziness, slurring the speech aphasia and generalized weakness since yesterday 3 PM. His symptoms has improved. Episode of transient dysarthria with dizziness and aphasia probable transient ischemic attack but on examination today feels he has numbness on the right side. Cannot rule out small stroke. History of TIA Early onset dementia per her neurology team as outpatient (See's Dr. Mike RODRIGUEZ) Acute kidney insufficiency Atrial fibrillation on eliquis Hypertension Diabetes mellitus and his hemoglobin A1c 7.6 Peripheral neuropathy Penile implant Obesity Plan: Pending MRI of the brain Patient is resumed on his home dose of eliquis 5mg bid. He was started on aspirin 81 mg daily by the primary team. He is on Lipitor 80 mg daily at bedtime. Continue her checks Cardiac monitoring PT, OT and MANUFACTURING TEST TECHNICIAN are consulted We'll defer the rest of the medical management to primary team For DVT prophylaxis is on eliquis. The plan is discussed with patient, who is at bedside and Primary team. Time with Patient: Less than 30
--- NOTE | 2023-04-07 12:53 | P.PN ---
Subjective Progress Note Date: 04/07/23 Hospital Course: 67-year-old male with a PMH of Rocky tierney on Eliquis, history of TIA, memory impairment, chronic pancreatitis, type II DM, hypertension, and hyperlipidemia who presents to the emergency room with complaints of slurred speech and abnormal gait. Initial vitals within normal limits. CT brain in the emergency room was unremarkable with CT angiogram head and neck also unremarkable. EKG revealed sinus rhythm at 60 bpm with diffusely flattened T waves with no additional ST/T-wave changes. Chest x-ray revealed findings concerning for pulmonary edema. Laboratory evaluation revealed a glucose of 106, BNP 29, creatinine 1.29 (baseline 0.75), troponin less than 0.012. Patient admitted for acute encephalopathy and acute kidney injury. Neurology consulted. Echocardiogram does not show any valvular with dictation, negative bubble study. MRI pending. Subjective: Patient seen and examined at bedside. No acute events overnight. Denies any chest pain, abdominal pain, nausea, vomiting, urinary bowel complaints. Pertinent positives and negatives as discussed above, a complete review of systems was performed and all other systems are negative. Vitals Signs Reviewed. General: nontoxic, no distress, appears at stated age, morbidly obese Derm: warm, dry Head: atraumatic, normocephalic, symmetric Eyes: EOMI, no lid lag, anicteric sclera Mouth: no lip lesion, mucus membranes moist Cardiovascular: S1S2 reg, systolic murmur Lungs: CTA bilateral, no rhonchi, no rales , no accessory muscle use Abdominal: soft, nontender to palpation, no guarding, no appreciable organomegaly Ext: no gross muscle atrophy, no edema, no contractures Neuro: right-sided numbness Psych: Alert, oriented, appropriate affect Data Reviewed Today: Pertinent Labs: Sodium 139, potassium 3.8, creatinine 0.7, blood sugars range between 144-195 Imaging: Echocardiogram report reviewed, LVEF 55-60%, negative bubble study, mild mitral and tricuspid regurgitation, mild aortic stenosis Assessment and Plan: Patient needs close monitoring, prognosis guarded Active: Acute encephalopathy, secondary to hypoglycemia versus CVA Insulin-dependent diabetes Acute kidney injury, resolved Hypertension - Current insulin regimen is dependent on his fasting and pre-meal blood sugar levels, he claims that he occasionally takes a 100 units of long-acting in the morning and at night, with additional short acting insulin all dependent on his blood sugars -A1c is 7.6 -Total of 21 units of sliding scale required, will start on Levemir 15 units tonight, continue sliding scale insulin, monitor for hypoglycemia - on ASA 81, lipitor 80 -Discussed plan with neurology, MRI pending - neuro checks - Was given IV fluids in the ER - hold lasix -Lisinopril 5 mg twice a day he started - PT/OT/speech therapy Chronic: GERD Paroxysmal Afib Depression Hypothyroidism DVT ppx: eliquis Code status: FC Anticipated discharge place: pending clinical course Anticipated discharge time: pending clinical course Objective - Vital Signs Vital signs: Vital Signs Temp 97.7 F 04/07/23 08:00 Pulse 60 04/07/23 11:58 Resp 16 04/07/23 11:58 BP 145/56 04/07/23 11:58 Pulse Ox 98 04/07/23 11:58 FiO2 Intake & Output 04/06/23 04/07/23 04/07/23 18:59 06:59 18:59 Intake Total 0 120 Balance 0 120 Weight 144.242 kg 144.242 kg Intake: Oral 0 120 Other: Voiding Method Toilet Toilet Diaper Diaper # Voids 1 - Labs CBC & Chem 7: 04/05/23 19:42 04/07/23 06:42 Labs: Abnormal Lab Results - Last 24 Hours (Table) 04/06/23 04/06/23 04/07/23 Range/Units 16:50 20:25 06:07 BUN (9-20) mg/dL Glucose (74-99) mg/dL POC Glucose (mg/dL) 160 H 157 H 144 H (70-110) mg/dL 04/07/23 04/07/23 Range/Units 06:42 11:27 BUN 23 H (9-20) mg/dL Glucose 149 H (74-99) mg/dL POC Glucose (mg/dL) 195 H (70-110) mg/dL
[2023-04-07] MEDS: ONDANSETRON 4 MG/2 ML VIAL IVP PRN (15:14)
[2023-04-07 16:37] LABS: Glucose,Whole Blood 159 mg/dL (70-110)
[2023-04-07] MEDS ORDERED: HYDROmorphone 0.5 MG/0.5 ML SYRINGE IVP STA (16:44)
[2023-04-07 20:13] LABS: Glucose,Whole Blood 121 mg/dL (70-110)
[2023-04-07] MEDS: ATORVASTATIN 80 MG TAB PO SCH (20:41)
[2023-04-07] MEDS: lisinopriL 5 MG TAB PO SCH (20:41)
[2023-04-07] MEDS: TAMSULOSIN 0.4 MG CAP.ER.24H PO SCH (20:41)
[2023-04-07] MEDS ORDERED: INSULIN DETEMIR (LEVEMIR) 100 UNIT/ML SYR SQ SCH (21:00)
[2023-04-08] MEDS: DICYCLOMINE 20 MG TAB PO SCH ×3 (04:43→16:09)
[2023-04-08 06:12] LABS: Glucose,Whole Blood 134 mg/dL (70-110)
[2023-04-08] MEDS: INSULIN ASPART (NovoLOG) 100 UNIT/ML VIAL SQ SCH ×3 (06:13→17:22)
[2023-04-08] MEDS: LEVOTHYROXINE 125 MCG TAB PO SCH (06:33)
[2023-04-08] MEDS: PANTOPRAZOLE 40 MG TABLET PO SCH ×2 (06:33→17:31)
[2023-04-08] MEDS: GABAPENTIN 300 MG CAP PO SCH ×3 (09:40→17:31)
[2023-04-08] MEDS: SERTRALINE 100 MG TAB PO SCH (09:40)
[2023-04-08] MEDS: MEMANTINE 10 MG TAB PO SCH (09:40)
[2023-04-08] MEDS: APIXABAN 5 MG TAB PO SCH (09:40)
[2023-04-08] MEDS: ASPIRIN 81 MG PO SCH (09:40)
[2023-04-08] MEDS: lisinopriL 5 MG TAB PO SCH (09:40)
[2023-04-08] MEDS: METOPROLOL TARTRATE 50 MG TAB PO SCH (09:40)
--- NOTE | 2023-04-08 11:27 | P.PN ---
Subjective Progress Note Date: 04/08/23 Hospital Course: 67-year-old male with a PMH of Rocky tierney on Eliquis, history of TIA, memory impairment, chronic pancreatitis, type II DM, hypertension, and hyperlipidemia who presents to the emergency room with complaints of slurred speech and abnormal gait. Initial vitals within normal limits. CT brain in the emergency room was unremarkable with CT angiogram head and neck also unremarkable. EKG revealed sinus rhythm at 60 bpm with diffusely flattened T waves with no additional ST/T-wave changes. Chest x-ray revealed findings concerning for pulmonary edema. Laboratory evaluation revealed a glucose of 106, BNP 29, creatinine 1.29 (baseline 0.75), troponin less than 0.012. Patient admitted for acute encephalopathy and acute kidney injury. Neurology consulted. Echocardiogram does not show any valvular with dictation, negative bubble study. MRI pending. Subjective: Patient seen and examined at bedside. No acute events overnight. Denies any chest pain, abdominal pain, nausea, vomiting, urinary bowel complaints. Pertinent positives and negatives as discussed above, a complete review of systems was performed and all other systems are negative. Vitals Signs Reviewed. General: nontoxic, no distress, appears at stated age, morbidly obese Derm: warm, dry Head: atraumatic, normocephalic, symmetric Eyes: EOMI, no lid lag, anicteric sclera Mouth: no lip lesion, mucus membranes moist Cardiovascular: S1S2 reg, systolic murmur Lungs: CTA bilateral, no rhonchi, no rales , no accessory muscle use Abdominal: soft, nontender to palpation, no guarding, no appreciable organomegaly Ext: no gross muscle atrophy, no edema, no contractures Neuro: right-sided numbness Psych: Alert, oriented, appropriate affect Data Reviewed Today: Pertinent Labs: blood sugars range between 121-195 Imaging: MRI pending, will be reviewed when available Patient has been HTN up to 152/54 Assessment and Plan: Active: Acute encephalopathy, secondary to hypoglycemia versus CVA Insulin-dependent diabetes Acute kidney injury, resolved Hypertension - Current insulin regimen is dependent on his fasting and pre-meal blood sugar levels, he claims that he occasionally takes a 100 units of long-acting in the morning and at night, with additional short acting insulin all dependent on his blood sugars -A1c is 7.6 -continue Levemir 15 units tonight, continue sliding scale insulin, monitor for hypoglycemia - on ASA 81, lipitor 80 -Discussed plan with neurology, MRI pending, if unable to do, will get CT head w/o contrast - neuro checks - lasix 40 daily restarted -Lisinopril 5 mg twice a day - PT/OT/speech therapy Chronic: GERD Paroxysmal Afib Depression Hypothyroidism DVT ppx: eliquis Code status: FC Anticipated discharge place: pending clinical course Anticipated discharge time: pending clinical course Patient failed observation, will be changed to inpatient for further stroke workup. Objective - Vital Signs Vital signs: Vital Signs Temp 97.9 F 04/08/23 09:32 Pulse 64 04/08/23 09:32 Resp 16 04/08/23 09:32 BP 152/54 04/08/23 09:32 Pulse Ox 96 04/08/23 09:32 FiO2 Intake & Output 04/07/23 04/08/23 04/08/23 18:59 06:59 18:59 Intake Total 240 Balance 240 Weight 144.242 kg Intake: Oral 240 Other: Voiding Method Toilet Toilet Toilet Diaper Diaper Diaper # Voids 2 - Labs CBC & Chem 7: 04/05/23 19:42 04/07/23 06:42 Labs: Abnormal Lab Results - Last 24 Hours (Table) 04/07/23 04/07/23 04/07/23 Range/Units 11:27 16:35 20:10 POC Glucose (mg/dL) 195 H 159 H 121 H (70-110) mg/dL 04/08/23 Range/Units 06:10 POC Glucose (mg/dL) 134 H (70-110) mg/dL
[2023-04-08 11:47] LABS: Glucose,Whole Blood 174 mg/dL (70-110)
[2023-04-08] MEDS: oxyCODONE-APAP 7.5-325MG 1 EACH TAB PO PRN ×2 (12:11→17:52)
[2023-04-08 12:38] VITALS: BP 121/55; PULSE 60; RESP 18; TEMP 98.2
--- NOTE | 2023-04-08 14:25 | P.PN ---
Subjective Progress Note Date: 04/08/22 I am following-up with patient and he continues to have numbness over the right sided of body and face. Otherwise denies of any new neurological issues. Objective - Vital Signs Vital signs: Vital Signs Temp 98.2 F 04/08/23 11:25 Pulse 60 04/08/23 11:25 Resp 18 04/08/23 11:25 BP 121/55 04/08/23 11:25 Pulse Ox 97 04/08/23 11:25 FiO2 Intake & Output 04/07/23 04/08/23 04/08/23 18:59 06:59 18:59 Intake Total 240 180 Balance 240 180 Weight 144.242 kg Intake: Oral 240 180 Other: Voiding Method Toilet Toilet Toilet Diaper Diaper Diaper # Voids 2 1 - Exam GENERAL: The patient is a an obese gentleman lying in bed and is not in acute distress. NEUROLOGICAL: Higher mental function: The patient is awake, alert, oriented to self, place and time. Patient is following commands. No aphasia and no neglect. Cranial nerves: The pupils are round, equal and reactive to light and accommodation. Visual madsen are full to confrontation throughout. Extraocular movement is intact no nystagmus is noted. Facial sensation is decrease to touch over the right side. The facial strengthis normal. Hearing is normal bilaterally to hand rub. Tongue is midline and moved [id number] without any difficulty. No dysarthria is noted. Shoulder shrug is normal bilaterally. Motor: The strength is 5 over 5 throughout. Normal tone and bulk. Cerebellum: Normal finger to nose bilaterally. Sensation: Decrease sensation to touch over the right side. Reflexes (right/left): 1+ throughout. Plantars are downgoing bilaterally. Some of her workup during his hospital visit consisted of: CBC with differential is unremarkable Hemoglobin A1c 7.6 TSH is 2.08 Vitamin B12: 567 Ammonia 19 Creatinine is 1.27, sodium, calcium all within normal limits Lipid panels triglyceride of 155, cholesterol 109, LDLs were 44 and HDL is 33 [address] of the head is reported as no acute intracranial process. I personally reviewed the CT and agree with the report. CT angiography of the head and neck was reported as no evidence of dissection of the cervical internal carotid artery vertebral artery or any evidence of significant stenosis at the carotid bifurcation. No evidence of intracranial high-grade stenosis or intracranial aneurysm. EKG is reported as sinus rhythm. 2D echo: Is negative bubble study, no shunt. Normal LV size and systolic fu nction with mild concentric LVH. Enlarged left atrium. Aortic valve sclerosis with mild restriction peak gradient of about 24mmHg. No pulmonary hypertnesion. - Labs CBC & Chem 7: 04/05/23 19:42 04/07/23 06:42 Labs: Abnormal Lab Results - Last 24 Hours (Table) 04/07/23 04/07/23 04/08/23 Range/Units 16:35 20:10 06:10 POC Glucose (mg/dL) 159 H 121 H 134 H (70-110) mg/dL 04/08/23 Range/Units 11:44 POC Glucose (mg/dL) 174 H (70-110) mg/dL Assessment and Plan Assessment: This is a 67-year-old gentleman who presents because of the worsening of the dizziness, slurring the speech aphasia and generalized weakness since yesterday 3 PM. His symptoms has improved. Episode of transient dysarthria with dizziness and aphasia probable transient ischemic attack but on examination today feels he has numbness on the right side including. Cannot rule out small stroke/lacunar stroke History of TIA Early onset dementia per her neurology team as outpatient (See's Dr. Mckeon PA) Acute kidney insufficiency Atrial fibrillation on eliquis Hypertension Diabetes mellitus and his hemoglobin A1c 7.6. Has DM for past 40 years. Peripheral neuropathy Penile implant Obesity Plan: Pending MRI of the brain. I was notified he is schedule to have MRI at 3pm today. Patient is resumed on his home dose of eliquis 5mg bid. He was started on aspirin 81 mg daily by the primary team. He is on Lipitor 80 mg daily at bedtime. Continue her checks Cardiac monitoring PT, OT and HISTORIAN RESEARCH ASSISTANT are consulted We'll defer the rest of the medical management to primary team For DVT prophylaxis is on eliquis. Upon discharge, recommend the patient to follow-up with his neurologist (Dr. Mckeon's P.A.) as outpatient within 2 weeks. The plan is discussed with patient, who is at bedside and Primary team. UPDATE: MRI Brain is negative for acute or subacute stroke. Recommend ASA 81mg daily for 21 days then stop after that. Continue home Eliquis 5mg bid. There is no further neurological work-up. Time with Patient: Less than 30
--- NOTE | 2023-04-08 15:57 | MR ---
EXAMINATION TYPE: MR brain wo con DATE OF EXAM: 04/08/2023 COMPARISON: CT brain 3 days earlier HISTORY: Stroke. Dysarthria. Right-sided numbness. TECHNIQUE: Multiplanar, multisequence imaging of the brain and brainstem is performed without IV cont rast. FINDINGS: Diffusion weighted images demonstrate no evidence of a recent infarct or other diffusion abnormality. There is mild to moderate ventricular and sulcal prominence. There is occasional tiny focus of T2 hyp erintensity scattered throughout the white matter bilaterally. For reference is a 3 mm lesion posteri or left frontal lobe axial image 22. Less than 5 distinct lesions are identified. Midline structures demonstrate normal morphology. The craniocervical junction appears within normal limits. Normal vascular flow voids are present. Dominant right vertebral artery is noted. Large mucou s retention cyst or polyp in the left maxillary sinus anteriorly. Mild mucosal thickening anterior ri ght ethmoid sinuses. Globes are intact bilaterally. Incidental subcentimeter cysts or intraparotid ly mph nodes bilaterally. IMPRESSION: 1. No MRI evidence for a recent infarct. 2. Mild to moderate diffuse cerebral atrophy and minimal nonspecific white matter change favor produc t of chronic small vessel ischemia. 3. Some chronic paranasal sinus disease is noted.
[2023-04-08 16:34] LABS: Glucose,Whole Blood 126 mg/dL (70-110)
--- NOTE | 2023-04-08 16:52 | P.DS ---
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 Initial vitals within normal limits. CT brain in the emergency room was unremarkable with CT angiogram head and neck also unremarkable. EKG revealed sinus rhythm at 60 bpm with diffusely flattened T waves with no additional ST/T-wave changes. Chest x-ray revealed findings concerning for pulmonary edema. Laboratory evaluation revealed a glucose of 106, BNP 29, creatinine 1.29 (baseline 0.75), troponin less than 0.012. Patient admitted for acute encephalopathy and acute kidney injury. Neurology consulted. Echocardiogram does not show any valvular with dictation, negative bubble study. MRI brain did not show any evidence of recent infarct. Patient's mental status as well as speech is back to normal. He will follow up with PCP. Insulin regimen changed to only 15 units of long-acting at night. Renal function also improved. Patient seen and examined at bedside. Vital signs reviewed and stable. General: nontoxic, no distress, appears at stated age, morbidly obese Derm: warm, dry Head: atraumatic, normocephalic, symmetric Eyes: EOMI, no lid lag, anicteric sclera Mouth: no lip lesion, mucus membranes moist Cardiovascular: S1S2 reg, systolic murmur Lungs: CTA bilateral, no rhonchi, no rales , no accessory muscle use Abdominal: soft, nontender to palpation, no guarding, no appreciable organomegaly Ext: no gross muscle atrophy, no edema, no contractures Neuro: slight right-sided numbness Psych: Alert, oriented, appropriate affect A total of 33 minutes of time were spent preparing this complex discharge summary. Patient was discharged on 1/4/24 at 1649 . Patient Condition at Discharge: Stable Plan - Discharge Summary New Discharge Prescriptions: New Aspirin 81 mg PO DAILY #20 tab Insulin Detemir (Levemir) [Levemir] 15 unit SQ HS #7 each Continue Lipase/Protease/Amylase [Asha Garvin 24,000 Unit Capsule] 2 capsule PO QID PRN PRN Reason: before meals and snacks Sertraline HCl [Zoloft] 100 mg PO DAILY metFORMIN HCL [Glucophage] 1,000 mg PO BID Tamsulosin HCl [Flomax] 0.4 mg PO HS Trospium Chloride 20 mg PO BID lisinopriL [Zestril] 5 mg PO BID Atorvastatin [Lipitor] 80 mg PO HS #30 tab Apixaban [Eliquis] 5 mg PO BID #60 tab Memantine [Namenda] 10 mg PO BID Donepezil [Aricept] 5 mg PO HS Empagliflozin [Jardiance] 25 mg PO DAILY Pantoprazole [Protonix] 40 mg PO BID Gabapentin 300 mg PO QID Clotrimazole [Lotrimin AF] 1 applic TOPICAL DAILY PRN PRN Reason: rash/fungal infection Levothyroxine Sodium [Synthroid] 125 mcg PO DAILY Dicyclomine [Bentyl] 20 mg PO Q6H oxyCODONE-APAP 7.5-325MG [Percocet 7.5-325 mg] 1 tab PO QID Semaglutide [Ozempic] 1 mg SQ TU Furosemide [Lasix] 40 mg PO DAILY Dextran/Hypromellose/Glycerin [Genteal Tears 0.1%-0.2%-0.3%] 1 drop BOTH EYES QID Carboxymethylcellulose Sodium [Refresh Tears] 1 drop BOTH EYES QID PRN PRN Reason: dry eyes Metoprolol Tartrate [Lopressor] 50 mg PO BID Ondansetron [Zofran] 4 mg PO Q8HR PRN #30 tab PRN Reason: Nausea Discontinued Insulin Glargine [Lantus Vial] 100 unit SQ BID INSULIN ASPART (NovoLOG) [NovoLOG (formulary)] 100 unit SQ TID-W/MEALS Discharge Medication List Lipase/Protease/Amylase [Asha Garvin 24,000 Unit Capsule] 2 capsule PO QID PRN 10/07/18 [History] Sertraline HCl [Zoloft] 100 mg PO DAILY 10/07/18 [History] Tamsulosin HCl [Flomax] 0.4 mg PO HS 10/07/18 [History] Trospium Chloride 20 mg PO BID 10/07/18 [History] metFORMIN HCL [Glucophage] 1,000 mg PO BID 10/07/18 [History] lisinopriL [Zestril] 5 mg PO BID 11/02/18 [History] Apixaban [Eliquis] 5 mg PO BID #60 tab 11/12/18 [Rx] Atorvastatin [Lipitor] 80 mg PO HS #30 tab 11/12/18 [Rx] Donepezil [Aricept] 5 mg PO HS 11/08/19 [History] Empagliflozin [Jardiance] 25 mg PO DAILY 11/08/19 [History] Memantine [Namenda] 10 mg PO BID 11/08/19 [History] Dicyclomine [Bentyl] 20 mg PO Q6H 04/07/22 [History] Furosemide [Lasix] 40 mg PO DAILY 04/07/22 [History] Gabapentin 300 mg PO QID 04/07/22 [History] Pantoprazole [Protonix] 40 mg PO BID 04/07/22 [History] Semaglutide [Ozempic] 1 mg SQ TU 04/07/22 [History] oxyCODONE-APAP 7.5-325MG [Percocet 7.5-325 mg] 1 tab PO QID 04/07/22 [History] Carboxymethylcellulose Sodium [Refresh Tears] 1 drop BOTH EYES QID PRN 05/21/22 [History] Clotrimazole [Lotrimin AF] 1 applic TOPICAL DAILY PRN 05/21/22 [History] Dextran/Hypromellose/Glycerin [Genteal Tears 0.1%-0.2%-0.3%] 1 drop BOTH EYES QID 05/21/22 [History] Levothyroxine Sodium [Synthroid] 125 mcg PO DAILY 05/21/22 [History] Metoprolol Tartrate [Lopressor] 50 mg PO BID 05/21/22 [History] Ondansetron [Zofran] 4 mg PO Q8HR PRN #30 tab 05/25/22 [Rx] Aspirin 81 mg PO DAILY #20 tab 04/08/23 [Rx] Insulin Detemir (Levemir) [Levemir] 15 unit SQ HS #7 each 04/08/23 [Rx] Follow up Appointment(s)/Referral(s): [facility],Clinic [Primary Care Provider] - 1-2 days Patient Instructions/Handouts: Hypoglycemia in a Person with Diabetes (DC) Activity/Diet/Wound Care/Special Instructions: Please see your PCP. Discharge Disposition: HOME SELF-CARE
[2023-04-09] MEDS ORDERED: FUROSEMIDE 40 MG TAB PO SCH (09:00)
== END 2023-04-08 18:05 | disposition home or self-care (01) | DRG 637 ==
LOC: EC 18:46 → 3SCARD 20:52 → OBSVTOIN 20:53 → 3SCARD 04-06 00:28
PROVIDERS: ADMIT Internal Medicine; ATTEND Internal Medicine
DX: E11.649 Type 2 diabetes mellitus with hypoglycemia without coma (principal); G93.41 Metabolic encephalopathy; R47.01 Aphasia; F03.93 Unspecified dementia, unspecified severity, with mood disturbance; K86.1 Other chronic pancreatitis; N17.9 Acute kidney failure, unspecified; I95.9 Hypotension, unspecified; E11.65 Type 2 diabetes mellitus with hyperglycemia; I10 Essential (primary) hypertension; E11.42 Type 2 diabetes mellitus with diabetic polyneuropathy; E66.01 Morbid (severe) obesity due to excess calories; E03.9 Hypothyroidism, unspecified; R47.81 Slurred speech; I48.0 Paroxysmal atrial fibrillation; E78.5 Hyperlipidemia, unspecified; H91.90 Unspecified hearing loss, unspecified ear; G47.30 Sleep apnea, unspecified; N40.0 Benign prostatic hyperplasia without lower urinary tract symptoms; K21.9 Gastro-esophageal reflux disease without esophagitis; Z68.39 Body mass index [BMI] 39.0-39.9, adult; Z79.4 Long term (current) use of insulin; Z79.01 Long term (current) use of anticoagulants; Z86.73 Personal history of transient ischemic attack (TIA), and cerebral infarction without residual deficits; Z28.310 Unvaccinated for COVID-19; R47.1 Dysarthria and anarthria; R26.2 Difficulty in walking, not elsewhere classified; Z86.14 Personal history of Methicillin resistant Staphylococcus aureus infection; Z79.84 Long term (current) use of oral hypoglycemic drugs; Z79.899 Other long term (current) drug therapy; Z79.85 Long-term (current) use of injectable non-insulin antidiabetic drugs; Z79.890 Hormone replacement therapy; Z79.891 Long term (current) use of opiate analgesic; Z88.2 Allergy status to sulfonamides; Z88.8 Allergy status to other drugs, medicaments and biological substances; Z79.82 Long term (current) use of aspirin
CPT/HCPCS: 36415; 70450; 70496; 70498; 70551; 71046; 76770; 80048; 80053; 80061; 82140; 82550; 82607; 83036; 83690; 83880; 84443; 84484; 85025; 85610; 85730; 93005; 93306; 94760; 96361; 96374; 96375; 96376; 99285

== ENCOUNTER → 2023-04-21 | Day surgery (SDC) | payer MEDICARE, OTHER ==
[2023-04-20 10:40] VITALS: BMI 39.9
[~2023-04-21] MED LIST changes: +LACTATED RINGERS 1,000 ML IV ONE; +LACTATED RINGERS 1,000 ML IV SCH; +PROPOFOL 10 MG/ML 20 ML VIAL IV ONE; -ceFAZolin 3 GM in SODIUM CHLORIDE 0.9% 100 ML IVPB PRN
[2023-04-21 09:57] LABS: Glucose,Whole Blood 150 mg/dL (70-110)
[2023-04-21 10:02] VITALS: TEMP 98
--- NOTE | 2023-04-21 10:44 | P.PCN ---
Date of Procedure: 04/21/23 Procedure(s) Performed: BRIEF HISTORY: Patient is a 67-year-old pleasant white female scheduled for an elective colonoscopy as a part of screening for colorectal neoplasia. PROCEDURE PERFORMED: Colonoscopy. PREOPERATIVE DIAGNOSIS: In for colon cancer. IV sedation per Anesthesia. PROCEDURE: After informed consent was obtained, the patient, was brought into the endoscopy unit. IV sedation was administered by Anesthesia under continuous monitoring. Digital rectal examination was normal. Initially the Olympus CF-160 flexible video colonoscope was then inserted in the rectum, gradually advanced into the cecum without any difficulty. Careful examination was performed as the scope was gradually being withdrawn. Ileocecal valve and the appendiceal orifice were visualized and appeared normal. Prep was excellent. Mucosa of the cecum, ascending colon, transverse colon, descending colon, sigmoid colon, and rectum appeared normal. Retroflexion was performed in the rectum and no lesions were seen. The patient tolerated the procedure well. IMPRESSION: Normal-appearing colon from rectum to cecum with no evidence of colorectal neoplasia . RECOMMENDATIONS: Findings of this examination were discussed with the patient as well as his family. He was advised to have a repeat screen colonoscopy in 10 years..
[2023-04-21 10:51] VITALS: RESP 18
[2023-04-21 11:05] LABS: Glucose,Whole Blood 155 mg/dL (70-110)
[2023-04-21 11:23] VITALS: BP 143/80; PULSE 63
== END ==
LOC: ORWHC2ENDO 08:56
PROVIDERS: ATTEND Internal Medicine Gastroenterology
DX: Z12.11 Encounter for screening for malignant neoplasm of colon (principal); C18.9 Malignant neoplasm of colon, unspecified; I48.91 Unspecified atrial fibrillation; I10 Essential (primary) hypertension; E78.5 Hyperlipidemia, unspecified; E11.9 Type 2 diabetes mellitus without complications; E07.9 Disorder of thyroid, unspecified; M19.90 Unspecified osteoarthritis, unspecified site; H91.90 Unspecified hearing loss, unspecified ear; K86.1 Other chronic pancreatitis; N40.0 Benign prostatic hyperplasia without lower urinary tract symptoms; Z79.4 Long term (current) use of insulin; Z79.84 Long term (current) use of oral hypoglycemic drugs; Z79.82 Long term (current) use of aspirin; Z79.890 Hormone replacement therapy; Z79.01 Long term (current) use of anticoagulants; Z79.899 Other long term (current) drug therapy; Z88.2 Allergy status to sulfonamides; Z86.73 Personal history of transient ischemic attack (TIA), and cerebral infarction without residual deficits
CPT/HCPCS: 45378; J2704

== ENCOUNTER 2023-10-20 10:07 | Emergency (ER) | payer OTHER ==
[2023-10-20 10:11] VITALS: TEMP 97.9
--- NOTE | 2023-10-20 10:17 | ED ---
General Adult HPI - General Source: patient, RN notes reviewed Mode of arrival: ambulatory Limitations: no limitations <Dao Roberson - Last Filed: 10/20/23 10:15> <Carmen Barrera - Last Filed: 10/20/23 13:08> - General Chief complaint: Fall Stated complaint: UTI Time Seen by Provider: 10/20/23 10:15 - History of Present Illness Initial comments: Quick noteis a 67-year-old male presents emergency department chief complaint of a fall. He states he had a fall into some furniture on the ground and complains of bilateral knee pain right shoulder pain. Patient states he has chronic abdominal pain from chronic pancreatitis he also believes he has a urinary tract infection he dealt with these in the past and has urinary symptoms. No head injury no loss conscious (Dao Roberson) 67-year-old male presents to the emergency department for evaluation of bilateral flank pain. Patient is concerned that he has a urinary tract infection. He states that 2 days ago he took a fall. He states that he was walking in an area where there were multiple obstacles causing him to fall. He landed on his right shoulder into a bunch of paint cans. He states that he started having back pain 1 to 2 days prior to this occurring. He denies recent fever, chills. (Carmen Barrera) - Related Data Home Medications Medication Instructions Recorded Confirmed Lipase/Protease/Amylase [Creon Dr 2 capsule PO QID PRN 10/07/18 04/21/23 24,000 Unit Capsule] Sertraline HCl [Zoloft] 100 mg PO DAILY 10/07/18 04/21/23 Tamsulosin HCl [Flomax] 0.4 mg PO HS 10/07/18 04/21/23 Trospium Chloride 20 mg PO BID 10/07/18 04/21/23 metFORMIN HCL [Glucophage] 1,000 mg PO BID 10/07/18 04/21/23 lisinopriL [Zestril] 5 mg PO BID 11/02/18 04/21/23 Donepezil [Aricept] 5 mg PO HS 11/08/19 04/21/23 Empagliflozin [Jardiance] 25 mg PO DAILY 11/08/19 04/21/23 Memantine [Namenda] 10 mg PO BID 11/08/19 04/21/23 Dicyclomine [Bentyl] 20 mg PO Q6H 04/07/22 04/21/23 Furosemide [Lasix] 40 mg PO BID 04/07/22 04/21/23 Gabapentin 300 mg PO QID 04/07/22 04/21/23 Pantoprazole [Protonix] 40 mg PO BID 04/07/22 04/21/23 Semaglutide [Ozempic] 1 mg SQ TU 04/07/22 04/21/23 oxyCODONE-APAP 7.5-325MG [Percocet 1 tab PO QID 04/07/22 04/21/23 7.5-325 mg] Carboxymethylcellulose Sodium 1 drop BOTH EYES QID PRN 05/21/22 04/21/23 [Refresh Tears] Clotrimazole [Lotrimin AF] 1 applic TOPICAL DAILY PRN 05/21/22 04/21/23 Dextran/Hypromellose/Glycerin 1 drop BOTH EYES QID 05/21/22 04/21/23 [Genteal Tears 0.1%-0.2%-0.3%] Levothyroxine Sodium [Synthroid] 125 mcg PO DAILY 05/21/22 04/21/23 Metoprolol Tartrate [Lopressor] 50 mg PO BID 05/21/22 04/21/23 Insulin Aspart [NovoLOG] 0 units SQ ACHS 04/20/23 04/21/23 Insulin Glargine [Lantus Vial] 0 unit SQ BID 04/20/23 04/21/23 Previous Rx's Medication Instructions Recorded Apixaban [Eliquis] 5 mg PO BID #60 tab 11/12/18 Atorvastatin [Lipitor] 80 mg PO HS #30 tab 11/12/18 Ondansetron [Zofran] 4 mg PO Q8HR PRN #30 tab 05/25/22 Aspirin 81 mg PO DAILY #20 tab 04/08/23 Allergies Allergy/AdvReac Type Severity Reaction Status Date / Time Sulfa (Sulfonamide Allergy Swelling Verified 10/20/23 10:11 Antibiotics) TB SKIN TEST AdvReac Swelling Uncoded 10/20/23 10:11 Review of Systems ROS Other: All systems not noted in ROS Statement are negative. <Dao Roberson - Last Filed: 10/20/23 10:15> ROS Other: All systems not noted in ROS Statement are negative. <TheodoredimitryCarmen - Last Filed: 10/20/23 13:08> ROS Statement: Those systems with pertinent positive or pertinent negative responses have been documented in the HPI. 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 SEE DR JURADO'S HISTORY AND PHYSICAL FOR CARDIAC HISTORY, C PAP MACHINE , high frequency hearing loss . recently seen by Dr Thomas for testing.wears hearing aids History of Any Multi-Drug Resistant Organisms: MRSA Date of last positivie culture/infection: 08/03/17 MDRO Source:: belly button Past Surgical History: Ablation, Appendectomy, Cholecystectomy, Heart Catheterization, Hernia Repair, Orthopedic Surgery Additional Past Surgical History / Comment(s): Hernia repair. SURGERY ON PANCREAS- BILE DUCT, RIGHT AND LEFT KNEE ARTHROSCOPIC SURGERY, COLONOSCOPY/EGD penile implant nov.25 Past Anesthesia/Blood Transfusion Reactions: No Reported Reaction Additional Past Anesthesia/Blood Transfusion Reaction / Comment(s): when pt had ablation ended ended up on Ventilator. 2018. no blood transfusion Past Psychological History: Depression Smoking Status: Never smoker Past Alcohol Use History: None Reported Past Drug Use History: None Reported - Past Family History Father Family Medical History: CVA/TIA, Deep Vein Thrombosis (DVT), Hypertension, Myocardial Infarction (GA) Additional Family Medical History / Comment(s): black lung Mother Family Medical History: Cancer Additional Family Medical History / Comment(s): LUNG CANCER Brother(s) Additional Family Medical History / Comment(s): brother at 52, ALS. 2 brothers had aneursym <Dao Roberson - Last Filed: 10/20/23 10:15> General Exam Limitations: no limitations <Dao Roberson - Last Filed: 10/20/23 10:15> Limitations: no limitations General appearance: alert, in no apparent distress Head exam: Present: atraumatic, normocephalic, normal inspection Eye exam: Present: normal appearance, PERRL, EOMI. Absent: scleral icterus, conjunctival injection, periorbital swelling ENT exam: Present: normal exam, mucous membranes moist Neck exam: Present: normal inspection. Absent: tenderness, meningismus, lymphadenopathy Respiratory exam: Present: normal lung sounds bilaterally. Absent: respiratory distress, wheezes, rales, rhonchi, stridor Cardiovascular Exam: Present: regular rate, normal rhythm, systolic murmur. Absent: diastolic murmur, rubs, gallop, clicks GI/Abdominal exam: Present: soft, normal bowel sounds. Absent: distended, tenderness, guarding, rebound, rigid Extremities exam: Present: normal inspection, full ROM, normal capillary refill. Absent: tenderness, pedal edema, joint swelling, calf tenderness Neurological exam: Present: alert, oriented X3 Psychiatric exam: Present: normal affect, normal mood Skin exam: Present: warm, dry, intact, normal color. Absent: rash <Carmen Barrera - Last Filed: 10/20/23 13:08> - General Exam Comments Initial Comments: Visual Physical Exam Vital signs reviewed General: Well-appearing, nontoxic, no acute distress. Head: Normocephalic, atraumatic Eyes: PERRLA, EOMI ENT: Airway patent Chest: Nonlabored breathing Skin: No visual rash, normal skin tone Neuro: Alert and oriented 3 Musculoskeletal: No gross abnormalities (Dao Roberson) Course Vital Signs 10/20/23 10:08 Temperature 97.9 F Pulse Rate 80 Respiratory 20 Rate Blood Pressure 94/53 O2 Sat by Pulse 99 Oximetry Medical Decision Making <Dao Roberson - Last Filed: 10/20/23 10:15> - Lab Data Result diagrams: 10/20/23 10:22 10/20/23 11:20 <Carmen Barrera - Last Filed: 10/20/23 13:08> - Medical Decision Making I completed the quick note portion of this chart signed Dao Burris PA-C) Was pt. sent in by a medical professional or institution (, PA, [employer]IC, urgent care, hospital, or longterm...) When possible be specific @ -No Did you speak to anyone other than the patient for history (EMS, parent, family, police, friend...)? What history was obtained from this source @ -No Did you review nursing and triage notes (agree or disagree)? Why? @ -I reviewed and agree with nursing and triage notes Were old charts reviewed (outside hosp., previous admission, EMS record, old EKG, old radiological studies, urgent care reports/EKG's, longterm records)? Report findings @ -No old charts were reviewed Differential Diagnosis (chest pain, altered mental status, abdominal pain women, abdominal pain men, vaginal bleeding, weakness, fever, dyspnea, syncope, hea dache, dizziness, GI bleed, back pain, seizure, CVA, palpatations, mental health, musculoskeletal)? @ -Differential Musculoskeletal Muscular strain, contusion, ligament sprain, fracture, arthritis, septic arthritis, bursitis, cellulitis, muscle spasm, nerve compression, DVT, arterial occlusion, herpes zoster, electrolyte abnormality, tumor.... This is not meant to be in all inclusive list EKG interpreted by me (3pts min.). @ -None X-rays interpreted by me (1pt min.). @ -X-rays of bilateral knees show chronic osteoarthritic changes with no acute fracture X-ray of right shoulder shows chronic changes with no acute fracture CT interpreted by me (1pt min.). @ -None done U/S interpreted by me (1pt. min.). @ -None done What testing was considered but not performed or refused? (CT, X-rays, U/S, labs)? Why? @ -None What meds were considered but not given or refused? Why? @ -None Did you discuss the management of the patient with other professionals (professionals i.e. , PA, [employer], lab, RT, psych nurse, social work job titles, key operator, teacher, financial aids officer, field nurse case manager)? Give summary @ -No Was smoking cessation discussed for >3mins.? @ -No Was critical care preformed (if so, how long)? @ -No Were there social determinants of health that impacted care today? How? (Homelessness, low income, unemployed, alcoholism, drug addiction, transportation, low edu. Level, literacy, decrease access to med. care, alf, rehab)? @ -No Was there de-escalation of care discussed even if they declined (Discuss DNR or withdrawal of care, Hospice)? DNR status @ -No What co-morbidities impacted this encounter? (DM, HTN, Smoking, COPD, CAD, Cancer, CVA, ARF, Chemo, Hep., AIDS, mental health diagnosis, sleep apnea, morbid obesity)? @ -None Was patient admitted / discharged? Hospital course, mention meds given and route, prescriptions, significant lab abnormalities, going to OR and other pertinent info. @ -Discharge. Patient presented to the emergency department for evaluation of fall, UTI symptoms. Laboratory studies obtained. Patient has no significant leukocytosis. UA shows no evidence of infectious process, 4+ glucose. X-rays of bilateral knees and right shoulder were obtained which showed no evidence of acute fracture or dislocation. Patient will be discharged home. He is un derstanding agreeable with plan. Patient stable at time of discharge. Case discussed with Dr. Andrew. Undiagnosed new problem with uncertain prognosis? @ -No Drug Therapy requiring intensive monitoring for toxicity (Heparin, Nitro, Insulin, Cardizem)? @ -No Were any procedures done? @ -No Diagnosis/symptom? @ -Fall, back pain Acute, or Chronic, or Acute on Chronic? @ -Acute Uncomplicated (without systemic symptoms) or Complicated (systemic symptoms)? @ -Uncomplicated Side effects of treatment? @ -No Exacerbation, Progression, or Severe Exacerbation? @ -No Poses a threat to life or bodily function? How? (Chest pain, USA, GA, pneumonia, PE, COPD, DKA, ARF, appy, cholecystitis, CVA, Diverticulitis, Homicidal, Suicidal, threat to staff... and all critical care pts) @ -No (Carmne Barrera) - Lab Data Lab Results 10/20/23 10/20/23 10/20/23 Range/Units 10:22 10:22 11:20 WBC 5.9 (3.8-10.6) k/uL RBC 4.34 (4.30-5.90) m/uL Hgb 13.3 (13.0-17.5) gm/dL Hct 41.5 (39.0-53.0) % MCV 95.7 (80.0-100.0) fL MCH 30.8 (25.0-35.0) pg MCHC 32.2 (31.0-37.0) g/dL RDW 14.2 (11.5-15.5) % Plt Count 148 L (150-450) k/uL MPV 8.7 Neutrophils % 66 % Lymphocytes % 23 % Monocytes % 6 % Eosinophils % 3 % Basophils % 0 % Neutrophils # 3.9 (1.3-7.7) k/uL Lymphocytes # 1.4 (1.0-4.8) k/uL Monocytes # 0.3 (0-1.0) k/uL Eosinophils # 0.2 (0-0.7) k/uL Basophils # 0.0 (0-0.2) k/uL Sodium 138 (137-145) mmol/L Potassium 4.2 (3.5-5.1) mmol/L Chloride 104 (98-107) mmol/L Carbon Dioxide 26 (22-30) mmol/L Anion Gap 8 mmol/L BUN 21 H (9-20) mg/dL Creatinine 0.85 (0.66-1.25) mg/dL Est GFR (CKD-EPI)AfAm >90 (>60 ml/min/1.73 sqM) Est GFR (CKD-EPI)NonAf >90 (>60 ml/min/1.73 sqM) Glucose 179 H (74-99) mg/dL Calcium 8.9 (8.4-10.2) mg/dL Total Bilirubin 0.7 (0.2-1.3) mg/dL AST 28 (17-59) U/L ALT 26 (4-49) U/L Alkaline Phosphatase 72 (38-126) U/L Total Protein 6.8 (6.3-8.2) g/dL Albumin 3.9 (3.5-5.0) g/dL Lipase 179 (23-300) U/L Urine Color Colorless Urine Appearance Clear (Clear) Urine pH 7.0 (5.0-8.0) Ur Specific Fisher 1.018 (1.001-1.035) Urine Protein Negative (Negative) Urine Glucose (UA) 4+ H (Negative) Urine Ketones Negative (Negative) Urine Blood Negative (Negative) Urine Nitrite Negative (Negative) Urine Bilirubin Negative (Negative) Urine Urobilinogen <2.0 (<2.0) mg/dL Ur Leukocyte Esterase Negative (Negative) Disposition <Dao Roberson - Last Filed: 10/20/23 10:15> Is patient prescribed a controlled substance at d/c from ED?: No <Carmen Barrera - Last Filed: 10/20/23 13:08> Clinical Impression: Fall Disposition: HOME SELF-CARE Condition: Stable Instructions (If sedation given, give patient instructions): Fall Prevention (ED) Additional Instructions: Please follow up with your primary care provider. Return to the emergency department for new or worsening symptoms. Referrals: [facility],Clinic [Primary Care Provider] - 1-2 days
[2023-10-20 10:59] LABS: Basophils % (A) 0 %; Eosinophils # (A) 0.2 k/uL (0-0.7); Eosinophils % (A) 3 %; HCT 41.5 % (39.0-53.0); HGB 13.3 gm/dL (13.0-17.5); Lymphocytes # (A) 1.4 k/uL (1.0-4.8); Lymphocytes % (A) 23 %; MCH 30.8 pg (25.0-35.0); MCHC 32.2 g/dL (31.0-37.0); MCV 95.7 fL (80.0-100.0); Mean Platelet Volume 8.7; Monocytes # (A) 0.3 k/uL (0-1.0); Monocytes % (A) 6 %; Neutrophils # (A) 3.9 k/uL (1.3-7.7); Neutrophils % (A) 66 %; Platelet Count 148 k/uL (150-450); RBC 4.34 m/uL (4.30-5.90); RDW 14.2 % (11.5-15.5); WBC 5.9 k/uL (3.8-10.6)
[2023-10-20 11:14] LABS: Appearance,Urine Clear (Clear); Bilirubin,Urine Negative (Negative); Blood,Urine Negative (Negative); Color,Urine Colorless; Glucose,Urine (UA) 4+ (Negative); Ketones,Urine Negative (Negative); Leukocyte Esterase,Urine Negative (Negative); Nitrite,Urine Negative (Negative); Protein,Urine Negative (Negative); Specific Gravity,Urine 1.018 (1.001-1.035); Urobilinogen,Urine <2.0 mg/dL (<2.0)
[2023-10-20 11:44] LABS: ALT 26 U/L (4-49); AST 28 U/L (17-59); African American GFR (CKD) >90 (>60 ml/min/1.73 sqM); Albumin 3.9 g/dL (3.5-5.0); Alkaline Phosphatase 72 U/L (38-126); Anion Gap 8 mmol/L; Blood Urea Nitrogen 21 mg/dL (9-20); Calcium 8.9 mg/dL (8.4-10.2); Carbon Dioxide 26 mmol/L (22-30); Chloride 104 mmol/L (98-107); Glucose 179 mg/dL (74-99); Lipase 179 U/L (23-300); Non-African American GFR(CKD) >90 (>60 ml/min/1.73 sqM); Potassium 4.2 mmol/L (3.5-5.1); Sodium 138 mmol/L (137-145); Total Bilirubin 0.7 mg/dL (0.2-1.3); Total Protein 6.8 g/dL (6.3-8.2)
--- NOTE | 2023-10-20 12:14 | XR ---
EXAMINATION TYPE: XR shoulder 3 views complete RT, XR knee complete 3 views bilateral DATE OF EXAM: 10/20/2023 Comparison: None Clinical History: 67-year-old male pain after fall Findings: Right shoulder: Loss of the subacromial space with a large inferior acromial spur. Findings indicate chronic full-thi ckness rotator cuff tear. Moderate degenerative joint space narrowing at the AC joint. No acute fract ure, subluxation, dislocation. Visualized right hemithorax is clear. Knees: There is tricompartmental degenerative spurring. At least moderate loss of cartilage and joint space particularly in the medial compartments as well as the right lateral compartment. Possible moderate t o severe in joint space narrowing in the patellofemoral compartments. On the left, there is a 2.8 cm loose body in the suprapatellar pouch and a small joint effusion. No acute fracture, subluxation, or dislocation. Impression: 1. Right shoulder: Findings of chronic full-thickness rotator cuff tear. Moderate AC joint OA. No acu te osseous modality seen. 2. Left knee: Tricompartmental osteoarthrosis, possible moderate to severe in the patellofemoral comp artment and moderate in the medial compartment. There is a 2.8 cm loose body in the suprapatellar shanon ch and small joint effusion. No acute osseous abnormality seen. 3. Right knee: Tricompartmental osteoarthrosis, moderate to severe in the patellofemoral compartment and moderate in the medial lateral compartments. No acute osseous abnormality seen.
[2023-10-20 13:32] VITALS: BP 101/68; PULSE 76; RESP 18
== END 2023-10-20 13:20 | disposition home or self-care (01) ==
LOC: EC 10:07
DX: M54.9 Dorsalgia, unspecified (principal); M17.0 Bilateral primary osteoarthritis of knee; R01.1 Cardiac murmur, unspecified; Z88.2 Allergy status to sulfonamides; Z88.8 Allergy status to other drugs, medicaments and biological substances; Z86.73 Personal history of transient ischemic attack (TIA), and cerebral infarction without residual deficits; W18.30XA Fall on same level, unspecified, initial encounter; Y93.01 Activity, walking, marching and hiking
CPT/HCPCS: 36415; 80053; 81003; 83690; 85025; 99283

== ENCOUNTER 2024-02-02 06:21 | Day surgery (SDC) | payer OTHER ==
[~2024-02-02 06:21] MED LIST changes: +ALPRAZolam 0.25 MG TAB PO PRN; +ALPRAZolam 0.5 MG TAB PO PRN; +ASPIRIN 325 MG TAB PO STA; +ATORVASTATIN 80 MG TAB PO STA; +HEPARIN SODIUM,PORCINE (1 ML) 2,500 UNIT in SODIUM CHLORIDE 0.9% 250 ML IRRIGATION PRN; +HEPARIN SODIUM,PORCINE 10,000 UNIT in SODIUM CHLORIDE 0.9% 1,000 ML IRRIGATION PRN; -LACTATED RINGERS 1,000 ML IV ONE; -LACTATED RINGERS 1,000 ML IV SCH; +NITROGLYCERIN SL TABS 0.4 MG TAB SUBLINGUAL PRN; -PROPOFOL 10 MG/ML 20 ML VIAL IV ONE
[2024-02-02] MEDS: SODIUM CHLORIDE 0.9% 1,000 ML in EMPTY BAG 1 BAG IV SCH (06:52)
[2024-02-02 06:54] VITALS: TEMP 98.8
[2024-02-02] MEDS: SODIUM CHLORIDE 0.9% 1,000 ML IV ONE (06:55)
[2024-02-02 06:56] LABS: Glucose,Whole Blood 146 mg/dL (70-110)
[2024-02-02 07:02] LABS: Basophils % (A) 0 %; Eosinophils # (A) 0.3 k/uL (0-0.7); Eosinophils % (A) 6 %; HCT 40.2 % (39.0-53.0); Lymphocytes # (A) 1.1 k/uL (1.0-4.8); Lymphocytes % (A) 25 %; MCH 30.6 pg (25.0-35.0); MCHC 32.3 g/dL (31.0-37.0); MCV 94.8 fL (80.0-100.0); Monocytes # (A) 0.3 k/uL (0-1.0); Monocytes % (A) 6 %; Neutrophils # (A) 2.8 k/uL (1.3-7.7); Neutrophils % (A) 61 %; Platelet Count 138 k/uL (150-450); RBC 4.25 m/uL (4.30-5.90); RDW 15.2 % (11.5-15.5); WBC 4.5 k/uL (3.8-10.6)
[2024-02-02 07:16] LABS: African American GFR (CKD) >90 (>60 ml/min/1.73 sqM); Anion Gap 7 mmol/L; Blood Urea Nitrogen 18 mg/dL (9-20); Calcium 8.3 mg/dL (8.4-10.2); Carbon Dioxide 26 mmol/L (22-30); Chloride 105 mmol/L (98-107); Glucose 148 mg/dL (74-99); Non-African American GFR(CKD) >90 (>60 ml/min/1.73 sqM); Sodium 138 mmol/L (137-145)
[2024-02-02 07:21] LABS: Potassium 4.7 mmol/L (3.5-5.1)
[2024-02-02] MEDS: LIDOCAINE 1% INJ 10MG/ML (20 ML MDV) SQ ONE ×2 (07:32→07:36)
[2024-02-02] MEDS: fentaNYL (PF) 50 MCG/ML 2 ML AMP IVP ONE (07:32)
[2024-02-02] MEDS: MIDAZOLAM 2 MG/2 ML VIAL IVP ONE (07:34)
[2024-02-02] MEDS: VERAPAMIL SYRINGE (5 MG/10 ML) INTRAARTER ONE (07:34)
[2024-02-02] MEDS: HEPARIN SODIUM 1,000 UN/ML (10ML VL) IVP ONE (07:41)
[2024-02-02] MEDS: HEPARIN SODIUM (1,000 UNIT/ML) 1,000 UNIT in SODIUM CHLORIDE 0.9% 1,000 ML IRRIGATION ONE (07:42)
[2024-02-02] MEDS: HEPARIN SODIUM,PORCINE (1 ML) 2,500 UNIT in SODIUM CHLORIDE 0.9% 250 ML IRRIGATION ONE (07:42)
[2024-02-02] MEDS: IOPAMIDOL-370 100ML BTL INJ ONE (07:52)
[2024-02-02] MEDS ORDERED: RX INFO: IV CONTRAST WAS GIVEN 1 EACH MISC MISCELLANE PRN (08:02)
--- NOTE | 2024-02-02 08:07 | P.CARDCATH ---
Date of Procedure: 02/02/24 Description of Procedure: Cardiac Catheterization: The patient is a 68-year-old male with a known history of hypertension, hyperlipidemia and diabetes who presented with symptoms of dyspnea and episodes of chest discomfort. He had an abnormal MPI. Recommendations were made regarding cardiac catheterization, the risks and the complications were discussed with the patient who is in full understanding and agreement. Procedure Description: Patient was brought to liaison inspection laboratory assistant in fasting semi-sedated state after receiving Fentanyl and Benadryl achieiving moderate conscious sedated state. Using Xylocaine Anesthesia and modified Seldinger technique, a 6-Cuban sheath was introduced in the right radial artery . Subsequently, selective coronary angiography was performed using a 5-Cuban 3.5 bend [place] catheter. Multiple views of the coronary artery including hemiaxial views were obtained.Following that, catheter and sheath were removed. Hemostasis was obtained with deployment of vascular band . There was no immediate complication. Patient was returned to room in stable condition. Of note, the patient received a total of 5000 units of intravenous heparin as well as intra- arterial verapamil. Findings: Left main: This is a short size vessel, bifurcating into LAD and left circumflex, left main has no obstructive disease LAD: This is a large size vessel, reaching to the apex giving rise to a large diagonal branch proximally, the LAD and its branches have no obstructive disease Left circumflex: This is a dominant vessel large in caliber giving rise to 2 obtuse marginal branch, the first 1 is very proximal. Distally bifurcating into PDA and PLV. The left circumflex and its branches have no evidence of significant obstructive disease RCA: This is a small nondominant vessel that has no evidence of high-grade stenosis Conclusion: 1. Normal coronary arteries 2. Left dominance Recommendations: I have recommended to continue medical therapy with the aggressive coronary risks modification initiated. The findings and the recommendations were discussed with the patient and the family and they were in full understanding and agreement. Duration of sedation is 18 minutes.
[2024-02-02] MEDS ORDERED: SODIUM CHLORIDE 0.9% 1,000 ML IV SCH (08:15)
[2024-02-02] MEDS: oxyCODONE-APAP 7.5-325MG 1 EACH TAB PO SCH (08:57)
[2024-02-02 10:10] VITALS: RESP 16
[2024-02-02 10:58] VITALS: BP 122/69; PULSE 73
[2024-02-02] MEDS ORDERED: PANTOPRAZOLE 40 MG TABLET PO SCH (17:30)
[2024-02-02] MEDS ORDERED: lisinopriL 5 MG TAB PO SCH (21:00)
[2024-02-02] MEDS ORDERED: TAMSULOSIN 0.4 MG CAP.ER.24H PO SCH (21:00)
[2024-02-02] MEDS ORDERED: ATORVASTATIN 80 MG TAB PO SCH (21:00)
[2024-02-02] MEDS ORDERED: DONEPEZIL 5 MG TAB PO SCH (21:00)
[2024-02-02] MEDS ORDERED: METOPROLOL TARTRATE 50 MG TAB PO SCH (21:00)
[2024-02-03] MEDS ORDERED: LEVOTHYROXINE 125 MCG TAB PO SCH (06:30)
== END 2024-02-02 11:41 | disposition home or self-care (01) ==
LOC: CATHCVL 06:21
PROVIDERS: ATTEND Internal Medicine Interventional Cardiology
DX: R07.89 Other chest pain (principal); R94.39 Abnormal result of other cardiovascular function study; R06.09 Other forms of dyspnea; I48.11 Longstanding persistent atrial fibrillation; I48.92 Unspecified atrial flutter; I42.9 Cardiomyopathy, unspecified; I10 Essential (primary) hypertension; E11.9 Type 2 diabetes mellitus without complications; E78.2 Mixed hyperlipidemia; I08.3 Combined rheumatic disorders of mitral, aortic and tricuspid valves; G47.33 Obstructive sleep apnea (adult) (pediatric); E66.01 Morbid (severe) obesity due to excess calories; Z68.42 Body mass index [BMI] 45.0-49.9, adult; Z79.01 Long term (current) use of anticoagulants; Z79.4 Long term (current) use of insulin; Z79.85 Long-term (current) use of injectable non-insulin antidiabetic drugs; Z79.84 Long term (current) use of oral hypoglycemic drugs; Z79.890 Hormone replacement therapy; Z79.899 Other long term (current) drug therapy; Z87.891 Personal history of nicotine dependence; Z86.73 Personal history of transient ischemic attack (TIA), and cerebral infarction without residual deficits; Z88.2 Allergy status to sulfonamides; Z82.49 Family history of ischemic heart disease and other diseases of the circulatory system
CPT/HCPCS: 93454; 80048; 85025; C1769 ×2; C1894; J2250; J1644 ×2; J2003; J3010; Q9967

== ENCOUNTER → 2024-03-01 | Outpatient (CLI) | payer OTHER | END | disposition home or self-care (01) | LOC: LABPRL 12:41 | PROVIDERS: ATTEND Nurse Practitioner Family | DX: K86.1 Other chronic pancreatitis (principal) | CPT/HCPCS: 82653 ==